=== PATIENT | female | born 1945 | race Two or more races ===

== ENCOUNTER 2016-06-04 13:44 | Inpatient (IN) | payer OTHER ==
--- NOTE | 2016-06-04 14:35 | PDOC ---
History of Present Illness - General History Source: Patient Exam Limitations: No Limitations - History of Present Illness Initial Comments: 06/04/16 18:41 The patient is a 70 year old female, with significant past medical history of HTN, HLD, GERD, hypothyroidism, seizures, renal transplant (25 years ago), CVA, who presents to the emergency room complaining of 1 week of body aches. The patient states that 1 week ago she began experiencing bilateral leg tightness, heaviness, and cramping that was exacerbated upon walking. Approximately 2 days ago she started to experience upper back pain that began to radiate to the chest and shoulders. She reports a dry cough. She notes that she also began to experience RUQ pain. The patients daughter had to escort the patient out of [place] this morning because she was shaky and weak secondary to the leg pain. She notes that she visited Dr. Lunsford office 4 days ago after gaining 6 pounds of water weight and was started on Lasix. Denies recent injuries. Denies recent falls. Denies nausea, vomiting, fever, chills, sweats. Denies diarrhea, constipation, melena. Denies urinary changes, hematuria. Denies history of blood clots. PCP: Dr. Mehta Allergies: codiene <Stephany Canales - Last Filed: 06/04/16 18:41> - General History Source: Patient Exam Limitations: No Limitations <Michael Carranza - Last Filed: 06/04/16 19:12> - General Chief Complaint: Pain Stated Complaint: ANXIETY Time Seen by Provider: 06/04/16 14:10 Past History <Stephany Canales - Last Filed: 06/04/16 18:41> - Past Medical History Cardiac Disorders: Yes (CARDIOMEGALY, pericarditis) CVA: Yes Dialysis: No (HX OF DIALYSIS S/P) HTN: Yes Hypercholesterolemia: Yes Suicide Attempt (Hx): No Seizures: Yes Thyroid Disease: Yes - Surgical History Abdominal Surgery: Yes (UMBILICAL HERNIA) Cardiac Surgery: Yes (percardial window,CARD CATH NO STENTS) - Psycho/Social/Smoking Cessation Hx Anxiety: No (DENIES) Suicidal Ideation: No Smoking Status: No Smoking History: Never smoked Have you smoked in the past 12 months: No Number of Cigarettes Smoked Daily: 0 Hx Alcohol Use: No Drug/Substance Use Hx: No Substance Use Type: None Hx Substance Use Treatment: No <Michael Carranza - Last Filed: 06/04/16 19:12> - Past Medical History Allergies/Adverse Reactions: Allergies Allergy/AdvReac Type Severity Reaction Status Date / Time codeine Allergy Intermediate Vomiting Verified 06/04/16 13:49 Home Medications: Ambulatory Orders Levothyroxine [Synthroid -] 75 mcg PO DAILY 03/07/12 Prednisone [Deltasone -] 5 mg PO DAILY 07/11/13 Azathioprine [Imuran] 100 mg PO DAILY 12/20/14 Diltiazem Cd [Cardizem Cd -] 240 mg PO DAILY 01/12/15 Acetaminophen [Tylenol .Regular Strength -] 650 mg PO Q6H PRN #0 tablet Albuterol Sulfate Inhaler - [Ventolin Hfa Inhaler -] 2 inh PO Q4H 06/04/16 Amoxicillin/Potassium Clav [Amox-Clav 875-125 mg Tablet] 1 each PO BID 06/04/16 Aspirin [ASA -] 81 mg PO DAILY 06/04/16 Fluticasone Prop 0.05% Nasal [Flonase -] 1 - 2 spray NS DAILY 06/04/16 Fluticasone Propionate [Flovent Diskus] 2 puff IH DAILY 06/04/16 Furosemide [Lasix -] 40 mg PO DAILY 06/04/16 Linaclotide [Linzess] 290 mcg PO DAILY 06/04/16 Multivit-Min/FA/Lycopen/Lutein [Centrum Silver Tablet] 1 each PO DAILY 06/04/16 Polyethylene Glycol 3350 [Miralax (For Daily Use) -] 17 gm PO DAILY 06/04/16 Umeclidinium [place] [Incruse Ellipta] 1 puff IH DAILY 06/04/16 Review of Systems - Review of Systems Able to Perform ROS?: Yes Comments:: 06/04/16 18:41 CONSTITUTIONAL: No reported: Fever, Chills, Diaphoresis, Generalized Weakness, Malaise, Loss of Appetite HEENT: No reported: Rhinorrhea, Nasal Congestion, Throat Pain, Throat Swelling, Difficulty Swallowing, Mouth Swelling, Ear Pain, Eye Pain, Visual Changes CARDIOVASCULAR: Reported: chest pain No reported: Syncope, Palpitations, Irregular Heart Rate, Lightheadedness, Peripheral Edema RESPIRATORY: Reported: SOB (chronic), dry cough No reported: SOB with Exertion, Orthopnea, Wheezing, Stridor, Hemoptysis GASTROINTESTINAL: Reported: RUQ pain No reported: Abdominal Distension, Nausea, Vomiting, Diarrhea, Constipation, Melena, Hematochezia GENITOURINARY: No reported: Dysuria, Frequency, Urgency, Hesitancy, Flank Pain, Genital Pain MUSCULOSKELETAL: Reported: shoulder pain, upper back pain, bilateral leg tightness and cramping. No reported: Myalgia, Arthralgia, Joint Swelling, Neck Pain SKIN: No reported: Rash, Itching, Pallor HEMEATOLOGIC/IMMUNOLOGIC: No reported: Easy Bleeding, Easy Bruising, Lymphadenopathy, Frequent infections ENDOCRINE: No reported: Unexplained Weight Gain, Unexplained Weight Loss, Heat Intolerance , Cold Intolerance NEUROLOGIC: No reported: Headache, Focal Weakness, Paresthesias, Vertigo, Lightheadedness, Unsteady Gait, Seizure, Mental Status Changes, Incontinence PSYCHIATRIC: No reported: Anxiety, Depression <Stephany Canales - Last Filed: 06/04/16 18:41> *Physical Exam - Vital Signs Last Vital Signs Temp Pulse Resp BP Pulse Ox 98.4 F 78 17 116/76 98 06/04/16 13:45 06/04/16 18:22 06/04/16 18:22 06/04/16 18:22 06/04/16 18:22 - Physical Exam Comments: 06/04/16 18:42 GENERAL: The patient is awake, alert, and fully oriented, Nontoxic - in no acute distress. HEAD: Normocephalic, atraumatic. EYES: extraocular movements intact, sclera anicteric, conjunctiva clear. ENT: Normal voice, Moist mucous membranes. NECK: Normal range of motion, supple, mild tenderness over the trapezius b/l, LUNGS: Breath sounds equal, clear to auscultation bilaterally. No wheezes, no rhonchi, no rales. HEART: Regular rate and rhythm, normal S1 and S2 without murmur, rub or gallop. ABDOMEN: Mild RUQ tenderness, no tenderness over transplanted kd[place], no rebound/ guarding, no midline tenderness in the spine EXTREMITIES: Normal range of motion, no edema. No clubbing or cyanosis. No cords, erythema, or tenderness. NEUROLOGICAL: No facial assymetry, Normal speech, PSYCH: Normal mood, normal affect. SKIN: Warm, Dry, normal turgor, <Stephany Canales - Last Filed: 06/04/16 18:41> - Vital Signs Last Vital Signs Temp Pulse Resp BP Pulse Ox 98.4 F 107 H 20 134/63 97 06/04/16 13:45 06/04/16 13:45 06/04/16 13:45 06/04/16 13:45 06/04/16 13:45 <Michael Carranza - Last Filed: 06/04/16 19:12> Heart Score/ECG Review - ECG Impressions Comment:: 06/04/16 14:59 Twelve-lead EKG was performed and reviewed by me. There is normal sinus rhythm with a normal rate. rate of [address] changes suggestive of acute ischemia When compared with prior EKG dated 12/27/2015 the patient's heart rate has decreased otherwise there are no significant changes noted <Michael Carranza - Last Filed: 06/04/16 19:12> ED Treatment Course - LABORATORY CBC & Chemistry Diagram: 06/04/16 15:00 06/04/16 15:00 - ADDITIONAL ORDERS Additional order review: Laboratory Results 06/04/16 06/04/16 06/04/16 17:42 15:00 15:00 INR 1.12 Sodium Potassium Chloride Carbon Dioxide Anion Gap BUN Creatinine Creat Clearance w eGFR Random Glucose Lactic Acid 1.946 Calcium Magnesium Total Bilirubin AST ALT Alkaline Phosphatase Creatine Kinase Troponin I B-Natriuretic Peptide Total Protein Albumin Lipase TSH Urine Color Ltyellow Urine Appearance Clear Urine pH 5.0 Ur Specific [place] 1.011 Urine Protein Negative Urine Glucose (UA) Negative Urine Ketones Negative Urine Blood Negative Urine Nitrite Negative Urine Bilirubin Negative Urine Urobilinogen Negative Ur Leukocyte Esterase 2+ H Urine RBC 2 Urine WBC 24 Ur Epithelial Cells Rare Blood Type Antibody Screen 06/04/16 06/04/16 15:00 15:00 INR Sodium 140 Potassium 3.7 Chloride 101 Carbon Dioxide 27 Anion Gap 12 BUN 21 H D Creatinine 1.1 H D Creat Clearance w eGFR 49.39 Random Glucose 76 Lactic Acid Calcium 8.6 Magnesium 1.9 Total Bilirubin 0.4 D AST 14 L ALT 15 Alkaline Phosphatase 60 Creatine Kinase 50 Troponin I < 0.02 B-Natriuretic Peptide 344.33 H Total Protein 7.6 Albumin 3.4 Lipase 181 TSH 0.90 D Urine Color Urine Appearance Urine pH Ur Specific [place] Urine Protein Urine Glucose (UA) Urine Ketones Urine Blood Urine Nitrite Urine Bilirubin Urine Urobilinogen Ur Leukocyte Esterase Urine RBC Urine WBC Ur Epithelial Cells Blood Type O POSITIVE Antibody Screen Negative 06/04/16 15:00 RBC 3.84 MCV 100.1 H MCHC 33.1 RDW 16.2 H MPV 9.7 Neutrophils % 78.9 D Lymphocytes % 10.0 D Monocytes % 10.3 H Eosinophils % 0.2 D Basophils % 0.6 - Medications Given in the ED: ED Medications Discontinued Medications Generic Name Dose Route Start Last Admin Trade Name Jessica PRN Reason Stop Dose Admin Acetaminophen 650 mg 06/04/16 14:57 06/04/16 15:22 Tylenol - PO 06/04/16 14:58 650 mg ONCE ONE Administration Sodium Chloride 500 mls @ 500 mls/hr 06/04/16 14:57 06/04/16 15:21 Normal Saline - IV 06/04/16 15:56 500 mls/hr ASDIR STA Administration <Stephany Canales - Last Filed: 06/04/16 18:41> - LABORATORY CBC & Chemistry Diagram: 06/04/16 15:00 06/04/16 15:00 - RADIOLOGY Radiology Studies Ordered: Category Date Time Status CHEST X-RAY PORTABLE* [RAD] Stat Radiology 06/04/16 14:27 Ordered <Michael Carranza - Last Filed: 06/04/16 19:12> Medical Decision Making - Medical Decision Making 06/04/16 14:35 70y F hx htn, gerd, diverticulosis, hypothyroidism, gout, sz, pancreatic cyst, gb disease, renal transplant 25 yrs ago on imuran, cva, pericarditis s/p percardial window, hl, presents with a confusing story - mostly 1 week of b/l leg pain/cramping and and then starting 2 days ago, upper back pain and this morning chest pain and ruq pain without associated diaphoresis, n/v, f/c, diarrhea, dysuria, cough. differential is wide for the pt and includes acs, gb disease, pancreatitis, sepsis as pt is immunosupressed, will ck labs, lactic acid, cxr, ua, cultures will reassess will give tylenol, fluids A portion of this note was documented by scribe services under my direction. I have reviewed the details of the note, within reason, and agree with the documentation with the following case summary and management plan written by me 06/04/16 18:35 labs reviewed noted for leukcotysosis ua possible UTI - will give abx will obtain CT abdmoen UA is not convincing will notify dr. mehta regardin admission 06/04/16 19:[address] mehta agreed with admission and abx for uti as pt is immunosupressed. also agrees with abdomen ct stable for admision to med/surg Case discussed in detail with admitting physician including history, physical exam and ancillary studies. Admitting physician has assumed care for the patient, will follow all pending diagnostics and will complete the evaluation and treatment. <Michael Carranza - Last Filed: 06/04/16 19:12> *DC/Admit/Observation/Transfer - Attestations Scribe Attestion: 06/04/16 18:42 Documentation prepared by KATHERINE Guevara, acting as medical review coordinator for Michael Carrazna MD. <Stephany Canales - Last Filed: 06/04/16 18:41> - Discharge Dispostion Admit: Yes <Michael Carranza - Last Filed: 06/04/16 19:12> Diagnosis at time of Disposition: Body aches UTI (urinary tract infection) Qualifiers: Urinary tract infection type: site unspecified Hematuria presence: with hematuria Qualified Code(s): N39.0 - Urinary tract infection, site not specified ; R31.9 - Hematuria, unspecified - Discharge Dispostion Disposition: HOME Condition at time of disposition: Guarded - Referrals Referrals: Amelia Mehta [Primary Care Provider] -
[2016-06-04] MEDS ORDERED: SODIUM CHLORIDE 500 ML IV STA (14:57)
[2016-06-04] MEDS ORDERED: ACETAMINOPHEN 325 MG TABLET (FP) PO ONE (14:57)
[2016-06-04] MEDS ORDERED: ACETAMINOPHEN 325 MG TABLET (FP) ONE (15:14)
[2016-06-04 15:18] LABS: BASOPHIL 0.6 % (0-2.0); EOSINOPHIL 0.2 % (0-4.5); MCH 33.2 pg (25.7-33.7); MCHC 33.1 g/dl (32.0-36.0); MEAN CELL VOLUME 100.1 fl (80-96); MEAN PLT VOLUME 9.7 fl (7.5-11.1); NEUTROPHILS 78.9 % (42.8-82.8); PLATELET COUNT 239 K/MM3 (134-434); RDW 16.2 % (11.6-15.6); WHITE BLOOD COUNT 16.9 K/mm3 (4.0-10.0)
[2016-06-04 15:31] LABS: INR 1.12 (0.82-1.09); PROTHROMBIN TIME (PATIENT) 12.3 SEC (9.98-11.88)
[2016-06-04 15:47] LABS: ALBUMIN 3.4 g/dl (3.4-5.0); ANION GAP 12 (8-16); CALCIUM 8.6 mg/dL (8.5-10.1); CO2 27 mmol/L (21-32); CREATININE 1.1 mg/dL (0.55-1.02); GLUCOSE,RANDOM 76 mg/dL (74-106); MAGNESIUM 1.9 mg/dL (1.8-2.4); SGOT/AST 14 U/L (15-37); SGPT/ALT 15 U/L (12-78)
[2016-06-04 15:58] LABS: ALK PHOS 60 U/L (45-117); BILIRUBIN,TOTAL 0.4 mg/dL (0.2-1.0); TOT PROT 7.6 g/dl (6.4-8.2); TROPONIN I < 0.02 ng/ml (0.00-0.05)
--- NOTE | 2016-06-04 17:11 | EKG ---
Test Reason : Blood Pressure : / mmHG Vent. Rate : 097 BPM Atrial Rate : 097 BPM P-R Int : 158 ms QRS Dur : 104 ms QT Int : 358 ms P-R-T Axes : 057 -59 055 degrees QTc Int : 454 ms NORMAL SINUS RHYTHM POSSIBLE LEFT ATRIAL ENLARGEMENT LEFT ANTERIOR FASCICULAR BLOCK LEFT VENTRICULAR HYPERTROPHY ABNORMAL ECG WHEN COMPARED WITH ECG OF 27-DEC-2015 06:25, NO SIGNIFICANT CHANGE WAS FOUND Confirmed by GREER DOWNS MD ([id number]) on 06/04/2016 5:11:11 PM Referred By: Confirmed By:GREER DOWNS MD
[2016-06-04 17:49] LABS: URINE APPEARANCE CLEAR; URINE BILIRUBIN NEGATIVE (NEGATIVE); URINE BLOOD NEGATIVE (NEGATIVE); URINE COLOR LTYELLOW; URINE GLUCOSE (UA) NEGATIVE (NEGATIVE); URINE KETONE NEGATIVE (NEGATIVE); URINE NITRITE NEGATIVE (NEGATIVE); URINE PROTEIN NEGATIVE (NEGATIVE); URINE UROBILINOGEN NEGATIVE E.U./dl (0.2-1.0)
[2016-06-04 17:54] LABS: URINE LEUK ESTERASE 2+ (NEGATIVE)
[2016-06-04 17:55] LABS: URINE RBC 2 /hpf (0-3); URINE WBC 24 /hpf (3-5)
[2016-06-04] MEDS ORDERED: CEFTRIAXONE 1 GM in DEXTROSE 5%-WATER - 50 ML IVPB ONE (18:37)
[2016-06-04] MEDS ORDERED: CEFTRIAXONE 50 ML ONE (19:14)
[2016-06-04] MEDS ORDERED: ALBUTEROL SO4 6.7 GM HFA INHALER IH PRN (19:45)
[2016-06-04 22:16] VITALS: BMI 27.3
[2016-06-04] MEDS: HEPARIN NA (PORCINE) 5,000 UNITS/ML 1ML VIAL SQ SCH (22:42)
[2016-06-05] MEDS: LEVOTHYROXINE NA 75 MCG TABLET (FP) PO SCH (06:10)
[2016-06-05 07:54] LABS: BASOPHIL 0.4 % (0-2.0); EOSINOPHIL 0.3 % (0-4.5); MCH 33.5 pg (25.7-33.7); MCHC 33.5 g/dl (32.0-36.0); MEAN CELL VOLUME 99.9 fl (80-96); MEAN PLT VOLUME 9.5 fl (7.5-11.1); NEUTROPHILS 74.6 % (42.8-82.8); PLATELET COUNT 212 K/MM3 (134-434); RDW 15.9 % (11.6-15.6); WHITE BLOOD COUNT 13.7 K/mm3 (4.0-10.0)
[2016-06-05 08:09] LABS: ALBUMIN 2.9 g/dl (3.4-5.0); BILIRUBIN,TOTAL 0.6 mg/dL (0.2-1.0); CALCIUM 8.3 mg/dL (8.5-10.1); COCKROFT - GAULT 54.043; TOT PROT 6.7 g/dl (6.4-8.2)
--- NOTE | 2016-06-05 08:41 | CON.CARD ---
Consult Consult Specialty:: cardio Referred by:: keily Reason for Consultation:: body pain - History of Present Illness Chief Complaint: same History of Present Illness: 70 year old female presents to the emergency room complaining of 1 week of body aches. The patient states that 1 week ago she began experiencing bilateral leg tightness, heaviness, and cramping AT REST, that was exacerbated upon walking. then 2 days ago she started to experience upper back pain that began to radiate to the chest and shoulders. She notes that she also began to experience RUQ pain. The patients daughter had to escort the patient out of [facility] [place] because she was shaky and weak secondary to the leg pain. dt also says she was very breathless at that time, looking like she had jogged. pt notes the sob she's had before, with neg cath for this (below) returned couple days ago, only when walking. denies orthopnea. sob resolves when rests. had cath approx 6 mo ago for exertional chest tightness to throat with sob-- cath no CAD, normal right heart pressures; treated by dr guerra for asthma--sx's resolved. prior statin intolerances. started red yeast rice around 6 mo ago. told to stop it when saw me a week ago c/o bilat leg pains. pains are at rest, worse with walking. often when resting however. not felt c/w PAD has had no recent cp, sob. 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 No: None, AAA Repair, AICD , Amputation, Appendectomy, Arthrosocopy, AV Fistula/Graft, Bariatric Surgery, Breast Biopsy, Bypass, CABG, Carotid Endarterectomy, Cataract Removal, Cholecystectomy, Colectomy, Colonoscopy, Colostomy, Craniotomy, , Cystectomy, Hysterectomy, Ileal Conduit, Ileosotomy, Joint Replacement, Kidney Transplant, Laminectomy, Liver Transplant, Mastectomy, Nephrectomy, Oopherectomy , Orchiectomy, Permanent Pacemaker, Prostatectomy, Splenectomy, Stent, Thoracotomy, TURP, Tonsillectomy, Tubal Ligation, Upper Endoscopy, Valve Replacement, Vasectomy, Vein Stripping/Ligation - Alcohol/Substance Use Hx Alcohol Use: No History of Substance Use: reports: None - Smoking History Smoking history: Never smoked Have you smoked in the past 12 months: No Aproximately how many cigarettes per day: 0 - Social History ADL: Independent History of Recent Travel: No Home Medications - Allergies Allergies/Adverse Reactions: Allergies Allergy/AdvReac Type Severity Reaction Status Date / Time codeine Allergy Intermediate Vomiting Verified 06/04/16 13:49 - Home Medications Home Medications: Ambulatory Orders Levothyroxine [Synthroid -] 75 mcg PO DAILY 03/07/12 Prednisone [Deltasone -] 5 mg PO DAILY 07/11/13 Azathioprine [Imuran] 100 mg PO DAILY 12/20/14 Diltiazem Cd [Cardizem Cd -] 240 mg PO DAILY 01/12/15 Acetaminophen [Tylenol .Regular Strength -] 650 mg PO Q6H PRN #0 tablet Albuterol Sulfate Inhaler - [Ventolin Hfa Inhaler -] 2 inh PO Q4H 06/04/16 Amoxicillin/Potassium Clav [Amox-Clav 875-125 mg Tablet] 1 each PO BID 06/04/16 Aspirin [ASA -] 81 mg PO DAILY 06/04/16 Fluticasone Prop 0.05% Nasal [Flonase -] 1 - 2 spray NS DAILY 06/04/16 Fluticasone Propionate [Flovent Diskus] 2 puff IH DAILY 06/04/16 Furosemide [Lasix -] 40 mg PO DAILY 06/04/16 Linaclotide [Linzess] 290 mcg PO DAILY 06/04/16 Multivit-Min/FA/Lycopen/Lutein [Centrum Silver Tablet] 1 each PO DAILY 06/04/16 Polyethylene Glycol 3350 [Miralax (For Daily Use) -] 17 gm PO DAILY 06/04/[address] [place] [Incruse Ellipta] 1 puff IH DAILY 06/04/16 Family Disease History - Family Disease History Family Disease History: CA: Sister (breast) Vital Signs: Vital Signs Temperature 98.7 F 06/05/16 06:00 Pulse Rate 90 06/05/16 06:00 Respiratory Rate 20 06/05/16 06:00 Blood Pressure 118/62 06/05/16 06:00 O2 Sat by Pulse Oximetry (%) 98 06/04/16 22:21 - Other Data Labs, Other Data: CBC, BMP 06/05/16 06:20 06/05/16 06:20 INR, PTT INR 1.12 (0.82-1.09) 06/04/16 15:00 Laboratory Tests 12/27/15 12/27/15 12/27/15 06:37 06:50 06:50 WBC 10.8 H Hgb 11.7 Plt Count 176 D Sodium 142 Potassium 3.8 Carbon Dioxide 24 BUN 21 H Creatinine 1.1 H D Lactic Acid 3.545 H* AST 29 D ALT 34 D Creatine Kinase 63 Troponin I < 0.02 B-Natriuretic Peptide TSH 12/27/15 06/04/16 06/05/16 08:50 15:00 06:20 WBC 13.7 H Hgb 12.1 Plt Count 212 Sodium Potassium Carbon Dioxide BUN Creatinine Lactic Acid 3.144 H* AST ALT Creatine Kinase 50 Troponin I < 0.02 B-Natriuretic Peptide 344.33 H TSH 0.90 D 06/05/16 06:20 WBC Hgb Plt Count Sodium 139 Potassium 4.2 Carbon Dioxide 26 BUN 15 D Creatinine 1.0 Lactic Acid AST 13 L ALT 10 L D Creatine Kinase Troponin I B-Natriuretic Peptide TSH ekg: no change vs prior (NSR, LVH/LAFB, no isch ST-Ts) Imaging - Results Chest X-ray: Image Reviewed Assessment/Plan L and R heart cath 2016: no obstructive cad, no signif pulm HTN multifocal pains: bilat LEs (at rest), abdomen, back: -not c/w statin myalgia from low dose red yeast rice (i.e. very low potency regimen), CPK normal -CXR, CT abdomen pending -plan per pmd SOB: -her chronic BECKWITH sx's are not cardiac--normal left and right heart cath/cor angiogram 12/11 for same. -improved with asthma tx (dr guerra) but returned for couple of days now -per pulm, dr michaud--? MDI adjustment -BNP 300s here, underwhelming -no phys exam evidence of vol excess -cxr my review: mild incr'd markings diffusely, no cephalization, no R effusion ; retrocardiac/L base obscured--r/o infiltrate/effusion -ECG no ischemic changes -trop neg yest, will repeat though ACS is clinically unlikely HTN: -bp stable, controlled -cont home meds HPL: -cont holding red yeast rice for now -noncompliant with zetia previously -will readdress as outpt h/o exertional cp/sob--ASTHMA SX: -resolved with asthma tx
--- NOTE | 2016-06-05 08:43 | HP ---
Admitting History and Physical - Primary Care Physician PCP: Amelia Mehta - Admission Chief Complaint: CP, shaking chills, body aches History of Present Illness: The patient is a 70 year old female, with significant past medical history of HTN, HLD, GERD, hypothyroidism, seizures, renal transplant (25 years ago), CVA, who presents to the emergency room complaining of 1 week of body aches. The patient states that 1 week ago she began experiencing bilateral leg tightness, heaviness, and cramping that was exacerbated upon walking. Approximately 2 days ago she started to experience upper back pain that began to radiate to the chest and shoulders. She reports a dry cough. She notes that she also began to experience RUQ pain. The patients daughter had to escort the patient out of [place] this morning because she was shaky and weak secondary to the leg pain. She notes that she visited me in office 4 days ago after gaining 5-6 pounds of water weight and was started on Lasix. 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 No: None, AAA Repair, AICD , Amputation, Appendectomy, Arthrosocopy, AV Fistula/Graft, Bariatric Surgery, Breast Biopsy, Bypass, CABG, Carotid Endarterectomy, Cataract Removal, Cholecystectomy, Colectomy, Colonoscopy, Colostomy, Craniotomy, , Cystectomy, Hysterectomy, Ileal Conduit, Ileosotomy, Joint Replacement, Kidney Transplant, Laminectomy, Liver Transplant, Mastectomy, Nephrectomy, Oopherectomy , Orchiectomy, Permanent Pacemaker, Prostatectomy, Splenectomy, Stent, Thoracotomy, TURP, Tonsillectomy, Tubal Ligation, Upper Endoscopy, Valve Replacement, Vasectomy, Vein Stripping/Ligation - Advance Directives Advance Directives: Yes: Health Care Proxy - Smoking History Smoking history: Never smoked Have you smoked in the past 12 months: No Aproximately how many cigarettes per day: 0 - Alcohol/Substance Use Hx Alcohol Use: No History of Substance Use: reports: None - Social History Usual Living Arrangement: Yes: With Child ADL: Independent History of Recent Travel: No Home Medications - Allergies Allergies/Adverse Reactions: Allergies Allergy/AdvReac Type Severity Reaction Status Date / Time codeine Allergy Intermediate Vomiting Verified 06/04/16 13:49 - Home Medications Home Medications: Ambulatory Orders Levothyroxine [Synthroid -] 75 mcg PO DAILY 03/07/12 Prednisone [Deltasone -] 5 mg PO DAILY 07/11/13 Azathioprine [Imuran] 100 mg PO DAILY 12/20/14 Diltiazem Cd [Cardizem Cd -] 240 mg PO DAILY 01/12/15 Acetaminophen [Tylenol .Regular Strength -] 650 mg PO Q6H PRN #0 tablet Albuterol Sulfate Inhaler - [Ventolin Hfa Inhaler -] 2 inh PO Q4H 06/04/16 Amoxicillin/Potassium Clav [Amox-Clav 875-125 mg Tablet] 1 each PO BID 06/04/16 Aspirin [ASA -] 81 mg PO DAILY 06/04/16 Fluticasone Prop 0.05% Nasal [Flonase -] 1 - 2 spray NS DAILY 06/04/16 Fluticasone Propionate [Flovent Diskus] 2 puff IH DAILY 06/04/16 Furosemide [Lasix -] 40 mg PO DAILY 06/04/16 Linaclotide [Linzess] 290 mcg PO DAILY 06/04/16 Multivit-Min/FA/Lycopen/Lutein [Centrum Silver Tablet] 1 each PO DAILY 06/04/16 Polyethylene Glycol 3350 [Miralax (For Daily Use) -] 17 gm PO DAILY 06/04/16 Umeclidinium [place] [Incruse Ellipta] 1 puff IH DAILY 06/04/16 Family Disease History - Family Disease History Family Disease History: CA: Sister (breast) Review of Systems - Review of Systems Constitutional: reports: Chills, Fever. denies: Diaphoresis, Lethargy Eyes: denies: Blind Spots, Blurred Vision, Double Vision, Eye Pain HENT: denies: Difficult Swallowing, Ear Pain Neck: denies: Stiffness, Tenderness Cardiovascular: reports: Chest Pain (with moving and breathing), Edema (feet 1+ bilateral). denies: Palpitations, Shortness of Breath Respiratory: denies: Cough, SOB Gastrointestinal: reports: Abdominal Pain. denies: Bloating, Constipation, Diarrhea, Vomiting Genitourinary: denies: Dysuria, Flank Pain Musculoskeletal: denies: Back Pain, Muscle Weakness Integumentary: denies: Bruising, Rash Neurological: denies: Change in LOC, Change in Speech, Confusion, Seizure, Syncope Hematology/Lymphatic: denies: Easily Bruised, Excessive Bleeding Psychiatric: denies: Altered Sleep Pattern, Anxiety, Depression, Suicidal Physical Examination Vital Signs: Vital Signs Temperature 98.7 F 06/05/16 06:00 Pulse Rate 90 06/05/16 06:00 Respiratory Rate 20 06/05/16 06:00 Blood Pressure 118/62 06/05/16 06:00 O2 Sat by Pulse Oximetry (%) 98 06/04/16 22:21 Constitutional: Yes: No Distress, Calm Eyes: Yes: Conjunctiva Clear HENT: Yes: Atraumatic Neck: Yes: Supple Cardiovascular: Yes: Regular Rate and Rhythm Respiratory: Yes: CTA Bilaterally Gastrointestinal: Yes: Soft, Tenderness (all over, mild). No: Distention Renal/: No: CVA Tenderness - Left, CVA Tenderness - Right Musculoskeletal: No: Joint Stiffness, Joint Swelling Extremities: No: Cold, Cool Edema: No Integumentary: No: Rash, Venous Stasis Changes Neurological: Yes: WNL, Alert, Oriented ...Motor Strength: WNL Psychiatric: Yes: WNL, Alert, Oriented. No: Agitated Labs: CBC, BMP 06/05/16 06:20 06/05/16 06:20 Imaging - Results Chest X-ray: Report Reviewed Cat Scan: Report Reviewed Other: Report Reviewed Assessment/Plan The patient is a 70 year old female, with significant past medical history of HTN, HLD, GERD, hypothyroidism, seizures, renal transplant (25 years ago), CVA, who presents to the emergency room complaining of 1 week of body aches. . She reports a dry cough and nonspecific abdominal pain. Found to have UTI and possible PNA, low grade fever admit to inpt check cultures, abdomen CHEST CT IV ATB ID eval cardiology renal and rheumtology eval DVT falls aspiration pfx d/w pt and staff' will call daughter
[2016-06-05] MEDS: FLUTICASONE PROP 0.05% 16 GM NASAL SPRAY NS SCH (09:27)
[2016-06-05] MEDS: predniSONE 5 MG TABLET (UD) PO SCH (09:28)
[2016-06-05] MEDS: MULTIVITAMINS THER W-MINERALS COMBO TABLET (FP) PO SCH (09:28)
[2016-06-05] MEDS: ASPIRIN 81 MG CHEWABLE TABLETS PO SCH (09:29)
[2016-06-05] MEDS: HEPARIN NA (PORCINE) 5,000 UNITS/ML 1ML VIAL SQ SCH ×2 (09:30→22:35)
[2016-06-05] MEDS: cefTRIAXone 1 GM/50 ML BAG (PRE-DOCKED) IVPB SCH (09:30)
[2016-06-05] MEDS: POLYETHYLENE GLYCOL 3350 119 GM BTL PO SCH (09:33)
[2016-06-05] MEDS ORDERED: CEFTRIAXONE 1 GM in DEXTROSE 5%-WATER - 50 ML IVPB SCH (10:00)
[2016-06-05] MEDS ORDERED: PATIENT'S OWN MEDICATION (NON-FORMULARY) (Linaclotide [Linzess] 290 MCG) PO SCH (10:00)
[2016-06-05] MEDS ORDERED: PATIENT'S OWN MEDICATION (NON-FORMULARY) (Umeclidinium Bromide [Incruse Ellipta] 1 PUFF) IH SCH (10:00)
[2016-06-05] MEDS ORDERED: PATIENT'S OWN MEDICATION (NON-FORMULARY) (Fluticasone Propionate [Flovent Diskus] 2 PUFF) IH SCH (10:00)
[2016-06-05] MEDS: azaTHIOprine 50 MG TABLET PO SCH (10:25)
--- NOTE | 2016-06-05 10:43 | PN ---
Teaching Attending Note Name of Resident: Nicolle French ATTENDING PHYSICIAN STATEMENT I saw and evaluated the patient. I reviewed the resident's note and discussed the case with the resident. I agree with the resident's findings and plan as documented. SUBJECTIVE: Patient known to us from prior admissions Multitude of complaints from neck and shoulder pain and abd pain No fevers OBJECTIVE:Mild tenderness RUQ ASSESSMENT AND PLAN: No symptoms to suggest UTI but since WBC coming down on Ceftriaxone to continue pending cultures. CT ordered and pending. Renal transplant in distant past. Does not appear to be cholecystitis sonogram. Tere [facility] Problem List - Problems (1) UTI (urinary tract infection) Code(s): N39.0 - URINARY TRACT INFECTION, SITE NOT SPECIFIED Qualifiers: Urinary tract infection type: site unspecified Hematuria presence: with hematuria Qualified Code(s): N39.0 - Urinary tract infection, site not specified (2) Renal transplant recipient Code(s): Z94.0 - KIDNEY TRANSPLANT STATUS
[2016-06-05 12:54] LABS: TROPONIN I < 0.02 ng/ml (0.00-0.05)
--- NOTE | 2016-06-05 16:06 | CONSULT ---
Consultation: REQUESTING PROVIDER: Dr. Amelia Mehta CONSULT REQUEST: We have been asked to medically evaluate this patient for UTI HISTORY OF PRESENT ILLNESS: Patient is a 70 year old female with a PMHx of HTN, HLD, hypothyroidism, renal transplant (25 years) on Imuran and Prednisone, who presented for one week history of body aches, shoulder pain, abdominal cramping predominately in the RUQ, and bilateral leg cramping and tightness. Patients daughter reports that she was at [facility] and her mother started having whole body shaking and weakness due to her leg pain and weakness. Patient states she had a history of cardiac catheterization two months ago and was then placed on antibiotics right after. Patient was then found to have UTI with LE 2+. Otherwise, patient denies fever , nausea, vomiting, hematuria, dysuria, frequency, flank pain, vaginal discharge , chest pain, palpitations, shortness of breath. Patient denies any recent travel or ill contacts REVIEW OF SYSTEMS: CONSTITUTIONAL: Present: chills Absent: fever, diaphoresis, generalized weakness, malaise, loss of appetite, weight change HEENT: Absent: rhinorrhea, nasal congestion, throat pain, throat swelling, difficulty swallowing, mouth swelling, ear pain, eye pain, visual changes CARDIOVASCULAR: Absent: chest pain, syncope, palpitations, irregular heart rate, lightheadedness , peripheral edema RESPIRATORY: Absent: cough, shortness of breath, dyspnea with exertion, orthopnea, wheezing, stridor, hemoptysis GASTROINTESTINAL: Present: abdominal pain Absent: abdominal distension, nausea, vomiting, diarrhea, constipation, melena, hematochezia GENITOURINARY: Absent: dysuria, frequency, urgency, hesitancy, hematuria, flank pain, genital pain MUSCULOSKELETAL: Present: back pain, neck pain Absent: myalgia, arthralgia, joint swelling SKIN: Absent: rash, itching, pallor HEMATOLOGIC/IMMUNOLOGIC: Absent: easy bleeding, easy bruising, lymphadenopathy, frequent infections ENDOCRINE: Absent: unexplained weight gain, unexplained weight loss, heat intolerance, cold intolerance NEUROLOGIC: Absent: headache, focal weakness or paresthesias, dizziness, unsteady gait, seizure, mental status changes, bladder or bowel incontinence PSYCHIATRIC: Absent: anxiety, depression, suicidal or homicidal ideation, hallucinations. PHYSICAL EXAMINATION Vital Signs - 24 hr 06/04/16 06/04/16 06/04/16 19:33 22:09 22:21 Temperature 99.6 F 99.7 F H Pulse Rate 98 H Pulse Rate [ 94 H Apical] Respiratory 19 20 20 Rate Blood Pressure 126/77 Blood Pressure 132/96 [Right Arm] O2 Sat by Pulse 95 98 Oximetry (%) 06/05/16 06/05/16 06/05/16 02:00 06:00 09:20 Temperature 99.4 F 98.7 F 98.1 F Pulse Rate 90 98 H Pulse Rate [ Apical] Respiratory 20 20 Rate Blood Pressure 118/62 87/51 Blood Pressure [Right Arm] O2 Sat by Pulse Oximetry (%) 06/05/16 06/05/16 10:13 14:06 Temperature 97.9 F Pulse Rate 90 92 H Pulse Rate [ Apical] Respiratory 20 Rate Blood Pressure 116/64 116/62 Blood Pressure [Right Arm] O2 Sat by Pulse Oximetry (%) GENERAL: Awake, alert, and fully oriented, in no acute distress. LUNGS: Breath sounds equal, clear to auscultation bilaterally. No wheezes, and no crackles. No accessory muscle use. HEART: Regular rate and rhythm, normal S1 and S2 without murmur, rub or gallop. ABDOMEN: Mild RUQ tenderness upon palpation, not distended, normoactive bowel sounds, no guarding, no rebound, no masses. No hepatomegaly or splenomegaly. EXTREMITIES: No peripheral edema. Laboratory Results - last 24 hr 06/04/16 06/05/16 06/05/16 21:42 06:20 06:20 WBC 13.7 H RBC 3.60 Hgb 12.1 Hct 36.0 MCV 99.9 H MCHC 33.5 RDW 15.9 H Plt Count 212 MPV 9.5 Neutrophils % 74.6 Lymphocytes % 13.9 D Monocytes % 10.8 H Eosinophils % 0.3 Basophils % 0.4 Sodium 139 Potassium 4.2 Chloride 102 Carbon Dioxide 26 Anion Gap 11 BUN 15 D Creatinine 1.0 Creat Clearance w eGFR 55.14 Random Glucose 86 Calcium 8.3 L Total Bilirubin 0.6 D AST 13 L ALT 10 L D Alkaline Phosphatase 55 Creatine Kinase Troponin I Total Protein 6.7 Albumin 2.9 L Blood Type Cancelled 06/05/16 11:55 WBC RBC Hgb Hct MCV MCHC RDW Plt Count MPV Neutrophils % Lymphocytes % Monocytes % Eosinophils % Basophils % Sodium Potassium Chloride Carbon Dioxide Anion Gap BUN Creatinine Creat Clearance w eGFR Random Glucose Calcium Total Bilirubin AST ALT Alkaline Phosphatase Creatine Kinase 48 Troponin I < 0.02 Total Protein Albumin Blood Type Active Medications Generic Name Dose Route Start Last Admin Trade Name Freq PRN Reason Stop Dose Admin Acetaminophen 650 mg 06/04/16 19:39 Tylenol - PO Q6H PRN FEVER OR PAIN Albuterol Sulfate 2 puff 06/04/16 19:45 Ventolin Hfa Inhaler - IH Q4H PRN SHORT OF BREATH/WHEEZING Aspirin 81 mg 06/05/16 10:00 06/05/16 09:29 Asa - PO 81 mg DAILY [facility] Administration Azathioprine 100 mg 06/05/16 10:00 06/05/16 10:25 Imuran - PO 100 mg DAILY [facility] Administration Ceftriaxone Sodium 1 gm 06/05/16 10:00 06/05/16 09:30 Rocephin 1gm Ivpb (Pre-Docked) IVPB 1 gm DAILY [facility] Administration Diltiazem HCl 240 mg 06/05/16 10:00 06/05/16 09:20 Cardizem Cd - PO Not Given DAILY [facility] Fluticasone Propionate 1 spray 06/05/16 10:00 06/05/16 09:27 Flonase - NS 1 spray DAILY [facility] Administration Heparin Sodium (Porcine) 5,000 unit 06/04/16 22:00 06/05/16 09:30 Heparin - SQ 5,000 unit BID [facility] Administration Levothyroxine Sodium 75 mcg 06/05/16 07:00 06/05/16 06:10 Synthroid - PO 75 mcg DAILY@0700 [facility] Administration Multivitamins/Minerals 1 each 06/05/16 10:00 06/05/16 09:28 Theragran-M PO 1 each DAILY [facility] Administration Polyethylene Glycol 17 gm 06/05/16 10:00 06/05/16 09:33 Miralax (For Daily Use) - PO 17 gm DAILY [facility] Administration Prednisone 5 mg 06/05/16 10:00 06/05/16 09:28 Deltasone - PO 5 mg DAILY [facility] Administration ASSESSMENT/PLAN: Patient is a 70 year old female with a PMHx of HTN, HLD, hypothyroidism, renal transplant (25 years) on Imuran and Prednisone, who presented for one week history of body aches, shoulder pain, abdominal cramping predominately in the RUQ, and bilateral leg cramping and tightness. Patient found to have Leukocyte esterase 2+ and concern was for asymptomatic UTI in previous renal transplant patient. -There are no symptoms that suggest a UTI and patient denies any frequency, urgency, lower back pain or suprapubic tenderness. However, patients WBC's are trending down with Ceftriaxone and will continue on Ceftriaxone until final blood and urine cultures. Abdominal U/S revealed no acute pathology. CT abdomen final report pending. Dispo: We will continue to follow the patient. Thank you for this consultative opportunity. Visit type - Emergency Visit Emergency Visit: Yes ED Registration Date: 06/04/16 Care time: The patient presented to the Emergency Department on the above date and was hospitalized for further evaluation of their emergent condition. - New Patient This patient is new to me today: Yes Date on this admission: 06/05/16 - Critical Care Critical Care patient: No
--- NOTE | 2016-06-05 20:03 | CONS ---
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 The patient was admitted with diffuse aches and pains. HISTORY OF PRESENT ILLNESS: The patient reports that 7 days ago, she developed myalgia in both calves followed by diffuse tenderness in both shoulders related to activity. She had difficulty in walking apparently; initially, she had edema in lower limbs. She was treated with diuretics with improvement in the edema; however, she continues having myalgia. Yesterday, she developed abdominal pain in the right upper quadrant; she denies nausea, vomiting, or diarrhea, and the pain has been continuous. The patient has been treated in the past with statins for hypercholesterolemia; however, the patient reports that she discontinued the medication about 2 months ago and has been treated with . She denies pain in the hips (groins) and denies other joint involvement. She also denies headaches or changes in her vision. A workup in the hospital revealed a chest x-ray with a with possible peripheral pleural or parenchymal changes, and CT scan of the abdomen and pelvis was reported with mild hepatomegaly, the right hemipelvis renal transplant, small uterine calcified fibroids, and minimal pleural effusion. Laboratory workup revealed a CBC with a WBC of 16.9, that improved to 13.7, hemoglobin 12.7, hematocrit 38.5, and platelets 239. The creatinine was 1.1. Liver function tests were normal. CK was 50. BNP 344. TSH was 0.9. Urinalysis had leukocyte esterase 2+, and it was negative for blood and protein. PHYSICAL EXAMINATION: General: The patient was in mild distress; she has not had fever in this admission. HEENT: Normal. Lungs: Clear. Heart: Revealed S1 and S2 normal with no gallop and no murmur. Abdomen: Soft with tenderness in the right upper quadrant with no masses, Pompa's was negative and there was questionable rebound. Musculoskeletal: Examination revealed tenderness in both shoulders, mainly over the greater tuberosity on extension of the joint suggestive of rotator cuff tendinitis. There was no tenderness or swelling in the joints of the hands, and the hips were normal. She had mild tenderness in both calves. IMPRESSION: The patient has diffuse aches and pains with pain in shoulders and calf and abdominal pain. Even though it is unlikely, I will obtain acute-phase reactants to rule out polymyalgia rheumatica. At this point, I do not have any clear explanation of the symptoms, and abdominal workup is in progress. Thank you for this consult. MARY BUCK M.D. [id number]
[2016-06-06] MEDS: LEVOTHYROXINE NA 75 MCG TABLET (FP) PO SCH (06:10)
[2016-06-06] MEDS: ACETAMINOPHEN 325 MG TABLET (FP) PO PRN (06:11)
[2016-06-06 07:49] LABS: BASOPHIL 0.6 % (0-2.0); EOSINOPHIL 0.8 % (0-4.5); MCH 33.5 pg (25.7-33.7); MCHC 33.2 g/dl (32.0-36.0); MEAN CELL VOLUME 100.7 fl (80-96); MEAN PLT VOLUME 9.6 fl (7.5-11.1); NEUTROPHILS 67.4 % (42.8-82.8); PLATELET COUNT 220 K/MM3 (134-434); WHITE BLOOD COUNT 9.5 K/mm3 (4.0-10.0)
[2016-06-06 08:35] LABS: CALCIUM 8.9 mg/dL (8.5-10.1); COCKROFT - GAULT 54.043
[2016-06-06 08:38] LABS: BILIRUBIN,TOTAL 0.5 mg/dL (0.2-1.0)
--- NOTE | 2016-06-06 09:35 | PN ---
Progress Note, Physician Chief Complaint: body aches, some dry cough; nonspecific c/o feels a little better - Current Medication List Current Medications: Active Medications Acetaminophen (Tylenol -) 650 mg PO Q6H PRN PRN Reason: FEVER OR PAIN Last Admin: 06/06/16 06:11 Dose: 650 mg Albuterol Sulfate (Ventolin Hfa Inhaler -) 2 puff IH Q4H PRN PRN Reason: SHORT OF BREATH/WHEEZING Aspirin (Asa -) 81 mg PO DAILY [facility] Last Admin: 06/05/16 09:29 Dose: 81 mg Azathioprine (Imuran -) 100 mg PO DAILY [facility] Last Admin: 06/05/16 10:25 Dose: 100 mg Ceftriaxone Sodium (Rocephin 1gm Ivpb (Pre-Docked)) 1 gm IVPB DAILY [facility] Last Admin: 06/05/16 09:30 Dose: 1 gm Diltiazem HCl (Cardizem Cd -) 240 mg PO DAILY [facility] Last Admin: 06/05/16 09:20 Dose: Not Given Fluticasone Propionate (Flonase -) 1 spray NS DAILY [facility] Last Admin: 06/05/16 09:27 Dose: 1 spray Heparin Sodium (Porcine) (Heparin -) 5,000 unit SQ BID [facility] Last Admin: 06/05/16 22:35 Dose: 5,000 unit Levothyroxine Sodium (Synthroid -) 75 mcg PO DAILY@0700 [facility] Last Admin: 06/06/16 06:10 Dose: 75 mcg Multivitamins/Minerals (Theragran-M) 1 each PO DAILY [facility] Last Admin: 06/05/16 09:28 Dose: 1 each Polyethylene Glycol (Miralax (For Daily Use) -) 17 gm PO DAILY [facility] Last Admin: 06/05/16 09:33 Dose: 17 gm Prednisone (Deltasone -) 5 mg PO DAILY [facility] Last Admin: 06/05/16 09:28 Dose: 5 mg - Objective Vital Signs: Vital Signs Temperature 98.4 F 06/06/16 05:47 Pulse Rate 92 H 06/06/16 09:07 Respiratory Rate 20 06/06/16 09:07 Blood Pressure 118/65 06/06/16 09:07 O2 Sat by Pulse Oximetry (%) 98 06/04/16 22:21 Constitutional: Yes: No Distress, Calm Eyes: Yes: Conjunctiva Clear HENT: Yes: Atraumatic Neck: Yes: Supple Cardiovascular: Yes: Regular Rate and Rhythm Respiratory: Yes: CTA Bilaterally Gastrointestinal: Yes: Soft, Tenderness (mild generalized) Genitourinary: No: CVA Tenderness - Left, CVA Tenderness - Right, Hematuria Musculoskeletal: No: Joint Stiffness, Joint Swelling Extremities: No: Cold, Cool Edema: No Peripheral Pulses WNL: Yes Neurological: Yes: WNL, Alert, Oriented ...Motor Strength: WNL Psychiatric: Yes: WNL, Alert, Oriented. No: Agitated Labs: CBC, BMP 06/06/16 06:40 06/06/16 06:40 INR, PTT INR 1.12 (0.82-1.09) 06/04/16 15:00 - ....Imaging Other: Report Reviewed Assessment/Plan The patient is a 70 year old female, with significant past medical history of HTN, HLD, GERD, hypothyroidism, seizures, renal transplant (25 years ago), CVA, who presents to the emergency room complaining of 1 week of body aches. . She reports a dry cough and nonspecific abdominal pain. Found to have UTI and possible PNA, low grade fever admit to inpt check cultures, abdomen CHEST CT noted d/w pt IV ATB ID eval cardiology renal and rheumtology eval DVT falls aspiration pfx d/w pt and staff'
[2016-06-06] MEDS ORDERED: PT OWN MED DRAWER 7, Y5N ONE ×2 (09:55→10:27)
[2016-06-06] MEDS: FLUTICASONE PROP 0.05% 16 GM NASAL SPRAY NS SCH (10:18)
[2016-06-06] MEDS: cefTRIAXone 1 GM/50 ML BAG (PRE-DOCKED) IVPB SCH (10:18)
[2016-06-06] MEDS: HEPARIN NA (PORCINE) 5,000 UNITS/ML 1ML VIAL SQ SCH ×2 (10:19→21:12)
[2016-06-06] MEDS: MULTIVITAMINS THER W-MINERALS COMBO TABLET (FP) PO SCH (10:19)
[2016-06-06] MEDS: ASPIRIN 81 MG CHEWABLE TABLETS PO SCH (10:19)
[2016-06-06] MEDS: predniSONE 5 MG TABLET (UD) PO SCH (10:19)
[2016-06-06] MEDS: azaTHIOprine 50 MG TABLET PO SCH (10:19)
[2016-06-06] MEDS: POLYETHYLENE GLYCOL 3350 119 GM BTL PO SCH (10:19)
--- NOTE | 2016-06-06 11:01 | CONSULT ---
Consult - text type - Consultation Consultation Note: Renal Consult for ESRD s/p renal transplant This is a 70 year old woman with PMhx of ESRD s/p Renal Transplant (25 years ago ), Hypertension, Hypothyrodism, Seizure D/O who presents with complaints of myalgias and RUQ cramping and found to have leukocytosis and suspected UTI. Pt with normal renal function. Maintained on Imuran and Prednisone. Denies any dysuria or flank pain. Muscle aches started in LE and now throughout the body. Denies any fever or chills. No N/V/D. No EM, chest pain or sob. No cough. Good urine output. No vision changes. PMhx: as above Allergies: Codine Family Hx: NC ROS: as per HPI, all other ros negative SOcial Hx: No T/A/D ROS: as per HPI, all other ros negative Home Meds: Home Medications Medication Instructions Recorded Levothyroxine [Synthroid -] 75 mcg PO DAILY 03/07/12 Prednisone [Deltasone -] 5 mg PO DAILY 07/11/13 Azathioprine [Imuran] 100 mg PO DAILY 12/20/14 Diltiazem Cd [Cardizem Cd -] 240 mg PO DAILY 01/12/15 Acetaminophen [Tylenol .Regular 650 mg PO Q6H PRN #0 tablet 12/31/15 Strength -] Albuterol Sulfate Inhaler - 2 inh PO Q4H 06/04/16 [Ventolin Hfa Inhaler -] Amoxicillin/Potassium Clav 1 each PO BID 06/04/16 [Amox-Clav 875-125 mg Tablet] Aspirin [ASA -] 81 mg PO DAILY 06/04/16 Fluticasone Prop 0.05% Nasal 1 - 2 spray NS DAILY 06/04/16 [Flonase -] Fluticasone Propionate [Flovent 2 puff IH DAILY 06/04/16 Diskus] Furosemide [Lasix -] 40 mg PO DAILY 06/04/16 Linaclotide [Linzess] 290 mcg PO DAILY 06/04/16 Multivit-Min/FA/Lycopen/Lutein 1 each PO DAILY 06/04/16 [Centrum Silver Tablet] Polyethylene Glycol 3350 [Miralax 17 gm PO DAILY 06/04/16 (For Daily Use) -] Umeclidinium [place] [Incruse 1 puff IH DAILY 06/04/16 Ellipta] Vital Signs Temperature 98.4 F 06/06/16 05:47 Pulse Rate 92 H 06/06/16 09:07 Respiratory Rate 20 06/06/16 09:07 Blood Pressure 118/65 06/06/16 09:07 O2 Sat by Pulse Oximetry (%) 98 06/04/16 22:21 Intake & Output 06/03/16 06/04/16 06/05/16 06/06/16 23:59 23:59 23:59 23:59 Intake Total 0 1125 740 Balance 0 1125 740 Weight 140 lb 3 oz Gen: NAD, awake and alert HEENT: NC/AT, MMM, No JVD CVS: RRR, No M/R Lungs: CTA, no rales or wheeze Abd: soft NT/ND, no rebound or guarding Ext: No edmea, + tenderness Neuro:AAOx3, no focal defects CBC, BMP 06/06/16 06:40 06/06/16 06:40 Current Medications Acetaminophen (Tylenol -) 650 mg PO Q6H PRN PRN Reason: FEVER OR PAIN Last Admin: 06/06/16 06:11 Dose: 650 mg Albuterol Sulfate (Ventolin Hfa Inhaler -) 2 puff IH Q4H PRN PRN Reason: SHORT OF BREATH/WHEEZING Aspirin (Asa -) 81 mg PO DAILY [facility] Last Admin: 06/06/16 10:19 Dose: 81 mg Azathioprine (Imuran -) 100 mg PO DAILY [facility] Last Admin: 06/06/16 10:19 Dose: 100 mg Ceftriaxone Sodium (Rocephin 1gm Ivpb (Pre-Docked)) 1 gm IVPB DAILY [facility] Last Admin: 06/06/16 10:18 Dose: 1 gm Diltiazem HCl (Cardizem Cd -) 240 mg PO DAILY [facility] Last Admin: 06/06/16 10:21 Dose: Not Given Fluticasone Propionate (Flonase -) 1 spray NS DAILY [facility] Last Admin: 06/06/16 10:18 Dose: 1 spray Heparin Sodium (Porcine) (Heparin -) 5,000 unit SQ BID [facility] Last Admin: 06/06/16 10:19 Dose: 5,000 unit Levothyroxine Sodium (Synthroid -) 75 mcg PO DAILY@0700 [facility] Last Admin: 06/06/16 06:10 Dose: 75 mcg Multivitamins/Minerals (Theragran-M) 1 each PO DAILY [facility] Last Admin: 06/06/16 10:19 Dose: 1 each Polyethylene Glycol (Miralax (For Daily Use) -) 17 gm PO DAILY [facility] Last Admin: 06/06/16 10:19 Dose: 17 gm Prednisone (Deltasone -) 5 mg PO DAILY [facility] Last Admin: 06/06/16 10:19 Dose: 5 mg A/P 70 year old woman with PMhx of ESRD s/p Renal Transplant (25 years ago), Hypertension, Hypothyrodism, Seizure D/O who presents with complaints of myalgias and RUQ cramping and found to have leukocytosis and suspected UTI. #Myalgias/Leukocytosis/Suspected UTI CK levels are normal WBC improved with Abx, no Lympocyte or Neutrophil predominance Cultures negative so far discussed possiblity of CMV/EBV infection with ID, less likely given lack of pancytopenia and improvement in WBC with Abx Continue Abx as per ID F/u blood cultures Imuran can also cause myalgias but would not change immunosuppressive medications #ESRD s/p Renal Transplant Renal function stable Continue Imuran and Prednisone #Hypertension BP well controlled on Cardizem Thank you Will follow Orlando Sen DO
[2016-06-06] MEDS: BACITRACIN 30 GM TUBE TOPICAL OINTMENT TP SCH ×2 (13:21→21:10)
[2016-06-06] MEDS: GABAPENTIN 100 MG CAPSULE (FP) PO SCH ×2 (13:21→21:12)
--- NOTE | 2016-06-06 15:31 | PN ---
Progress Note (short form) - Note Progress Note: s: no cp palps dizzy sob; still with body aches o: Vital Signs Period Temp Pulse Resp BP Sys/Wang Pulse Ox Last 24 Hr 97.7 F-98.4 F 77-92 20-20 118-144/56-75 nad no jvd rrr s1s2 no mrg cta bl nl eff aaox3 no le e/c/c no jaundice diaphoresis Current Medications Generic Name Dose Route Start Last Admin Trade Name Freq PRN Reason Stop Dose Admin Acetaminophen 650 mg 06/04/16 19:39 06/06/16 06:11 Tylenol - PO 650 mg Q6H PRN Administration FEVER OR PAIN Albuterol Sulfate 2 puff 06/04/16 19:45 Ventolin Hfa Inhaler - IH Q4H PRN SHORT OF BREATH/WHEEZING Aspirin 81 mg 06/05/16 10:00 06/06/16 10:19 Asa - PO 81 mg DAILY [facility] Administration Azathioprine 100 mg 06/05/16 10:00 06/06/16 10:19 Imuran - PO 100 mg DAILY [facility] Administration Bacitracin 1 applic 06/06/16 12:15 06/06/16 13:21 Bacitracin - TP 1 applic BID [facility] Administration Ceftriaxone Sodium 1 gm 06/05/16 10:00 06/06/16 10:18 Rocephin 1gm Ivpb (Pre-Docked) IVPB 1 gm DAILY [facility] Administration Diltiazem HCl 240 mg 06/05/16 10:00 06/06/16 10:21 Cardizem Cd - PO Not Given DAILY [facility] Fluticasone Propionate 1 spray 06/05/16 10:00 06/06/16 10:18 Flonase - NS 1 spray DAILY [facility] Administration Gabapentin 100 mg 06/06/16 14:00 06/06/16 13:21 Neurontin - PO 100 mg TID [facility] Administration Heparin Sodium (Porcine) 5,000 unit 06/04/16 22:00 06/06/16 10:19 Heparin - SQ 5,000 unit BID [facility] Administration Levothyroxine Sodium 75 mcg 06/05/16 07:00 06/06/16 06:10 Synthroid - PO 75 mcg DAILY@0700 [facility] Administration Multivitamins/Minerals 1 each 06/05/16 10:00 06/06/16 10:19 Theragran-M PO 1 each DAILY [facility] Administration Polyethylene Glycol 17 gm 06/05/16 10:00 06/06/16 10:19 Miralax (For Daily Use) - PO 17 gm DAILY [facility] Administration Prednisone 5 mg 06/05/16 10:00 06/06/16 10:19 Deltasone - PO 5 mg DAILY [facility] Administration CBC, BMP 06/06/16 06:40 06/06/16 06:40 L and R heart cath 2016: no obstructive cad, no signif pulm HTN Assessment/Plan multifocal pains: bilat LEs (at rest), abdomen, back: -not c/w statin myalgia from low dose red yeast rice (i.e. very low potency regimen), CPK normal -CXR, CT abdomen pending -plan per pmd SOB: -her chronic BECKWITH sx's are not cardiac--normal left and right heart cath/cor angiogram 12/11 for same. -improved with asthma tx (dr guerra) but returned for couple of days now -BNP 300s here, underwhelming -no phys exam evidence of vol excess -ECG no ischemic changes -trop neg x2 -ct chest shows pna, cont tx per pmd, pulm HTN: -bp stable, controlled -cont home meds HPL: -cont holding red yeast rice for now -noncompliant with zetia previously -will readdress as outpt h/o exertional cp/sob--ASTHMA SX: -resolved with asthma tx
--- NOTE | 2016-06-06 15:39 | PN ---
Teaching Attending Note Name of Resident: Nicolle French ATTENDING PHYSICIAN STATEMENT I saw and evaluated the patient. I reviewed the resident's note and discussed the case with the resident. I agree with the resident's findings and plan as documented. SUBJECTIVE: still with myalgia OBJECTIVE: Vital Signs Period Temp Pulse Resp BP Sys/Wang Pulse Ox Last 24 Hr 97.7 F-98.4 F 77-92 20-20 118-144/56-75 cor-rrr lungs clear abd soft,nt ext no edema CBC, BMP 06/06/16 06:40 06/06/16 06:40 ct scan with RUL pneumonia ASSESSMENT AND PLAN: renal transplant pyuria pneumonia wbc now normal continue ceftriaxone check urine antigens
--- NOTE | 2016-06-06 18:45 | PN ---
Physical Exam: SUBJECTIVE: Patient seen and examined by me at bedside. Patient still complains of pain in bilateral legs, shoulders, and RUQ. CT chest today revealed right upper lung infiltrate however, patient denies cough, runny nose, shortness of breath, fever, chills. OBJECTIVE: Vital Signs Period Temp Pulse Resp BP Sys/Wang Pulse Ox Last 24 Hr 97.7 F-98.4 F 77-92 20-20 118-144/56-75 GENERAL: Awake, alert, and fully oriented, in no acute distress. LUNGS: Breath sounds equal, clear to auscultation bilaterally. No wheezes, and no crackles. No accessory muscle use. HEART: Regular rate and rhythm, normal S1 and S2 without murmur, rub or gallop. ABDOMEN: Mild RUQ tenderness upon palpation, not distended, normoactive bowel sounds, no masses. No hepatomegaly or splenomegaly. EXTREMITIES: No peripheral edema. Laboratory Results - last 24 hr 06/06/16 06/06/16 06/06/16 06:40 06:40 06:40 WBC 9.5 D RBC 3.63 Hgb 12.2 Hct 36.6 MCV 100.7 H MCHC 33.2 RDW 16.0 H Plt Count 220 MPV 9.6 Neutrophils % 67.4 Lymphocytes % 20.5 D Monocytes % 10.7 H Eosinophils % 0.8 D Basophils % 0.6 ESR Sodium 142 Potassium 4.3 Chloride 106 Carbon Dioxide 26 Anion Gap 10 BUN 20 H D Creatinine 1.0 Creat Clearance w eGFR 55.14 Random Glucose 89 Calcium 8.9 Total Bilirubin 0.5 AST 26 D ALT 25 D Alkaline Phosphatase 67 D C-Reactive Protein 22.1 H D Total Protein 7.0 Albumin 3.0 L Rheumatoid Factor 06/06/16 06/06/16 06:40 11:18 WBC RBC Hgb Hct MCV MCHC RDW Plt Count MPV Neutrophils % Lymphocytes % Monocytes % Eosinophils % Basophils % ESR 115 H Sodium Potassium Chloride Carbon Dioxide Anion Gap BUN Creatinine Creat Clearance w eGFR Random Glucose Calcium Total Bilirubin AST ALT Alkaline Phosphatase C-Reactive Protein Total Protein Albumin Rheumatoid Factor < 10.0 Active Medications Generic Name Dose Route Start Last Admin Trade Name Freq PRN Reason Stop Dose Admin Acetaminophen 650 mg 06/04/16 19:39 06/06/16 06:11 Tylenol - PO 650 mg Q6H PRN Administration FEVER OR PAIN Albuterol Sulfate 2 puff 06/04/16 19:45 Ventolin Hfa Inhaler - IH Q4H PRN SHORT OF BREATH/WHEEZING Aspirin 81 mg 06/05/16 10:00 06/06/16 10:19 Asa - PO 81 mg DAILY [facility] Administration Azathioprine 100 mg 06/05/16 10:00 06/06/16 10:19 Imuran - PO 100 mg DAILY [facility] Administration Bacitracin 1 applic 06/06/16 12:15 06/06/16 13:21 Bacitracin - TP 1 applic BID [facility] Administration Ceftriaxone Sodium 1 gm 06/05/16 10:00 06/06/16 10:18 Rocephin 1gm Ivpb (Pre-Docked) IVPB 1 gm DAILY [facility] Administration Diltiazem HCl 240 mg 06/05/16 10:00 06/06/16 10:21 Cardizem Cd - PO Not Given DAILY [facility] Fluticasone Propionate 1 spray 06/05/16 10:00 06/06/16 10:18 Flonase - NS 1 spray DAILY [facility] Administration Gabapentin 100 mg 06/06/16 14:00 06/06/16 13:21 Neurontin - PO 100 mg TID [facility] Administration Heparin Sodium (Porcine) 5,000 unit 06/04/16 22:00 06/06/16 10:19 Heparin - SQ 5,000 unit BID [facility] Administration Levothyroxine Sodium 75 mcg 06/05/16 07:00 06/06/16 06:10 Synthroid - PO 75 mcg DAILY@0700 [facility] Administration Multivitamins/Minerals 1 each 06/05/16 10:00 06/06/16 10:19 Theragran-M PO 1 each DAILY [facility] Administration Polyethylene Glycol 17 gm 06/05/16 10:00 06/06/16 10:19 Miralax (For Daily Use) - PO 17 gm DAILY [facility] Administration Prednisone 5 mg 06/05/16 10:00 06/06/16 10:19 Deltasone - PO 5 mg DAILY [facility] Administration ASSESSMENT/PLAN: Patient is a 70 year old female with a PMHx of HTN, HLD, hypothyroidism, renal transplant (25 years) on Imuran and Prednisone, who presented for one week history of body aches, shoulder pain, abdominal cramping predominately in the RUQ, and bilateral leg cramping and tightness. Patient found to have Leukocyte esterase 2+ and concern was for asymptomatic UTI in previous renal transplant patient. -Patient remains asymptomatic for UTI -WBC's trended down and are wnl -CT Chest revealed RUL infiltrate but patient has no complaints of respiratory infections -Will continue Ceftriaxone 1gm daily due to good response -Will check Urine legionella antigens Dispo: We will continue to follow the patient. Thank you for this consultative opportunity. Visit type - Emergency Visit Emergency Visit: Yes ED Registration Date: 06/04/16 Care time: The patient presented to the Emergency Department on the above date and was hospitalized for further evaluation of their emergent condition. - New Patient This patient is new to me today: No - Critical Care Critical Care patient: No
--- NOTE | 2016-06-06 19:38 | CON.GI ---
Consult Consult Specialty:: gastroenterology - History of Present Illness History of Present Illness: 70 y/o female with PMH of renal transplant 25 years ago was admitted with generalized myalgia 4 days prior to admission. @ days prior to admission she developed epigastric and ruq pain associated with low grade temperature, nausea but no vomiting. She had severe leukocytosis and by ultrasound was noted to have a dilated gallbladder, normal CBD. Tonight continue to have mild ruq pain, no nausea and no vomiting - Past Medical History [employer]: Yes: Seizure Cardio/Vascular: Yes: HTN Gastrointestinal: Yes: Diverticulosis, GERD Renal/: Yes: Renal Inusuff, Other (renal transplant) ...: No Musculoskeletal: Yes: Osteoarthritis Rheumatology: Yes: Gout Endocrine: Yes: Hypothyroidism, Hyperparathyroidism - Past Surgical History Past Surgical History: Yes: Hernia Repair (ventral). No: None, AAA Repair, AICD , Amputation, Appendectomy, Arthrosocopy, AV Fistula/Graft, Bariatric Surgery, Breast Biopsy, Bypass, CABG, Carotid Endarterectomy, Cataract Removal, Cholecystectomy, Colectomy, Colonoscopy, Colostomy, Craniotomy, , Cystectomy, Hysterectomy, Ileal Conduit, Ileosotomy, Joint Replacement, Kidney Transplant, Laminectomy, Liver Transplant, Mastectomy, Nephrectomy, Oopherectomy , Orchiectomy, Permanent Pacemaker, Prostatectomy, Splenectomy, Stent, Thoracotomy, TURP, Tonsillectomy, Tubal Ligation, Upper Endoscopy, Valve Replacement, Vasectomy, Vein Stripping/Ligation - Alcohol/Substance Use Hx Alcohol Use: No History of Substance Use: reports: None - Smoking History Smoking history: Never smoked Have you smoked in the past 12 months: No Aproximately how many cigarettes per day: 0 - Social History ADL: Independent History of Recent Travel: No Home Medications - Allergies Allergies/Adverse Reactions: Allergies Allergy/AdvReac Type Severity Reaction Status Date / Time codeine Allergy Intermediate Vomiting Verified 06/04/16 13:49 - Home Medications Home Medications: Ambulatory Orders Levothyroxine [Synthroid -] 75 mcg PO DAILY 03/07/12 Prednisone [Deltasone -] 5 mg PO DAILY 07/11/13 Azathioprine [Imuran] 100 mg PO DAILY 12/20/14 Diltiazem Cd [Cardizem Cd -] 240 mg PO DAILY 01/12/15 Acetaminophen [Tylenol .Regular Strength -] 650 mg PO Q6H PRN #0 tablet Albuterol Sulfate Inhaler - [Ventolin Hfa Inhaler -] 2 inh PO Q4H 06/04/16 Amoxicillin/Potassium Clav [Amox-Clav 875-125 mg Tablet] 1 each PO BID 06/04/16 Aspirin [ASA -] 81 mg PO DAILY 06/04/16 Fluticasone Prop 0.05% Nasal [Flonase -] 1 - 2 spray NS DAILY 06/04/16 Fluticasone Propionate [Flovent Diskus] 2 puff IH DAILY 06/04/16 Furosemide [Lasix -] 40 mg PO DAILY 06/04/16 Linaclotide [Linzess] 290 mcg PO DAILY 06/04/16 Multivit-Min/FA/Lycopen/Lutein [Centrum Silver Tablet] 1 each PO DAILY 06/04/16 Polyethylene Glycol 3350 [Miralax (For Daily Use) -] 17 gm PO DAILY 06/04/16 Umeclidinium [place] [Incruse Ellipta] 1 puff IH DAILY 06/04/16 Family Disease History - Family Disease History Family Disease History: CA: Sister (breast) Physical Exam-GI Vital Signs: Vital Signs Temperature 97.7 F 06/06/16 14:06 Pulse Rate 77 06/06/16 14:06 Respiratory Rate 20 06/06/16 09:07 Blood Pressure 120/63 06/06/16 14:06 O2 Sat by Pulse Oximetry (%) 98 06/04/16 22:21 Constitutional: Yes: Well Nourished Eyes: Yes: Conjunctiva Clear HENT: Yes: Atraumatic Neck: Yes: Trachea Midline Cardiovascular: Yes: Regular Rate and Rhythm Respiratory: Yes: CTA Bilaterally ...Palpate: Yes: Soft. No: Firm/Rigid, Guarding, Hepatomegaly, Mass, Pulsatile Mass, Splenomegaly, Tenderness, Tenderness, Epigastium Labs: CBC, BMP 06/06/16 06:40 06/06/16 06:40 INR, PTT INR 1.12 (0.82-1.09) 06/04/16 15:00 Hepatic Panel Total Bilirubin 0.5 mg/dL (0.2-1.0) 06/06/16 06:40 AST 26 U/L (15-37) D 06/06/16 06:40 ALT 25 U/L (12-78) D 06/06/16 06:40 Alkaline Phosphatase 67 U/L (45-117) D 06/06/16 06:40 Albumin 3.0 g/dl (3.4-5.0) L 06/06/16 06:40 Problem List - Problems (1) Dilated gallbladder Assessment/Plan: associated with leukocytosis, top normal CBD by ultrasound etiology unclear differential include acalculous cholecytitis R> Hida scan continue antibiotics Code(s): K82.8 - OTHER SPECIFIED DISEASES OF GALLBLADDER
[2016-06-07] MEDS: ACETAMINOPHEN 325 MG TABLET (FP) PO PRN (06:15)
[2016-06-07] MEDS: LEVOTHYROXINE NA 75 MCG TABLET (FP) PO SCH (06:17)
[2016-06-07] MEDS: GABAPENTIN 100 MG CAPSULE (FP) PO SCH ×3 (06:17→21:20)
--- NOTE | 2016-06-07 08:33 | PN ---
Progress Note, Physician Chief Complaint: in bed still with some legs pains, back and neck pains, has some dry cough on/ off but not impressive (compared with chest CT); afebrile; occasional chest tightness, no SOB. - Current Medication List Current Medications: Active Medications Acetaminophen (Tylenol -) 650 mg PO Q6H PRN PRN Reason: FEVER OR PAIN Last Admin: 06/07/16 06:15 Dose: 650 mg Albuterol Sulfate (Ventolin Hfa Inhaler -) 2 puff IH Q4H PRN PRN Reason: SHORT OF BREATH/WHEEZING Aspirin (Asa -) 81 mg PO DAILY [facility] Last Admin: 06/06/16 10:19 Dose: 81 mg Azathioprine (Imuran -) 100 mg PO DAILY [facility] Last Admin: 06/06/16 10:19 Dose: 100 mg Bacitracin (Bacitracin -) 1 applic TP BID [facility] Last Admin: 06/06/16 21:10 Dose: 1 applic Ceftriaxone Sodium (Rocephin 1gm Ivpb (Pre-Docked)) 1 gm IVPB DAILY [facility] Last Admin: 06/06/16 10:18 Dose: 1 gm Diltiazem HCl (Cardizem Cd -) 240 mg PO DAILY [facility] Last Admin: 06/06/16 10:21 Dose: Not Given Fluticasone Propionate (Flonase -) 1 spray NS DAILY [facility] Last Admin: 06/06/16 10:18 Dose: 1 spray Gabapentin (Neurontin -) 100 mg PO TID [facility] Last Admin: 06/07/16 06:17 Dose: 100 mg Heparin Sodium (Porcine) (Heparin -) 5,000 unit SQ BID [facility] Last Admin: 06/06/16 21:12 Dose: 5,000 unit Levothyroxine Sodium (Synthroid -) 75 mcg PO DAILY@0700 [facility] Last Admin: 06/07/16 06:17 Dose: 75 mcg Multivitamins/Minerals (Theragran-M) 1 each PO DAILY [facility] Last Admin: 06/06/16 10:19 Dose: 1 each Polyethylene Glycol (Miralax (For Daily Use) -) 17 gm PO DAILY [facility] Last Admin: 06/06/16 10:19 Dose: 17 gm Prednisone (Deltasone -) 5 mg PO DAILY [facility] Last Admin: 06/06/16 10:19 Dose: 5 mg - Objective Vital Signs: Vital Signs Temperature 98.1 F 06/07/16 06:00 Pulse Rate 61 06/07/16 06:00 Respiratory Rate 20 06/07/16 06:00 Blood Pressure 148/78 06/07/16 06:00 O2 Sat by Pulse Oximetry (%) 98 06/04/16 22:21 Constitutional: Yes: No Distress, Calm Eyes: Yes: Conjunctiva Clear HENT: Yes: Atraumatic Neck: Yes: Supple Cardiovascular: Yes: Regular Rate and Rhythm Respiratory: Yes: CTA Bilaterally Gastrointestinal: Yes: Soft. No: Tenderness Genitourinary: No: CVA Tenderness - Left, CVA Tenderness - Right Musculoskeletal: No: Joint Stiffness, Joint Swelling Extremities: No: Cold, Cool Edema: No Peripheral Pulses WNL: Yes Neurological: Yes: WNL, Alert, Oriented ...Motor Strength: WNL Psychiatric: Yes: WNL, Alert, Oriented. No: Agitated Labs: CBC, BMP 06/06/16 06:40 06/06/16 06:40 INR, PTT INR 1.12 (0.82-1.09) 06/04/16 15:00 - ....Imaging Other: Report Reviewed Assessment/Plan The patient is a 70 year old female, with significant past medical history of HTN, HLD, GERD, hypothyroidism, seizures, renal transplant (25 years ago), CVA, who presents to the emergency room complaining of 1 week of body aches. . She reports a dry cough and nonspecific abdominal pain. Found to have UTI and possible PNA, low grade fever admit to inpt CHEST CT noted d/w pt R sided pneumonia IV ATB per ID cardiology renal and rheumtology f/u DVT falls aspiration pfx d/w pt and staff' called daughter [id number] # NA
--- NOTE | 2016-06-07 09:33 | PN ---
Physical Exam: SUBJECTIVE: Patient seen and examined by me at bedside. Patient remains Afebrile. She still complains of body aches and pain, especially in the shoulders and bilateral legs associated with RUQ pain and tenderness. Denies any cough, shortness of breath, chest pain, palpitations, dysuria, hematuria, frequency. OBJECTIVE: Vital Signs Period Temp Pulse Resp BP Sys/Wang Pulse Ox Last 24 Hr 97.7 F-98.2 F 61-78 20-20 120-148/62-78 GENERAL: Awake, alert, and fully oriented, in no acute distress. LUNGS: Breath sounds equal, clear to auscultation bilaterally. No wheezes, and no crackles. No accessory muscle use. HEART: Regular rate and rhythm, normal S1 and S2 without murmur, rub or gallop. ABDOMEN: Mild RUQ tenderness upon palpation, not distended, normoactive bowel sounds, no masses. No hepatomegaly or splenomegaly. EXTREMITIES: No peripheral edema. Laboratory Results - last 24 hr 06/06/16 06/06/16 06:40 11:18 ESR 115 H Rheumatoid Factor < 10.0 Active Medications Generic Name Dose Route Start Last Admin Trade Name Freq PRN Reason Stop Dose Admin Acetaminophen 650 mg 06/04/16 19:39 06/07/16 06:15 Tylenol - PO 650 mg Q6H PRN Administration FEVER OR PAIN Albuterol Sulfate 2 puff 06/04/16 19:45 Ventolin Hfa Inhaler - IH Q4H PRN SHORT OF BREATH/WHEEZING Aspirin 81 mg 06/05/16 10:00 06/06/16 10:19 Asa - PO 81 mg DAILY [facility] Administration Azathioprine 100 mg 06/05/16 10:00 06/06/16 10:19 Imuran - PO 100 mg DAILY [facility] Administration Bacitracin 1 applic 06/06/16 12:15 06/06/16 21:10 Bacitracin - TP 1 applic BID [facility] Administration Ceftriaxone Sodium 1 gm 06/05/16 10:00 06/06/16 10:18 Rocephin 1gm Ivpb (Pre-Docked) IVPB 1 gm DAILY [facility] Administration Diltiazem HCl 240 mg 06/05/16 10:00 06/06/16 10:21 Cardizem Cd - PO Not Given DAILY [facility] Fluticasone Propionate 1 spray 06/05/16 10:00 06/06/16 10:18 Flonase - NS 1 spray DAILY [facility] Administration Gabapentin 100 mg 06/06/16 14:00 06/07/16 06:17 Neurontin - PO 100 mg TID [facility] Administration Heparin Sodium (Porcine) 5,000 unit 06/04/16 22:00 06/06/16 21:12 Heparin - SQ 5,000 unit BID [facility] Administration Levothyroxine Sodium 75 mcg 06/05/16 07:00 06/07/16 06:17 Synthroid - PO 75 mcg DAILY@0700 [facility] Administration Multivitamins/Minerals 1 each 06/05/16 10:00 06/06/16 10:19 Theragran-M PO 1 each DAILY [facility] Administration Polyethylene Glycol 17 gm 06/05/16 10:00 06/06/16 10:19 Miralax (For Daily Use) - PO 17 gm DAILY [facility] Administration Prednisone 5 mg 06/05/16 10:00 06/06/16 10:19 Deltasone - PO 5 mg DAILY [facility] Administration ASSESSMENT/PLAN: Patient is a 70 year old female with a PMHx of HTN, HLD, hypothyroidism, renal transplant (25 years) on Imuran and Prednisone, who presented for one week history of body aches, shoulder pain, abdominal cramping predominately in the RUQ, and bilateral leg cramping and tightness. Patient found to have Leukocyte esterase 2+ and concern was for asymptomatic UTI in previous renal transplant patient. Patient was then found to have a RUL infiltrate on CT -Patient remains asymptomatic for UTI or Pneumonia -CT Chest revealed RUL infiltrate but patient has no complaints of respiratory infections -WBC's trended down and are wnl -Will continue Ceftriaxone 1gm daily due to good response -Urine Legionella Antigens and strep negative -GI consult placed and patient is scheduled for HIDA scan Dispo: We will continue to follow the patient. Thank you for this consultative opportunity. Visit type - Emergency Visit Emergency Visit: Yes ED Registration Date: 06/04/16 Care time: The patient presented to the Emergency Department on the above date and was hospitalized for further evaluation of their emergent condition. - New Patient This patient is new to me today: No - Critical Care Critical Care patient: No
[2016-06-07] MEDS ORDERED: PT OWN MED DRAWER 7, Y5N ONE (12:16)
[2016-06-07] MEDS: FLUTICASONE PROP 0.05% 16 GM NASAL SPRAY NS SCH (12:23)
[2016-06-07] MEDS: cefTRIAXone 1 GM/50 ML BAG (PRE-DOCKED) IVPB SCH (12:23)
[2016-06-07] MEDS: predniSONE 5 MG TABLET (UD) PO SCH (12:28)
[2016-06-07] MEDS: ASPIRIN 81 MG CHEWABLE TABLETS PO SCH (12:28)
[2016-06-07] MEDS: BACITRACIN 30 GM TUBE TOPICAL OINTMENT TP SCH ×2 (12:29→21:20)
[2016-06-07] MEDS: azaTHIOprine 50 MG TABLET PO SCH (12:29)
[2016-06-07] MEDS: MULTIVITAMINS THER W-MINERALS COMBO TABLET (FP) PO SCH (12:29)
[2016-06-07] MEDS: POLYETHYLENE GLYCOL 3350 119 GM BTL PO SCH (12:30)
[2016-06-07] MEDS: HEPARIN NA (PORCINE) 5,000 UNITS/ML 1ML VIAL SQ SCH ×2 (12:30→21:20)
--- NOTE | 2016-06-07 13:13 | PN ---
Progress Note (short form) - Note Progress Note: Renal Follow up for Renal Transplant Pt seen and examined at the bedside continues to have thigh pain and left sided shoulder pain no sob, chest pain, cough, N/V/D Vital Signs Temperature 97.9 F 06/07/16 09:00 Pulse Rate 62 06/07/16 09:00 Respiratory Rate 20 06/07/16 09:00 Blood Pressure 118/62 06/07/16 09:00 O2 Sat by Pulse Oximetry (%) 98 06/04/16 22:21 Intake & Output 06/04/16 06/05/16 06/06/16 06/07/16 23:59 23:59 23:59 23:59 Intake Total 0 1125 1710 Balance 0 1125 1710 Weight 140 lb 3 oz Gen: NAD CVS: RRR, No M/R Lungs: CTA, no rales or wheeze Abd: soft NT/ND, no rebound or guarding Ext: No edmea CBC, BMP 06/06/16 06:40 06/06/16 06:40 Current Medications Acetaminophen (Tylenol -) 650 mg PO Q6H PRN PRN Reason: FEVER OR PAIN Last Admin: 06/07/16 06:15 Dose: 650 mg Albuterol Sulfate (Ventolin Hfa Inhaler -) 2 puff IH Q4H PRN PRN Reason: SHORT OF BREATH/WHEEZING Aspirin (Asa -) 81 mg PO DAILY [facility] Last Admin: 06/07/16 12:28 Dose: 81 mg Azathioprine (Imuran -) 100 mg PO DAILY [facility] Last Admin: 06/07/16 12:29 Dose: 100 mg Bacitracin (Bacitracin -) 1 applic TP BID [facility] Last Admin: 06/07/16 12:29 Dose: 1 applic Ceftriaxone Sodium (Rocephin 1gm Ivpb (Pre-Docked)) 1 gm IVPB DAILY [facility] Last Admin: 06/07/16 12:23 Dose: 1 gm Diltiazem HCl (Cardizem Cd -) 240 mg PO DAILY [facility] Last Admin: 06/07/16 12:30 Dose: Not Given Fluticasone Propionate (Flonase -) 1 spray NS DAILY [facility] Last Admin: 06/07/16 12:23 Dose: 1 spray Gabapentin (Neurontin -) 100 mg PO TID [facility] Last Admin: 06/07/16 06:17 Dose: 100 mg Heparin Sodium (Porcine) (Heparin -) 5,000 unit SQ BID [facility] Last Admin: 06/07/16 12:30 Dose: 5,000 unit Levothyroxine Sodium (Synthroid -) 75 mcg PO DAILY@0700 [facility] Last Admin: 06/07/16 06:17 Dose: 75 mcg Multivitamins/Minerals (Theragran-M) 1 each PO DAILY [facility] Last Admin: 06/07/16 12:29 Dose: 1 each Polyethylene Glycol (Miralax (For Daily Use) -) 17 gm PO DAILY [facility] Last Admin: 06/07/16 12:30 Dose: 17 gm Prednisone (Deltasone -) 5 mg PO DAILY [facility] Last Admin: 06/07/16 12:28 Dose: 5 mg A/P 70 year old woman with PMhx of ESRD s/p Renal Transplant (25 years ago), Hypertension, Hypothyrodism, Seizure D/O who presents with complaints of myalgias and RUQ cramping and found to have leukocytosis and suspected UTI. #Myalgias/Leukocytosis/Suspected UTI on Ceftiazone no new labs today no fever, chills continues to have muscle aches ID following f/u cultures and urine antigens #ESRD s/p Renal Transplant Renal function stable Continue Imuran and Prednisone #Hypertension BP well controlled on Soumya Sen DO
--- NOTE | 2016-06-07 16:05 | PN ---
Teaching Attending Note Name of Resident: Nicolle French ATTENDING PHYSICIAN STATEMENT I saw and evaluated the patient. I reviewed the resident's note and discussed the case with the resident. I agree with the resident's findings and plan as documented. SUBJECTIVE: seen and evaluated with resident OBJECTIVE: ASSESSMENT AND PLAN: continue treatment of pneumonia- ceftriaxone day#4 continues with myalgias and elevated esr/crp will need f/u ct scan of chest as outpt
[2016-06-08] MEDS: GABAPENTIN 100 MG CAPSULE (FP) PO SCH ×3 (06:17→21:50)
[2016-06-08] MEDS: LEVOTHYROXINE NA 75 MCG TABLET (FP) PO SCH (06:18)
[2016-06-08 07:54] LABS: EOSINOPHIL 1.1 % (0-4.5); MCH 33.7 pg (25.7-33.7); MCHC 33.7 g/dl (32.0-36.0); MEAN CELL VOLUME 100.2 fl (80-96); MEAN PLT VOLUME 8.8 fl (7.5-11.1); NEUTROPHILS 66.4 % (42.8-82.8); PLATELET COUNT 268 K/MM3 (134-434); RDW 16.4 % (11.6-15.6); WHITE BLOOD COUNT 8.7 K/mm3 (4.0-10.0)
[2016-06-08 08:41] LABS: CREATININE 0.9 mg/dL (0.55-1.02)
--- NOTE | 2016-06-08 09:35 | PN ---
Physical Exam: SUBJECTIVE: Patient seen and examined by me at bedside. Patient had a HIDA scan done yesterday and results are pending. Patient reports her body aches are much better but is still experiencing abdominal pain. Patient also reports she experienced chest tightness walking to the bathroom today and yesterday with some shortness of breath. Otherwise, patient denies fever, chills, nausea , vomiting, chest pain, palpitations, diarrhea. OBJECTIVE: Vital Signs Period Temp Pulse Resp BP Sys/Wang Pulse Ox Last 24 Hr 97.0 F-98.3 F 73-75 20-20 116-130/57-76 GENERAL: Awake, alert, and fully oriented, in no acute distress. LUNGS: Breath sounds equal, clear to auscultation bilaterally. No wheezes, and no crackles. No accessory muscle use. HEART: Regular rate and rhythm, normal S1 and S2 without murmur, rub or gallop. ABDOMEN: Mild RUQ tenderness upon palpation, not distended, normoactive bowel sounds, no masses. No hepatomegaly or splenomegaly. EXTREMITIES: No peripheral edema. Laboratory Results - last 24 hr 06/06/16 06/08/16 06/08/16 06:40 07:00 07:00 WBC 8.7 RBC 3.44 L Hgb 11.6 Hct 34.5 MCV 100.2 H MCHC 33.7 RDW 16.4 H Plt Count 268 D MPV 8.8 Neutrophils % 66.4 Lymphocytes % 23.5 Monocytes % 8.0 Eosinophils % 1.1 Basophils % 1.0 Sodium 140 Potassium 4.5 Chloride 105 Carbon Dioxide 27 Anion Gap 8 BUN 24 H Creatinine 0.9 Random Glucose 78 Calcium 9.0 Vitamin B12 636 Lyme Screen IgG & IgM <0.91 Active Medications Generic Name Dose Route Start Last Admin Trade Name Freq PRN Reason Stop Dose Admin Acetaminophen 650 mg 06/04/16 19:39 06/07/16 06:15 Tylenol - PO 650 mg Q6H PRN Administration FEVER OR PAIN Albuterol Sulfate 2 puff 06/04/16 19:45 Ventolin Hfa Inhaler - IH Q4H PRN SHORT OF BREATH/WHEEZING Aspirin 81 mg 06/05/16 10:00 06/07/16 12:28 Asa - PO 81 mg DAILY [facility] Administration Azathioprine 100 mg 06/05/16 10:00 06/07/16 12:29 Imuran - PO 100 mg DAILY [facility] Administration Bacitracin 1 applic 06/06/16 12:15 06/07/16 21:20 Bacitracin - TP 1 applic BID [facility] Administration Ceftriaxone Sodium 1 gm 06/05/16 10:00 06/07/16 12:23 Rocephin 1gm Ivpb (Pre-Docked) IVPB 1 gm DAILY [facility] Administration Diltiazem HCl 240 mg 06/05/16 10:00 06/07/16 12:30 Cardizem Cd - PO Not Given DAILY [facility] Fluticasone Propionate 1 spray 06/05/16 10:00 06/07/16 12:23 Flonase - NS 1 spray DAILY [facility] Administration Gabapentin 100 mg 06/06/16 14:00 06/08/16 06:17 Neurontin - PO 100 mg TID [facility] Administration Heparin Sodium (Porcine) 5,000 unit 06/04/16 22:00 06/07/16 21:20 Heparin - SQ 5,000 unit BID [facility] Administration Levothyroxine Sodium 75 mcg 06/05/16 07:00 06/08/16 06:18 Synthroid - PO 75 mcg DAILY@0700 [facility] Administration Multivitamins/Minerals 1 each 06/05/16 10:00 06/07/16 12:29 Theragran-M PO 1 each DAILY [facility] Administration Polyethylene Glycol 17 gm 06/05/16 10:00 06/07/16 12:30 Miralax (For Daily Use) - PO 17 gm DAILY [facility] Administration Prednisone 5 mg 06/05/16 10:00 06/07/16 12:28 Deltasone - PO 5 mg DAILY [facility] Administration ASSESSMENT/PLAN: Patient is a 70 year old female with a PMHx of HTN, HLD, hypothyroidism, renal transplant (25 years) on Imuran and Prednisone, who presented for one week history of body aches, shoulder pain, abdominal cramping predominately in the RUQ, and bilateral leg cramping and tightness. Patient found to have Leukocyte esterase 2+ and concern was for asymptomatic UTI in previous renal transplant patient. Patient was then found to have a RUL infiltrate on CT -Patient remains asymptomatic for UTI or Pneumonia -CT Chest revealed RUL infiltrate but patient has no complaints of respiratory infections. Work up for possible neoplasm/malignancy recommended -WBC's trended down and are wnl -Continue Ceftriaxone 1gm (day 5) due to good response -Urine Legionella Antigens and strep negative -HIDA Scan done yesterday due to abnormal abdominal U/S and RUQ pain. Results pending Visit type - Emergency Visit Emergency Visit: Yes ED Registration Date: 06/04/16 Care time: The patient presented to the Emergency Department on the above date and was hospitalized for further evaluation of their emergent condition. - New Patient This patient is new to me today: No - Critical Care Critical Care patient: No
[2016-06-08] MEDS ORDERED: PT OWN MED DRAWER 7, Y5N ONE (09:54)
[2016-06-08] MEDS: ASPIRIN 81 MG CHEWABLE TABLETS PO SCH (10:01)
[2016-06-08] MEDS: HEPARIN NA (PORCINE) 5,000 UNITS/ML 1ML VIAL SQ SCH ×2 (10:02→21:50)
[2016-06-08] MEDS: cefTRIAXone 1 GM/50 ML BAG (PRE-DOCKED) IVPB SCH (10:02)
[2016-06-08] MEDS: predniSONE 5 MG TABLET (UD) PO SCH (10:02)
[2016-06-08] MEDS: MULTIVITAMINS THER W-MINERALS COMBO TABLET (FP) PO SCH (10:02)
[2016-06-08] MEDS: BACITRACIN 30 GM TUBE TOPICAL OINTMENT TP SCH ×2 (10:03→21:50)
[2016-06-08] MEDS: FLUTICASONE PROP 0.05% 16 GM NASAL SPRAY NS SCH (10:03)
[2016-06-08] MEDS: azaTHIOprine 50 MG TABLET PO SCH (10:04)
--- NOTE | 2016-06-08 10:04 | PN ---
Progress Note, Physician Chief Complaint: feeling better less pains no fever - Current Medication List Current Medications: Active Medications Acetaminophen (Tylenol -) 650 mg PO Q6H PRN PRN Reason: FEVER OR PAIN Last Admin: 06/07/16 06:15 Dose: 650 mg Albuterol Sulfate (Ventolin Hfa Inhaler -) 2 puff IH Q4H PRN PRN Reason: SHORT OF BREATH/WHEEZING Aspirin (Asa -) 81 mg PO DAILY [facility] Last Admin: 06/07/16 12:28 Dose: 81 mg Azathioprine (Imuran -) 100 mg PO DAILY [facility] Last Admin: 06/07/16 12:29 Dose: 100 mg Bacitracin (Bacitracin -) 1 applic TP BID [facility] Last Admin: 06/07/16 21:20 Dose: 1 applic Ceftriaxone Sodium (Rocephin 1gm Ivpb (Pre-Docked)) 1 gm IVPB DAILY [facility] Last Admin: 06/07/16 12:23 Dose: 1 gm Diltiazem HCl (Cardizem Cd -) 240 mg PO DAILY [facility] Last Admin: 06/07/16 12:30 Dose: Not Given Fluticasone Propionate (Flonase -) 1 spray NS DAILY [facility] Last Admin: 06/07/16 12:23 Dose: 1 spray Gabapentin (Neurontin -) 100 mg PO TID [facility] Last Admin: 06/08/16 06:17 Dose: 100 mg Heparin Sodium (Porcine) (Heparin -) 5,000 unit SQ BID [facility] Last Admin: 06/07/16 21:20 Dose: 5,000 unit Levothyroxine Sodium (Synthroid -) 75 mcg PO DAILY@0700 [facility] Last Admin: 06/08/16 06:18 Dose: 75 mcg Multivitamins/Minerals (Theragran-M) 1 each PO DAILY [facility] Last Admin: 06/07/16 12:29 Dose: 1 each Polyethylene Glycol (Miralax (For Daily Use) -) 17 gm PO DAILY [facility] Last Admin: 06/07/16 12:30 Dose: 17 gm Prednisone (Deltasone -) 5 mg PO DAILY [facility] Last Admin: 06/07/16 12:28 Dose: 5 mg - Objective Vital Signs: Vital Signs Temperature 98.3 F 06/08/16 06:00 Pulse Rate 73 06/08/16 06:00 Respiratory Rate 20 06/08/16 06:00 Blood Pressure 130/76 06/08/16 06:00 O2 Sat by Pulse Oximetry (%) 98 06/04/16 22:21 Constitutional: Yes: No Distress, Calm Eyes: Yes: Conjunctiva Clear HENT: Yes: Atraumatic Neck: Yes: Supple Cardiovascular: Yes: Regular Rate and Rhythm Respiratory: Yes: CTA Bilaterally Gastrointestinal: Yes: Soft. No: Tenderness Genitourinary: No: CVA Tenderness - Left, CVA Tenderness - Right Musculoskeletal: No: Joint Stiffness, Joint Swelling Extremities: No: Cold, Cool Edema: No Peripheral Pulses WNL: Yes Neurological: Yes: WNL, Alert, Oriented ...Motor Strength: WNL Psychiatric: Yes: WNL, Alert, Oriented. No: Agitated, Suicidal Ideation Labs: CBC, BMP 06/08/16 07:00 06/08/16 07:00 INR, PTT INR 1.12 (0.82-1.09) 06/04/16 15:00 - ....Imaging Other: Report Reviewed Assessment/Plan The patient is a 70 year old female, with significant past medical history of HTN, HLD, GERD, hypothyroidism, seizures, renal transplant (25 years ago), CVA, who presents to the emergency room complaining of 1 week of body aches. . She reports a dry cough and nonspecific abdominal pain. Found to have UTI and possible PNA, low grade fever admit to inpt CHEST CT noted d/w pt R sided pneumonia will ask pulm anujal IV ATB per ID cardiology renal and rheumtology f/u DVT falls aspiration pfx d/w pt and staff' called daughter [phone] (correct #) left message to call me
--- NOTE | 2016-06-08 10:40 | PN ---
Teaching Attending Note Name of Resident: Nicolle French ATTENDING PHYSICIAN STATEMENT I saw and evaluated the patient. I reviewed the resident's note and discussed the case with the resident. I agree with the resident's findings and plan as documented. SUBJECTIVE:Doing well Offers noncomplaints afebrile OBJECTIVE:Lung Clear Cor S1 S2 RR Abd Soft mild RUQ tenderness ASSESSMENT AND PLAN:Pneumonia responded to antibiotic Plan Can stop antibiotic after today Kindly recall as needed Tere MAST Problem List - Problems (1) UTI (urinary tract infection) Code(s): N39.0 - URINARY TRACT INFECTION, SITE NOT SPECIFIED Qualifiers: Qualified Code(s): N39.0 - Urinary tract infection, site not specified (2) Renal transplant recipient Code(s): Z94.0 - KIDNEY TRANSPLANT STATUS
[2016-06-08] MEDS: POLYETHYLENE GLYCOL 3350 119 GM BTL PO SCH (10:42)
--- NOTE | 2016-06-08 11:57 | CON.PULM ---
Consult Consult Specialty:: PULMONARY Referred by:: Dr. 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 Also reports subjective fevers and shaking chills. Found to have right sided pneumonia but CT chest showing dense mass like consolidation. Last CT chest was done April 2016 without these findings. She is a never smoker. Has been started on IV antibiotics with improvement in her symptoms. - History Source History Provided By: Patient, Medical Record Limitations to Obtaining History: No Limitations - Past Medical History OPTOMETRIC TECH: Yes: Seizure Cardio/Vascular: Yes: HTN Gastrointestinal: Yes: Diverticulosis, GERD Renal/: Yes: Renal Inusuff, Other (renal transplant) ...: No Musculoskeletal: Yes: Osteoarthritis Rheumatology: Yes: Gout Endocrine: Yes: Hypothyroidism, Hyperparathyroidism - Past Surgical History Past Surgical History: Yes: Hernia Repair (ventral). No: None, AAA Repair, AICD , Amputation, Appendectomy, Arthrosocopy, AV Fistula/Graft, Bariatric Surgery, Breast Biopsy, Bypass, CABG, Carotid Endarterectomy, Cataract Removal, Cholecystectomy, Colectomy, Colonoscopy, Colostomy, Craniotomy, , Cystectomy, Hysterectomy, Ileal Conduit, Ileosotomy, Joint Replacement, Kidney Transplant, Laminectomy, Liver Transplant, Mastectomy, Nephrectomy, Oopherectomy , Orchiectomy, Permanent Pacemaker, Prostatectomy, Splenectomy, Stent, Thoracotomy, TURP, Tonsillectomy, Tubal Ligation, Upper Endoscopy, Valve Replacement, Vasectomy, Vein Stripping/Ligation - Alcohol/Substance Use Hx Alcohol Use: No History of Substance Use: reports: None - Smoking History Smoking history: Never smoked Have you smoked in the past 12 months: No Aproximately how many cigarettes per day: 0 - Social History ADL: Independent History of Recent Travel: No Home Medications - Allergies Allergies/Adverse Reactions: Allergies Allergy/AdvReac Type Severity Reaction Status Date / Time codeine Allergy Intermediate Vomiting Verified 06/04/16 13:49 - Home Medications Home Medications: Ambulatory Orders Levothyroxine [Synthroid -] 75 mcg PO DAILY 03/07/12 Prednisone [Deltasone -] 5 mg PO DAILY 05/16/14 Azathioprine [Imuran] 100 mg PO DAILY 12/20/14 Diltiazem Cd [Cardizem Cd -] 240 mg PO DAILY 01/12/15 Acetaminophen [Tylenol .Regular Strength -] 650 mg PO Q6H PRN #0 tablet Albuterol Sulfate Inhaler - [Ventolin Hfa Inhaler -] 2 inh PO Q4H 06/04/16 Amoxicillin/Potassium Clav [Amox-Clav 875-125 mg Tablet] 1 each PO BID 06/04/16 Aspirin [ASA -] 81 mg PO DAILY 06/04/16 Fluticasone Prop 0.05% Nasal [Flonase -] 1 - 2 spray NS DAILY 06/04/16 Fluticasone Propionate [Flovent Diskus] 2 puff IH DAILY 06/04/16 Furosemide [Lasix -] 40 mg PO DAILY 06/04/16 Linaclotide [Linzess] 290 mcg PO DAILY 06/04/16 Multivit-Min/FA/Lycopen/Lutein [Centrum Silver Tablet] 1 each PO DAILY 06/04/16 Polyethylene Glycol 3350 [Miralax (For Daily Use) -] 17 gm PO DAILY 06/04/16 Umeclidinium [place] [Incruse Ellipta] 1 puff IH DAILY 06/04/16 Family Disease History - Family Disease History Family Disease History: CA: Sister (breast) Review of Systems - Review of Systems Constitutional: reports: Chills, Fever, Malaise, Weakness Eyes: denies: Recent Change in Vision HENT: denies: Nasal Congestion, Throat Pain Neck: denies: Stiffness, Tenderness Cardiovascular: reports: Chest Pain, Shortness of Breath. denies: Edema, Palpitations Respiratory: reports: Cough. denies: Hemoptysis, Wheezing Gastrointestinal: denies: Abdominal Pain, Nausea, Vomiting Genitourinary: denies: Dysuria, Hematuria Neurological: reports: Dizziness. denies: Headache Physical Exam Vital Sings: Vital Signs Temperature 98.3 F 06/08/16 06:00 Pulse Rate 73 06/08/16 06:00 Respiratory Rate 20 06/08/16 06:00 Blood Pressure 130/76 06/08/16 06:00 O2 Sat by Pulse Oximetry (%) 98 06/04/16 22:21 Constitutional: Yes: Calm Eyes: Yes: Conjunctiva Clear, EOM Intact HENT: Yes: Atraumatic, Normocephalic Neck: Yes: Supple, Trachea Midline Cardiovascular: Yes: Regular Rate and Rhythm Respiratory: Yes: Diminished (decreased breath sounds at the bases) ...Clubbing: No Gastrointestinal: Yes: Normal Bowel Sounds, Soft. No: Tenderness Edema: No Neurological: Yes: Alert, Oriented Labs: CBC, BMP 06/08/16 07:00 06/08/16 07:00 Imaging - Results Cat Scan: Report Reviewed, Image Reviewed (dense right sided consolidation) Problem List - Problems (1) Pneumonia Code(s): J18.9 - PNEUMONIA, UNSPECIFIED ORGANISM (2) UTI (urinary tract infection) Code(s): N39.0 - URINARY TRACT INFECTION, SITE NOT SPECIFIED Qualifiers: Urinary tract infection type: site unspecified Hematuria presence: with hematuria Qualified Code(s): N39.0 - Urinary tract infection, site not specified (3) Asthma Code(s): J45.909 - UNSPECIFIED ASTHMA, UNCOMPLICATED (4) Renal transplant recipient Code(s): Z94.0 - KIDNEY TRANSPLANT STATUS Assessment/Plan Pneumonia UTI Asthma s/p Renal Transplant on immunosuppressives Lung Nodule - agree with antibiotic coverage - inhaled bronchodilators - O2 as needed - continue immunosuppressives - will need outpt f/u of chest imaging in 6-8 weeks to ensure resolution of consolidation - consolidation is mass like but recent CT chest prior to this one did not show any findings - DVT prophylaxis Thank you for this consult Chris De La O MD
--- NOTE | 2016-06-08 15:30 | PN ---
Progress Note (short form) - Note Progress Note: Renal Follow up for Renal Transplant Pt seen and examined at the bedside muscle aches with some improvement feels tired today no sob, cough, chest pain Vital Signs Temperature 98.0 F 06/08/16 10:00 Pulse Rate 78 06/08/16 10:00 Respiratory Rate 18 06/08/16 10:00 Blood Pressure 140/78 06/08/16 10:00 O2 Sat by Pulse Oximetry (%) 99 06/08/16 09:00 Intake & Output 06/05/16 06/06/16 06/07/16 06/08/16 23:59 23:59 23:59 23:59 Intake Total 1125 1710 800 900 Balance 1125 1710 800 900 Gen: NAD CVS: RRR, No M/R Lungs: CTA, no rales or wheeze Abd: soft NT/ND, no rebound or guarding Ext: No edmea CBC, BMP 06/08/16 07:00 06/08/16 07:00 Current Medications Acetaminophen (Tylenol -) 650 mg PO Q6H PRN PRN Reason: FEVER OR PAIN Last Admin: 06/07/16 06:15 Dose: 650 mg Albuterol Sulfate (Ventolin Hfa Inhaler -) 2 puff IH Q4H PRN PRN Reason: SHORT OF BREATH/WHEEZING Aspirin (Asa -) 81 mg PO DAILY [facility] Last Admin: 06/08/16 10:01 Dose: 81 mg Azathioprine (Imuran -) 100 mg PO DAILY [facility] Last Admin: 06/08/16 10:04 Dose: 100 mg Bacitracin (Bacitracin -) 1 applic TP BID [facility] Last Admin: 06/08/16 10:03 Dose: 1 applic Ceftriaxone Sodium (Rocephin 1gm Ivpb (Pre-Docked)) 1 gm IVPB DAILY [facility] Last Admin: 06/08/16 10:02 Dose: 1 gm Diltiazem HCl (Cardizem Cd -) 240 mg PO DAILY [facility] Last Admin: 06/08/16 10:02 Dose: 240 mg Fluticasone Propionate (Flonase -) 1 spray NS DAILY [facility] Last Admin: 06/08/16 10:03 Dose: 1 spray Gabapentin (Neurontin -) 100 mg PO TID [facility] Last Admin: 06/08/16 13:32 Dose: 100 mg Heparin Sodium (Porcine) (Heparin -) 5,000 unit SQ BID [facility] Last Admin: 06/08/16 10:02 Dose: 5,000 unit Levothyroxine Sodium (Synthroid -) 75 mcg PO DAILY@0700 [facility] Last Admin: 06/08/16 06:18 Dose: 75 mcg Multivitamins/Minerals (Theragran-M) 1 each PO DAILY [facility] Last Admin: 06/08/16 10:02 Dose: 1 each Polyethylene Glycol (Miralax (For Daily Use) -) 17 gm PO DAILY [facility] Last Admin: 06/08/16 10:42 Dose: 17 gm Prednisone (Deltasone -) 5 mg PO DAILY [facility] Last Admin: 06/08/16 10:02 Dose: 5 mg A/P 70 year old woman with PMhx of ESRD s/p Renal Transplant (25 years ago), Hypertension, Hypothyrodism, Seizure D/O who presents with complaints of myalgias and RUQ cramping and found to have leukocytosis and suspected UTI. #Myalgias/Leukocytosis/Suspected UTI on Ceftiazone ID following s/p Rheum eval, WILL, RF pending #ESRD s/p Renal Transplant Renal function stable Continue Imuran and Prednisone #Hypertension BP well controlled on Soumya Sen DO
--- NOTE | 2016-06-08 22:35 | HOSP ---
Subjective - Review of Symptoms General: No: Chills, Night Sweats, Fatigue, Malaise, Appetite, Other HEENT: No: Head Aches, Visual Changes, Eye Pain, Ear Pain, Dysphasia, Sinus Congestion, Post Nasal Drip, Sore Throat, Other Pulmonary: No: Dyspnea, Cough, Pleuritic Chest Pain, Other Cardiovascular: No: Chest Pain, Palpitations, Orthopnea, Paroxysmal Noc. Dyspnea , Edema, Light Headedness, Other Gastrointestinal: No: Nausea, NOSYM, Vomiting, Abdominal Pain, Diarrhea, Constipation, Melena, Hematochezia, Other Musculoskeletal: Yes: Joint Pain (mild, nonradiating in 2nd and 3rd right toes) , Joint Swelling. No: Decreased ROM, Muscle Cramps Neurological: No: Weakness, Numbness, Incoordination, Change in speech, Confusion, Seizures, Other Physical Examination Vital Signs: Vital Signs Temperature 97.7 F 06/08/16 21:44 Pulse Rate 67 06/08/16 21:44 Respiratory Rate 16 06/08/16 21:44 Blood Pressure 118/58 06/08/16 21:44 O2 Sat by Pulse Oximetry (%) 99 06/08/16 09:00 Constitutional: Yes: Well Nourished, No Distress, Calm Eyes: Yes: WNL HENT: Yes: Atraumatic, Normocephalic Neck: Yes: Supple, Trachea Midline Cardiovascular: Yes: Regular Rate and Rhythm, S1, S2 Respiratory: Yes: Regular, CTA Bilaterally Gastrointestinal: Yes: WNL, Soft Musculoskeletal: Yes: Joint Swelling (2nd and 3rd distal joint with swelling and black/blue discoloration) Extremities: No: Calf Tenderness, Cool, Erythema Edema: RLE: Trace Peripheral Pulses WNL: Yes Integumentary: Yes: Other (right anterior ankle with healing abrasion, no surrounding erythema/fluctuance/discharge) Neurological: Yes: Alert, Oriented, Cran Nerves II-XII Intact. No: Loss of Sensation, Numbness ...Motor Strength: WNL Psychiatric: Yes: WNL, Alert, Oriented Labs: CBC, BMP 06/08/16 07:00 06/08/16 07:00 Hospitalist Encounter Assessment: During lunch time(12pm) this morning she accidently dropped a plate onto her right foot when she was moving the tray from her bed to the window. She did not tell the nurse at that time. This evening she noticed bruising and swelling on her 2nd and 3rd toes. She has been able to weight bear on that foot since the accident. Denies loss of muscle tone, slurred speech, chest pain, palpitations, headache, fever. PE: sensation/motor/strength intact in right toes. dp 2+. discoloration and swelling in distal joint of 2nd and 3rd toes, skin intact. mild tenderness to palpation. Outcome: foot xray ordered Primary Physician Notified: Amelia Mehta Time PMD Notified: 22:30 Recommendations/Interventions: foot xray f/u read, re-assess in the am. rest, ice, elevate foot Visit type - Emergency Visit Emergency Visit: No - New Patient This patient is new to me today: Yes Date on this admission: 06/08/16 - Critical Care Critical Care patient: No
[2016-06-08] MEDS: ACETAMINOPHEN 325 MG TABLET (FP) PO PRN (23:15)
[2016-06-09] MEDS: LEVOTHYROXINE NA 75 MCG TABLET (FP) PO SCH (06:10)
[2016-06-09] MEDS: GABAPENTIN 100 MG CAPSULE (FP) PO SCH ×3 (06:11→21:46)
[2016-06-09 09:22] LABS: MCH 34.1 pg (25.7-33.7); MCHC 33.8 g/dl (32.0-36.0); MEAN CELL VOLUME 100.9 fl (80-96); MEAN PLT VOLUME 9.7 fl (7.5-11.1); PLATELET COUNT 278 K/MM3 (134-434); RDW 16.1 % (11.6-15.6); WHITE BLOOD COUNT 8.7 K/mm3 (4.0-10.0)
[2016-06-09] MEDS ORDERED: PT OWN MED DRAWER 7, Y5N ONE ×2 (09:45→10:06)
[2016-06-09 09:48] LABS: CALCIUM 9.2 mg/dL (8.5-10.1); CREATININE 0.9 mg/dL (0.55-1.02); MAGNESIUM 2.3 mg/dL (1.8-2.4)
[2016-06-09] MEDS: cefTRIAXone 1 GM/50 ML BAG (PRE-DOCKED) IVPB SCH (09:50)
[2016-06-09] MEDS: predniSONE 5 MG TABLET (UD) PO SCH (09:50)
[2016-06-09] MEDS: MULTIVITAMINS THER W-MINERALS COMBO TABLET (FP) PO SCH (09:50)
[2016-06-09] MEDS: HEPARIN NA (PORCINE) 5,000 UNITS/ML 1ML VIAL SQ SCH ×2 (09:51→21:46)
[2016-06-09] MEDS: azaTHIOprine 50 MG TABLET PO SCH (09:51)
[2016-06-09] MEDS: FLUTICASONE PROP 0.05% 16 GM NASAL SPRAY NS SCH (09:51)
[2016-06-09] MEDS: ASPIRIN 81 MG CHEWABLE TABLETS PO SCH (09:52)
[2016-06-09 10:22] LABS: METAMYELOCYTE 1 % (0-2)
[2016-06-09 10:23] LABS: PLATELET ESTIMATE ADEQUATE (NORMAL)
[2016-06-09] MEDS: POLYETHYLENE GLYCOL 3350 119 GM BTL PO SCH (10:37)
--- NOTE | 2016-06-09 12:23 | PN ---
Progress Note (short form) - Note Progress Note: PULMONARY APPEARS COMFORTABLE VSS/AFEBRILE ANICTERIC B/L RHONCHI/WHEEZES S1S2 BS+ OBESE NO EDEMA LABS/MEDS/NOTES/IMAGING/MICRO REVIEWED Pneumonia UTI Asthma s/p Renal Transplant on immunosuppressives Lung Nodule - antibiotic coverage - consider holding oral pred and changing to solumedrol - inhaled bronchodilators - O2 as needed - continue immunosuppressives - will need outpt f/u of chest imaging in 6-8 weeks to ensure resolution of consolidation - consolidation is mass like but recent CT chest prior to this one did not show any findings - DVT prophylaxis Anna HEADLEY MD
--- NOTE | 2016-06-09 14:06 | PN ---
Progress Note (short form) - Note Progress Note: Renal Follow up for Renal Transplant Pt seen and examined at the bedside feels fatigued no fever or chills no N/V/D Vital Signs Temperature 99.1 F 06/09/16 09:00 Pulse Rate 65 06/09/16 09:00 Respiratory Rate 18 06/09/16 09:00 Blood Pressure 130/74 06/09/16 09:00 O2 Sat by Pulse Oximetry (%) 99 06/08/16 22:00 Gen: NAD CVS: RRR, No M/R Lungs: CTA, no rales or wheeze Abd: soft NT/ND, no rebound or guarding Ext: No edmea CBC, BMP 06/09/16 07:45 06/09/16 07:45 Current Medications Acetaminophen (Tylenol -) 650 mg PO Q6H PRN PRN Reason: FEVER OR PAIN Last Admin: 06/08/16 23:15 Dose: 650 mg Albuterol Sulfate (Ventolin Hfa Inhaler -) 2 puff IH Q4H PRN PRN Reason: SHORT OF BREATH/WHEEZING Aspirin (Asa -) 81 mg PO DAILY [facility] Last Admin: 06/09/16 09:52 Dose: 81 mg Azathioprine (Imuran -) 100 mg PO DAILY [facility] Last Admin: 06/09/16 09:51 Dose: 100 mg Bacitracin (Bacitracin -) 1 applic TP BID [facility] Last Admin: 06/08/16 21:50 Dose: 1 applic Ceftriaxone Sodium (Rocephin 1gm Ivpb (Pre-Docked)) 1 gm IVPB DAILY [facility] Last Admin: 06/09/16 09:50 Dose: 1 gm Diltiazem HCl (Cardizem Cd -) 240 mg PO DAILY [facility] Last Admin: 06/09/16 09:50 Dose: 240 mg Fluticasone Propionate (Flonase -) 1 spray NS DAILY [facility] Last Admin: 06/09/16 09:51 Dose: 1 spray Gabapentin (Neurontin -) 100 mg PO TID [facility] Last Admin: 06/09/16 06:11 Dose: 100 mg Heparin Sodium (Porcine) (Heparin -) 5,000 unit SQ BID [facility] Last Admin: 06/09/16 09:51 Dose: 5,000 unit Levothyroxine Sodium (Synthroid -) 75 mcg PO DAILY@0700 [facility] Last Admin: 06/09/16 06:10 Dose: 75 mcg Multivitamins/Minerals (Theragran-M) 1 each PO DAILY [facility] Last Admin: 06/09/16 09:50 Dose: 1 each Polyethylene Glycol (Miralax (For Daily Use) -) 17 gm PO DAILY [facility] Last Admin: 06/09/16 10:37 Dose: 17 gm Prednisone (Deltasone -) 5 mg PO DAILY [facility] Last Admin: 06/09/16 09:50 Dose: 5 mg A/P 70 year old woman with PMhx of ESRD s/p Renal Transplant (25 years ago), Hypertension, Hypothyrodism, Seizure D/O who presents with complaints of myalgias and RUQ cramping and found to have leukocytosis and suspected UTI. #Myalgias/Leukocytosis/Suspected UTI on Ceftiazone ID following WILL positive 1:160, negative RF will need rheum follow up - can be outpatient #ESRD s/p Renal Transplant Renal function stable Continue Imuran and Prednisone #Hypertension BP well controlled on Soumya Sen DO
[2016-06-09] MEDS: BACITRACIN 30 GM TUBE TOPICAL OINTMENT TP SCH ×2 (15:20→21:48)
--- NOTE | 2016-06-09 16:42 | PN ---
Progress Note, Physician Chief Complaint: feels better but very tired; has some chest tightness with walking but O 2 sat/ RA 99-100 % walked in hallway and to the shower, felt OK - Current Medication List Current Medications: Active Medications Acetaminophen (Tylenol -) 650 mg PO Q6H PRN PRN Reason: FEVER OR PAIN Last Admin: 06/08/16 23:15 Dose: 650 mg Albuterol Sulfate (Ventolin Hfa Inhaler -) 2 puff IH Q4H PRN PRN Reason: SHORT OF BREATH/WHEEZING Aspirin (Asa -) 81 mg PO DAILY [facility] Last Admin: 06/09/16 09:52 Dose: 81 mg Azathioprine (Imuran -) 100 mg PO DAILY [facility] Last Admin: 06/09/16 09:51 Dose: 100 mg Bacitracin (Bacitracin -) 1 applic TP BID [facility] Last Admin: 06/09/16 15:20 Dose: 1 applic Ceftriaxone Sodium (Rocephin 1gm Ivpb (Pre-Docked)) 1 gm IVPB DAILY [facility] Last Admin: 06/09/16 09:50 Dose: 1 gm Diltiazem HCl (Cardizem Cd -) 240 mg PO DAILY [facility] Last Admin: 06/09/16 09:50 Dose: 240 mg Fluticasone Propionate (Flonase -) 1 spray NS DAILY [facility] Last Admin: 06/09/16 09:51 Dose: 1 spray Gabapentin (Neurontin -) 100 mg PO TID [facility] Last Admin: 06/09/16 15:20 Dose: 100 mg Heparin Sodium (Porcine) (Heparin -) 5,000 unit SQ BID [facility] Last Admin: 06/09/16 09:51 Dose: 5,000 unit Levothyroxine Sodium (Synthroid -) 75 mcg PO DAILY@0700 [facility] Last Admin: 06/09/16 06:10 Dose: 75 mcg Multivitamins/Minerals (Theragran-M) 1 each PO DAILY [facility] Last Admin: 06/09/16 09:50 Dose: 1 each Polyethylene Glycol (Miralax (For Daily Use) -) 17 gm PO DAILY [facility] Last Admin: 06/09/16 10:37 Dose: 17 gm Prednisone (Deltasone -) 5 mg PO DAILY [facility] Last Admin: 06/09/16 09:50 Dose: 5 mg - Objective Vital Signs: Vital Signs Temperature 98.6 F 06/09/16 14:49 Pulse Rate 66 06/09/16 14:49 Respiratory Rate 18 06/09/16 14:49 Blood Pressure 120/69 06/09/16 14:49 O2 Sat by Pulse Oximetry (%) 99 06/08/16 22:00 Constitutional: Yes: No Distress, Calm Eyes: Yes: Conjunctiva Clear HENT: Yes: Atraumatic Neck: Yes: Supple Cardiovascular: Yes: Regular Rate and Rhythm Respiratory: Yes: CTA Bilaterally Gastrointestinal: Yes: Soft. No: Distention, Tenderness Genitourinary: No: CVA Tenderness - Left, CVA Tenderness - Right Musculoskeletal: No: Joint Stiffness, Joint Swelling Extremities: No: Cold, Cool Edema: No Peripheral Pulses WNL: Yes Integumentary: No: Pressure Ulcer, Rash, Venous Stasis Changes Neurological: Yes: WNL, Alert, Oriented ...Motor Strength: WNL Psychiatric: Yes: WNL, Alert, Oriented. No: Agitated, Suicidal Ideation Labs: CBC, BMP 06/09/16 07:45 06/09/16 07:45 INR, PTT INR 1.12 (0.82-1.09) 06/04/16 15:00 - ....Imaging Other: Report Reviewed Assessment/Plan The patient is a 70 year old female, with significant past medical history of HTN, HLD, GERD, hypothyroidism, seizures, renal transplant (25 years ago), CVA, who presents to the emergency room complaining of 1 week of body aches. . She reports a dry cough and nonspecific abdominal pain. Found to have UTI and possible PNA, low grade fever admit to inpt CHEST CT noted d/w pt R sided pneumonia; pulm an ID f/u IV ATB per ID d/w dr Carranza OK to switch to PO cardiology renal and rheumtology f/u DVT falls aspiration pfx d/w pt and staff DC home in am if stable
[2016-06-10 00:09] LABS: A/G RATIO 0.9 (0.7-1.7); ALBUMIN 3.2 g/dL (2.9-4.4); GLOBULIN, TOTAL 3.5 g/dL (2.2-3.9); M-SPIKE Not Observed g/dL (Not Observed); TOTAL PROTEIN 6.7 g/dL (6.0-8.5)
[2016-06-10] MEDS: LEVOTHYROXINE NA 75 MCG TABLET (FP) PO SCH (06:37)
[2016-06-10] MEDS: GABAPENTIN 100 MG CAPSULE (FP) PO SCH ×2 (06:37→13:54)
[2016-06-10] MEDS ORDERED: PT OWN MED DRAWER 7, Y5N ONE (09:41)
[2016-06-10] MEDS: FLUTICASONE PROP 0.05% 16 GM NASAL SPRAY NS SCH (09:43)
[2016-06-10] MEDS: cefTRIAXone 1 GM/50 ML BAG (PRE-DOCKED) IVPB SCH (09:44)
[2016-06-10] MEDS: predniSONE 5 MG TABLET (UD) PO SCH (09:45)
[2016-06-10] MEDS: azaTHIOprine 50 MG TABLET PO SCH (09:45)
[2016-06-10] MEDS: HEPARIN NA (PORCINE) 5,000 UNITS/ML 1ML VIAL SQ SCH (09:45)
[2016-06-10] MEDS: MULTIVITAMINS THER W-MINERALS COMBO TABLET (FP) PO SCH (09:45)
[2016-06-10] MEDS: ASPIRIN 81 MG CHEWABLE TABLETS PO SCH (09:46)
[2016-06-10] MEDS: BACITRACIN 30 GM TUBE TOPICAL OINTMENT TP SCH (09:48)
[2016-06-10] MEDS: POLYETHYLENE GLYCOL 3350 119 GM BTL PO SCH (09:55)
[2016-06-10] MEDS ORDERED: CEPHALEXIN MONOHYDRATE 500 MG CAPSULE (UD) PO SCH (10:30)
--- NOTE | 2016-06-10 11:30 | PN ---
Progress Note (short form) - Note Progress Note: Renal Follow up for Renal Transplant Pt seen and examined at the bedside continues to feel fatigued no sob or chest pain Vital Signs Temperature 97.8 F 06/10/16 06:07 Pulse Rate 53 L 06/10/16 06:07 Respiratory Rate 18 06/10/16 06:07 Blood Pressure 117/55 06/10/16 06:07 O2 Sat by Pulse Oximetry (%) 100 06/09/16 21:00 Intake & Output 06/07/16 06/08/16 06/09/16 06/10/16 23:59 23:59 23:59 23:59 Intake Total 800 1280 380 600 Balance 800 1280 380 600 Gen: NAD CVS: RRR, No M/R Lungs: CTA, no rales or wheeze Abd: soft NT/ND, no rebound or guarding Ext: No edmea CBC, BMP 06/09/16 07:45 06/09/16 07:45 Current Medications Acetaminophen (Tylenol -) 650 mg PO Q6H PRN PRN Reason: FEVER OR PAIN Last Admin: 06/08/16 23:15 Dose: 650 mg Albuterol Sulfate (Ventolin Hfa Inhaler -) 2 puff IH Q4H PRN PRN Reason: SHORT OF BREATH/WHEEZING Aspirin (Asa -) 81 mg PO DAILY [facility] Last Admin: 06/10/16 09:46 Dose: 81 mg Azathioprine (Imuran -) 100 mg PO DAILY [facility] Last Admin: 06/10/16 09:45 Dose: 100 mg Bacitracin (Bacitracin -) 1 applic TP BID [facility] Last Admin: 06/10/16 09:48 Dose: 1 applic Cephalexin HCl (Keflex -) 500 mg PO BID [facility] Diltiazem HCl (Cardizem Cd -) 240 mg PO DAILY [facility] Last Admin: 06/10/16 09:45 Dose: 240 mg Fluticasone Propionate (Flonase -) 1 spray NS DAILY [facility] Last Admin: 06/10/16 09:43 Dose: 1 spray Gabapentin (Neurontin -) 100 mg PO TID [facility] Last Admin: 06/10/16 06:37 Dose: 100 mg Heparin Sodium (Porcine) (Heparin -) 5,000 unit SQ BID [facility] Last Admin: 06/10/16 09:45 Dose: 5,000 unit Levothyroxine Sodium (Synthroid -) 75 mcg PO DAILY@0700 [facility] Last Admin: 06/10/16 06:37 Dose: 75 mcg Multivitamins/Minerals (Theragran-M) 1 each PO DAILY [facility] Last Admin: 06/10/16 09:45 Dose: 1 each Polyethylene Glycol (Miralax (For Daily Use) -) 17 gm PO DAILY [facility] Last Admin: 06/10/16 09:55 Dose: Not Given Prednisone (Deltasone -) 5 mg PO DAILY [facility] Last Admin: 06/10/16 09:45 Dose: 5 mg A/P 70 year old woman with PMhx of ESRD s/p Renal Transplant (25 years ago), Hypertension, Hypothyrodism, Seizure D/O who presents with complaints of myalgias and RUQ cramping and found to have leukocytosis and suspected UTI. #Myalgias/Leukocytosis/Suspected UTI s/p IV Abx WILL positive Rheum work up as outpatient #ESRD s/p Renal Transplant Renal function stable Continue Imuran and Prednisone #Hypertension BP well controlled on Soumya Sen DO
--- NOTE | 2016-06-10 12:30 | PN ---
Progress Note (short form) - Note Progress Note: PULMONARY Feels better but still feels weak. No shortness of breath or chest pain. No fevers or chills. Last Vital Signs Temp Pulse Resp BP Pulse Ox 97.8 F 53 L 18 117/55 100 06/10/16 06:07 06/10/16 06:07 06/10/16 06:07 06/10/16 06:07 06/09/16 21:00 Gen: NAD at rest Heart: RRR Lung: distant breath sounds Abd: soft, nontender Ext: no edema CBC, BMP 06/09/16 07:45 06/09/16 07:45 Active Medications Acetaminophen (Tylenol -) 650 mg PO Q6H PRN PRN Reason: FEVER OR PAIN Last Admin: 06/08/16 23:15 Dose: 650 mg Albuterol Sulfate (Ventolin Hfa Inhaler -) 2 puff IH Q4H PRN PRN Reason: SHORT OF BREATH/WHEEZING Aspirin (Asa -) 81 mg PO DAILY [facility] Last Admin: 06/10/16 09:46 Dose: 81 mg Azathioprine (Imuran -) 100 mg PO DAILY [facility] Last Admin: 06/10/16 09:45 Dose: 100 mg Bacitracin (Bacitracin -) 1 applic TP BID [facility] Last Admin: 06/10/16 09:48 Dose: 1 applic Cephalexin HCl (Keflex -) 500 mg PO BID [facility] Last Admin: 06/10/16 11:55 Dose: Not Given Diltiazem HCl (Cardizem Cd -) 240 mg PO DAILY [facility] Last Admin: 06/10/16 09:45 Dose: 240 mg Fluticasone Propionate (Flonase -) 1 spray NS DAILY [facility] Last Admin: 06/10/16 09:43 Dose: 1 spray Gabapentin (Neurontin -) 100 mg PO TID [facility] Last Admin: 06/10/16 06:37 Dose: 100 mg Heparin Sodium (Porcine) (Heparin -) 5,000 unit SQ BID [facility] Last Admin: 06/10/16 09:45 Dose: 5,000 unit Levothyroxine Sodium (Synthroid -) 75 mcg PO DAILY@0700 [facility] Last Admin: 06/10/16 06:37 Dose: 75 mcg Multivitamins/Minerals (Theragran-M) 1 each PO DAILY [facility] Last Admin: 04/15/17 09:45 Dose: 1 each Polyethylene Glycol (Miralax (For Daily Use) -) 17 gm PO DAILY [facility] Last Admin: 06/10/16 09:55 Dose: Not Given Prednisone (Deltasone -) 5 mg PO DAILY [facility] Last Admin: 06/10/16 09:45 Dose: 5 mg A/P Pneumonia UTI Asthma s/p Renal Transplant on immunosuppressives Lung Nodule - complete antibiotics - inhaled bronchodilators - O2 as needed - continue immunosuppressives - will need outpt f/u of chest imaging in 6-8 weeks to ensure resolution of consolidation - consolidation is mass like but recent CT chest prior to this one did not show any findings - she will follow up with me in office - agree with d/c planning Problem List - Problems (1) Pneumonia Code(s): J18.9 - PNEUMONIA, UNSPECIFIED ORGANISM (2) UTI (urinary tract infection) Code(s): N39.0 - URINARY TRACT INFECTION, SITE NOT SPECIFIED Qualifiers: Urinary tract infection type: site unspecified Hematuria presence: with hematuria Qualified Code(s): N39.0 - Urinary tract infection, site not specified (3) Asthma Code(s): J45.909 - UNSPECIFIED ASTHMA, UNCOMPLICATED (4) Renal transplant recipient Code(s): Z94.0 - KIDNEY TRANSPLANT STATUS
--- NOTE | 2016-06-10 12:49 | DS ---
Physical Examination Vital Signs: Vital Signs Temperature 97.8 F 06/10/16 06:07 Pulse Rate 53 L 06/10/16 06:07 Respiratory Rate 18 06/10/16 06:07 Blood Pressure 117/55 06/10/16 06:07 O2 Sat by Pulse Oximetry (%) 100 06/09/16 21:00 Findings/Remarks: feels better, ate and slept OK; wants to go home for Easter Constitutional: Yes: No Distress, Calm Eyes: Yes: Conjunctiva Clear HENT: Yes: Atraumatic Neck: Yes: Supple Cardiovascular: Yes: Regular Rate and Rhythm Respiratory: Yes: CTA Bilaterally Gastrointestinal: Yes: Soft. No: Distention, Tenderness Renal/: No: CVA Tenderness - Left, CVA Tenderness - Right Musculoskeletal: No: Joint Stiffness, Joint Swelling Extremities: No: Cold, Cool Edema: No Peripheral Pulses WNL: Yes Integumentary: No: Rash, Venous Stasis Changes Neurological: Yes: WNL, Alert, Oriented ...Motor Strength: WNL Psychiatric: Yes: WNL, Alert, Oriented. No: Agitated Labs: CBC, BMP 06/09/16 07:45 06/09/16 07:45 Discharge Summary Reason For Visit: UTI Current Active Problems Asthma (Acute) Body aches (Acute) Dilated gallbladder (Acute) Pneumonia (Acute) UTI (urinary tract infection) (Acute) Procedures: Principal: admitted with sepsis PNA Other Procedures: IV ATB per ID< seen by cardiology and pulmonary;. also had nonspecific body aches seen by rheum, renal;. improved with above Hospital Course: improved with above; f/u as advised RTER if worse or recurrent c/o Condition: Guarded - Instructions Diet, Activity, Other Instructions: chest CT no ivc in 4 - 6 weeks and pulm f/u same PO ATB as advised rheum f/u for high ESR and +AMELIA renal, cardiology f/u see PCP in 1-2 weeks RTER if worse or recurrent c/o scripts done as needed d/w pt and staff T time 40 min Referrals: Amelia Mehta [Primary Care Provider] - Disposition: HOME - Home Medications Comprehensive Discharge Medication List: Ambulatory Orders Levothyroxine [Synthroid -] 75 mcg PO DAILY 03/07/12 Prednisone [Deltasone -] 5 mg PO DAILY 05/16/14 Azathioprine [Imuran] 100 mg PO DAILY 12/20/14 Diltiazem Cd [Cardizem Cd -] 240 mg PO DAILY 01/12/15 Acetaminophen [Tylenol .Regular Strength -] 650 mg PO Q6H PRN #0 tablet Albuterol Sulfate Inhaler - [Ventolin Hfa Inhaler -] 2 inh PO Q4H 06/04/16 Amoxicillin/Potassium Clav [Amox-Clav 875-125 mg Tablet] 1 each PO BID 06/04/16 Aspirin [ASA -] 81 mg PO DAILY 06/04/16 Fluticasone Prop 0.05% Nasal [Flonase -] 1 - 2 spray NS DAILY 06/04/16 Fluticasone Propionate [Flovent Diskus] 2 puff IH DAILY 06/04/16 Furosemide [Lasix -] 40 mg PO DAILY 06/04/16 Linaclotide [Linzess] 290 mcg PO DAILY 06/04/16 Multivit-Min/FA/Lycopen/Lutein [Centrum Silver Tablet] 1 each PO DAILY 06/04/16 Polyethylene Glycol 3350 [Miralax (For Daily Use) -] 17 gm PO DAILY 06/04/16 Umeclidinium [place] [Incruse Ellipta] 1 puff IH DAILY 06/04/16
[2016-06-10 13:55] VITALS: BP 116/59; PULSE 67; TEMP 97.9
[2016-06-12 14:13] LABS: M-SPIKE, % Not Observed % (Not Observed)
== END 2016-06-10 15:44 | disposition home or self-care (01) | DRG 193 ==
LOC: JER 13:44 → JERBED 19:12 → J6S 22:29
PROVIDERS: ADMIT Internal Medicine; ATTEND Internal Medicine
DX: J18.9 Pneumonia, unspecified organism (principal); N18.6 End stage renal disease; Z94.0 Kidney transplant status; N39.0 Urinary tract infection, site not specified; I12.0 Hypertensive chronic kidney disease with stage 5 chronic kidney disease or end stage renal disease; I25.810 Atherosclerosis of coronary artery bypass graft(s) without angina pectoris; K21.9 Gastro-esophageal reflux disease without esophagitis; E03.9 Hypothyroidism, unspecified; E78.5 Hyperlipidemia, unspecified; Z86.73 Personal history of transient ischemic attack (TIA), and cerebral infarction without residual deficits; M10.9 Gout, unspecified; G40.909 Epilepsy, unspecified, not intractable, without status epilepticus; K82.8 Other specified diseases of gallbladder; R91.1 Solitary pulmonary nodule; S90.121A Contusion of right lesser toe(s) without damage to nail, initial encounter; W22.8XXA Striking against or struck by other objects, initial encounter; Y93.89 Activity, other specified; Y92.230 Patient room in hospital as the place of occurrence of the external cause; Y99.8 Other external cause status; D72.829 Elevated white blood cell count, unspecified
CPT/HCPCS: 36415; 71010-TC; 71250-TC; 73630-TC-RT; 74176-TC; 76705-TC; 78226-TC; 80048; 80053; 81003; 81015; 82550; 82607; 83605; 83690; 83735; 83880; 84155; 84156; 84157; 84165; 84443; 84484; 85025; 85610; 85651; 86038; 86140; 86431; 86618; 86850; 86900; 86901; 87040; 87086; 87899; 93005; 93010; 93970-TC; 99285-25; A9537; J1644

== ENCOUNTER 2017-01-17 16:48 | Emergency (ER) | payer OTHER ==
[2017-01-17 17:00] VITALS: BMI 25.7
--- NOTE | 2017-01-17 17:33 | PDOC ---
History of Present Illness - General History Source: Patient Exam Limitations: No Limitations - History of Present Illness Initial Comments: 01/17/17 17:55 The patient is a 71 year old female, with a significant past medical history of hypertension, hyperlipidemia, seizures, pyelonephritis((s/p kidney transplant), arthritis, chronic neck pain, CVA, and hypothyroidism, who presents to the emergency department s/p mechanical response at approximately 17:00. The patient reports she was at a soup kitchen walking down 2 steps, when she missed a step and fell onto the floor. Patient reports landing on her knees and subsequently on her right side. She denies any weakness, changes in vision, head trauma, or LOC. She reports worsening neck pain than that of her baseline, right shoulder/arm pain, and bilateral knee pain. Patient reports she was unable to ambulate on her own s/p fall secondary to pain. She denies any associated abdominal pain, nausea, vomiting, diarrhea, or constipation. She denies any dysuria, hematuria, frequency, or urgency. She denies any headache, lightheadedness, or dizziness. She denies any recent travel or sick contacts. Allergies: Codeine(swelling, vomiting, shortness of breath) Past Surgical History: Kidney transplant, umbilical hernia repair, cardiac catheterization(no stents) Social History: Non smoker. No ETOH or recreational drug use. PCP: Dr. Amelia Mehta Nurse Healthcare Manager: Dr. George <Suman Meng - Last Filed: 01/17/17 21:39> <Enrico Matos - Last Filed: 01/17/17 23:20> - General Chief Complaint: Injury Stated Complaint: FALL Time Seen by Provider: 01/17/17 17:33 Past History <Suman Meng - Last Filed: 01/17/17 21:39> - Past Medical History Cardiac Disorders: Yes (CARDIOMEGALY, pericarditis) CVA: Yes COPD: No Dialysis: No (HX OF DIALYSIS S/P) HTN: Yes Hypercholesterolemia: Yes Seizures: Yes Thyroid Disease: Yes - Surgical History Abdominal Surgery: Yes (UMBILICAL HERNIA) Cardiac Surgery: Yes (percardial window,CARD CATH NO STENTS) - Immunization History Immunization Up to Date: Yes - Suicide/Smoking/Psychosocial Hx Smoking Status: No Smoking History: Never smoked Have you smoked in the past 12 months: No Number of Cigarettes Smoked Daily: 0 Information on smoking cessation initiated: No Hx Alcohol Use: No Drug/Substance Use Hx: No Substance Use Type: None Hx Substance Use Treatment: No <Enrico Matos - Last Filed: 01/17/17 23:20> - Past Medical History Allergies/Adverse Reactions: Allergies Allergy/AdvReac Type Severity Reaction Status Date / Time codeine Allergy Intermediate Vomiting Verified 01/17/17 18:11 Home Medications: Ambulatory Orders Levothyroxine [Synthroid -] 75 mcg PO DAILY 03/07/12 Prednisone [Deltasone -] 5 mg PO DAILY 07/11/13 Azathioprine [Imuran] 100 mg PO DAILY 12/20/14 Diltiazem Cd [Cardizem Cd -] 240 mg PO DAILY 01/12/15 Acetaminophen [Tylenol .Regular Strength -] 650 mg PO Q6H PRN #0 tablet Albuterol Sulfate Inhaler - [Ventolin HFA Inhaler -] 2 inh PO Q4H 06/04/16 Aspirin [ASA -] 81 mg PO DAILY 06/04/16 Fluticasone Prop 0.05% Nasal [Flonase -] 1 - 2 spray NS DAILY 06/04/16 Fluticasone Propionate [Flovent Diskus] 2 puff IH DAILY 06/04/16 Linaclotide [Linzess] 290 mcg PO DAILY 06/04/16 Multivit-Min/FA/Lycopen/Lutein [Centrum Silver Tablet] 1 each PO DAILY 06/04/16 Polyethylene Glycol 3350 [Miralax 119 gm Btl -] 17 gm PO DAILY 06/04/16 Umeclidinium [place] [Incruse Ellipta] 1 puff IH DAILY 06/04/16 Bacitracin - [Bacitracin Topical Ointment -] 1 applic TP BID tube 06/10/16 Cephalexin Monohydrate [Keflex -] 500 mg PO BID #10 cap 06/10/16 Furosemide [Lasix -] 40 mg PO DAILY PRN #30 tab 06/10/16 Gabapentin [Neurontin -] 100 mg PO TID #90 cap 06/10/16 Ondansetron [Zofran Odt -] 4 mg SL BID #14 od.tablet 01/17/17 Review of Systems - Review of Systems Able to Perform ROS?: Yes Comments:: 01/17/17 17:56 CONSTITUTIONAL: No fever, no chills, no fatigue EYES: No visual changes ENT: No ear pain, no sore throat CARDIOVASCULAR: No chest pain, no palpitations RESPIRATORY: No cough, no SOB GI: No abdominal pain, no nausea, no vomiting, no constipation, no diarrhea GENITOURINARY: No dysuria, no frequency, no hematuria MUSCULOSKELETAL: Yes neck pain, right shoulder/ arm pain, bilateral knee pain. No back pain, no other joint pain, no myalgias SKIN: No rash NEURO: No headache <Meng,Giomilsy - Last Filed: 01/17/17 21:39> *Physical Exam - Vital Signs Last Vital Signs Temp Pulse Resp BP Pulse Ox 97.7 F 81 18 166/81 99 01/17/17 16:57 01/17/17 16:57 01/17/17 16:57 01/17/17 16:57 01/17/17 16:57 - Physical Exam Comments: 01/17/17 17:56 CONSTITUTIONAL: Well-appearing; well-nourished; in no apparent distress HEAD: Normocephalic; atraumatic EYES: PERRL; EOM intact ENMT: External appears normal; normal oropharynx NECK: Diffuse midline and paraspinal tenderness. Supple; no cervical lymphadenopathy CARD: Normal S1, S2; no murmurs, rubs, or gallops RESP: Normal chest excursion with respiration; breath sounds clear and equal bilaterally; no wheezes, rhonchi, or rales ABD: Soft, non-distended; non-tender; no palpable organomegaly, no palpable hernias EXT: Right upper extremity is held in flexion abduction at the shoulder. With loss of normal deltoid contour. Severely limited ROM at right upper extremity at the shoulder joint due to pain. Pt complaining of mild paresthesias over the deltoid secondary to pain. Neurovascularly intact distally. Mild right patellar tenderness, but normal flexion, extension distally. Normal range of motion at the LUE, RLE, LLE. Distal pulses intact SKIN: Warm, dry, no rash NEURO: No focal neurological deficiencies. Neurovascularly intact distally. Cranial nerves II-XII are grossly intact. 5 out of 5 motor strength x4 extremities. No gross sensory deficits. Normal speech. Gait deferred. <Meng,Giomilsy - Last Filed: 01/17/17 21:39> - Vital Signs Last Vital Signs Temp Pulse Resp BP Pulse Ox 97.7 F 81 18 166/81 99 01/17/17 16:57 01/17/17 16:57 01/17/17 16:57 01/17/17 16:57 01/17/17 16:57 <Enrico Matos - Last Filed: 01/17/17 23:20> Procedures - Joint Reduction Right Joint Reduction Site: right: Shoulder Pre-Procedure NV Exam: abnormal (parasthesias over the deltoid) Conscious Sedation: Yes Reduction Attempts: 1 Anesthesia: Fentanyl Amt. of medication administered: 50mcg Procedure: Traction Counter Traction Post-Procedure NV Exam: abnormal (pain over deltoid) Complications: No Post Joint Reduction Film: joint reduced Splint: No Immobilized: Yes Progress: 01/17/17 23:16 pt terry procedure well <Enrico Matos - Last Filed: 01/17/17 23:20> ED Treatment Course - RADIOLOGY Radiograph Interpretation: 01/17/17 21:39 EXAM: Cervical Spine CT INTERPRETED BY: Dr. Don REVIEWED BY: Dr. Matos IMPRESSION: No fracture identified. <Suman Meng - Last Filed: 01/17/17 21:39> Medical Decision Making - Medical Decision Making 01/17/17 21:58 Patient is a 71-year-old female with history of diabetes, hypertension, status post renal transplant presents to the ER with traumatic right upper extremity deformity, neck discomfort and right knee pain. Right upper extremity evaluation reveals a loss of deltoid contour and right upper extremity held at flexion and abduction at the shoulder joint. Patient has diffuse cervical tenderness to palpation and minimal right patella tenderness with intact flexion /extension at the knee joint. CT of cervical spine revealed no evidence of acute fracture or dislocation. Right shoulder x-ray revealed inferior anterior dislocation of the humeral head. Patient had mild paresthesias in the axillary nerve distribution prior to reduction. Close reduction was obtained under moderate sedation after informed consent was obtained. Patient tolerated procedure well. Patient complain kneeing of pain over the deltoid only. Patient is neurovascular intact distally. Will confirm post reduction x-rays. Will discharge with sling with orthopedic follow-up. 01/17/17 23:18 pt is resting comfortably, terry po; post reduction x-ray reveals nl alignment. will d/c. <Enrico Matos - Last Filed: 01/17/17 23:20> *DC/Admit/Observation/Transfer - Attestations Scribe Attestion: 01/17/17 17:56 Documentation prepared by Suman Meng, acting as medical office rep for Enrico Matos MD. <Suman Meng - Last Filed: 01/17/17 21:39> - Attestations Physician Attestion: 01/17/17 21:57 The documentation was prepared by the scribe under my direct supervision. I have reviewed the documentation which correctly represents the findings, medical decision-making and critical action taken by me. <Enrico Matos - Last Filed: 01/17/17 23:20> Diagnosis at time of Disposition: Dislocation of shoulder, right, closed Qualifiers: Encounter type: initial encounter Qualified Code(s): S43.004A - Unspecified dislocation of right shoulder joint, initial encounter Knee contusion Qualifiers: Encounter type: initial encounter Laterality: right Qualified Code(s): S80.01XA - Contusion of right knee, initial encounter - Discharge Dispostion Disposition: HOME Condition at time of disposition: Stable - Referrals Referrals: Amelia Mehta [Primary Care Provider] - - Patient Instructions Printed Discharge Instructions: How to Use a Sling, DI for Shoulder Dislocation , DI for Contusion
[2017-01-17] MEDS ORDERED: MIDAZOLAM HCL 2 MG/2 ML SINGLE DOSE VIAL ONE (20:06)
[2017-01-17] MEDS ORDERED: fentaNYL CITRATE 250 MCG/5 ML VIAL ONE (20:06)
[2017-01-17] MEDS ORDERED: NALOXONE HCL 0.4 MG/ML VIAL ONE (20:07)
[2017-01-17 23:47] VITALS: BP 160/79; PULSE 70; TEMP 98.6
== END 2017-01-17 23:52 | disposition home or self-care (01) ==
LOC: JER 16:48
DX: S43.004A Unspecified dislocation of right shoulder joint, initial encounter (principal); S80.01XA Contusion of right knee, initial encounter; W10.8XXA Fall (on) (from) other stairs and steps, initial encounter; Y93.89 Activity, other specified; Y92.89 Other specified places as the place of occurrence of the external cause; Y99.8 Other external cause status; I10 Essential (primary) hypertension; E78.00 Pure hypercholesterolemia, unspecified; G40.909 Epilepsy, unspecified, not intractable, without status epilepticus; N10 Acute pyelonephritis; M12.9 Arthropathy, unspecified; M54.2 Cervicalgia; G89.29 Other chronic pain; E03.9 Hypothyroidism, unspecified; Z86.73 Personal history of transient ischemic attack (TIA), and cerebral infarction without residual deficits; Z98.61 Coronary angioplasty status; Z94.0 Kidney transplant status
CPT/HCPCS: 71020-TC; 72125-TC; 73030-TC-RT; 73060-TC-RT; 73560-TC-RT; 99282-25

== ENCOUNTER 2017-02-21 05:17 | Day surgery (SDC) | payer OTHER ==
[2017-02-20 08:32] VITALS: BMI 25.7
[2017-02-21] MEDS ORDERED: ROPIVACAINE HCL 0.5% 30ML VIAL ONE (07:25)
[2017-02-21] MEDS ORDERED: MIDAZOLAM HCL 2 MG/2 ML SINGLE DOSE VIAL ONE ×2 (07:27)
[2017-02-21] MEDS ORDERED: ROCURONIUM BROMIDE 50 MG/5 ML VIAL ONE (08:05)
[2017-02-21] MEDS ORDERED: PROPOFOL 20 ML ONE ×2 (08:05)
[2017-02-21] MEDS ORDERED: LIDOCAINE HCL/PF 2% SDV 5ML VIAL ONE (08:05)
[2017-02-21] MEDS ORDERED: ceFAZolin SODIUM 1 GM VIAL ONE (08:05)
--- NOTE | 2017-02-21 08:06 | HP ---
History & Physical Update - History History: No Change - Physical Physical: No Change - Assessment Assessment: No Change - Plan Plan: No Change
[2017-02-21] MEDS ORDERED: SCOPOLAMINE HYDROBROMIDE 1 PATCH PATCH.TD72 ONE (08:16)
[2017-02-21] MEDS ORDERED: ceFAZolin SODIUM 1 GM VIAL IVPB ONE (08:26)
[2017-02-21] MEDS ORDERED: DEXAMETHASONE SOD PHOSPHATE 4 MG/1 ML VIAL ONE (09:03)
[2017-02-21] MEDS ORDERED: GLYCOPYRROLATE 0.2 MG/1 ML VIAL ONE (09:06)
[2017-02-21] MEDS ORDERED: NEOSTIGMINE METHYLSULFATE 0.5 MG/ML - 10 ML MDV ONE (09:06)
[2017-02-21] MEDS ORDERED: ONDANSETRON 4 MG/2 ML VIAL IVPUSH PRN (09:47)
[2017-02-21] MEDS ORDERED: ACETAMINOPHEN 1000 MG/100 ML VIAL (NON FORMULARY) IVPB ONE (09:48)
--- NOTE | 2017-02-21 09:57 | OP ---
DATE OF OPERATION: 02/21/2017 PREOPERATIVE DIAGNOSIS: Right rotator cuff tear. POSTOPERATIVE DIAGNOSIS: Right rotator cuff tear. PROCEDURE: Arthroscopy, right shoulder, subacromial debridement, and arthroscopic right rotator cuff repair. SURGICAL ATTENDING: Darinel Vizcaino MD GAS ENGINE OPERATOR GENERATORS: SHELLI Turner CLOSURE: FiberWire No. 2 with SwiveLock suture, 3-0 nylon for skin. ESTIMATED BLOOD LOSS: Negligible. COMPLICATIONS: None. CONDITION: To recovery room in stable condition. DESCRIPTION OF THE PROCEDURE: Patient was taken to the operating room on February 21, 2017. General anesthesia and regional block were administered by the anesthesiologist, IV Kefzol administered prophylactically prior to the case. Patient was placed in the beach chair position with all prominences well padded. Right shoulder area was prepped and draped in the usual sterile fashion. First a diagnostic arthroscopy was done through a posterior portal which was made 2 fingerbreadths below the acromion, first with 15-blade followed by blunt trocar. Circumferential exam of the glenohumeral joint revealed the following: Intact glenoid, articular cartilage, intact biceps and biceps anchor, intact labrum circumferentially, no loose bodies in the axillary pouch, intact subscapularis to its insertion. Looking superiorly, the supraspinatus appeared to be torn, with just a veil of fibrous tissue near its insertion in the greater tuberosity. The fluid was drained from the shoulder and the trocar was removed. The posterior trocar was redirected in the subacromial space and accessory lateral portal was made with a 15-blade followed by blunt trocar. Bursectomy was performed using the ArthroCare device in the shoulder. The coracoacromial ligament was detached off the anterior acromion and visualized further debrided. An undersurface debridement of the acromial bone was done to gain sufficient height for the rotator cuff beneath. This was planed from the front all the way to the back, gaining extra height for the humeral head beneath. Soft tissue encasing the humeral head was debrided using the shaver. A veil of tissue was holding the rotator cuff to the greater tuberosity. This was debrided, exposing the rotator cuff tear beneath, which was a standard crescent tear. Multiple FiberWire horizontal mattress sutures were passed using the Scorpio needle. These sutures were fixated to the greater tuberosity using the SwiveLock sutures. Prior to doing this, the greater tuberosity was burred to stimulate some bleeding surface for reattachment. After reattachment, the rotator cuff was found to be stable, with good space in the subacromial space. Fluid was drained. The portals were closed using 3-0 nylon, and a sterile pressure dressing followed by a shoulder immobilizer was applied. Patient awakened from anesthesia and transferred to recovery room in stable condition. No complications. Estimated blood loss negligible. Michelle [id number]
[2017-02-21] MEDS ORDERED: LACTATED RINGERS SOLUTION 1,000 ML IV SCH (10:00)
--- NOTE | 2017-02-21 10:01 | OP ---
Operative Note - Note: Operative Date: 02/21/17 Pre-Operative Diagnosis: right rotator cuff tear Operation: right shoulder arthroscopy, debridement and repair or right rotator cuff tear Surgeon: Darinel Vizcaino Chief Learning Officer: Yue Logan Anesthesiologist/HOSPITAL INTERN: Maryellen Lester Estimated Blood Loss (mls): 20 Fluid Volume Replaced (mls): 500 Operative Report Dictated: Yes
--- NOTE | 2017-02-21 10:03 | SURG ---
Surgery Diesel Motor Mechanic Note Diesel Motor Mechanic: Yue Logan PA-C Date of Service: 02/21/17 Diagnosis: right rotator cuff tear Procedure: right shoulder arthroscopy, debridement and repair or right rotator cuff tear I was present for the entirety of the operative procedure. For further detail, please refer to operative report. Visit type - Case Type Case Type: Scheduled Admission - Emergency Emergency Visit: No - New patient This patient is new to me today: Yes Date on this admission: 02/21/17
[2017-02-21 12:28] VITALS: TEMP 97.6
[2017-02-21 14:28] VITALS: BP 154/76; PULSE 73
--- NOTE | 2017-02-22 11:55 | PATH ---
Surgical Pathology Report Patient Name: IWONA OLIVAS Med. Rec. #: [id number] /Age/Gender: 1945 (Age: 71) / F Account: [id number] Location: [facility] SURGICAL Taken: 02/21/2017 Received: 02/21/2017 Reported: 02/22/2017 Physicians: Darinel Vizcaino M.D. Specimen(s) Received RIGHT SHOULDER SHAVINGS Clinical History Right shoulder tear Final Diagnosis SHOULDER SHAVINGS, RIGHT, ROTATOR CUFF REPAIR: BENIGN CARTILAGE, DENSE FIBROCONNECTIVE AND ADIPOSE TISSUE, SKELETAL MUSCLE, SYNOVIUM, AND BONE. Electronically Signed Johana Wheeler M.D. Gross Description Received in formalin, labeled "right shoulder shavings," is a 3.5 x 2.6 x 0.3 cm. aggregate of fall-yellow soft tissue fragments. A development representative portion is submitted in one cassette. 02/21/201702/21/2017
== END 2017-02-21 14:31 | disposition home or self-care (01) ==
LOC: JASU-SURG 05:17
PROVIDERS: ATTEND Orthopaedic Surgery
PROC: 0RNJ4ZZ Release Right Shoulder Joint, Percutaneous Endoscopic Approach (ICD-10-PCS; principal; 2017-02-21 08:00)
PROC: 0LQ14ZZ Repair Right Shoulder Tendon, Percutaneous Endoscopic Approach (ICD-10-PCS; 2017-02-21 08:00)
DX: M75.101 Unspecified rotator cuff tear or rupture of right shoulder, not specified as traumatic (principal)
CPT/HCPCS: 88304-TC; 94760

== ENCOUNTER 2017-05-01 13:43 | Inpatient (IN) | payer OTHER ==
--- NOTE | 2017-05-01 14:32 | PDOC ---
History of Present Illness - History of Present Illness Initial Comments: 05/01/17 14:42 The patient is a 71 year old female with a history of DM, CVA, Kidney Transplant who presents for evaluation from her PCP for cough, nausea, vomiting. The patient reports a 3 day history of cough, body aches, nausea, and multiple episodes of non-bilious, non-bloody vomiting. She was evaluated by her pcp today who was concerned for dehydration and sent the patient to the ED for further evaluation. She also endorses some dizziness that she describes as the room moving around her and worse with movement of her head. She otherwise denies fevers, chills, SOB, chest pain, abdominal pain, or changes with urination or bowel movements. The patient also notes that her grandson was ill with similar symptoms and diagnosed with the flu. <Helio Bilss - Last Filed: 05/01/17 18:56> <Altagracia Salvador - Last Filed: 05/01/17 19:14> - General Chief Complaint: Nausea/Vomiting Stated Complaint: COUGH, VOMITING (PCP SENT) Time Seen by Provider: 05/01/17 14:13 Past History - Past Medical History Anemia: No Asthma: No Cancer: No Cardiac Disorders: Yes (CARDIOMEGALY, pericarditis) CVA: Yes COPD: No Dementia: No Diabetes: Yes (borderline) Dialysis: No (HX OF DIALYSIS S/P) GI Disorders: No Disorders: No HTN: Yes Hypercholesterolemia: Yes Liver Disease: No Seizures: Yes (last february 2017) Thyroid Disease: Yes - Surgical History Abdominal Surgery: Yes (UMBILICAL HERNIA) Cardiac Surgery: Yes (percardial window,CARD CATH NO STENTS) Orthopedic Surgery: Yes (KNEE ARTHROSCOPY) - Immunization History Immunization Up to Date: Yes - Suicide/Smoking/Psychosocial Hx Smoking Status: No Smoking History: Never smoked Have you smoked in the past 12 months: No Number of Cigarettes Smoked Daily: 0 Information on smoking cessation initiated: No Hx Alcohol Use: No Drug/Substance Use Hx: No Substance Use Type: None Hx Substance Use Treatment: No <Helio Bliss - Last Filed: 05/01/17 18:56> <Altagracia Salvador - Last Filed: 05/01/17 19:14> - Past Medical History Allergies/Adverse Reactions: Allergies Allergy/AdvReac Type Severity Reaction Status Date / Time codeine Allergy Intermediate Vomiting Verified 05/01/17 13:47 AND SWELLING OF FACE Home Medications: Ambulatory Orders Levothyroxine [Synthroid -] 75 mcg PO DAILY 03/07/12 predniSONE [Deltasone -] 5 mg PO DAILY 07/11/13 Azathioprine [Imuran] 100 mg PO DAILY 12/20/14 Diltiazem Cd [Cardizem Cd -] 240 mg PO DAILY 02/20/17 Fluticasone Propionate [Flovent Hfa] 110 mcg IH BID 02/20/17 Furosemide [Lasix -] 40 mg PO DAILY 02/20/17 Review of Systems - Review of Systems Comments:: 05/01/17 14:48 Constitutional: Fatigue, body aches, Fevers, Chills HEENT: No Rhinorrhea, nasal congestion, visual changes Cardiovascular: No chest pain, syncope, palpitations, lightheadedness Respiratory: Non-productive cough. No SOB, Hemoptysis, Gastrointestinal: Nausea, Vomiting, No Abdominal pain, Constipation, Diarrhea, Melena Genitourinary: No Dysuria, Frequency, Urgency, Hesitancy, Hematuria, Flank pain Musculoskeletal: No Myalgia, arthralgia Skin: No rashes, itching, bruising, pallor Neurologic: Dizziness. No Headache, Numbness, Weakness, or Tingling Psychiatric: No Hallucinations. No SI or HI 05/01/17 14:54 <Helio Bliss - Last Filed: 05/01/17 18:56> *Physical Exam - Vital Signs Last Vital Signs Temp Pulse Resp BP Pulse Ox 97.9 F 81 16 140/79 97 05/01/17 13:48 05/01/17 13:48 05/01/17 13:48 05/01/17 13:48 05/01/17 13:48 - Physical Exam Comments: 05/01/17 14:49 General Appearance: Nourished. No Apparent Distress HEENT: EOMI, PARAG. Horizontal nystagmus to the left noted on exam. No Pharyngeal Erythema, Tonsillar Exudate, Tonsillar Erythema Neck: No Cervical Lymphadenopathy Respiratory/Chest: Lungs Clear, Normal Breath Sounds. No Crackles, Rales, Rhonchi, Wheezing Cardiovascular: Regular Rhythm, Regular Rate. No Murmur, Gallops, Rubs Gastrointestinal/Abdominal: Normal Bowel Sounds, Soft. No Guarding, Rebound, Tenderness Musculoskeletal: No CVA Tenderness Extremity: Normal Capillary Refill Integumentary: Normal Color, Dry, Warm Neurologic: Fully Oriented, Alert, Normal Mood/Affect, Normal Response, <RuthyVamshiHelio - Last Filed: 05/01/17 18:56> - Vital Signs Last Vital Signs Temp Pulse Resp BP Pulse Ox 97.9 F 81 16 140/79 97 05/01/17 13:48 05/01/17 13:48 05/01/17 13:48 05/01/17 13:48 05/01/17 13:48 <Altagracia Salvador - Last Filed: 05/01/17 19:14> ED Treatment Course - LABORATORY CBC & Chemistry Diagram: 05/01/17 14:57 05/01/17 14:57 <Helio Bliss - Last Filed: 05/01/17 18:56> - LABORATORY CBC & Chemistry Diagram: 05/01/17 14:57 05/01/17 14:57 - ADDITIONAL ORDERS Additional order review: Laboratory Results 05/01/17 05/01/17 05/01/17 14:57 14:57 14:57 PT with INR INR PTT (Actin FS) VBG pH POC VBG pCO2 POC VBG pO2 Mixed VBG HCO3 Sodium 137 Potassium 4.9 Chloride 105 Carbon Dioxide 25 Anion Gap 7 L BUN 22 H Creatinine 1.1 H Creat Clearance w eGFR 49.25 Random Glucose 116 H Lactic Acid 1.1 Calcium 8.7 Total Bilirubin 0.5 AST 21 ALT 14 Alkaline Phosphatase 51 Troponin I < 0.02 Total Protein 7.3 Albumin 3.4 Lipase 189 05/01/17 05/01/17 14:57 14:57 PT with INR 11.90 H INR 1.05 PTT (Actin FS) 26.9 VBG pH 7.42 POC VBG pCO2 39.9 D POC VBG pO2 64.8 H D Mixed VBG HCO3 25.6 H Sodium Potassium Chloride Carbon Dioxide Anion Gap BUN Creatinine Creat Clearance w eGFR Random Glucose Lactic Acid Calcium Total Bilirubin AST ALT Alkaline Phosphatase Troponin I Total Protein Albumin Lipase 05/01/17 14:57 RBC 3.64 MCV 101.3 H MCHC 33.9 RDW 15.9 H MPV 10.3 D Neutrophils % 83.2 H D Lymphocytes % 11.9 D Monocytes % 4.6 Eosinophils % 0.1 D Basophils % 0.2 - Medications Given in the ED: ED Medications Discontinued Medications Generic Name Dose Route Start Last Admin Trade Name Jessica PRN Reason Stop Dose Admin Sodium Chloride 1,000 mls @ 1,000 mls/hr 05/01/17 14:44 05/01/17 15:33 Normal Saline - IV 05/01/17 15:43 1,000 mls/hr ASDIR STA Administration Meclizine HCl 50 mg 05/01/17 14:44 05/01/17 15:33 Antivert - PO 05/01/17 14:45 50 mg ONCE ONE Administration Ondansetron HCl 4 mg 05/01/17 14:44 05/01/17 15:33 Zofran Injection IVPUSH 05/01/17 14:45 4 mg ONCE ONE Administration <Altagracia Salvador - Last Filed: 05/01/17 19:14> Medical Decision Making - Medical Decision Making 05/01/17 14:51 The patient is a 71 year old female with a history of DM, CVA, Kidney Transplant who presents for evaluation from her PCP for cough, nausea, vomiting. Differential includes but is not limited to: Sepsis, Pneumonia, Influenza, infectious, metabolic derangement. Given the patient's history of immunosuppression and history of fevers, cough, we will obtain a cbc, cmp, lipase, troponin, vbg, lactate, chest plain film, ekg, ua, blood cultures to evaluate further for possible etiologies. We will treat in the meantime with iv fluids, zofran, meclazine and continue to monitor and reassess. 05/01/17 18:25 CBC, cmp, troponin, lactate, are unremarkable. Chest plain film is unremarkable as read by our radiologist. Given the patient's clinical appearance and significant co-morbidities of a kidney transplant on immunosupression, we believe she requires observation admission for further monitoring. We discussed the case with Dr. Mehta who agrees with observation admission and requests admission to the hospitalist team. 05/01/17 18:56 Discussed the case with the hospitalist team who accepted the patient for admission. <Helio Bliss - Last Filed: 05/01/17 18:56> *DC/Admit/Observation/Transfer - Discharge Dispostion Admit: Yes <Helio Bliss - Last Filed: 05/01/17 18:56> - Discharge Dispostion Admit: Yes <Altagracia Salvador - Last Filed: 05/01/17 19:14> Diagnosis at time of Disposition: Influenza-like illness, Renal transplant recipient - Discharge Dispostion Condition at time of disposition: Stable - Referrals Referrals: Amelai Mehta [Primary Care Provider] -
[2017-05-01] MEDS ORDERED: ONDANSETRON 4 MG/2 ML VIAL IVPUSH ONE (14:44)
[2017-05-01] MEDS ORDERED: SODIUM CHLORIDE 1,000 ML IV STA (14:44)
[2017-05-01] MEDS ORDERED: MECLIZINE HCL 25 MG TABLET (FP) PO ONE (14:44)
[2017-05-01] MEDS ORDERED: MECLIZINE HCL 25 MG TABLET (FP) ONE (15:29)
[2017-05-01] MEDS ORDERED: ONDANSETRON 4 MG/2 ML VIAL ONE (15:29)
[2017-05-01 15:48] LABS: VENOUS PH 7.42 (7.32-7.42)
[2017-05-01 15:49] LABS: VENOUS PC02 39.9 mmHg (38-52); VENOUS PO2 64.8 mmHg (28-48)
[2017-05-01 15:51] LABS: BASO % 0.2 % (0-2.0); EOS % 0.1 % (0-4.5); HEMATOCRIT 36.9 % (32.4-45.2); HEMOGLOBIN 12.5 GM/dL (10.7-15.3); LYMPH % 11.9 % (8-40); MCH 34.3 pg (25.7-33.7); MCHC 33.9 g/dl (32.0-36.0); MEAN CELL VOLUME 101.3 fl (80-96); MEAN PLT VOLUME 10.3 fl (7.5-11.1); MONO % 4.6 % (3.8-10.2); NEUT % 83.2 % (42.8-82.8); PLATELET COUNT 240 K/MM3 (134-434); RBC 3.64 M/mm3 (3.60-5.2); RDW 15.9 % (11.6-15.6)
--- NOTE | 2017-05-01 16:00 | PDOC ---
Attending Attestation - Resident Resident Name: Vamshi Blissel - ED Attending Attestation I have performed the following: I have examined & evaluated the patient, The case was reviewed & discussed with the resident, I agree w/resident's findings & plan, Exceptions are as noted - HPI HPI: 05/01/17 15:57 71-year-old female history of renal transplant sent from Dr. Mehta's office for evaluation and management of worsening symptoms of nasal congestion, cough/ shortness of breath, vomiting for 3 days. Patient symptoms began 3 days ago, was started on amoxicillin and Tamiflu empirically, has been compliant symptoms are worsening. Was seen by Dr. Mehta today and found to be weak and dehydrated , so she was referred to the emergency department. - Physicial Exam PE: 05/01/17 15:58 VSS well appearing but + nasal congestion, dry cough ? decreased breath sounds R base abd soft/nontender no edema no ttp over RLQ transplanted kidney - Medical Decision Making 05/01/17 15:58 Patient seen and evaluated with the resident. I agree with the overall evaluation, assessment, and management with the following summary of visit: 71-year-old female with history of renal transplant presents with URI and GI complaints over the last 3 days, increasing dehydration and generalized weakness. Presentation could be consistent with influenza, rule out pneumonia, lower suspicion for focal GI infectious process. Sepsis protocol initiated IV fluid rehydration Chest x-ray, EKG Reassess, likely admission for hydration given her immunocompromised state
[2017-05-01 16:18] LABS: INR 1.05 (0.82-1.09); PROTHROMBIN TIME (PATIENT) 11.9 SEC (9.98-11.88)
[2017-05-01 16:20] LABS: LIPASE 189 U/L (73-393)
[2017-05-01 16:21] LABS: ACTIVATED PTT 26.9 SECONDS (26.9-34.4); ALBUMIN 3.4 g/dl (3.4-5.0); ALK PHOS 51 U/L (45-117); ANION GAP 7 (8-16); BILIRUBIN,TOTAL 0.5 mg/dL (0.2-1.0); BLOOD UREA NITROGEN 22 mg/dL (7-18); CALCIUM 8.7 mg/dL (8.5-10.1); CHLORIDE 105 mmol/L (98-107); CO2 25 mmol/L (21-32); CREATININE 1.1 mg/dL (0.55-1.02); GLUCOSE,RANDOM 116 mg/dL (74-106); SGPT/ALT 14 U/L (12-78); SODIUM 137 mmol/L (136-145); TOT PROT 7.3 g/dl (6.4-8.2)
[2017-05-01 17:28] LABS: POTASSIUM 4.9 mmol/L (3.5-5.1); SGOT/AST 21 U/L (15-37)
[2017-05-01] MEDS ORDERED: OSELTAMIVIR PHOSPHATE 75 MG CAPSULE PO ONE (18:37)
--- NOTE | 2017-05-01 19:14 | PN ---
Teaching Attending Note Name of Resident: Alise Arnett ATTENDING PHYSICIAN STATEMENT I saw and evaluated the patient. I reviewed the resident's note and discussed the case with the resident. I agree with the resident's findings and plan as documented. SUBJECTIVE: 71 yo F with hx. of DM, CVA, kidney transplant who presents with nausea, cough, and vomiting. States she is dizzy. She has been vomiting for 3 days. Empirically started on Erica-flu and Amoxicillin. Notes sx. are worsening, Seen by Dr. Mehta and was notes o be weak and dehydrated. Notes she feels better now. Continues to have a sore throat. Denies any fevers or chills. No chest pain or pressure. No current N, V, D. OBJECTIVE: Physical: VS: Vital Signs Period Temp Pulse Resp BP Sys/Wang Pulse Ox Last 24 Hr 97.9 F 81 16 140/79 97 GEN: NAD, Resting in bed, AA0X3 HEENT: NCAT, PERRL, Throat with erythema and enlarged adenoids, no exduates seen CARD: RRR S1, S2 RESP: CTAB ABD: BSx4, NTD to palpation EXT: - C/C/E CBCD WBC 7.0 K/mm3 (4.0-10.0) 05/01/17 14:57 RBC 3.64 M/mm3 (3.60-5.2) 05/01/17 14:57 Hgb 12.5 GM/dL (10.7-15.3) 05/01/17 14:57 Hct 36.9 % (32.4-45.2) 05/01/17 14:57 MCV 101.3 fl (80-96) H 05/01/17 14:57 MCHC 33.9 g/dl (32.0-36.0) 05/01/17 14:57 RDW 15.9 % (11.6-15.6) H 05/01/17 14:57 Plt Count 240 K/MM3 (134-434) 05/01/17 14:57 MPV 10.3 fl (7.5-11.1) D 05/01/17 14:57 CMP Sodium 137 mmol/L (136-145) 05/01/17 14:57 Potassium 4.9 mmol/L (3.5-5.1) 05/01/17 14:57 Chloride 105 mmol/L (98-107) 05/01/17 14:57 Carbon Dioxide 25 mmol/L (21-32) 05/01/17 14:57 Anion Gap 7 (8-16) L 05/01/17 14:57 BUN 22 mg/dL (7-18) H 05/01/17 14:57 Creatinine 1.1 mg/dL (0.55-1.02) H 05/01/17 14:57 Creat Clearance w eGFR 49.25 (>60) 05/01/17 14:57 Random Glucose 116 mg/dL (74-106) H 05/01/17 14:57 Calcium 8.7 mg/dL (8.5-10.1) 05/01/17 14:57 Total Bilirubin 0.5 mg/dL (0.2-1.0) 05/01/17 14:57 AST 21 U/L (15-37) 05/01/17 14:57 ALT 14 U/L (12-78) 05/01/17 14:57 Alkaline Phosphatase 51 U/L (45-117) 05/01/17 14:57 Total Protein 7.3 g/dl (6.4-8.2) 05/01/17 14:57 Albumin 3.4 g/dl (3.4-5.0) 05/01/17 14:57 CARDIAC ENZYMES Troponin I < 0.02 ng/ml (0.00-0.05) 05/01/17 14:57 Home Medications Medication Instructions Recorded Levothyroxine [Synthroid -] 75 mcg PO DAILY 03/07/12 predniSONE [Deltasone -] 5 mg PO DAILY 07/11/13 Azathioprine [Imuran] 100 mg PO DAILY 12/20/14 Diltiazem Cd [Cardizem Cd -] 240 mg PO DAILY 02/20/17 Fluticasone Propionate [Flovent 110 mcg IH BID 02/20/17 Hfa] Furosemide [Lasix -] 40 mg PO DAILY 02/20/17 CXR-Negative ASSESSMENT AND PLAN: 71 F s/p renal transplant, DM, CVA, who pw. cough, congestion, and vomiting, being admitted for DEENA and dehydration 1.) Upper Respiratory Infection/ Possible Flu/Tonsilitis - Would switch to Azithromycin with close monitoring of QtC - C/W Erica-Flu Renally dosed for total of 5 days 2.) DEENA - IVF-gentle - Trend Cr - If not improving then chk. U lytes - Renally dose all meds 3.) DM - FS - RAISS 4.) S/P Renal tx - C/W Imuran and Prednisone 5.) Dvt Ppx - Scds Place in Obs
--- NOTE | 2017-05-01 19:35 | HP ---
CHIEF COMPLAINT: cough, n/v x3 days PCP: Dr Mehta Renal: Dr Latisha Pratt HISTORY OF PRESENT ILLNESS: Pt is 71 year old female with a history of DM, CVA , Kidney Transplant, HTN, seizures, HLD, asthma, hypothyroidism, presenting with a 3 day hx of cough, productive of clear sputum, non bloody. Cough was preceded by nasal congestion, sore throat and myalgias. There was associated chills, but no objective fevers recorded. Pt had been in contact with her grandson (fever of 103 /bronchitis / amoxicillin). Pt's PCP placed her also on Tamiflu and amoxicilli which seemed to precipitate excessive nausea and vomiting. Pt reports about 3 episodes of non bloody vomiting associated with ingestion of medication. As a result, she has had reduced intake, weakness and dizziness. No syncope, no slurred speech or facial droop. Pt reports recent acid reflux, no history of heart burn in the past. Chronically constipated on linzess and miralax. No hematochezia, or melena noted. No dysuria or change in urinary frequency. No chest pain, palpitations or leg swelling. Pt reports intermittent SOB for which she uses fluticasone. Pt initially refused Tamiflu in the ED, but since she feels less nauseous, is willingly to give it another try. ER course was notable for: (1) Zofran 4mg , 1L Normal saline, meclizine (2)CBC, CMP, coags, lipase, lactic acid, VBG, blood cx, urine Cx, CXR (3) EKG-NSR, rate 65, QTc- 472, Possible LAE, LAFB, LVH Recent Travel: PAST MEDICAL HISTORY: DM, CVA, Kidney Transplant, HTN, seizures, HLD, asthma, PAST SURGICAL HISTORY: umbilical hernia pericardial window CAD- no stents Knee arthroscopy R shoulder arthroscopy parathyroidectomy Social History: Smoking: Alcohol: Drugs: Family History: Breast Cancer in Sister Allergies codeine Allergy (Intermediate, Verified 05/01/17 13:47) Vomiting AND SWELLING OF FACE VOMITING HOME MEDICATIONS: Home Medications Medication Instructions Recorded Levothyroxine [Synthroid -] 75 mcg PO DAILY 03/07/12 predniSONE [Deltasone -] 5 mg PO DAILY 07/11/13 Azathioprine [Imuran] 100 mg PO DAILY 12/20/14 Diltiazem Cd [Cardizem Cd -] 240 mg PO DAILY 02/20/17 Fluticasone Propionate [Flovent 110 mcg IH BID 02/20/17 Hfa] Furosemide [Lasix -] 40 mg PO DAILY 02/20/17 REVIEW OF SYSTEMS CONSTITUTIONAL: Absent: fever, chills+, diaphoresis, generalized weakness+, malaise, loss of appetite, weight change HEENT: Absent: rhinorrhea, nasal congestion+, throat pain, throat swelling, difficulty swallowing, mouth swelling, ear pain, eye pain, visual changes CARDIOVASCULAR: Absent: chest pain, syncope, palpitations, irregular heart rate, lightheadedness , peripheral edema RESPIRATORY: Absent: cough+, shortness of breath, dyspnea with exertion, orthopnea, wheezing , stridor, hemoptysis GASTROINTESTINAL: Absent: abdominal pain, abdominal distension, nausea, vomiting, diarrhea, constipation, melena, hematochezia GENITOURINARY: Absent: dysuria, frequency, urgency, hesitancy, hematuria, flank pain, genital pain MUSCULOSKELETAL: Absent: myalgia, arthralgia, joint swelling, back pain, neck pain SKIN: Absent: rash, itching, pallor HEMATOLOGIC/IMMUNOLOGIC: Absent: easy bleeding, easy bruising, lymphadenopathy, frequent infections ENDOCRINE: Absent: unexplained weight gain, unexplained weight loss, heat intolerance, cold intolerance NEUROLOGIC: Absent: headache, focal weakness or paresthesias, dizziness, unsteady gait, seizure, mental status changes, bladder or bowel incontinence PSYCHIATRIC: Absent: anxiety, depression, suicidal or homicidal ideation, hallucinations. PHYSICAL EXAMINATION Vital Signs - 24 hr 05/01/17 13:48 Temperature 97.9 F Pulse Rate 81 Respiratory 16 Rate Blood Pressure 140/79 O2 Sat by Pulse 97 Oximetry (%) GENERAL: Awake, alert, and fully oriented, in no acute respiratory distress. HEAD: Normal with no signs of trauma. EYES: Pupils equal, round and reactive to light, extraocular movements intact, sclera anicteric, conjunctiva clear. EARS, NOSE, THROAT: Ears normal, nares patent, enlarged tonsils bilaterally, no hyperemia or exudates. Moist mucous membranes. NECK: Anterior neck fullness. Normal range of motion, supple without lymphadenopathy, JVD, or masses. LUNGS: Breath sounds equal, clear to auscultation bilaterally. No wheezes, and no crackles. HEART: Regular rate and rhythm, normal S1 and S2 without murmur, rub or gallop. ABDOMEN: Soft, nontender, not distended, normoactive bowel sounds, no guarding, no rebound, no masses. MUSCULOSKELETAL: Normal range of motion at all joints. No bony deformities or tenderness. No CVA tenderness. UPPER EXTREMITIES: 2+ pulses, warm, well-perfused. No cyanosis. No clubbing. No peripheral edema. LOWER EXTREMITIES: 2+ pulses, warm, well-perfused. No calf tenderness. No peripheral edema. NEUROLOGICAL: Cranial nerves II-XII intact. Normal speech. Normal gait. PSYCHIATRIC: Cooperative. Good eye contact. Appropriate mood and affect. Laboratory Results - last 24 hr 05/01/17 05/01/17 05/01/17 14:57 14:57 14:57 WBC 7.0 RBC 3.64 Hgb 12.5 Hct 36.9 MCV 101.3 H MCH 34.3 H MCHC 33.9 RDW 15.9 H Plt Count 240 MPV 10.3 D Neutrophils % 83.2 H D Lymphocytes % 11.9 D Monocytes % 4.6 Eosinophils % 0.1 D Basophils % 0.2 PT with INR 11.90 H INR 1.05 PTT (Actin FS) 26.9 VBG pH 7.42 POC VBG pCO2 39.9 D POC VBG pO2 64.8 H D Mixed VBG HCO3 25.6 H Sodium Potassium Chloride Carbon Dioxide Anion Gap BUN Creatinine Creat Clearance w eGFR Random Glucose Lactic Acid Calcium Total Bilirubin AST ALT Alkaline Phosphatase Troponin I Total Protein Albumin Lipase 05/01/17 05/01/17 05/01/17 14:57 14:57 14:57 WBC RBC Hgb Hct MCV MCH MCHC RDW Plt Count MPV Neutrophils % Lymphocytes % Monocytes % Eosinophils % Basophils % PT with INR INR PTT (Actin FS) VBG pH POC VBG pCO2 POC VBG pO2 Mixed VBG HCO3 Sodium 137 Potassium 4.9 Chloride 105 Carbon Dioxide 25 Anion Gap 7 L BUN 22 H Creatinine 1.1 H Creat Clearance w eGFR 49.25 Random Glucose 116 H Lactic Acid 1.1 Calcium 8.7 Total Bilirubin 0.5 AST 21 ALT 14 Alkaline Phosphatase 51 Troponin I < 0.02 Total Protein 7.3 Albumin 3.4 Lipase 189 Ambulatory Orders Levothyroxine [Synthroid -] 75 mcg PO DAILY 03/07/12 predniSONE [Deltasone -] 5 mg PO DAILY 07/11/13 Azathioprine [Imuran] 100 mg PO DAILY 12/20/14 Diltiazem Cd [Cardizem Cd -] 240 mg PO DAILY 02/20/17 Fluticasone Propionate [Flovent Hfa] 110 mcg IH BID 02/20/17 Furosemide [Lasix -] 40 mg PO DAILY 02/20/17 ASSESSMENT/PLAN: Pt is 71 year old female with a history of DM, CVA, Kidney Transplant, HTN, seizures, HLD, asthma, hypothyroidism, presenting with a 3 day hx of cough, n/v URTI: R/O Influenza vs tonsilitis CXR- no evidence of acute pathology Received amox as outpx Rapid strep test Continue Tamiflu 30mg bid PO Iv azithromycin 500mg daily EKG- 472 ( repeat EKG in am for QTc with azithromycin and compazine) IV Normal saline @75/hr N/V: Could be s/effect of Tamiflu or 2/2 to URTI Received zofran in ED Start iv compazine 2.5mg (prolonged QTc) Continue IV Normal saline @75/hr DEENA: Likely 2/2 to dehydration Cr-1.1 Continue gentle hydration DM: BGM-ACHS ISS- ACHS Diabetic diet CVA: Stable Kidney Transplant: Prednisone Azathioprine HTN: Diltiazem Cd 240 mg PO DAILY Seizures: Stable HLD: Asthma: Fluticasone inh Hypothyroidism: Synthroid 75 mcg PO DAILY FEN: Continue IV Normal saline @75/hr PPx: SCDs Dispo: Obs-Med Surg Visit type - Emergency Visit Emergency Visit: Yes ED Registration Date: 05/01/17 Care time: The patient presented to the Emergency Department on the above date and was hospitalized for further evaluation of their emergent condition. - New Patient This patient is new to me today: Yes Date on this admission: 05/02/17 - Critical Care Critical Care patient: No Hospitalist Screening - Colonoscopy Questionnaire Colonoscopy Questionnaire: Colonoscopy Questionnaire - Patient: 50 - 75 years old and never had a screening colonoscopy: Yes History of colon or rectal polyps, or CA: Unknown History of IBD, Crohn's disease or UC: Unknown History of abdominal radiation therapy as a child: Unknown - Relative: 1 with colon or rectal CA, or polyps at age 60 or younger: Unknown Colon or rectal CA diagnosed at age 45 or younger: Unknown Multiple relatives with colon or rectal CA: Unknown - Outcome: Screening Result: Positive Screen
[2017-05-01] MEDS ORDERED: ONDANSETRON 4 MG/2 ML VIAL IVPUSH PRN (20:32)
[2017-05-01] MEDS ORDERED: DEXTROSE 5%-NORMAL SALINE 1,000 ML IV SCH (20:45)
[2017-05-01] MEDS ORDERED: SODIUM CHLORIDE 1,000 ML IV SCH (20:45)
[2017-05-01] MEDS ORDERED: PROCHLORPERAZINE INJECTION 10 MG/2 ML VIAL IVPB PRN (21:19)
[2017-05-01] MEDS ORDERED: AZITHROMYCIN IVPB 500 MG in DEXTROSE 5%-WATER - 250 ML IVPB SCH (22:00)
[2017-05-01] MEDS ORDERED: AZITHROMYCIN IVPB 250 ML IVPB ONE (22:28)
[2017-05-02] MEDS: OSELTAMIVIR PHOSPHATE 30 MG CAPSULE PO SCH ×3 (01:09→16:08)
[2017-05-02 03:01] VITALS: BMI 25.5
[2017-05-02] MEDS: INSULIN SLIDING SCALE (NOVOLOG) 1 VIAL SQ SCH ×2 (06:53→11:14)
[2017-05-02] MEDS ORDERED: LEVOTHYROXINE NA 75 MCG TABLET (FP) PO SCH (07:00)
[2017-05-02] MEDS ORDERED: INSULIN SLIDING SCALE (NOVOLOG) 1 VIAL SQ SCH (07:00)
[2017-05-02 07:58] LABS: BASO % 0.4 % (0-2.0); EOS % 0.6 % (0-4.5); HEMATOCRIT 33.5 % (32.4-45.2); HEMOGLOBIN 11.3 GM/dL (10.7-15.3); LYMPH % 38.2 % (8-40); MCH 34.2 pg (25.7-33.7); MCHC 33.7 g/dl (32.0-36.0); MEAN CELL VOLUME 101.5 fl (80-96); MEAN PLT VOLUME 9.6 fl (7.5-11.1); MONO % 8.9 % (3.8-10.2); NEUT % 51.9 % (42.8-82.8); PLATELET COUNT 215 K/MM3 (134-434); RDW 16.1 % (11.6-15.6); WHITE BLOOD COUNT 5.4 K/mm3 (4.0-10.0)
[2017-05-02 08:39] LABS: CHLORIDE 107 mmol/L (98-107); SODIUM 142 mmol/L (136-145)
[2017-05-02 08:51] LABS: ALBUMIN 2.7 g/dl (3.4-5.0); ALK PHOS 43 U/L (45-117); ANION GAP 11 (8-16); BILIRUBIN,TOTAL 0.7 mg/dL (0.2-1.0); BLOOD UREA NITROGEN 15 mg/dL (7-18); CALCIUM 8.2 mg/dL (8.5-10.1); CO2 24 mmol/L (21-32); CREATININE 0.9 mg/dL (0.55-1.02); GLUCOSE,RANDOM 79 mg/dL (74-106); MAGNESIUM 2.1 mg/dL (1.8-2.4); PHOSPHOROUS 3.2 mg/dL (2.5-4.9); SGOT/AST 16 U/L (15-37); SGPT/ALT 11 U/L (12-78); TOT PROT 6.2 g/dl (6.4-8.2)
--- NOTE | 2017-05-02 09:37 | CONSULT ---
Consult Consult Specialty:: Nephrology ( [facility]/ [facility]) Referred by:: Dr. Latham Reason for Consultation:: Patient with ESRD s/p Renal transplant - History of Present Illness Chief Complaint: Fever, body ache, Nausea and vomiting History of Present Illness: 71 yo F with hx. of DM, CVA, kidney transplant who presents with nausea, cough, and vomiting. States she felt dizzy. 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 She is on PO Erica-flu and Zithromycin IV. She feels better now. No fever now. - History Source History Provided By: Patient - Past Medical History CAR GREASER: Yes: Seizure Cardio/Vascular: Yes: HTN Gastrointestinal: Yes: Diverticulosis, GERD Renal/: Yes: Renal Inusuff, Other (renal transplant) Musculoskeletal: Yes: Osteoarthritis Rheumatology: Yes: Gout Endocrine: Yes: Hypothyroidism, Hyperparathyroidism - Past Surgical History Past Surgical History: Yes: Hernia Repair (ventral). No: None, AAA Repair, AICD , Amputation, Appendectomy, Arthrosocopy, AV Fistula/Graft, Bariatric Surgery, Breast Biopsy, Bypass, CABG, Carotid Endarterectomy, Cataract Removal, Cholecystectomy, Colectomy, Colonoscopy, Colostomy, Craniotomy, , Cystectomy, Hysterectomy, Ileal Conduit, Ileosotomy, Joint Replacement, Kidney Transplant, Laminectomy, Liver Transplant, Mastectomy, Nephrectomy, Oopherectomy , Orchiectomy, Permanent Pacemaker, Prostatectomy, Splenectomy, Stent, Thoracotomy, TURP, Tonsillectomy, Tubal Ligation, Upper Endoscopy, Valve Replacement, Vasectomy, Vein Stripping/Ligation - Alcohol/Substance Use Hx Alcohol Use: No History of Substance Use: reports: None - Smoking History Smoking history: Never smoked Have you smoked in the past 12 months: No Aproximately how many cigarettes per day: 0 - Social History ADL: Independent History of Recent Travel: No Home Medications - Allergies Allergies/Adverse Reactions: Allergies Allergy/AdvReac Type Severity Reaction Status Date / Time codeine Allergy Intermediate Vomiting Verified 05/01/17 13:47 AND SWELLING OF FACE - Home Medications Home Medications: Ambulatory Orders Levothyroxine [Synthroid -] 75 mcg PO DAILY 03/07/12 predniSONE [Deltasone -] 5 mg PO DAILY 07/11/13 Azathioprine [Imuran] 100 mg PO DAILY 12/20/14 Diltiazem Cd [Cardizem Cd -] 240 mg PO DAILY 02/20/17 Fluticasone Propionate [Flovent Hfa] 110 mcg IH BID 02/20/17 Furosemide [Lasix -] 40 mg PO DAILY 02/20/17 Family Disease History - Family Disease History Family Disease History: CA: Sister (breast) Review of Systems - Review of Systems Constitutional: reports: Chills, Fever, Loss of Appetite, Malaise, Weakness Cardiovascular: reports: Chest Pain, Shortness of Breath Respiratory: reports: Cough Gastrointestinal: reports: Nausea, Vomiting Musculoskeletal: reports: Back Pain, Muscle Pain Integumentary: reports: No Symptoms Neurological: reports: No Symptoms Endocrine: reports: No Symptoms Hematology/Lymphatic: reports: No Symptoms Psychiatric: reports: No Symptoms Physical Exam Vital Signs: Vital Signs Temperature 98.1 F 05/02/17 06:00 Pulse Rate 59 L 05/02/17 06:00 Respiratory Rate 20 05/02/17 06:00 Blood Pressure 118/63 05/02/17 06:00 O2 Sat by Pulse Oximetry (%) 96 05/02/17 02:12 Constitutional: Yes: Anxious HENT: Yes: Normocephalic Cardiovascular: Yes: Regular Rate and Rhythm, S1, S2 Respiratory: Yes: CTA Bilaterally, Diminished, Poor Air Entry Gastrointestinal: Yes: Normal Bowel Sounds, Soft Renal/: No: Bladder Distention, CVA Tenderness - Left, CVA Tenderness - Right Musculoskeletal: Yes: Back Pain, Muscle Pain Neurological: Yes: Alert, Oriented Labs: CBC, BMP 05/02/17 06:55 05/02/17 06:55 Problem List - Problems (1) Influenza-like illness Code(s): R69 - ILLNESS, UNSPECIFIED (2) Renal transplant recipient Code(s): Z94.0 - KIDNEY TRANSPLANT STATUS (3) Nausea Code(s): R11.0 - NAUSEA (4) Vomiting Code(s): R11.10 - VOMITING, UNSPECIFIED Assessment/Plan This is an 71 yo F with hx. of DM, CVA, kidney transplant who presents with nausea, cough, and vomiting. She felt dizzy. She has been vomiting for 3 days. She is now receiving IV fluids, Azithromycin and Tamiflu. Her anti-rejection regimen is Imuran. The etiology of the current symptoms are possibly a Flu-like syndrome. No documented tests are available for confirmation of Influenza. Zithromax can increase the drug levels of other medications by blockage of Cytochrome P450 system, especially the drug levels of Imuran ( Azathioprine) and Osetamivir. ESRD, s/p Renal Transplant. The Renal functions are at her baseline. Suggest: Discontinue the Azithromycin unless it is absolutely needed. Confirm Dx of Influenza. Continue the IV fluids. Leonard monitor the Renal functions with you. Thank you. Latisha George MD
[2017-05-02] MEDS ORDERED: PT OWN MED DRAWER 7, Y5N ONE ×2 (09:57→11:05)
[2017-05-02] MEDS ORDERED: azaTHIOprine 50 MG TABLET PO SCH (10:00)
[2017-05-02] MEDS ORDERED: predniSONE 5 MG TABLET (UD) PO SCH (10:00)
--- NOTE | 2017-05-02 10:53 | EKG ---
Test Reason : Blood Pressure : / mmHG Vent. Rate : 065 BPM Atrial Rate : 065 BPM P-R Int : 156 ms QRS Dur : 106 ms QT Int : 454 ms P-R-T Axes : 060 -57 026 degrees QTc Int : 472 ms NORMAL SINUS RHYTHM POSSIBLE LEFT ATRIAL ENLARGEMENT LEFT ANTERIOR FASCICULAR BLOCK LEFT VENTRICULAR HYPERTROPHY ABNORMAL ECG WHEN COMPARED WITH ECG OF 17-FEB-2017 10:48, NO SIGNIFICANT CHANGE WAS FOUND Confirmed by BRENT RODRIGES MD ([id number]) on 05/02/2017 10:53:00 AM Referred By: Confirmed By:BRENT RODRIGES MD
--- NOTE | 2017-05-02 14:34 | EKG ---
Test Reason : Blood Pressure : / mmHG Vent. Rate : 062 BPM Atrial Rate : 062 BPM P-R Int : 168 ms QRS Dur : 116 ms QT Int : 458 ms P-R-T Axes : 036 -53 008 degrees QTc Int : 464 ms NORMAL SINUS RHYTHM LEFT ANTERIOR FASCICULAR BLOCK LEFT VENTRICULAR HYPERTROPHY WITH QRS WIDENING ABNORMAL ECG WHEN COMPARED WITH ECG OF 01-MAY-2017 20:45, NO SIGNIFICANT CHANGE WAS FOUND Confirmed by BRENT RODRIGES MD ([id number]) on 05/02/2017 2:34:06 PM Referred By: DANIEL SANTACRUZ DR Confirmed By:BRENT RODRIGES MD
[2017-05-02 14:36] LABS: URINE APPEARANCE CLEAR; URINE BILIRUBIN NEGATIVE (NEGATIVE); URINE BLOOD NEGATIVE (NEGATIVE); URINE COLOR YELLOW; URINE GLUCOSE (UA) NEGATIVE (NEGATIVE); URINE KETONE NEGATIVE (NEGATIVE); URINE LEUK ESTERASE NEGATIVE (NEGATIVE); URINE NITRITE NEGATIVE (NEGATIVE); URINE PROTEIN NEGATIVE (NEGATIVE); URINE UROBILINOGEN NEGATIVE mg/dL (0.2-1.0)
[2017-05-02 15:31] VITALS: BP 113/56; PULSE 63; TEMP 97.8
--- NOTE | 2017-05-02 15:55 | PN ---
Teaching Attending Note Name of Resident: Geoffrey Barron ATTENDING PHYSICIAN STATEMENT I saw and evaluated the patient. I reviewed the resident's note and discussed the case with the resident. I agree with the resident's findings and plan as documented. SUBJECTIVE: no fever or chills, has no abd pain, no N/V . OBJECTIVE: NAD, Cv; RRR Lungs: CTAb Abd: soft, NT, ND , NL BS Ext: no edema ASSESSMENT AND PLAN: 71 y/o lady with h/o renal transplant, HTN, CVA, Dm and other medical problems who presented with N/V, non productive cough 1- N/V/could be due to gastroenteritis , or due to influenza ( not confirmed) but pt was started on tamiflu by her PCP 3 days ago ( day 4 today) now feels much better , no more sx abd exam benign 2- non productive cough, no evidence of PNA . likely bronchitis ( viral ) , no indication for abx as duration is < 10 days tiera james 3- DEENA: resolved with hydration h/o renal tx, to f/u withher renal transplant doctor for adjustment of her meds dispo : dc home
--- NOTE | 2017-05-02 16:53 | DS ---
Physical Exam: SUBJECTIVE: Patient seen and examined at bedside. she is feeling better. no fever, chills, no N or V. Still have non productive cough. will be dc home with one more day of Tamiflue OBJECTIVE: Vital Signs Period Temp Pulse Resp BP Sys/Wang Pulse Ox Last 24 Hr 97.8 F-99.1 F 59-76 17-20 113-133/54-67 96-97 PHYSICAL EXAM GENERAL: AAOx3 in NAD HEAD: NC/AT EYES: EOMI, Conjunctiva clear, sclera anicteric ENT: moist mucous membrane NECK: Supple, no JVD LUNGS: CTA B/L, no crackles no wheezing no accessory muscle use. HEART: RRR, NSR, normal s1, s2,2/6 murmur RUSB no /R/G ABDOMEN: Soft, ND, NT, +BS 4 Q, no CVA Tenderness LOWER EXTREMITIES: no edema, +2DP pulse, NEUROLOGICAL: No focal deficit. Normal speech. gait not observed. PSYCHIATRIC: Cooperative. Good eye contact. Appropriate mood and affect. SKIN: Warm, dry,left hand surgical scar, lower neck surgical scar, lower abdomen surgical scar. LABS Laboratory Results - last 24 hr 05/01/17 05/01/17 05/01/17 14:57 14:57 14:57 WBC RBC Hgb Hct MCV MCH MCHC RDW Plt Count MPV Neutrophils % Lymphocytes % Monocytes % Eosinophils % Basophils % PT with INR 11.90 H INR 1.05 PTT (Actin FS) 26.9 Sodium 137 Potassium 4.9 Chloride 105 Carbon Dioxide 25 Anion Gap 7 L BUN 22 H Creatinine 1.1 H Creat Clearance w eGFR 49.25 POC Glucometer Random Glucose 116 H Lactic Acid 1.1 Calcium 8.7 Phosphorus Magnesium Total Bilirubin 0.5 AST 21 ALT 14 Alkaline Phosphatase 51 Troponin I Total Protein 7.3 Albumin 3.4 Lipase Urine Color Urine Appearance Urine pH Ur Specific [place] Urine Protein Urine Glucose (UA) Urine Ketones Urine Blood Urine Nitrite Urine Bilirubin Urine Urobilinogen Ur Leukocyte Esterase 05/01/17 05/02/17 05/02/17 14:57 06:53 06:55 WBC 5.4 RBC 3.30 L Hgb 11.3 Hct 33.5 MCV 101.5 H MCH 34.2 H MCHC 33.7 RDW 16.1 H Plt Count 215 MPV 9.6 Neutrophils % 51.9 D Lymphocytes % 38.2 D Monocytes % 8.9 D Eosinophils % 0.6 D Basophils % 0.4 PT with INR INR PTT (Actin FS) Sodium Potassium Chloride Carbon Dioxide Anion Gap BUN Creatinine Creat Clearance w eGFR POC Glucometer 87 Random Glucose Lactic Acid Calcium Phosphorus Magnesium Total Bilirubin AST ALT Alkaline Phosphatase Troponin I < 0.02 Total Protein Albumin Lipase 189 Urine Color Urine Appearance Urine pH Ur Specific [place] Urine Protein Urine Glucose (UA) Urine Ketones Urine Blood Urine Nitrite Urine Bilirubin Urine Urobilinogen Ur Leukocyte Esterase 05/02/17 05/02/17 05/02/17 06:55 11:12 12:00 WBC RBC Hgb Hct MCV MCH MCHC RDW Plt Count MPV Neutrophils % Lymphocytes % Monocytes % Eosinophils % Basophils % PT with INR INR PTT (Actin FS) Sodium 142 Potassium 4.0 Chloride 107 Carbon Dioxide 24 Anion Gap 11 BUN 15 Creatinine 0.9 Creat Clearance w eGFR > 60 POC Glucometer 119 Random Glucose 79 Lactic Acid Calcium 8.2 L Phosphorus 3.2 Magnesium 2.1 Total Bilirubin 0.7 D AST 16 ALT 11 L Alkaline Phosphatase 43 L Troponin I Total Protein 6.2 L Albumin 2.7 L Lipase Urine Color Yellow Urine Appearance Clear Urine pH 6.0 Ur Specific [place] 1.013 Urine Protein Negative Urine Glucose (UA) Negative Urine Ketones Negative Urine Blood Negative Urine Nitrite Negative Urine Bilirubin Negative Urine Urobilinogen Negative Ur Leukocyte Esterase Negative CBC, BMP 05/02/17 06:55 05/02/17 06:55 HOSPITAL COURSE: Date of Admission:05/02/17 Date of Discharge: 05/02/17 71 y/o lady with h/o renal transplant, HTN, CVA, Dm and other medical problems who presented with N/V, non productive cough for her nausea and voniting has been improved with Iv fluids and antiemetics likely due to gastroenteritis vs flue symptoms she has been recieving Tamiflue 3 days before admission by her PCP she will resume today and one more day as out pt. there is no need for the antibiotics the URI symptoms likley viral and less than 10 days. pt developed DEENA which improved with IV fluids. pt will dc home with one more day of Tamiflue , she will continue all her home meds as prescribed before admission.she will follow up as out pt with her kidney transplant doctor to adjust her meds. Minutes to complete discharge: 40 Discharge Summary Reason For Visit: INFLUENZA LIKE-ILLNESS,KIDNEY TRANSP RECEIP,VOMITI Current Active Problems Bronchitis (Acute) Influenza-like illness (Acute) Asthma (Chronic) Diabetes (Chronic) HLD (hyperlipidemia) (Chronic) HTN (hypertension) (Chronic) Hypothyroidism (Chronic) Renal transplant recipient (Chronic) Seizure (Chronic) Condition: Stable - Instructions Diet, Activity, Other Instructions: You were admitted to the hospital due to upper respiratory symptoms Bronchitis ( inflammation in upper airways) . You were treated with Tamiflu (medication that treats flu) because the flu is very common right now and we sometimes treat symptomatic people prophylactically. You also received intravenous fluid hydration. Your chest xray was normal. You will be discharged home . Please take one more day of Tamiflu 30 mg twice daily. You don't need to use any antibiotics. Please resume all your home meds as prescribed before admission. start taking your lasix after 3 days and only if no more nauea or vomiting. Please follow up with you primary care physician within one week. please see your transplant doctor in1 week and he will decide on your renal transplant meds If you develop fever, chills or your symptoms worsen return to emergency room as soon as possible. Referrals: Amelia Mehta [Primary Care Provider] - 1 Week Disposition: HOME - Home Medications Comprehensive Discharge Medication List: Ambulatory Orders Levothyroxine [Synthroid -] 75 mcg PO DAILY 03/07/12 predniSONE [Deltasone -] 5 mg PO DAILY 07/11/13 Azathioprine [Imuran] 100 mg PO DAILY 12/20/14 Diltiazem Cd [Cardizem Cd -] 240 mg PO DAILY 02/20/17 Fluticasone Propionate [Flovent Hfa] 110 mcg IH BID 02/20/17 Furosemide [Lasix -] 40 mg PO DAILY 02/20/17 Oseltamivir Phosphate [Tamiflu -] 30 mg PO BID #2 capsule 05/02/17 This patient is new to me today: Yes Date on this admission: 05/02/17 Emergency Visit: Yes ED Registration Date: 05/02/17 Care time: The patient presented to the Emergency Department on the above date and was hospitalized for further evaluation of their emergent condition. Critical Care patient: No - Discharge Referral Referred to [facility] No
[2017-05-02] MEDS ORDERED: OSELTAMIVIR PHOSPHATE 30 MG CAPSULE PO ONE (17:00)
[2017-05-02] MEDS ORDERED: MOMETASONE FUROATE 220 MCG/IH INHALER IH SCH (22:00)
== END 2017-05-02 17:12 | disposition home or self-care (01) | DRG 866 ==
LOC: JER 13:43 → JERBED 19:14 → J8W 23:13 → OBSVTOIN 05-02 08:33
PROVIDERS: ADMIT Internal Medicine; ATTEND Internal Medicine
DX: J11.2 Influenza due to unidentified influenza virus with gastrointestinal manifestations (principal); N17.9 Acute kidney failure, unspecified; Z94.0 Kidney transplant status; E86.0 Dehydration; E11.9 Type 2 diabetes mellitus without complications; J06.9 Acute upper respiratory infection, unspecified; E78.5 Hyperlipidemia, unspecified; E03.9 Hypothyroidism, unspecified; J45.909 Unspecified asthma, uncomplicated; Z86.73 Personal history of transient ischemic attack (TIA), and cerebral infarction without residual deficits; I10 Essential (primary) hypertension
CPT/HCPCS: 36415; 71045-TC-FY; 80053; 81003; 82803; 82962; 83605; 83690; 83735; 84100; 84484; 85025; 85610; 85730; 87040; 87086; 93005; 93010; 99283-25; G0378

== ENCOUNTER 2017-05-14 09:01 | Inpatient (IN) | payer OTHER ==
[2017-05-14 09:07] VITALS: BMI 25.7
--- NOTE | 2017-05-14 09:12 | PDOC ---
History of Present Illness - General History Source: Patient Exam Limitations: No Limitations - History of Present Illness Initial Comments: 05/14/17 10:00 The patient is a 71 year old female, with a significant past medical history of diabetes mellitus, CVA, kidney transplant, hypertension, hyperlipidemia, GERD, hypothyroidism, seizures, who presents to the emergency department with, a sudden onset of epigastric pain beginning approx. 2 days ago. The patient states that Sunday at 3 am she was woken up from her sleep with epigastric abdominal pain described as sharp, constant, rated 8/10 in intensity, that radiates around to her right back. The patient reports the epigastric abdominal pain is made worse when lying back and states nothing has made the epigastric abdominal pain better. The patient also reports a subjective fever, chills, nausea without vomiting and a mild chest discomfort described as a burning sensation with an associated sour taste in her mouth. The patient also states she still has a residual productive cough with whitish sputum from her recent flu diagnosis on 05/01/17. The patient states her symptoms do not feel similar to her previous episodes of pancreatitis or kidney stones. She denies recent headache or dizziness. She denies recent vomit, diarrhea or constipation. She denies recent dysuria, frequency, urgency or hematuria. She denies recent chest pain, palpitations or shortness of breath. Allergies: codeine Past surgical history: renal transplant, umbilical hernia, pericardial window, CAD - no stents, knee arthroscopy, right shoulder arthroscopy, parathyroidectomy Primary Care Physician: Dr. Amelia Mehta Water Safety Instructor: Dr. Latisha Pratt <Adalberto Lutz - Last Filed: 05/14/17 12:30> <Tahira Young - Last Filed: 05/14/17 13:53> - General Chief Complaint: Pain, Acute Stated Complaint: hx of kidney transplant rt SIDE PAIN Time Seen by Provider: 05/14/17 09:11 Past History <Adalberto Lutz - Last Filed: 05/14/17 12:30> - Past Medical History Anemia: No Asthma: No Cancer: No Cardiac Disorders: Yes (CARDIOMEGALY, pericarditis) CVA: Yes COPD: No DVT: No Dementia: No Diabetes: Yes (borderline) Dialysis: No (kidney transplant) GI Disorders: No Disorders: No HTN: Yes Hypercholesterolemia: Yes Liver Disease: No Seizures: Yes (last february 2017) Thyroid Disease: Yes - Surgical History Abdominal Surgery: Yes (UMBILICAL HERNIA) Cardiac Surgery: Yes (percardial window,CARD CATH NO STENTS) Orthopedic Surgery: Yes (KNEE ARTHROSCOPY) - Immunization History Immunization Up to Date: Yes - Suicide/Smoking/Psychosocial Hx Smoking Status: No Smoking History: Never smoked Have you smoked in the past 12 months: No Number of Cigarettes Smoked Daily: 0 Hx Alcohol Use: No Drug/Substance Use Hx: No Substance Use Type: None Hx Substance Use Treatment: No <Tahira Young - Last Filed: 05/14/17 13:53> - Past Medical History Allergies/Adverse Reactions: Allergies Allergy/AdvReac Type Severity Reaction Status Date / Time codeine Allergy Intermediate Vomiting Verified 05/14/17 09:03 AND SWELLING OF FACE Home Medications: Ambulatory Orders Levothyroxine [Synthroid -] 75 mcg PO DAILY 03/07/12 predniSONE [Deltasone -] 5 mg PO DAILY 07/11/13 Azathioprine [Imuran] 100 mg PO DAILY 12/20/14 Diltiazem Cd [Cardizem Cd -] 240 mg PO DAILY 02/20/17 Fluticasone Propionate [Flovent Hfa] 110 mcg IH BID 02/20/17 Furosemide [Lasix -] 40 mg PO DAILY 02/20/17 Review of Systems - Review of Systems Comments:: 05/14/17 10:00 GENERAL/CONSTITUTIONAL: +Subjective fever and chills No weakness. HEAD, EYES, EARS, NOSE AND THROAT: +Sour taste in mouth. No change in vision. No ear pain or discharge. No sore throat. GASTROINTESTINAL: +Nausea. No vomiting, diarrhea or constipation. GENITOURINARY: No dysuria, frequency, or change in urination. CARDIOVASCULAR: +Chest discomfort. No chest pain or shortness of breath. RESPIRATORY: +Productive cough with whitish sputum. No wheezing, or hemoptysis. MUSCULOSKELETAL: No joint or muscle swelling or pain. No neck or back pain. SKIN: No rash NEUROLOGIC: No headache, vertigo, loss of consciousness, or change in strength/ sensation. ENDOCRINE: No increased thirst. No abnormal weight change. HEMATOLOGIC/LYMPHATIC: No anemia, easy bleeding, or history of blood clots. ALLERGIC/IMMUNOLOGIC: No hives or skin allergy. <Adalberto Lutz - Last Filed: 05/14/17 12:30> *Physical Exam - Vital Signs Last Vital Signs Temp Pulse Resp BP Pulse Ox 99.1 F 117 H 18 130/66 100 05/14/17 09:03 05/14/17 09:03 05/14/17 09:03 05/14/17 09:03 05/14/17 09:03 - Physical Exam Comments: 05/14/17 10:01 Constitutional: Awake, alert, oriented. No acute distress. Head: Normocephalic. Atraumatic Eyes: PERRL. EOMI. Conjunctivae are not pale. ENT: Mucous membranes are moist and intact. Posterior pharynx without exudates or erythema. Uvula midline. Neck: Supple. Full ROM. No lymphadenopathy. Cardiovascular: +Tachycardia. Regular rhythm. S1, S2 regular. Distal pulses are 2+ and symmetric. Pulmonary/Chest: No evidence of respiratory distress. Clear to auscultation bilaterally No wheezing, rales or rhonchi. Abdominal: +Tenderness to RUQ, RLQ and epigastric region. Soft and non- distended. No rebound, guarding or rigidity. No organomegaly. No palpable masses. Good bowel sounds. Back: No CVA tenderness. Musculoskeletal: No edema. No cyanosis. No clubbing. Full range of motion in all extremities. No calf tenderness. Radial/pedal pulses are intact and 2+ bilaterally Skin: Skin is warm and dry. No petechiae. No purpura. Neurological: Alert and oriented to person, place, and time. Cranial nerves II -XII are grossly intact. Normal speech. Strength is grossly symmetric. No sensory deficits. Psychiatric: Good eye contact. Normal interaction, affect and behavior. <Adalberto Lutz - Last Filed: 05/14/17 12:30> - Vital Signs Last Vital Signs Temp Pulse Resp BP Pulse Ox 99.1 F 117 H 18 130/66 100 05/14/17 09:03 05/14/17 09:03 05/14/17 09:03 05/14/17 09:03 05/14/17 09:03 <Tahira Young - Last Filed: 05/14/17 13:53> Heart Score/ECG Review - ECG Intrepretation Comment:: 05/14/17 09:47 sinus tach at 109, LAFB, LVH, L angel axis, mild st depression aVL, no other acute changes <Tahira Young - Last Filed: 05/14/17 13:53> ED Treatment Course - LABORATORY CBC & Chemistry Diagram: 05/14/17 10:00 05/14/17 10:03 <Adalberto Lutz - Last Filed: 05/14/17 12:30> - LABORATORY CBC & Chemistry Diagram: 05/14/17 10:00 05/14/17 11:50 <Tahira Young - Last Filed: 05/14/17 13:53> Medical Decision Making - Medical Decision Making 05/14/17 12:[address] Carranza at 12:00 pm. Pending call back. <Adalberto Lutz - Last Filed: 05/14/17 12:30> - Medical Decision Making 05/14/17 09:48 a/p: 71yo female with epigastric burning up into her chest and with sour taste in back of throat -hx of renal transplant -also with RUQ and RLQ pain -persistent cough since flu 2 weeks ago -will check labs, ekg, cxr, ct abd/pelvis -hx of renal colic and pancreatitis -on immunotherapy -will give ivf hydration, pepcid/zofran for poss GERD -trop -ua 05/14/17 11:[address] Mehta who accepts pt to service requests consult to ID - Dr. Carranza for abx recos chem hemolyzed will reorder will add cultures 05/14/17 13:38 pt with elevated wbc, abd pain - ct pending consult placed to ID 05/14/17 13:[address] chest - will start iv abx <Tahira Young - Last Filed: 05/14/17 13:53> *DC/Admit/Observation/Transfer - Attestations Scribe Attestion: 05/14/17 10:01 Documentation prepared by Adalberto Lutz, acting as medical examiner for Tahira Young DO. <Adalberto Lutz - Last Filed: 05/14/17 12:30> - Discharge Dispostion Admit: Yes - Attestations Physician Attestion: 05/14/17 11:18 I, Dr. Tahira Young DO, attest that this document has been prepared under my direction and personally reviewed by me in its entirety. I further attest, that it accurately reflects all work, treatment, procedures and medical decision -making performed by me. <Tahira Young - Last Filed: 05/14/17 13:53> Diagnosis at time of Disposition: Abdominal pain, Cough, Leukocytosis, Pneumonia - Discharge Dispostion Condition at time of disposition: Guarded
[2017-05-14] MEDS ORDERED: ONDANSETRON 4 MG/2 ML VIAL IVPUSH ONE (09:45)
[2017-05-14] MEDS ORDERED: SODIUM CHLORIDE 0.9% 1000 ML INFUS.BAG IV ONE (09:45)
[2017-05-14] MEDS ORDERED: ACETAMINOPHEN 1000 MG/100 ML VIAL (NON FORMULARY) IVPB ONE (09:45)
[2017-05-14] MEDS ORDERED: ONDANSETRON 4 MG/2 ML VIAL ONE (10:05)
[2017-05-14] MEDS ORDERED: FAMOTIDINE 20 MG/50 ML IVPB 20 MG/50 ML MG IVPB ONE ×2 (10:05→10:15)
[2017-05-14] MEDS ORDERED: ACETAMINOPHEN INJECTION 100 ML IVPB ONE (10:05)
[2017-05-14 10:14] LABS: BASO % 0.6 % (0-2.0); EOS % 0.1 % (0-4.5); HEMATOCRIT 33.8 % (32.4-45.2); HEMOGLOBIN 11.5 GM/dL (10.7-15.3); LYMPH % 11.3 % (8-40); MCH 33.9 pg (25.7-33.7); MEAN CELL VOLUME 99.8 fl (80-96); MEAN PLT VOLUME 10.2 fl (7.5-11.1); MONO % 11.6 % (3.8-10.2); NEUT % 76.4 % (42.8-82.8); PLATELET COUNT 283 K/MM3 (134-434); RBC 3.39 M/mm3 (3.60-5.2); RDW 16.8 % (11.6-15.6); WHITE BLOOD COUNT 14.6 K/mm3 (4.0-10.0)
[2017-05-14 10:26] LABS: INR 1.28 (0.82-1.09); PROTHROMBIN TIME (PATIENT) 14.5 SEC (9.98-11.88)
[2017-05-14 10:29] LABS: ACTIVATED PTT 27.6 SECONDS (26.9-34.4)
--- NOTE | 2017-05-14 11:36 | HP ---
Admitting History and Physical - Primary Care Physician PCP: Amelia Mehta S - Admission Chief Complaint: cough CP and abdominal pain History of Present Illness: The patient is a 71 year old female, with a significant past medical history of diabetes mellitus, CVA, kidney transplant, hypertension, hyperlipidemia, GERD, hypothyroidism, seizures, who presents to the emergency department with, a sudden onset of epigastric pain beginning approx. 2 days ago. The patient states that Sunday at 3 am she was woken up from her sleep with epigastric abdominal pain described as sharp, constant, rated 8/10 in intensity, that radiates around to her right back. The patient reports the epigastric abdominal pain is made worse when lying back and states nothing has made the epigastric abdominal pain better. The patient also reports a subjective fever, chills, nausea without vomiting and a mild chest discomfort described as a burning sensation with an associated sour taste in her mouth. The patient also states she still has a residual productive cough with whitish sputum from her recent flu diagnosis on 05/01/17. The patient states her symptoms do not feel similar to her previous episodes of pancreatitis or kidney stones. She denies recent headache or dizziness. She denies recent vomit, diarrhea or constipation. She denies recent dysuria, frequency, urgency or hematuria. She denies recent chest pain, palpitations or shortness of breath. 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 No: None, AAA Repair, AICD , Amputation, Appendectomy, Arthrosocopy, AV Fistula/Graft, Bariatric Surgery, Breast Biopsy, Bypass, CABG, Carotid Endarterectomy, Cataract Removal, Cholecystectomy, Colectomy, Colonoscopy, Colostomy, Craniotomy, , Cystectomy, Hysterectomy, Ileal Conduit, Ileosotomy, Joint Replacement, Kidney Transplant, Laminectomy, Liver Transplant, Mastectomy, Nephrectomy, Oopherectomy , Orchiectomy, Permanent Pacemaker, Prostatectomy, Splenectomy, Stent, Thoracotomy, TURP, Tonsillectomy, Tubal Ligation, Upper Endoscopy, Valve Replacement, Vasectomy, Vein Stripping/Ligation - Smoking History Smoking history: Never smoked Have you smoked in the past 12 months: No Aproximately how many cigarettes per day: 0 - Alcohol/Substance Use Hx Alcohol Use: No History of Substance Use: reports: None - Social History Usual Living Arrangement: Yes: Alone ADL: Independent History of Recent Travel: No Home Medications - Allergies Allergies/Adverse Reactions: Allergies Allergy/AdvReac Type Severity Reaction Status Date / Time codeine Allergy Intermediate Vomiting Verified 05/14/17 09:03 AND SWELLING OF FACE - Home Medications Home Medications: Ambulatory Orders Levothyroxine [Synthroid -] 75 mcg PO DAILY 03/07/12 predniSONE [Deltasone -] 5 mg PO DAILY 07/11/13 Azathioprine [Imuran] 100 mg PO DAILY 12/20/14 Diltiazem Cd [Cardizem Cd -] 240 mg PO DAILY 02/20/17 Fluticasone Propionate [Flovent Hfa] 110 mcg IH BID 02/20/17 Furosemide [Lasix -] 40 mg PO DAILY 02/20/17 Family Disease History - Family Disease History Family Disease History: CA: Sister (breast) Review of Systems - Review of Systems Constitutional: reports: Chills, Fever. denies: Lethargy Eyes: denies: Blind Spots, Blurred Vision, Double Vision HENT: denies: Difficult Swallowing, Ear Pain Neck: denies: Decreased ROM, Stiffness Cardiovascular: reports: Chest Pain. denies: Edema, Palpitations, Shortness of Breath Respiratory: reports: Cough. denies: Hemoptysis Gastrointestinal: reports: Abdominal Pain. denies: Constipation, Diarrhea, Vomiting Genitourinary: denies: Dysuria, Flank Pain Musculoskeletal: denies: Back Pain, Crepitus, Joint Pain, Joint Swelling Neurological: denies: Change in LOC, Change in Speech, Confusion, Dizziness, Seizure, Syncope, Unsteady Gait, Weakness Endocrine: denies: Excessive Sweating, Flushing Hematology/Lymphatic: denies: Easily Bruised, Excessive Bleeding Psychiatric: denies: Altered Sleep Pattern, Anxiety, Depression Physical Examination Vital Signs: Vital Signs Temperature 99.1 F 05/14/17 09:03 Pulse Rate 117 H 05/14/17 09:03 Respiratory Rate 18 05/14/17 09:03 Blood Pressure 130/66 05/14/17 09:03 O2 Sat by Pulse Oximetry (%) 100 05/14/17 09:03 Constitutional: Yes: No Distress, Calm Eyes: Yes: Conjunctiva Clear HENT: Yes: Atraumatic Neck: Yes: Supple Cardiovascular: Yes: Regular Rate and Rhythm Respiratory: Yes: CTA Bilaterally Gastrointestinal: Yes: Soft. No: Distention Renal/: No: CVA Tenderness - Left, CVA Tenderness - Right Musculoskeletal: No: Joint Stiffness, Joint Swelling Extremities: No: Cold, Cool, Cyanosis Edema: No Integumentary: No: Rash, Skin Tear, Venous Stasis Changes Neurological: Yes: WNL, Alert, Oriented ...Motor Strength: WNL Psychiatric: Yes: WNL, Alert, Oriented. No: Agitated, Suicidal Ideation Labs: CBC, BMP 05/14/17 10:00 05/14/17 10:03 Imaging - Results Chest X-ray: Report Reviewed Cat Scan: Report Reviewed Other: Report Reviewed Assessment/Plan The patient is a 71 year old female, with a significant past medical history of diabetes mellitus, CVA, kidney transplant, hypertension, hyperlipidemia, GERD, hypothyroidism, seizures, who presents to the emergency department with epigastric pain CP cough. S/p FLU/ URI 2 weeks ago treated with tamiflu and Zpack x5days at that time, admitted as OBS/ hospitalist svc admit to INPT IV ATB chest CT r/o PNA cardiology eval r/o ASHD abdomen CT and GI eval r/o GI pathology ID eval IVF gentle hydration h/o renal transplant CRF falls PFX d/w pt do not get OOB alone DVT PFX f/u labs and CX prognosis guarded d/w pt and daughter d/w staff T time 75 min
[2017-05-14] MEDS ORDERED: SODIUM CHLORIDE 1,000 ML IV SCH ×2 (11:45→19:19)
[2017-05-14 12:37] LABS: ALBUMIN 2.6 g/dl (3.4-5.0); ANION GAP 8 (8-16); BILIRUBIN,TOTAL 0.7 mg/dL (0.2-1.0); BLOOD UREA NITROGEN 20 mg/dL (7-18); CALCIUM 7.5 mg/dL (8.5-10.1); CHLORIDE 105 mmol/L (98-107); CO2 25 mmol/L (21-32); CREATININE 1.1 mg/dL (0.55-1.02); GLUCOSE,RANDOM 91 mg/dL (74-106); MAGNESIUM 1.7 mg/dL (1.8-2.4); POTASSIUM 3.7 mmol/L (3.5-5.1); SGOT/AST 9 U/L (15-37); SGPT/ALT 10 U/L (12-78); SODIUM 138 mmol/L (136-145); TOT PROT 6.1 g/dl (6.4-8.2)
[2017-05-14 12:40] LABS: ALK PHOS 59 U/L (45-117)
[2017-05-14] MEDS ORDERED: MAGNESIUM SULF 50% (8.12 MEQ/2 ML-1 GM VIAL) IVPB ONE (13:37)
[2017-05-14 13:39] LABS: AMYLASE 45 U/L (25-115); LIPASE 92 U/L (73-393)
[2017-05-14] MEDS ORDERED: VANCOMYCIN 1 GRAM (PRE-DOCKED) 1,000 MG/250 ML BAG IVPB ONE ×2 (13:39→14:04)
[2017-05-14] MEDS ORDERED: PIPERACILLIN/TAZOB 4.5 GM/100 ML PREMIX BAG IVPB ONE (13:39)
[2017-05-14 13:45] LABS: URINE APPEARANCE CLEAR; URINE BILIRUBIN NEGATIVE (NEGATIVE); URINE BLOOD NEGATIVE (NEGATIVE); URINE COLOR LTYELLOW; URINE GLUCOSE (UA) NEGATIVE (NEGATIVE); URINE KETONE NEGATIVE (NEGATIVE); URINE LEUK ESTERASE NEGATIVE (NEGATIVE); URINE NITRITE NEGATIVE (NEGATIVE); URINE PROTEIN NEGATIVE (NEGATIVE); URINE UROBILINOGEN NEGATIVE mg/dL (0.2-1.0)
[2017-05-14] MEDS ORDERED: PIPERACILLIN/TAZOB 4.5 GM 4.5 GM/100 ML BAG IVPB ONE (14:03)
[2017-05-14] MEDS ORDERED: MAGNESIUM SULF 50% (8.12 MEQ/2 ML-1 GM VIAL) ONE (14:03)
[2017-05-14] MEDS ORDERED: PIPERACILLIN/TAZOB 4.5 GM 4.5 GM in DEXTROSE 5%-WATER - 100 ML IVPB ONE (14:30)
--- NOTE | 2017-05-14 16:35 | PN ---
Progress Note (short form) - Note Progress Note: ID consult dictated imp/reccd 71 year old female renal transplant 27 years ago, on immuran and prednisone- recently had a viral syndrome- treated for influenza early april- she has been coughing since, she was hospitalized 05/01 to 04/04 this weekend cough worsened she had chills no hemoptysis she developed midepigastric pain as well and came to ED ct chest with patchy infiltrates abd/pelvis ct- no acute pathology suspect post influenza pneumonia continue vancomycin and zosyn f/u cultures Problem List - Problems (1) Pneumonia Code(s): J18.9 - PNEUMONIA, UNSPECIFIED ORGANISM (2) Renal transplant recipient Code(s): Z94.0 - KIDNEY TRANSPLANT STATUS
--- NOTE | 2017-05-14 17:24 | CON.CARD ---
Cardiology Consult (text) - Consultation Consultation Note: CC: epigastric pain/cp. 71 yo with pmhx of htn, hl, CVA, pericarditis s/p pericardial window, kidney transplant, niddm, GERD, diverticulosis, hypothyroidism, hyperparathyroidism, gout, seizures (last 02/2017), asthma, recently treated for flu who p/w epigastric pain The patient states that Sunday at 3 am she was woken up from her sleep with epigastric abdominal pain described as sharp, constant, rated 8/10 in intensity , that radiates around to her right back. The patient reports the epigastric abdominal pain is made worse when lying back and states nothing has made the epigastric abdominal pain better. The patient also reports a subjective fever, chills, nausea without vomiting and a mild chest discomfort described as a burning sensation with an associated sour taste in her mouth. The patient also states she still has a residual productive cough with whitish sputum from her recent flu diagnosis on 05/01/17. The patient states her symptoms do not feel similar to her previous episodes of pancreatitis or kidney stones. Pain is ttp and exacerbated by coughing. + f/c/s. + congestion, + cough She denies recent headache or dizziness. She denies recent vomit, diarrhea or constipation, rashes, visual disturbances She denies dizziness, palpitations, orthopnea, pnd, le edeam or shortness of breath. s/p IVF in ER pmhx/pshx: per hpi renal transplant, umbilical hernia, pericardial window, knee arthroscopy, right shoulder arthroscopy, parathyroidectomy social hx: never smoker fam hx: no premature cad ros: per hpi Primary Care Physician: Dr. Amelia Mehta Director Of Market Analysis: Dr. Latisha Pratt Ambulatory Orders Levothyroxine [Synthroid -] 75 mcg PO DAILY 03/07/12 predniSONE [Deltasone -] 5 mg PO DAILY 07/11/13 Azathioprine [Imuran] 100 mg PO DAILY 12/20/14 Diltiazem Cd [Cardizem Cd -] 240 mg PO DAILY 02/20/17 Fluticasone Propionate [Flovent Hfa] 110 mcg IH BID 02/20/17 Furosemide [Lasix -] 40 mg PO DAILY 02/20/17 Current Medications Acetaminophen (Tylenol -) 650 mg PO Q8H PRN PRN Reason: PAIN Azathioprine (Imuran -) 100 mg PO DAILY [facility] Diltiazem HCl (Cardizem Cd -) 240 mg PO DAILY [facility] Furosemide (Lasix -) 40 mg PO DAILY [facility] Guaifenesin (Robitussin -) 10 ml PO Q8H PRN PRN Reason: COUGH Heparin Sodium (Porcine) (Heparin -) 5,000 unit SQ BID [facility] Sodium Chloride (Normal Saline -) 1,000 mls @ 50 mls/hr IV ASDIR [facility] Stop: 05/15/17 11:37 Last Admin: 05/14/17 14:18 Dose: 50 mls/hr Levothyroxine Sodium (Synthroid -) 75 mcg PO AM [facility] Mometasone Furoate (Asmanex 220mcg -) 220 puff IH HS [facility] Polyethylene Glycol (Miralax (For Daily Use) -) 17 gm PO HS PRN PRN Reason: CONSTIPATION Prednisone (Deltasone -) 5 mg PO DAILY [facility] Vital Signs - 24 hr 05/14/17 05/14/17 05/14/17 09:03 12:19 16:53 Temperature 99.1 F 99.3 F 99.2 F Pulse Rate 117 H Pulse Rate [ 89 89 Right Radial] Respiratory 18 18 20 Rate Blood Pressure 130/66 Blood Pressure 105/52 109/58 [Right Arm] O2 Sat by Pulse 100 95 95 Oximetry (%) Intake & Output 05/12/17 05/13/17 05/14/17 05/15/17 07:59 07:59 07:59 07:59 Weight 132 lb nad, calm jvd flat, neck supple trace rales, nl effort rrr nl s1, s2 no mrg + ttp over area of chest discomfort + bs soft nt nd ext without e/c/c + dp/pt aaox3 no jaundice, diaphoresis. CBC, BMP 05/14/17 10:00 05/14/17 11:50 Laboratory Tests 05/14/17 05/14/17 11:50 11:50 ESR 102 H Magnesium 1.7 L Creatine Kinase 33 Troponin I < 0.02 Albumin 2.6 L ekg: sinus tach, 109 bpm. lad. lvh with repol abnormalities. no actue ischemic changes. chest ct: patchy infiltrates likely inflammatory/infectious in nature. see emr for further details 71 yo with pmhx of htn, CVA, pericarditis s/p pericardial window, kidney transplant, niddm, GERD, diverticulosis, hypothyroidism, hyperparathyroidism, gout, seizures (last 02/2017), asthma, recently treated for flu who p/w epigastric pain CP/hl - atypical for cardiac pain. Patient with pna and persistent cough. Likely msk etiology with ttp over left lower rib cage. - ekg without acute ischemic changes. con't rosio - per report, recent echo at office. will review htn - bp running low. monitor with resumption of home diltiazem ? hx of cva - will review office notes to see if patient on asa or statin. pna -mgm't per pmd
[2017-05-14] MEDS ORDERED: ACETAMINOPHEN 325 MG TABLET (FP) ONE (17:37)
[2017-05-14] MEDS ORDERED: guaiFENesin 200 MG/10 ML 10 ML UNIT-DOSE CUPS ONE (17:37)
[2017-05-14] MEDS: ACETAMINOPHEN 325 MG TABLET (FP) PO PRN (17:46)
[2017-05-14] MEDS: guaiFENesin 200 MG/10 ML 10 ML UNIT-DOSE CUPS PO PRN (17:46)
--- NOTE | 2017-05-14 18:48 | CON.GI ---
Consult Consult Specialty:: gastroebnterology Referred by:: Dr Mehta - History of Present Illness History of Present Illness: 71 y/o F was admitted because of Flu like symptoms 2 weeks ago, since discharge she continued to have productive cough, epigastric pain, poor appetite and nausea. 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 No: None, AAA Repair, AICD , Amputation, Appendectomy, Arthrosocopy, AV Fistula/Graft, Bariatric Surgery, Breast Biopsy, Bypass, CABG, Carotid Endarterectomy, Cataract Removal, Cholecystectomy, Colectomy, Colonoscopy, Colostomy, Craniotomy, , Cystectomy, Hysterectomy, Ileal Conduit, Ileosotomy, Joint Replacement, Kidney Transplant, Laminectomy, Liver Transplant, Mastectomy, Nephrectomy, Oopherectomy , Orchiectomy, Permanent Pacemaker, Prostatectomy, Splenectomy, Stent, Thoracotomy, TURP, Tonsillectomy, Tubal Ligation, Upper Endoscopy, Valve Replacement, Vasectomy, Vein Stripping/Ligation - Alcohol/Substance Use Hx Alcohol Use: No History of Substance Use: reports: None - Smoking History Smoking history: Never smoked Have you smoked in the past 12 months: No Aproximately how many cigarettes per day: 0 - Social History ADL: Independent History of Recent Travel: No Home Medications - Allergies Allergies/Adverse Reactions: Allergies Allergy/AdvReac Type Severity Reaction Status Date / Time codeine Allergy Intermediate Vomiting Verified 05/14/17 09:03 AND SWELLING OF FACE - Home Medications Home Medications: Ambulatory Orders Levothyroxine [Synthroid -] 75 mcg PO DAILY 03/07/12 predniSONE [Deltasone -] 5 mg PO DAILY 07/11/13 Azathioprine [Imuran] 100 mg PO DAILY 12/20/14 Diltiazem Cd [Cardizem Cd -] 240 mg PO DAILY 02/20/17 Fluticasone Propionate [Flovent Hfa] 110 mcg IH BID 02/20/17 Furosemide [Lasix -] 40 mg PO DAILY 02/20/17 Family Disease History - Family Disease History Family Disease History: CA: Sister (breast) Physical Exam-GI Vital Signs: Vital Signs Temperature 101.9 F H 05/14/17 17:31 Pulse Rate 89 05/14/17 16:53 Respiratory Rate 20 05/14/17 16:53 Blood Pressure 109/58 05/14/17 16:53 O2 Sat by Pulse Oximetry (%) 95 05/14/17 16:53 Labs: CBC, BMP 05/14/17 10:00 05/14/17 11:50 INR, PTT INR 1.28 (0.82-1.09) H 05/14/17 10:00 Problem List - Problems (1) Epigastric pain Assessment/Plan: r/o pepetic ulcer diseae, gastroparesis from ongoing upper respiratory R> IV Regklan, IV Zofra tract infection Code(s): R10.13 - EPIGASTRIC PAIN
[2017-05-14] MEDS ORDERED: PIPERACILLIN/TAZOB 3.375 GM/50 ML PRE-DOCKED IVPB SCH (19:15)
--- NOTE | 2017-05-14 19:21 | CONSULT ---
Consult - text type - Consultation Consultation Note: Renal Consult for Renal Transplant Home Medications Medication Instructions Recorded Levothyroxine [Synthroid -] 75 mcg PO DAILY 03/07/12 predniSONE [Deltasone -] 5 mg PO DAILY 07/11/13 Azathioprine [Imuran] 100 mg PO DAILY 12/20/14 Diltiazem Cd [Cardizem Cd -] 240 mg PO DAILY 02/20/17 Fluticasone Propionate [Flovent 110 mcg IH BID 02/20/17 Hfa] Furosemide [Lasix -] 40 mg PO DAILY 02/20/17 Vital Signs Temperature 101.9 F H 05/14/17 17:31 Pulse Rate 89 05/14/17 16:53 Respiratory Rate 20 05/14/17 16:53 Blood Pressure 109/58 05/14/17 16:53 O2 Sat by Pulse Oximetry (%) 95 05/14/17 16:53 Intake & Output 05/11/17 05/12/17 05/13/17 05/14/17 23:59 23:59 23:59 23:59 Weight 59.874 kg NAD coughing Neck supple, no JVD + rales at lung bases soft, + tenderness in abd + tenderness over graft site no LE edema, clubbing or cyanosis CBC, BMP 05/14/17 10:00 05/14/17 11:50 Current Medications Acetaminophen (Tylenol -) 650 mg PO Q8H PRN PRN Reason: PAIN Last Admin: 05/14/17 17:46 Dose: 650 mg Azathioprine (Imuran -) 100 mg PO DAILY [facility] Diltiazem HCl (Cardizem Cd -) 240 mg PO DAILY [facility] Guaifenesin (Robitussin -) 10 ml PO Q8H PRN PRN Reason: COUGH Last Admin: 05/14/17 17:46 Dose: 10 ml Heparin Sodium (Porcine) (Heparin -) 5,000 unit SQ BID [facility] Sodium Chloride (Normal Saline -) 1,000 mls @ 75 mls/hr IV ASDIR [facility] Stop: 05/15/17 11:37 Levothyroxine Sodium (Synthroid -) 75 mcg PO AM [facility] Mometasone Furoate (Asmanex 220mcg -) 220 puff IH HS [facility] Piperacillin Sod/Tazobactam Sod (Zosyn 3.375gm Ivpb (Pre-Docked)) 3.375 gm IVPB Q8H [facility] PRN Reason: Protocol Polyethylene Glycol (Miralax (For Daily Use) -) 17 gm PO HS PRN PRN Reason: CONSTIPATION Prednisone (Deltasone -) 5 mg PO DAILY [facility] Vancomycin HCl (Vancomycin (Pre-Docked)) 1,000 mg IVPB DAILY [facility] PRN Reason: Protocol 71 year old woman with PMhx of ESRD s/p renal transplant (25 years ago), hypertension, seizure disorder presented with abd pain, cough and subjective fever and found to have PNA. #ESRD with renal transplant Renal function near baseline BUN elevated, likely due to some degree of volume depletion in setting of infection hold diuretics for now start NS at 75cc per hour contineu Imuran, prednisone trend renal function, electrolytes would avoid IV contrast and nephrotoxins if possible #Leukocytosis/Fever/PNA continue Abx as per Id f/u cultures Full consult to follow Orlando Sen DO
--- NOTE | 2017-05-14 19:54 | CONS ---
INFECTIOUS DISEASE CONSULTATION DATE OF CONSULTATION: 05/14/2017 REQUESTING PHYSICIAN: Amelia Mehta MD HISTORY OF PRESENT ILLNESS: This is a 71-year-old woman status post renal transplant she tells me 27 years ago. She was recently in the hospital in early April. She was here in observation overnight from the to . At which time, she had a viral syndrome with a cough and was treated for presumptive influenza. She tells me she took amoxicillin as well. After discharge home, the cough never went away. She continued to cough until over this weekend when on Sunday she started having much worsening cough with chills. She also had mid-epigastric pain that was quite severe. She notes chest discomfort and a sour taste in her mouth. She has had whitish sputum. No hemoptysis. She denies any dysuria or urinary frequency. She has no vomiting, diarrhea, or constipation. PAST MEDICAL HISTORY: Notable for diabetes, CVA, hypertension, hyperlipidemia, GERD, hypothyroidism, and seizures. SURGICAL HISTORY: She is status post renal transplant 27 years ago. She has had an umbilical hernia repair, pericardial window, knee arthroscopy, right shoulder arthroscopy, and parathyroidectomy. She is followed by Dr. Mehta, and her security incident handler is Dr. George. ALLERGIES: She is allergic to CODEINE. MEDICATIONS AT HOME: Include Synthroid, prednisone 5 mg daily, Imuran, Cardizem, Flovent, and Lasix. SOCIAL HISTORY: There is no history of any cigarette or substance use. She is independent in her ADLs. There is no history of any travel. REVIEW OF SYSTEMS: As per HPI. She denies hemoptysis. She has not been feeling well since Sunday. PHYSICAL EXAMINATION: Vital Signs: Her temperature is 99.2, T-max of 99.3; pulse of 89; blood pressure 109/58; respiratory rate is 20. She is 132 pounds. She is saturating 95% on room air. HEENT: She is normocephalic. Her eyes are anicteric. She has no thrush. Neck: Supple. Lungs: Scattered rhonchi. Heart: Regular rate and rhythm. Abdomen: Soft. She has mid-epigastric discomfort to palpation. Extremities: Without edema. LABORATORY DATA: White count is 14.6, hemoglobin 11.5, platelets are 283. INR is 1.2. BUN is 20 and creatinine 1.1. Her urinalysis is negative. Cultures are pending. CAT scan of her abdomen and pelvis was unremarkable. CAT scan of her chest reveals patchy infiltrates in the left upper lobe. In summary, this is a 71-year-old woman status post kidney transplant 27 years ago on Imuran and prednisone, recently had a viral syndrome treated with influenza early April. She has been coughing. CAT scan with patchy infiltrates. I suspect post-influenza pneumonia. Would continue vancomycin and Zosyn. Follow up cultures. Check a legionella and pneumococcal antigen for completeness. ALMAZ KELLY M.D. [id number]
[2017-05-14] MEDS: HEPARIN NA (PORCINE) 5,000 UNITS/ML 1ML VIAL SQ SCH (22:55)
[2017-05-15] MEDS: MOMETASONE FUROATE 220 MCG/IH INHALER IH SCH ×2 (00:05→23:26)
[2017-05-15] MEDS: ACETAMINOPHEN 325 MG TABLET (FP) PO PRN ×2 (01:41→08:04)
--- NOTE | 2017-05-15 07:03 | PN ---
Progress Note, Physician Chief Complaint: in bed awake alert NAD had fever 101.2 blood cx sent tests noted; d/w pt and daughter - Current Medication List Current Medications: Active Medications Acetaminophen (Tylenol -) 650 mg PO Q8H PRN PRN Reason: PAIN Last Admin: 05/15/17 01:41 Dose: 650 mg Azathioprine (Imuran -) 100 mg PO DAILY [facility] Diltiazem HCl (Cardizem Cd -) 240 mg PO DAILY [facility] Guaifenesin (Robitussin -) 10 ml PO Q8H PRN PRN Reason: COUGH Last Admin: 05/14/17 17:46 Dose: 10 ml Heparin Sodium (Porcine) (Heparin -) 5,000 unit SQ BID [facility] Last Admin: 05/14/17 22:55 Dose: 5,000 unit Sodium Chloride (Normal Saline -) 1,000 mls @ 75 mls/hr IV ASDIR [facility] Stop: 05/15/17 11:37 Last Admin: 05/14/17 19:25 Dose: 75 mls/hr Piperacillin Sod/Tazobactam (Sod 3.375 gm/ Dextrose) 50 mls @ 100 mls/hr IVPB Q8H-IV [facility] Vancomycin HCl 1,000 mg/ (Dextrose) 250 mls @ 166.667 mls/hr IVPB DAILY@[facility] Levothyroxine Sodium (Synthroid -) 75 mcg PO AM [facility] Mometasone Furoate (Asmanex 220mcg -) 220 puff IH HS [facility] Last Admin: 05/15/17 00:05 Dose: 220 inh Polyethylene Glycol (Miralax (For Daily Use) -) 17 gm PO HS PRN PRN Reason: CONSTIPATION Prednisone (Deltasone -) 5 mg PO DAILY [facility] - Objective Vital Signs: Vital Signs Temperature 98.2 F 05/14/17 20:34 Pulse Rate 93 H 05/14/17 20:34 Respiratory Rate 20 05/14/17 20:34 Blood Pressure 128/67 05/14/17 20:34 O2 Sat by Pulse Oximetry (%) 95 05/14/17 20:34 Constitutional: Yes: No Distress, Calm Eyes: Yes: Conjunctiva Clear HENT: Yes: Atraumatic Neck: Yes: Supple Cardiovascular: Yes: Regular Rate and Rhythm Respiratory: Yes: CTA Bilaterally Gastrointestinal: Yes: Soft. No: Distention Genitourinary: No: CVA Tenderness - Left, CVA Tenderness - Right Musculoskeletal: No: Joint Stiffness, Joint Swelling Extremities: No: Cold, Cool Edema: No Integumentary: No: Rash, Venous Stasis Changes Neurological: Yes: WNL, Alert, Oriented ...Motor Strength: WNL Psychiatric: Yes: WNL, Alert, Oriented. No: Agitated, Suicidal Ideation Labs: CBC, BMP 05/14/17 10:00 05/14/17 11:50 INR, PTT INR 1.28 (0.82-1.09) H 05/14/17 10:00 - ....Imaging Other: Report Reviewed Assessment/Plan The patient is a 71 year old female, with a significant past medical history of diabetes mellitus, CVA, kidney transplant, hypertension, hyperlipidemia, GERD, hypothyroidism, seizures, who presents to the emergency department with epigastric pain CP cough. S/p FLU/ URI 2 weeks ago treated with tamiflu and Zpack x5days at that time, admitted as OBS/ hospitalist svc admitted to INPT IV ATB chest CT c/w PNA; pulm eval d/w dr OCONNOR cardiology f/u r/o ASHD d/w dr Amezcua abdomen CT and GI noted ID f/u, IV ATB per ID IVF gentle hydration h/o renal transplant CRF; watch for CHF, h/o legs edema in the past falls PFX d/w pt do not get OOB alone DVT PFX f/u labs and CX prognosis guarded d/w pt and daughter d/w staff T time 35 min
[2017-05-15 07:52] LABS: BASO % 0.5 % (0-2.0); EOS % 0.6 % (0-4.5); HEMATOCRIT 32.3 % (32.4-45.2); LYMPH % 13.4 % (8-40); MCH 34.7 pg (25.7-33.7); MEAN PLT VOLUME 9.9 fl (7.5-11.1); MONO % 13.2 % (3.8-10.2); NEUT % 72.3 % (42.8-82.8); PLATELET COUNT 225 K/MM3 (134-434); RBC 3.17 M/mm3 (3.60-5.2); WHITE BLOOD COUNT 10.1 K/mm3 (4.0-10.0)
[2017-05-15] MEDS ORDERED: ACETAMINOPHEN 325 MG TABLET (FP) ONE (07:55)
[2017-05-15] MEDS ORDERED: guaiFENesin 200 MG/10 ML 10 ML UNIT-DOSE CUPS ONE (07:55)
[2017-05-15] MEDS: guaiFENesin 200 MG/10 ML 10 ML UNIT-DOSE CUPS PO PRN ×2 (08:04→21:58)
[2017-05-15] MEDS ORDERED: LEVOTHYROXINE NA 25 MCG TABLET (FP) ONE (08:09)
[2017-05-15] MEDS: LEVOTHYROXINE NA 75 MCG TABLET (FP) PO SCH (08:10)
[2017-05-15 08:20] LABS: ALBUMIN 2.5 g/dl (3.4-5.0); ANION GAP 13 (8-16); BILIRUBIN,TOTAL 0.7 mg/dL (0.2-1.0); BLOOD UREA NITROGEN 11 mg/dL (7-18); CALCIUM 8.1 mg/dL (8.5-10.1); CHLORIDE 108 mmol/L (98-107); CO2 22 mmol/L (21-32); CREATININE 0.9 mg/dL (0.55-1.02); GLUCOSE,RANDOM 70 mg/dL (74-106); MAGNESIUM 2.5 mg/dL (1.8-2.4); PHOSPHOROUS 3.2 mg/dL (2.5-4.9); POTASSIUM 4.1 mmol/L (3.5-5.1); SGOT/AST 13 U/L (15-37); SGPT/ALT 12 U/L (12-78); SODIUM 143 mmol/L (136-145)
--- NOTE | 2017-05-15 08:20 | PN ---
Progress Note (short form) - Note Progress Note: continues to have chest pain with cough has continued cough no hemoptysis has continued upper abdominal pain fever to 101.9 yesterday still feels lousy Vital Signs Period Temp Pulse Resp BP Sys/Wang Pulse Ox Last 24 Hr 98.2 F-101.9 F 89-117 18-20 105-130/52-67 95-100 cor-rrr lungs bilateral rhonchi abd soft, midepigastric discomfort to palpation ext no edema CBC, BMP 05/15/17 07:37 05/15/17 07:37 Microbiology 05/14/17 14:47 Nasopharyngeal Aspirate Influenza Types A,B Antigen (NAY) - Final 05/14/17 14:47 Nasopharyngeal Aspirate - Final blood cultures pending Current Medications Acetaminophen (Tylenol -) 650 mg PO Q8H PRN PRN Reason: PAIN Last Admin: 05/15/17 08:04 Dose: 650 mg Azathioprine (Imuran -) 100 mg PO DAILY [facility] Diltiazem HCl (Cardizem Cd -) 240 mg PO DAILY [facility] Guaifenesin (Robitussin -) 10 ml PO Q8H PRN PRN Reason: COUGH Last Admin: 05/15/17 08:04 Dose: 10 ml Heparin Sodium (Porcine) (Heparin -) 5,000 unit SQ BID [facility] Last Admin: 05/14/17 22:55 Dose: 5,000 unit Sodium Chloride (Normal Saline -) 1,000 mls @ 75 mls/hr IV ASDIR [facility] Stop: 05/15/17 11:37 Last Admin: 05/14/17 19:25 Dose: 75 mls/hr Piperacillin Sod/Tazobactam (Sod 3.375 gm/ Dextrose) 50 mls @ 100 mls/hr IVPB Q8H-IV [facility] Vancomycin HCl 1,000 mg/ (Dextrose) 250 mls @ 166.667 mls/hr IVPB DAILY@1500 [facility] Levothyroxine Sodium (Synthroid -) 75 mcg PO AM [facility] Last Admin: 05/15/17 08:10 Dose: 75 mcg Mometasone Furoate (Asmanex 220mcg -) 220 puff IH HS [facility] Last Admin: 05/15/17 00:05 Dose: 220 inh Polyethylene Glycol (Miralax (For Daily Use) -) 17 gm PO HS PRN PRN Reason: CONSTIPATION Prednisone (Deltasone -) 5 mg PO DAILY [facility] a/p suspect post influenza pneumonia continue vancomycin and zosyn f/u cultures wbc trending down check urinary antigens renal transplant Problem List - Problems (1) Pneumonia Code(s): J18.9 - PNEUMONIA, UNSPECIFIED ORGANISM (2) Renal transplant recipient Code(s): Z94.0 - KIDNEY TRANSPLANT STATUS
[2017-05-15 08:22] LABS: ALK PHOS 71 U/L (45-117); TOT PROT 6.3 g/dl (6.4-8.2)
[2017-05-15] MEDS ORDERED: FUROSEMIDE 40 MG TABLET (FP) PO SCH (10:00)
[2017-05-15] MEDS ORDERED: VANCOMYCIN 1 GRAM (PRE-DOCKED) 1,000 MG/250 ML BAG IVPB SCH (10:00)
[2017-05-15] MEDS: predniSONE 5 MG TABLET (UD) PO SCH (10:53)
[2017-05-15] MEDS: HEPARIN NA (PORCINE) 5,000 UNITS/ML 1ML VIAL SQ SCH ×2 (10:53→21:54)
[2017-05-15] MEDS: azaTHIOprine 50 MG TABLET PO SCH (10:54)
[2017-05-15] MEDS: VANCOMYCIN 1,000 MG in DEXTROSE 5%-WATER - 250 ML IVPB SCH (14:30)
--- NOTE | 2017-05-15 17:11 | PN ---
Progress Note, Physician Chief Complaint: Radiating Mid epigastric pain to RLQ History of Present Illness: patient continues to have productive cough with epigastric pain radiating to the Rlq abdomen, poor appetite and nausea she denies vomiting. - Current Medication List Current Medications: Active Medications Acetaminophen (Tylenol -) 650 mg PO Q8H PRN PRN Reason: PAIN Last Admin: 05/15/17 08:04 Dose: 650 mg Azathioprine (Imuran -) 100 mg PO DAILY [facility] Last Admin: 05/15/17 10:54 Dose: 100 mg Diltiazem HCl (Cardizem Cd -) 240 mg PO DAILY [facility] Last Admin: 05/15/17 10:53 Dose: 240 mg Guaifenesin (Robitussin -) 10 ml PO Q8H PRN PRN Reason: COUGH Last Admin: 05/15/17 08:04 Dose: 10 ml Heparin Sodium (Porcine) (Heparin -) 5,000 unit SQ BID [facility] Last Admin: 05/15/17 10:53 Dose: 5,000 unit Piperacillin Sod/Tazobactam (Sod 3.375 gm/ Dextrose) 50 mls @ 100 mls/hr IVPB Q8H-IV [facility] Vancomycin HCl 1,000 mg/ (Dextrose) 250 mls @ 166.667 mls/hr IVPB DAILY@1500 [facility] Last Admin: 05/15/17 14:30 Dose: 166.667 mls/hr Levothyroxine Sodium (Synthroid -) 75 mcg PO AM [facility] Last Admin: 05/15/17 08:10 Dose: 75 mcg Metoclopramide HCl (Reglan -) 5 mg PO TIDAC [facility] Mometasone Furoate (Asmanex 220mcg -) 220 puff IH HS [facility] Last Admin: 05/15/17 00:05 Dose: 220 inh Pantoprazole Sodium (Protonix -) 40 mg PO DAILY [facility] Polyethylene Glycol (Miralax (For Daily Use) -) 17 gm PO HS PRN PRN Reason: CONSTIPATION Prednisone (Deltasone -) 5 mg PO DAILY [facility] Last Admin: 05/15/17 10:53 Dose: 5 mg - Objective Vital Signs: Vital Signs Temperature 98.2 F 05/14/17 20:34 Pulse Rate 80 05/15/17 15:51 Respiratory Rate 20 05/15/17 15:51 Blood Pressure 103/60 05/15/17 15:51 O2 Sat by Pulse Oximetry (%) 95 05/15/17 15:51 Constitutional: Yes: Well Nourished, No Distress Eyes: Yes: Conjunctiva Clear HENT: Yes: Atraumatic Cardiovascular: Yes: Regular Rate and Rhythm Respiratory: Yes: Regular Gastrointestinal: Yes: Normal Bowel Sounds, Soft. No: Distention, Tenderness, Rebound, Vomiting Labs: CBC, BMP 05/15/17 07:37 05/15/17 07:37 INR, PTT INR 1.28 (0.82-1.09) H 05/14/17 10:00 Problem List - Problems (1) Gastroparesis Assessment/Plan: Recommendation: 1. start reglan 5mg Po TID 2. start Protonix 40mg PO daily Code(s): K31.84 - GASTROPARESIS
[2017-05-15] MEDS ORDERED: PANTOPRAZOLE SODIUM 40 MG VIAL ONE (17:13)
[2017-05-15] MEDS ORDERED: METOCLOPRAMIDE HCL INJECTION 10 MG/2 ML VIAL ONE (17:13)
[2017-05-15] MEDS: SODIUM CHLORIDE 1,000 ML IV SCH ×2 (17:23→21:00)
[2017-05-15] MEDS: METOCLOPRAMIDE HCL 10 MG TABLET (FP) PO SCH (17:23)
[2017-05-15] MEDS ORDERED: METOCLOPRAMIDE HCL 10 MG TABLET (FP) PO ONE (17:31)
[2017-05-15] MEDS: PANTOPRAZOLE 40 MG TABLET (FP) PO SCH (17:31)
--- NOTE | 2017-05-15 18:39 | PN ---
Progress Note (short form) - Note Progress Note: Renal follow up for renal transplant Pt seen and examined at the bedside reports feeling tired,dizzy no fever, chills + cough no abd pain Vital Signs Temperature 98.2 F 05/14/17 20:34 Pulse Rate 80 05/15/17 15:51 Respiratory Rate 20 05/15/17 15:51 Blood Pressure 103/60 05/15/17 15:51 O2 Sat by Pulse Oximetry (%) 95 05/15/17 15:51 Intake & Output 05/12/17 05/13/17 05/14/17 05/15/17 23:59 23:59 23:59 23:59 Weight 59.874 kg NAD awake and alert RRR course BS NO LE edema CBC, BMP 05/15/17 07:37 05/15/17 07:37 Current Medications Acetaminophen (Tylenol -) 650 mg PO Q8H PRN PRN Reason: PAIN Last Admin: 05/15/17 08:04 Dose: 650 mg Azathioprine (Imuran -) 100 mg PO DAILY [facility] Last Admin: 05/15/17 10:54 Dose: 100 mg Diltiazem HCl (Cardizem Cd -) 240 mg PO DAILY [facility] Last Admin: 05/15/17 10:53 Dose: 240 mg Guaifenesin (Robitussin -) 10 ml PO Q8H PRN PRN Reason: COUGH Last Admin: 05/15/17 08:04 Dose: 10 ml Heparin Sodium (Porcine) (Heparin -) 5,000 unit SQ BID [facility] Last Admin: 05/15/17 10:53 Dose: 5,000 unit Piperacillin Sod/Tazobactam (Sod 3.375 gm/ Dextrose) 50 mls @ 100 mls/hr IVPB Q8H-IV [facility] Vancomycin HCl 1,000 mg/ (Dextrose) 250 mls @ 166.667 mls/hr IVPB DAILY@1500 [facility] Last Admin: 05/15/17 14:30 Dose: 166.667 mls/hr Sodium Chloride (Normal Saline -) 1,000 mls @ 83 mls/hr IV ASDIR [facility] Last Admin: 05/15/17 17:23 Dose: 83 mls/hr Levothyroxine Sodium (Synthroid -) 75 mcg PO AM [facility] Last Admin: 05/15/17 08:10 Dose: 75 mcg Metoclopramide HCl (Reglan -) 5 mg PO TIDAC [facility] Last Admin: 05/15/17 17:23 Dose: 5 mg Mometasone Furoate (Asmanex 220mcg -) 220 puff IH HS [facility] Last Admin: 05/15/17 00:05 Dose: 220 inh Pantoprazole Sodium (Protonix -) 40 mg PO DAILY [facility] Last Admin: 05/15/17 17:31 Dose: 40 mg Polyethylene Glycol (Miralax (For Daily Use) -) 17 gm PO HS PRN PRN Reason: CONSTIPATION Prednisone (Deltasone -) 5 mg PO DAILY [facility] Last Admin: 05/15/17 10:53 Dose: 5 mg 71 year old woman with PMhx of ESRD s/p renal transplant (25 years ago), hypertension, seizure disorder presented with abd pain, cough and subjective fever and found to have PNA. #ESRD with renal transplant Renal function stable US showed no obstruction of transplanted kidney continue Imuran and Prednisone continue istonic IVF in setting of infection #Leukocytosis/Fever/PNA continue Abx as per Id f/u cultures Orlando Sen DO
[2017-05-15] MEDS: PIPERACILLIN/TAZOB 3.375 GM 3.375 GM in DEXTROSE 5%-WATER - 50 ML IVPB SCH (21:54)
[2017-05-15] MEDS ORDERED: MOMETASONE FUROATE 220 MCG/IH INHALER IH SCH (23:25)
[2017-05-16] MEDS: ACETAMINOPHEN 325 MG TABLET (FP) PO PRN (01:10)
--- NOTE | 2017-05-16 01:13 | EKG ---
Test Reason : Blood Pressure : / mmHG Vent. Rate : 109 BPM Atrial Rate : 109 BPM P-R Int : 144 ms QRS Dur : 098 ms QT Int : 344 ms P-R-T Axes : 059 -54 072 degrees QTc Int : 463 ms SINUS TACHYCARDIA POSSIBLE LEFT ATRIAL ENLARGEMENT LEFT ANTERIOR FASCICULAR BLOCK LEFT VENTRICULAR HYPERTROPHY WITH REPOLARIZATION ABNORMALITY ABNORMAL ECG WHEN COMPARED WITH ECG OF 02-MAY-2017 13:43, VENT. RATE HAS INCREASED BY 47 BPM T WAVE INVERSION NO LONGER EVIDENT IN INFERIOR LEADS Confirmed by ZAHIRA MAST, BRENT ([id number]) on 05/16/2017 1:13:32 AM Referred By: Confirmed By:BRENT RODRIGES MD
[2017-05-16] MEDS: PIPERACILLIN/TAZOB 3.375 GM 3.375 GM in DEXTROSE 5%-WATER - 50 ML IVPB SCH ×3 (03:48→17:11)
[2017-05-16] MEDS: guaiFENesin 200 MG/10 ML 10 ML UNIT-DOSE CUPS PO PRN (05:56)
[2017-05-16] MEDS: LEVOTHYROXINE NA 75 MCG TABLET (FP) PO SCH (06:00)
[2017-05-16] MEDS: METOCLOPRAMIDE HCL 10 MG TABLET (FP) PO SCH ×3 (06:00→16:00)
[2017-05-16] MEDS ORDERED: PT OWN MED DRAWER 7, Y5N ONE ×2 (06:26→22:16)
[2017-05-16] MEDS: azaTHIOprine 50 MG TABLET PO SCH (09:34)
[2017-05-16] MEDS: predniSONE 5 MG TABLET (UD) PO SCH (09:34)
[2017-05-16] MEDS: HEPARIN NA (PORCINE) 5,000 UNITS/ML 1ML VIAL SQ SCH ×2 (09:34→22:18)
[2017-05-16] MEDS: PANTOPRAZOLE 40 MG TABLET (FP) PO SCH (09:34)
[2017-05-16] MEDS: SODIUM CHLORIDE 1,000 ML IV SCH (09:38)
--- NOTE | 2017-05-16 10:29 | PN ---
Progress Note (short form) - Note Progress Note: slept last night still with persistent cough , chest discomfort with cough no fevers abdominal pain improved no hemoptysis Vital Signs Period Temp Pulse Resp BP Sys/Wang Pulse Ox Last 24 Hr 98 F-99.6 F 64-82 16-20 103-141/48-78 95-97 cor-rrr lungs decreased bs at bases abd soft,nt ext no edema CBC, BMP 05/15/17 07:37 05/15/17 07:37 Microbiology 05/14/17 11:50 Blood - Peripheral Venous Blood Culture - Preliminary NO GROWTH OBTAINED AFTER 24 HOURS, INCUBATION TO CONTINUE FOR 4 DAYS. 05/14/17 11:50 Blood - Peripheral Venous Blood Culture - Preliminary NO GROWTH OBTAINED AFTER 24 HOURS, INCUBATION TO CONTINUE FOR 4 DAYS. 05/14/17 13:35 Urine - Urine Clean Catch Urine Culture - Final NO GROWTH OBTAINED 05/14/17 14:47 Nasopharyngeal Aspirate Influenza Types A,B Antigen (NAY) - Final 05/14/17 14:47 Nasopharyngeal Aspirate - Final imp/reccd suspect post influenza pneumonia continue vancomycin and zosyn f/u cultures check vancomycin trough repeat cxray s/p renal transplant Problem List - Problems (1) Pneumonia Code(s): J18.9 - PNEUMONIA, UNSPECIFIED ORGANISM (2) Renal transplant recipient Code(s): Z94.0 - KIDNEY TRANSPLANT STATUS
--- NOTE | 2017-05-16 10:37 | PN ---
Progress Note, Physician Chief Complaint: feels same, coughing; has some pain with cough, on/off fever - Current Medication List Current Medications: Active Medications Acetaminophen (Tylenol -) 650 mg PO Q8H PRN PRN Reason: PAIN Last Admin: 05/16/17 01:10 Dose: 650 mg Azathioprine (Imuran -) 100 mg PO DAILY [facility] Last Admin: 05/16/17 09:34 Dose: 100 mg Diltiazem HCl (Cardizem Cd -) 240 mg PO DAILY [facility] Last Admin: 05/16/17 09:34 Dose: 240 mg Guaifenesin (Robitussin -) 10 ml PO Q8H PRN PRN Reason: COUGH Last Admin: 05/16/17 05:56 Dose: 10 ml Heparin Sodium (Porcine) (Heparin -) 5,000 unit SQ BID [facility] Last Admin: 05/16/17 09:34 Dose: 5,000 unit Piperacillin Sod/Tazobactam (Sod 3.375 gm/ Dextrose) 50 mls @ 100 mls/hr IVPB Q8H-IV [facility] Last Admin: 05/16/17 09:31 Dose: 100 mls/hr Vancomycin HCl 1,000 mg/ (Dextrose) 250 mls @ 166.667 mls/hr IVPB DAILY@1500 [facility] Last Admin: 05/15/17 14:30 Dose: 166.667 mls/hr Sodium Chloride (Normal Saline -) 1,000 mls @ 83 mls/hr IV ASDIR [facility] Last Admin: 05/16/17 09:38 Dose: 83 mls/hr Levothyroxine Sodium (Synthroid -) 75 mcg PO AM [facility] Last Admin: 05/16/17 06:00 Dose: 75 mcg Metoclopramide HCl (Reglan -) 5 mg PO TIDAC [facility] Last Admin: 05/16/17 06:00 Dose: 5 mg Mometasone Furoate (Asmanex 220mcg -) 0 puff IH HS [facility] Last Admin: 05/15/17 23:25 Dose: 1 puff Pantoprazole Sodium (Protonix -) 40 mg PO DAILY [facility] Last Admin: 05/16/17 09:34 Dose: 40 mg Polyethylene Glycol (Miralax (For Daily Use) -) 17 gm PO HS PRN PRN Reason: CONSTIPATION Prednisone (Deltasone -) 5 mg PO DAILY [facility] Last Admin: 05/16/17 09:34 Dose: 5 mg - Objective Vital Signs: Vital Signs Temperature 98 F 05/16/17 09:55 Pulse Rate 64 05/16/17 09:55 Respiratory Rate 16 05/16/17 09:55 Blood Pressure 125/63 05/16/17 09:55 O2 Sat by Pulse Oximetry (%) 97 05/15/17 21:00 Constitutional: Yes: No Distress, Calm Eyes: Yes: Conjunctiva Clear HENT: Yes: Atraumatic Neck: Yes: Supple Cardiovascular: Yes: Regular Rate and Rhythm Respiratory: Yes: CTA Bilaterally Gastrointestinal: Yes: Soft. No: Distention Genitourinary: No: CVA Tenderness - Left, CVA Tenderness - Right, Hematuria Musculoskeletal: No: Joint Stiffness, Joint Swelling Extremities: No: Cold, Cool Edema: No Peripheral Pulses WNL: Yes Integumentary: No: Rash, Venous Stasis Changes Neurological: Yes: WNL, Alert, Oriented ...Motor Strength: WNL Psychiatric: Yes: WNL, Alert, Oriented. No: Agitated, Suicidal Ideation Labs: CBC, BMP 05/15/17 07:37 05/15/17 07:37 INR, PTT INR 1.28 (0.82-1.09) H 05/14/17 10:00 - ....Imaging Other: Report Reviewed Assessment/Plan The patient is a 71 year old female, with a significant past medical history of diabetes mellitus, CVA, kidney transplant, hypertension, hyperlipidemia, GERD, hypothyroidism, seizures, who presents to the emergency department with epigastric pain CP cough. S/p FLU/ URI 2 weeks ago treated with tamiflu and Zpack x5days at that time, admitted as OBS/ hospitalist svc chest CT c/w PNA; pulm eval dr OCONNOR cardiology f/u r/o ASHD / CHF ID f/u, IV ATB per ID IVF gentle hydration h/o renal transplant CRF; watch for CHF, h/o legs edema in the past immunosupressed, h/o renal transplant, IV steroids per pulm falls PFX d/w pt do not get OOB alone DVT PFX f/u labs and CX prognosis guarded d/w pt and daughter d/w staff T time 35 min
--- NOTE | 2017-05-16 11:20 | PN ---
Progress Note (short form) - Note Progress Note: s: no cp palps dizzy; sob cough a little better o: Vital Signs Period Temp Pulse Resp BP Sys/Wang Pulse Ox Last 24 Hr 98 F-99.6 F 64-82 16-20 103-141/48-78 95-97 nad, calm jvd flat, neck supple trace rales, nl effort rrr nl s1, s2 no mrg + bs soft nt nd ext without e/c/c aaox3 no jaundice, diaphoresis. Current Medications Generic Name Dose Route Start Last Admin Trade Name Freq PRN Reason Stop Dose Admin Acetaminophen 650 mg 05/14/17 11:36 05/16/17 01:10 Tylenol - PO 650 mg Q8H PRN Administration PAIN Azathioprine 100 mg 05/15/17 10:00 05/16/17 09:34 Imuran - PO 100 mg DAILY [facility] Administration Diltiazem HCl 240 mg 05/15/17 10:00 05/16/17 09:34 Cardizem Cd - PO 240 mg DAILY [facility] Administration Guaifenesin 10 ml 05/14/17 11:38 05/16/17 05:56 Robitussin - PO 10 ml Q8H PRN Administration COUGH Heparin Sodium (Porcine) 5,000 unit 05/14/17 22:00 05/16/17 09:34 Heparin - SQ 5,000 unit BID [facility] Administration Piperacillin Sod/Tazobactam 50 mls @ 100 mls/hr 05/15/17 19:30 05/16/17 09:31 Sod 3.375 gm/ Dextrose IVPB 100 mls/hr Q8H-IV [facility] Administration Vancomycin HCl 1,000 mg/ 250 mls @ 166.667 mls/hr 05/15/17 15:00 05/15/17 14: 30 Dextrose IVPB 166.667 mls/hr DAILY@1500 [facility] Administration Sodium Chloride 1,000 mls @ 83 mls/hr 05/15/17 17:15 05/16/17 09:38 Normal Saline - IV 83 mls/hr ASDIR [facility] Administration Levothyroxine Sodium 75 mcg 05/15/17 07:00 05/16/17 06:00 Synthroid - PO 75 mcg AM [facility] Administration Metoclopramide HCl 5 mg 05/15/17 16:30 05/16/17 06:00 Reglan - PO 5 mg TIDAC [facility] Administration Mometasone Furoate 0 puff 05/15/17 23:25 05/15/17 23:25 Asmanex 220mcg - IH 1 puff HS [facility] Administration Pantoprazole Sodium 40 mg 05/15/17 16:00 05/16/17 09:34 Protonix - PO 40 mg DAILY [facility] Administration Polyethylene Glycol 17 gm 05/14/17 11:36 Miralax (For Daily Use) - PO HS PRN CONSTIPATION Prednisone 5 mg 05/15/17 10:00 05/16/17 09:34 Deltasone - PO 5 mg DAILY [facility] Administration CBC, BMP 05/15/17 07:37 05/15/17 07:37 ekg: sinus tach, 109 bpm. lad. lvh with repol abnormalities. no actue ischemic changes. chest ct: patchy infiltrates likely inflammatory/infectious in nature. see emr for further details tele: sr a/p: 71 yo with pmhx of htn, CVA, pericarditis s/p pericardial window, kidney transplant, niddm, GERD, diverticulosis, hypothyroidism, hyperparathyroidism, gout, seizures (last 02/2017), asthma, recently treated for flu who p/w epigastric pain CP - atypical for cardiac pain. Patient with pna and persistent cough. Likely msk etiology with ttp over left lower rib cage. - ekg without acute ischemic changes. ce's neg x2 - echo pending htn - stable on current meds pna -mgm't per pmd
--- NOTE | 2017-05-16 12:41 | PN ---
Progress Note (short form) - Note Progress Note: Renal follow up for renal transplant Pt seen and examined at the bedside awake and alert continues to have chest wall pain with cough no fever, chills feels weak no EM, CP, N/V/D Vital Signs Temperature 98 F 05/16/17 09:55 Pulse Rate 64 05/16/17 09:55 Respiratory Rate 16 05/16/17 09:55 Blood Pressure 125/63 05/16/17 09:55 O2 Sat by Pulse Oximetry (%) 96 05/16/17 08:00 Intake & Output 05/13/17 05/14/17 05/15/17 05/16/17 23:59 23:59 23:59 23:59 Intake Total 341 940 Balance 341 940 Weight 59.874 kg NAD awake and alert RRR course BS NO LE edema CBC, BMP 05/15/17 07:37 05/15/17 07:37 Current Medications Acetaminophen (Tylenol -) 650 mg PO Q8H PRN PRN Reason: PAIN Last Admin: 05/16/17 01:10 Dose: 650 mg Azathioprine (Imuran -) 100 mg PO DAILY [facility] Last Admin: 05/16/17 09:34 Dose: 100 mg Diltiazem HCl (Cardizem Cd -) 240 mg PO DAILY [facility] Last Admin: 05/16/17 09:34 Dose: 240 mg Guaifenesin (Robitussin -) 10 ml PO Q8H PRN PRN Reason: COUGH Last Admin: 05/16/17 05:56 Dose: 10 ml Heparin Sodium (Porcine) (Heparin -) 5,000 unit SQ BID [facility] Last Admin: 05/16/17 09:34 Dose: 5,000 unit Piperacillin Sod/Tazobactam (Sod 3.375 gm/ Dextrose) 50 mls @ 100 mls/hr IVPB Q8H-IV [facility] Last Admin: 05/16/17 09:31 Dose: 100 mls/hr Vancomycin HCl 1,000 mg/ (Dextrose) 250 mls @ 166.667 mls/hr IVPB DAILY@1500 [facility] Last Admin: 05/15/17 14:30 Dose: 166.667 mls/hr Sodium Chloride (Normal Saline -) 1,000 mls @ 83 mls/hr IV ASDIR [facility] Last Admin: 05/16/17 09:38 Dose: 83 mls/hr Levothyroxine Sodium (Synthroid -) 75 mcg PO AM [facility] Last Admin: 05/16/17 06:00 Dose: 75 mcg Metoclopramide HCl (Reglan -) 5 mg PO TIDAC [facility] Last Admin: 05/16/17 12:21 Dose: 5 mg Mometasone Furoate (Asmanex 220mcg -) 0 puff IH HS [facility] Last Admin: 05/15/17 23:25 Dose: 1 puff Pantoprazole Sodium (Protonix -) 40 mg PO DAILY [facility] Last Admin: 05/16/17 09:34 Dose: 40 mg Polyethylene Glycol (Miralax (For Daily Use) -) 17 gm PO HS PRN PRN Reason: CONSTIPATION Prednisone (Deltasone -) 5 mg PO DAILY [facility] Last Admin: 05/16/17 09:34 Dose: 5 mg 71 year old woman with PMhx of ESRD s/p renal transplant (25 years ago), hypertension, seizure disorder presented with abd pain, cough and subjective fever and found to have PNA. #ESRD with renal transplant no new labs today pt appears evolemic, BP stable will decrease IVF rate to 60cc per hour check BMP in AM continue Imuran and prednisone #Leukocytosis/Fever/PNA continue Abx as per Id f/u cultures Orlando Sen DO
--- NOTE | 2017-05-16 12:44 | CON.PULM ---
Consult Consult Specialty:: PULMONARY Referred by:: Dr. Mehta Reason for Consultation:: pneumonia - History of Present Illness Chief Complaint: cough History of Present Illness: 71yo female with h/o HTN, hypothyroidism, GERD, seizure disorder, gout, mild asthma h/o chronic glomerulonephritis s/p renal transplant on immunosuppresants who presents with cough and chest pain. Chest pain sharp, worse with deep inspiration. No subjective fevers but febrile to 101.9. +cough productive of white sputum and occasional wheezing. CT chest confirming bilateral infiltrates with pleural involvement. Started on broad spectum antibiotics with some mild subjective improvement. Maintained at home on flovent. She is a never smoker. 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 Cardio/Vascular: Yes: HTN Gastrointestinal: Yes: Diverticulosis, GERD Renal/: Yes: Renal Inusuff, Other (renal transplant) Musculoskeletal: Yes: Osteoarthritis Rheumatology: Yes: Gout Endocrine: Yes: Hypothyroidism, Hyperparathyroidism - Past Surgical History Past Surgical History: Yes: Hernia Repair (ventral) - Alcohol/Substance Use Hx Alcohol Use: No History of Substance Use: reports: None - Smoking History Smoking history: Never smoked Have you smoked in the past 12 months: No Aproximately how many cigarettes per day: 0 - Social History ADL: Independent History of Recent Travel: No Home Medications - Allergies Allergies/Adverse Reactions: Allergies Allergy/AdvReac Type Severity Reaction Status Date / Time codeine Allergy Intermediate Vomiting Verified 05/14/17 09:03 AND SWELLING OF FACE - Home Medications Home Medications: Ambulatory Orders Levothyroxine [Synthroid -] 75 mcg PO DAILY 03/07/12 predniSONE [Deltasone -] 5 mg PO DAILY 07/11/13 Azathioprine [Imuran] 100 mg PO DAILY 12/20/14 Diltiazem Cd [Cardizem Cd -] 240 mg PO DAILY 02/20/17 Fluticasone Propionate [Flovent Hfa] 110 mcg IH BID 02/20/17 Furosemide [Lasix -] 40 mg PO DAILY 02/20/17 Family Disease History - Family Disease History Family Disease History: CA: Sister (breast) Review of Systems - Review of Systems Constitutional: reports: Fever, Malaise, Weakness Eyes: denies: Recent Change in Vision HENT: denies: Nasal Congestion, Throat Pain Neck: denies: Stiffness, Tenderness Cardiovascular: reports: Chest Pain, Shortness of Breath. denies: Edema, Palpitations Respiratory: reports: Cough, Exercise Intolerance, SOB on Exertion, Wheezing. denies: Hemoptysis Gastrointestinal: denies: Abdominal Pain, Nausea, Vomiting Genitourinary: denies: Dysuria, Hematuria Neurological: denies: Dizziness, Headache Physical Exam Vital Sings: Vital Signs Temperature 98 F 05/16/17 09:55 Pulse Rate 64 05/16/17 09:55 Respiratory Rate 16 05/16/17 09:55 Blood Pressure 125/63 05/16/17 09:55 O2 Sat by Pulse Oximetry (%) 96 05/16/17 08:00 Constitutional: Yes: Calm Eyes: Yes: Conjunctiva Clear, EOM Intact HENT: Yes: Atraumatic, Normocephalic Neck: Yes: Supple, Trachea Midline Cardiovascular: Yes: Regular Rate and Rhythm Respiratory: Yes: Rhonchi (scattered) ...Clubbing: No Gastrointestinal: Yes: Normal Bowel Sounds, Soft. No: Tenderness Edema: No Neurological: Yes: Alert, Oriented Labs: CBC, BMP 05/15/17 07:37 05/15/17 07:37 Imaging - Results Cat Scan: Report Reviewed, Image Reviewed (bilateral infiltrates, lung nodule) Problem List - Problems (1) Pneumonia Code(s): J18.9 - PNEUMONIA, UNSPECIFIED ORGANISM (2) Lung nodule Code(s): R91.1 - SOLITARY PULMONARY NODULE (3) Asthma Code(s): J45.909 - UNSPECIFIED ASTHMA, UNCOMPLICATED (4) HTN (hypertension) Code(s): I10 - ESSENTIAL (PRIMARY) HYPERTENSION (5) Hypothyroidism Code(s): E03.9 - HYPOTHYROIDISM, UNSPECIFIED (6) Renal transplant recipient Code(s): Z94.0 - KIDNEY TRANSPLANT STATUS (7) Chronic glomerulonephritis Code(s): N03.9 - CHRONIC NEPHRITIC SYNDROME WITH UNSP MORPHOLOGIC CHANGES Assessment/Plan Pneumonia Asthma Lung Nodule Chronic Glomerulonephritis s/p renal transplant on immunosuppressives HTN Hypothyroidism GERD - continue antibiotics per ID - f/u cultures - inhaled bronchodilators - will start empiric medrol for pleuritic symptoms and history of asthma - O2 as needed - DVT prophylaxis - will need outpt f/u of chest imaging to ensure resolution of infiltrates/ nodule Thank you for this consult Chris De La O MD
[2017-05-16] MEDS ORDERED: ALBUTEROL SO4 0.083% IH SOL 2.5 MG/3 ML VIAL.NEB. NEB PRN (12:53)
--- NOTE | 2017-05-16 14:15 | PN ---
Progress Note, Physician Chief Complaint: Epigastic pain/nausea/vomiting History of Present Illness: Patient with continued productive cough, chest pain and back pain 2/2 pneumonia , on IV antibiotics she denies epigastric pain, nausea and vomiting. - Current Medication List Current Medications: Active Medications Acetaminophen (Tylenol -) 650 mg PO Q8H PRN PRN Reason: PAIN Last Admin: 05/16/17 01:10 Dose: 650 mg Albuterol Sulfate (Ventolin 0.083% Nebulizer Soln -) 1 amp NEB Q4H PRN PRN Reason: SHORT OF BREATH/WHEEZING Albuterol/Ipratropium (Duoneb -) 1 amp NEB RQID [facility] Azathioprine (Imuran -) 100 mg PO DAILY [facility] Last Admin: 05/16/17 09:34 Dose: 100 mg Diltiazem HCl (Cardizem Cd -) 240 mg PO DAILY [facility] Last Admin: 05/16/17 09:34 Dose: 240 mg Guaifenesin (Robitussin -) 10 ml PO Q8H PRN PRN Reason: COUGH Last Admin: 05/16/17 05:56 Dose: 10 ml Heparin Sodium (Porcine) (Heparin -) 5,000 unit SQ BID [facility] Last Admin: 05/16/17 09:34 Dose: 5,000 unit Piperacillin Sod/Tazobactam (Sod 3.375 gm/ Dextrose) 50 mls @ 100 mls/hr IVPB Q8H-IV [facility] Last Admin: 05/16/17 09:31 Dose: 100 mls/hr Vancomycin HCl 1,000 mg/ (Dextrose) 250 mls @ 166.667 mls/hr IVPB DAILY@1500 [facility] Last Admin: 05/15/17 14:30 Dose: 166.667 mls/hr Sodium Chloride (Normal Saline -) 1,000 mls @ 83 mls/hr IV ASDIR [facility] Last Admin: 05/16/17 09:38 Dose: 83 mls/hr Levothyroxine Sodium (Synthroid -) 75 mcg PO AM [facility] Last Admin: 05/16/17 06:00 Dose: 75 mcg Methylprednisolone Sodium Succinate (Solu-Medrol -) 40 mg IVPUSH Q8H-IV [facility] Metoclopramide HCl (Reglan -) 5 mg PO TIDAC [facility] Last Admin: 05/16/17 12:21 Dose: 5 mg Mometasone Furoate (Asmanex 220mcg -) 2 puff IH HS [facility] Pantoprazole Sodium (Protonix -) 40 mg PO DAILY [facility] Last Admin: 05/16/17 09:34 Dose: 40 mg Polyethylene Glycol (Miralax (For Daily Use) -) 17 gm PO HS PRN PRN Reason: CONSTIPATION - Objective Vital Signs: Vital Signs Temperature 98 F 05/16/17 09:55 Pulse Rate 64 05/16/17 09:55 Respiratory Rate 16 05/16/17 09:55 Blood Pressure 125/63 05/16/17 09:55 O2 Sat by Pulse Oximetry (%) 96 05/16/17 08:00 Constitutional: Yes: Well Nourished, No Distress, Calm Eyes: Yes: Conjunctiva Clear HENT: Yes: Atraumatic Cardiovascular: Yes: WNL, Regular Rate and Rhythm Respiratory: Yes: SOB on Exertion, Wheezes Gastrointestinal: Yes: Normal Bowel Sounds, Soft. No: Tenderness, Tenderness, Epigastrium, Tenderness, Rebound, Vomiting Labs: CBC, BMP 05/15/17 07:37 05/15/17 07:37 INR, PTT INR 1.28 (0.82-1.09) H 05/14/17 10:00 Problem List - Problems (1) Gastroparesis Assessment/Plan: Recommendation: 1. continue reglan 5mg Po TID 2. continue Protonix 40mg PO daily Code(s): K31.84 - GASTROPARESIS
[2017-05-16] MEDS: methylPREDNISolone NA SUCC 40 MG/1 ML VIAL IVPUSH SCH ×2 (14:17→17:11)
[2017-05-16] MEDS: ALBUTEROL SO4 2.5/IPRATROPIUM 0.5 INH SOL 3 ML VIAL.NEB. NEB SCH ×2 (16:44→20:45)
[2017-05-16] MEDS: VANCOMYCIN 1,000 MG in DEXTROSE 5%-WATER - 250 ML IVPB SCH (16:48)
[2017-05-16] MEDS: MOMETASONE FUROATE 220 MCG/IH INHALER IH SCH (22:19)
[2017-05-17] MEDS: PIPERACILLIN/TAZOB 3.375 GM 3.375 GM in DEXTROSE 5%-WATER - 50 ML IVPB SCH ×3 (02:17→17:11)
[2017-05-17] MEDS: methylPREDNISolone NA SUCC 40 MG/1 ML VIAL IVPUSH SCH ×2 (02:17→09:01)
[2017-05-17] MEDS: METOCLOPRAMIDE HCL 10 MG TABLET (FP) PO SCH ×3 (06:31→17:11)
[2017-05-17] MEDS: LEVOTHYROXINE NA 75 MCG TABLET (FP) PO SCH (06:32)
[2017-05-17] MEDS: ALBUTEROL SO4 2.5/IPRATROPIUM 0.5 INH SOL 3 ML VIAL.NEB. NEB SCH ×2 (07:27→11:03)
[2017-05-17 08:03] LABS: BASO % 0.1 % (0-2.0); HEMATOCRIT 29.4 % (32.4-45.2); LYMPH % 7.4 % (8-40); MCH 34.4 pg (25.7-33.7); MEAN CELL VOLUME 101.1 fl (80-96); MEAN PLT VOLUME 9.4 fl (7.5-11.1); MONO % 3.9 % (3.8-10.2); NEUT % 88.6 % (42.8-82.8); PLATELET COUNT 300 K/MM3 (134-434); RBC 2.91 M/mm3 (3.60-5.2); RDW 16.2 % (11.6-15.6); WHITE BLOOD COUNT 6.9 K/mm3 (4.0-10.0)
[2017-05-17 08:22] LABS: CHLORIDE 109 mmol/L (98-107); POTASSIUM 4.4 mmol/L (3.5-5.1); SODIUM 142 mmol/L (136-145)
[2017-05-17 08:32] LABS: ANION GAP 13 (8-16); BLOOD UREA NITROGEN 14 mg/dL (7-18); CALCIUM 8.2 mg/dL (8.5-10.1); CO2 20 mmol/L (21-32); CREATININE 1.1 mg/dL (0.55-1.02); GLUCOSE,RANDOM 171 mg/dL (74-106); MAGNESIUM 2.1 mg/dL (1.8-2.4); PHOSPHOROUS 2.7 mg/dL (2.5-4.9)
[2017-05-17] MEDS: PANTOPRAZOLE 40 MG TABLET (FP) PO SCH (09:01)
[2017-05-17] MEDS: HEPARIN NA (PORCINE) 5,000 UNITS/ML 1ML VIAL SQ SCH ×2 (09:01→21:45)
[2017-05-17] MEDS: azaTHIOprine 50 MG TABLET PO SCH (10:30)
--- NOTE | 2017-05-17 10:33 | PN ---
Progress Note (short form) - Note Progress Note: s: no cp dizzy; sob cough a little better; feels jittery from steroids and nebs o: Vital Signs Period Temp Pulse Resp BP Sys/Wang Pulse Ox Last 24 Hr 97.7 F-99.6 F 73-79 18-20 116-132/59-76 96 nad, calm jvd flat, neck supple trace rales, nl effort rrr nl s1, s2 no mrg + bs soft nt nd ext without e/c/c aaox3 no jaundice, diaphoresis. Current Medications Generic Name Dose Route Start Last Admin Trade Name Freq PRN Reason Stop Dose Admin Acetaminophen 650 mg 05/14/17 11:36 05/16/17 01:10 Tylenol - PO 650 mg Q8H PRN Administration PAIN Albuterol Sulfate 1 amp 05/16/17 12:53 Ventolin 0.083% Nebulizer Soln - NEB Q4H PRN SHORT OF BREATH/WHEEZING Albuterol/Ipratropium 1 amp 05/16/17 16:00 05/17/17 07:27 Duoneb - NEB 1 amp RQID [facility] Administration Azathioprine 100 mg 05/15/17 10:00 05/17/17 10:30 Imuran - PO 100 mg DAILY [facility] Administration Diltiazem HCl 240 mg 05/15/17 10:00 05/17/17 09:01 Cardizem Cd - PO 240 mg DAILY [facility] Administration Guaifenesin 10 ml 05/14/17 11:38 05/16/17 05:56 Robitussin - PO 10 ml Q8H PRN Administration COUGH Heparin Sodium (Porcine) 5,000 unit 05/14/17 22:00 05/17/17 09:01 Heparin - SQ 5,000 unit BID [facility] Administration Piperacillin Sod/Tazobactam 50 mls @ 100 mls/hr 05/15/17 19:30 05/17/17 09:01 Sod 3.375 gm/ Dextrose IVPB 100 mls/hr Q8H-IV [facility] Administration Vancomycin HCl 1,000 mg/ 250 mls @ 166.667 mls/hr 05/15/17 15:00 05/16/17 16: 48 Dextrose IVPB 166.667 mls/hr DAILY@1500 [facility] Administration Sodium Chloride 1,000 mls @ 83 mls/hr 05/15/17 17:15 05/16/17 09:38 Normal Saline - IV 83 mls/hr ASDIR [facility] Administration Levothyroxine Sodium 75 mcg 05/15/17 07:00 05/17/17 06:32 Synthroid - PO 75 mcg AM [facility] Administration Methylprednisolone Sodium Succinate 40 mg 05/16/17 13:00 05/17/17 09:01 Solu-Medrol - IVPUSH 40 mg Q8H-IV [facility] Administration Metoclopramide HCl 5 mg 05/15/17 16:30 05/17/17 10:30 Reglan - PO 5 mg TIDAC [facility] Administration Mometasone Furoate 2 puff 05/16/17 12:53 05/16/17 22:19 Asmanex 220mcg - IH 2 puff HS [facility] Administration Pantoprazole Sodium 40 mg 05/15/17 16:00 05/17/17 09:01 Protonix - PO 40 mg DAILY [facility] Administration Polyethylene Glycol 17 gm 05/14/17 11:36 Miralax (For Daily Use) - PO HS PRN CONSTIPATION CBC, BMP 05/17/17 07:10 05/17/17 07:10 ekg: sinus tach, 109 bpm. lad. lvh with repol abnormalities. no actue ischemic changes. chest ct: patchy infiltrates likely inflammatory/infectious in nature. see emr for further details tele: sr echo 04/2017: mild lvh, g2dd, nl lvef, nl rv, mild lae, mod mr, mild tr a/p: 71 yo with pmhx of htn, CVA, pericarditis s/p pericardial window, kidney transplant, niddm, GERD, diverticulosis, hypothyroidism, hyperparathyroidism, gout, seizures (last 02/2017), asthma, recently treated for flu who p/w epigastric pain CP - atypical for cardiac pain. Patient with pna and persistent cough. Likely msk etiology with ttp over left lower rib cage. - ekg without acute ischemic changes. ce's neg x2 - echo unremarkable htn - stable on current meds pna -mgm't per pmd
--- NOTE | 2017-05-17 12:04 | PN ---
Progress Note, Physician Chief Complaint: feels shaky and anxious, did not sleep well; tremors - on iv steroids; d/w pulm will cut down dose daughter at bedside asked for prn xanax; ordered once a day prn but d/w pt and daughter possible SE falls tolerance dependence; use as needed only for short time - Current Medication List Current Medications: Active Medications Acetaminophen (Tylenol -) 650 mg PO Q8H PRN PRN Reason: PAIN Last Admin: 05/16/17 01:10 Dose: 650 mg Albuterol Sulfate (Ventolin 0.083% Nebulizer Soln -) 1 amp NEB Q4H PRN PRN Reason: SHORT OF BREATH/WHEEZING Albuterol/Ipratropium (Duoneb -) 1 amp NEB RQID [facility] Last Admin: 05/17/17 11:03 Dose: 1 amp Azathioprine (Imuran -) 100 mg PO DAILY [facility] Last Admin: 05/17/17 10:30 Dose: 100 mg Diltiazem HCl (Cardizem Cd -) 240 mg PO DAILY [facility] Last Admin: 05/17/17 09:01 Dose: 240 mg Guaifenesin (Robitussin -) 10 ml PO Q8H PRN PRN Reason: COUGH Last Admin: 05/16/17 05:56 Dose: 10 ml Heparin Sodium (Porcine) (Heparin -) 5,000 unit SQ BID [facility] Last Admin: 05/17/17 09:01 Dose: 5,000 unit Piperacillin Sod/Tazobactam (Sod 3.375 gm/ Dextrose) 50 mls @ 100 mls/hr IVPB Q8H-IV [facility] Last Admin: 05/17/17 09:01 Dose: 100 mls/hr Vancomycin HCl 1,000 mg/ (Dextrose) 250 mls @ 166.667 mls/hr IVPB DAILY@1500 [facility] Last Admin: 05/16/17 16:48 Dose: 166.667 mls/hr Sodium Chloride (Normal Saline -) 1,000 mls @ 83 mls/hr IV ASDIR [facility] Last Admin: 05/16/17 09:38 Dose: 83 mls/hr Levothyroxine Sodium (Synthroid -) 75 mcg PO AM [facility] Last Admin: 05/17/17 06:32 Dose: 75 mcg Methylprednisolone Sodium Succinate (Solu-Medrol -) 40 mg IVPUSH Q8H-IV [facility] Last Admin: 05/17/17 09:01 Dose: 40 mg Metoclopramide HCl (Reglan -) 5 mg PO TIDAC [facility] Last Admin: 05/17/17 10:30 Dose: 5 mg Mometasone Furoate (Asmanex 220mcg -) 2 puff IH HS [facility] Last Admin: 05/16/17 22:19 Dose: 2 puff Pantoprazole Sodium (Protonix -) 40 mg PO DAILY [facility] Last Admin: 05/17/17 09:01 Dose: 40 mg Polyethylene Glycol (Miralax (For Daily Use) -) 17 gm PO HS PRN PRN Reason: CONSTIPATION - Objective Vital Signs: Vital Signs Temperature 98 F 05/17/17 09:00 Pulse Rate 118 H 05/17/17 09:00 Respiratory Rate 18 05/17/17 09:00 Blood Pressure 155/78 05/17/17 09:00 O2 Sat by Pulse Oximetry (%) 98 05/17/17 09:00 Constitutional: Yes: No Distress, Calm Eyes: Yes: Conjunctiva Clear HENT: Yes: Atraumatic Neck: Yes: Supple Cardiovascular: Yes: Regular Rate and Rhythm Respiratory: Yes: CTA Bilaterally Gastrointestinal: Yes: Soft. No: Distention Genitourinary: No: CVA Tenderness - Left, CVA Tenderness - Right Musculoskeletal: No: Joint Stiffness, Joint Swelling Extremities: No: Cold, Cool Edema: No Integumentary: No: Rash, Venous Stasis Changes Neurological: Yes: WNL, Alert, Oriented, Tremors (generalized) ...Motor Strength: WNL Psychiatric: Yes: WNL, Alert, Oriented. No: Agitated Labs: CBC, BMP 05/17/17 07:10 05/17/17 07:10 INR, PTT INR 1.28 (0.82-1.09) H 05/14/17 10:00 Assessment/Plan The patient is a 71 year old female, with a significant past medical history of diabetes mellitus, CVA, kidney transplant, hypertension, hyperlipidemia, GERD, hypothyroidism, seizures, who presents to the emergency department with epigastric pain CP cough. S/p FLU/ URI 2 weeks ago treated with tamiflu and Zpack x5days at that time, admitted as OBS/ hospitalist svc chest CT c/w PNA; pulm eval dr OCONNOR cardiology f/u r/o ASHD / CHF ID f/u, IV ATB per ID tremors, anxiety; prn xanax, see above; taper IV steroids neurology eval, remote h/o seizures IVF gentle hydration h/o renal transplant CRF; watch for CHF, h/o legs edema in the past immunosupressed, h/o renal transplant, IV steroids per pulm falls PFX d/w pt do not get OOB alone DVT PFX f/u labs and CX prognosis guarded d/w pt and daughter d/w staff T time 35 min
--- NOTE | 2017-05-17 13:52 | PN ---
Progress Note (short form) - Note Progress Note: PULMONARY Very jittery today. Breathing better, chest pain resolved. No fevers or chills. Last Vital Signs Temp Pulse Resp BP Pulse Ox 98 F 118 H 18 155/78 98 05/17/17 09:00 05/17/17 09:00 05/17/17 09:00 05/17/17 09:00 05/17/17 09:00 Gen: NAD at rest Heart: tachycardic, regular Lung: decreased breath sounds at the bases, no wheezes Abd: soft, nontender Ext: no edema CBC, BMP 05/17/17 07:10 05/17/17 07:10 Active Medications Acetaminophen (Tylenol -) 650 mg PO Q8H PRN PRN Reason: PAIN Last Admin: 05/16/17 01:10 Dose: 650 mg Albuterol Sulfate (Ventolin 0.083% Nebulizer Soln -) 1 amp NEB Q4H PRN PRN Reason: SHORT OF BREATH/WHEEZING Albuterol/Ipratropium (Duoneb -) 1 amp NEB RQID [facility] Last Admin: 05/17/17 11:03 Dose: 1 amp Alprazolam (Xanax -) 0.25 mg PO DAILY PRN PRN Reason: ANXIETY Azathioprine (Imuran -) 100 mg PO DAILY [facility] Last Admin: 05/17/17 10:30 Dose: 100 mg Diltiazem HCl (Cardizem Cd -) 240 mg PO DAILY [facility] Last Admin: 05/17/17 09:01 Dose: 240 mg Guaifenesin (Robitussin -) 10 ml PO Q8H PRN PRN Reason: COUGH Last Admin: 05/16/17 05:56 Dose: 10 ml Heparin Sodium (Porcine) (Heparin -) 5,000 unit SQ BID [facility] Last Admin: 05/17/17 09:01 Dose: 5,000 unit Piperacillin Sod/Tazobactam (Sod 3.375 gm/ Dextrose) 50 mls @ 100 mls/hr IVPB Q8H-IV [facility] Last Admin: 05/17/17 09:01 Dose: 100 mls/hr Vancomycin HCl 1,000 mg/ (Dextrose) 250 mls @ 166.667 mls/hr IVPB DAILY@1500 [facility] Last Admin: 05/16/17 16:48 Dose: 166.667 mls/hr Sodium Chloride (Normal Saline -) 1,000 mls @ 83 mls/hr IV ASDIR [facility] Last Admin: 05/16/17 09:38 Dose: 83 mls/hr Levothyroxine Sodium (Synthroid -) 75 mcg PO AM [facility] Last Admin: 05/17/17 06:32 Dose: 75 mcg Methylprednisolone Sodium Succinate (Solu-Medrol -) 40 mg IVPUSH Q8H-IV [facility] Last Admin: 05/17/17 09:01 Dose: 40 mg Metoclopramide HCl (Reglan -) 5 mg PO TIDAC [facility] Last Admin: 05/17/17 10:30 Dose: 5 mg Mometasone Furoate (Asmanex 220mcg -) 2 puff IH HS [facility] Last Admin: 05/16/17 22:19 Dose: 2 puff Pantoprazole Sodium (Protonix -) 40 mg PO DAILY [facility] Last Admin: 05/17/17 09:01 Dose: 40 mg Polyethylene Glycol (Miralax (For Daily Use) -) 17 gm PO HS PRN PRN Reason: CONSTIPATION A/P Pneumonia Asthma Lung Nodule Chronic Glomerulonephritis s/p renal transplant on immunosuppressives HTN Hypothyroidism GERD - continue antibiotics per ID - inhaled bronchodilators - will d/c steroids and make albuterol as needed due to jitteriness - O2 as needed - DVT prophylaxis - will need outpt f/u of chest imaging to ensure resolution of infiltrates/ nodule Problem List - Problems (1) Pneumonia Code(s): J18.9 - PNEUMONIA, UNSPECIFIED ORGANISM (2) Lung nodule Code(s): R91.1 - SOLITARY PULMONARY NODULE (3) Asthma Code(s): J45.909 - UNSPECIFIED ASTHMA, UNCOMPLICATED (4) HTN (hypertension) Code(s): I10 - ESSENTIAL (PRIMARY) HYPERTENSION (5) Hypothyroidism Code(s): E03.9 - HYPOTHYROIDISM, UNSPECIFIED (6) Renal transplant recipient Code(s): Z94.0 - KIDNEY TRANSPLANT STATUS (7) Chronic glomerulonephritis Code(s): N03.9 - CHRONIC NEPHRITIC SYNDROME WITH UNSP MORPHOLOGIC CHANGES
[2017-05-17] MEDS: VANCOMYCIN 1,000 MG in DEXTROSE 5%-WATER - 250 ML IVPB SCH (14:22)
--- NOTE | 2017-05-17 14:50 | PN ---
Progress Note, Physician Chief Complaint: ID Vancomycin and Zosyn - Current Medication List Current Medications: Active Medications Acetaminophen (Tylenol -) 650 mg PO Q8H PRN PRN Reason: PAIN Last Admin: 05/16/17 01:10 Dose: 650 mg Albuterol/Ipratropium (Duoneb -) 1 amp NEB Q6H PRN PRN Reason: SHORT OF BREATH/WHEEZING Alprazolam (Xanax -) 0.25 mg PO DAILY PRN PRN Reason: ANXIETY Azathioprine (Imuran -) 100 mg PO DAILY [facility] Last Admin: 05/17/17 10:30 Dose: 100 mg Diltiazem HCl (Cardizem Cd -) 240 mg PO DAILY [facility] Last Admin: 05/17/17 09:01 Dose: 240 mg Guaifenesin (Robitussin -) 10 ml PO Q8H PRN PRN Reason: COUGH Last Admin: 05/16/17 05:56 Dose: 10 ml Heparin Sodium (Porcine) (Heparin -) 5,000 unit SQ BID [facility] Last Admin: 05/17/17 09:01 Dose: 5,000 unit Piperacillin Sod/Tazobactam (Sod 3.375 gm/ Dextrose) 50 mls @ 100 mls/hr IVPB Q8H-IV [facility] Last Admin: 05/17/17 09:01 Dose: 100 mls/hr Vancomycin HCl 1,000 mg/ (Dextrose) 250 mls @ 166.667 mls/hr IVPB DAILY@1500 [facility] Last Admin: 05/17/17 14:22 Dose: 166.667 mls/hr Sodium Chloride (Normal Saline -) 1,000 mls @ 83 mls/hr IV ASDIR [facility] Last Admin: 05/16/17 09:38 Dose: 83 mls/hr Levothyroxine Sodium (Synthroid -) 75 mcg PO AM [facility] Last Admin: 05/17/17 06:32 Dose: 75 mcg Metoclopramide HCl (Reglan -) 5 mg PO TIDAC [facility] Last Admin: 05/17/17 10:30 Dose: 5 mg Mometasone Furoate (Asmanex 220mcg -) 2 puff IH HS [facility] Last Admin: 05/16/17 22:19 Dose: 2 puff Pantoprazole Sodium (Protonix -) 40 mg PO DAILY [facility] Last Admin: 05/17/17 09:01 Dose: 40 mg Polyethylene Glycol (Miralax (For Daily Use) -) 17 gm PO HS PRN PRN Reason: CONSTIPATION - Objective Vital Signs: Vital Signs Temperature 98 F 05/17/17 09:00 Pulse Rate 118 H 05/17/17 09:00 Respiratory Rate 18 05/17/17 09:00 Blood Pressure 155/78 05/17/17 09:00 O2 Sat by Pulse Oximetry (%) 98 05/17/17 09:00 Constitutional: Yes: No Distress Neck: Yes: WNL, Supple Cardiovascular: Yes: Regular Rate and Rhythm, S1, S2. No: Murmur Respiratory: Yes: WNL, Regular, CTA Bilaterally Gastrointestinal: Yes: WNL, Normal Bowel Sounds, Soft Labs: CBC, BMP 05/17/17 07:10 05/17/17 07:10 INR, PTT INR 1.28 (0.82-1.09) H 05/14/17 10:00 Assessment/Plan Microbiology 06/06/16 22:45 Urine For Antigen Detection Legionella Antigen - Final 06/06/16 22:45 Urine For Antigen Detection Streptococcus pneumoniae Antigen (M - Final 06/05/16 01:15 Urine - Urine Clean Catch Urine Culture - Final NO GROWTH OBTAINED 05/15/17 20:27 Urine For Antigen Detection Legionella Antigen - Final 05/15/17 20:27 Urine For Antigen Detection Streptococcus pneumoniae Antigen (M - Final 05/15/17 20:27 Sputum - Endotrachea Suction/Ventilator Gram Stain - Final 05/14/17 14:47 Nasopharyngeal Aspirate Influenza Types A,B Antigen (NAY) - Final 05/14/17 14:47 Nasopharyngeal Aspirate - Final 05/14/17 13:35 Urine - Urine Clean Catch Urine Culture - Final NO GROWTH OBTAINED 06/04/16 15:00 Blood - Peripheral Venous Blood Culture - Preliminary NO GROWTH OBTAINED AFTER 72 HOURS, INCUBATION TO CONTINUE FOR 2 DAYS. 06/04/16 15:00 Blood - Peripheral Venous Blood Culture - Preliminary NO GROWTH OBTAINED AFTER 72 HOURS, INCUBATION TO CONTINUE FOR 2 DAYS. 05/14/17 11:50 Blood - Peripheral Venous Blood Culture - Preliminary NO GROWTH OBTAINED AFTER 72 HOURS, INCUBATION TO CONTINUE FOR 2 DAYS. Laboratory Tests 06/04/16 06/04/16 06/05/16 15:00 15:00 06:20 WBC 16.9 H D Hgb 12.7 Hct 38.5 Plt Count 239 ESR BUN 15 D Creatinine 1.0 Creat Clearance w eGFR 55.14 Lactic Acid 1.946 Total Bilirubin 0.6 D AST 13 L ALT 10 L D Alkaline Phosphatase 55 C-Reactive Protein 06/06/16 06/06/16 06/08/16 06:40 06:40 07:00 WBC 8.7 Hgb 11.6 Hct Plt Count 268 D ESR BUN Creatinine Creat Clearance w eGFR Lactic Acid Total Bilirubin AST 26 D ALT Alkaline Phosphatase C-Reactive Protein 22.1 H D 05/14/17 05/17/17 05/17/17 11:50 07:10 07:10 WBC 6.9 D Hgb Hct 29.4 L Plt Count 300 D ESR 102 H BUN 14 Creatinine 1.1 H Creat Clearance w eGFR Lactic Acid Total Bilirubin AST ALT Alkaline Phosphatase C-Reactive Protein Assessment Renal transplant patient with pneumonia unspecified etiology Plan Will stop Vanco and continue Zosyn Sputum c/s pending Tere MAST
--- NOTE | 2017-05-17 15:46 | PN ---
Progress Note (short form) - Note Progress Note: Renal follow up for renal transplant Pt seen and examined at the bedside reports having jitteryness and shakes after increased dose of steroids SOB improved, + sputum production making urine no abd pain no fever Vital Signs Temperature 98 F 05/17/17 09:00 Pulse Rate 118 H 05/17/17 09:00 Respiratory Rate 18 05/17/17 09:00 Blood Pressure 155/78 05/17/17 09:00 O2 Sat by Pulse Oximetry (%) 98 05/17/17 09:00 Intake & Output 05/14/17 05/15/17 05/16/17 05/17/17 23:59 23:59 23:59 23:59 Intake Total 341 2136 895 Balance 341 2136 895 Weight 59.874 kg NAD awake and alert RRR course BS NO LE edema CBC, BMP 05/17/17 07:10 05/17/17 07:10 Current Medications Acetaminophen (Tylenol -) 650 mg PO Q8H PRN PRN Reason: PAIN Last Admin: 05/16/17 01:10 Dose: 650 mg Albuterol/Ipratropium (Duoneb -) 1 amp NEB Q6H PRN PRN Reason: SHORT OF BREATH/WHEEZING Alprazolam (Xanax -) 0.25 mg PO DAILY PRN PRN Reason: ANXIETY Azathioprine (Imuran -) 100 mg PO DAILY [facility] Last Admin: 05/17/17 10:30 Dose: 100 mg Diltiazem HCl (Cardizem Cd -) 240 mg PO DAILY [facility] Last Admin: 05/17/17 09:01 Dose: 240 mg Guaifenesin (Robitussin -) 10 ml PO Q8H PRN PRN Reason: COUGH Last Admin: 05/16/17 05:56 Dose: 10 ml Heparin Sodium (Porcine) (Heparin -) 5,000 unit SQ BID [facility] Last Admin: 05/17/17 09:01 Dose: 5,000 unit Piperacillin Sod/Tazobactam (Sod 3.375 gm/ Dextrose) 50 mls @ 100 mls/hr IVPB Q8H-IV [facility] Last Admin: 05/17/17 09:01 Dose: 100 mls/hr Sodium Chloride (Normal Saline -) 1,000 mls @ 83 mls/hr IV ASDIR [facility] Last Admin: 05/16/17 09:38 Dose: 83 mls/hr Levothyroxine Sodium (Synthroid -) 75 mcg PO AM [facility] Last Admin: 05/17/17 06:32 Dose: 75 mcg Metoclopramide HCl (Reglan -) 5 mg PO TIDAC [facility] Last Admin: 05/17/17 10:30 Dose: 5 mg Mometasone Furoate (Asmanex 220mcg -) 2 puff IH HS [facility] Last Admin: 05/16/17 22:19 Dose: 2 puff Pantoprazole Sodium (Protonix -) 40 mg PO DAILY [facility] Last Admin: 05/17/17 09:01 Dose: 40 mg Polyethylene Glycol (Miralax (For Daily Use) -) 17 gm PO HS PRN PRN Reason: CONSTIPATION 71 year old woman with PMhx of ESRD s/p renal transplant (25 years ago), hypertension, seizure disorder presented with abd pain, cough and subjective fever and found to have PNA. #ESRD with renal transplant Renal function stable continue imuran and prednisone #Leukocytosis/Fever/PNA continue zosyn as per ID f/u cultures supportive care Orlando Sen DO
--- NOTE | 2017-05-17 16:01 | PN ---
Progress Note (short form) - Note Progress Note: Patient stable from a GI perspective, epigastric pain, nausea and vomiting resolved. Reconsult as needed. Problem List - Problems (1) Gastroparesis Code(s): K31.84 - GASTROPARESIS
[2017-05-17] MEDS: SODIUM CHLORIDE 1,000 ML IV SCH ×2 (17:40→17:43)
[2017-05-17] MEDS ORDERED: PT OWN MED DRAWER 7, Y5N ONE (21:44)
[2017-05-17] MEDS: ALPRAZolam 0.25 MG TABLET PO PRN (21:45)
[2017-05-17] MEDS: MOMETASONE FUROATE 220 MCG/IH INHALER IH SCH (21:46)
[2017-05-18] MEDS ORDERED: PT OWN MED DRAWER 7, Y5N ONE ×4 (01:12→21:01)
[2017-05-18] MEDS: PIPERACILLIN/TAZOB 3.375 GM 3.375 GM in DEXTROSE 5%-WATER - 50 ML IVPB SCH ×3 (01:26→17:08)
[2017-05-18] MEDS: LEVOTHYROXINE NA 75 MCG TABLET (FP) PO SCH (06:38)
[2017-05-18] MEDS: METOCLOPRAMIDE HCL 10 MG TABLET (FP) PO SCH ×4 (06:38→17:08)
[2017-05-18] MEDS: ALBUTEROL SO4 2.5/IPRATROPIUM 0.5 INH SOL 3 ML VIAL.NEB. NEB PRN ×2 (07:26→18:34)
[2017-05-18 07:29] LABS: HEMOGLOBIN 9.5 GM/dL (10.7-15.3); MCH 34.4 pg (25.7-33.7); MEAN CELL VOLUME 101.2 fl (80-96); MEAN PLT VOLUME 9.4 fl (7.5-11.1); PLATELET COUNT 317 K/MM3 (134-434); RBC 2.77 M/mm3 (3.60-5.2); RDW 16.4 % (11.6-15.6)
[2017-05-18 08:27] LABS: ALBUMIN 2.4 g/dl (3.4-5.0); CALCIUM 7.3 mg/dL (8.5-10.1); CHLORIDE 112 mmol/L (98-107); POTASSIUM 4.6 mmol/L (3.5-5.1); SODIUM 144 mmol/L (136-145)
[2017-05-18 08:32] LABS: ALK PHOS 96 U/L (45-117); ANION GAP 18 (8-16); BILIRUBIN,TOTAL 0.2 mg/dL (0.2-1.0); BLOOD UREA NITROGEN 20 mg/dL (7-18); CO2 14 mmol/L (21-32); CREATININE 1.1 mg/dL (0.55-1.02); GLUCOSE,RANDOM 131 mg/dL (74-106); SGOT/AST 26 U/L (15-37); SGPT/ALT 26 U/L (12-78)
--- NOTE | 2017-05-18 08:55 | PN ---
Progress Note, Physician Chief Complaint: in bed feels a little better, less cough, less tremors; neuro eval pending temp 99.7 max so far - Current Medication List Current Medications: Active Medications Acetaminophen (Tylenol -) 650 mg PO Q8H PRN PRN Reason: PAIN Last Admin: 05/16/17 01:10 Dose: 650 mg Albuterol/Ipratropium (Duoneb -) 1 amp NEB Q6H PRN PRN Reason: SHORT OF BREATH/WHEEZING Last Admin: 05/18/17 07:26 Dose: 1 amp Alprazolam (Xanax -) 0.25 mg PO DAILY PRN PRN Reason: ANXIETY Last Admin: 05/17/17 21:45 Dose: 0.25 mg Azathioprine (Imuran -) 100 mg PO DAILY [facility] Last Admin: 05/17/17 10:30 Dose: 100 mg Diltiazem HCl (Cardizem Cd -) 240 mg PO DAILY [facility] Last Admin: 05/17/17 09:01 Dose: 240 mg Guaifenesin (Robitussin -) 10 ml PO Q8H PRN PRN Reason: COUGH Last Admin: 05/16/17 05:56 Dose: 10 ml Heparin Sodium (Porcine) (Heparin -) 5,000 unit SQ BID [facility] Last Admin: 05/17/17 21:45 Dose: 5,000 unit Piperacillin Sod/Tazobactam (Sod 3.375 gm/ Dextrose) 50 mls @ 100 mls/hr IVPB Q8H-IV [facility] Last Admin: 05/18/17 01:26 Dose: 100 mls/hr Levothyroxine Sodium (Synthroid -) 75 mcg PO AM [facility] Last Admin: 05/18/17 06:38 Dose: 75 mcg Metoclopramide HCl (Reglan -) 5 mg PO TIDAC [facility] Last Admin: 05/18/17 06:38 Dose: 5 mg Mometasone Furoate (Asmanex 220mcg -) 2 puff IH HS [facility] Last Admin: 05/17/17 21:46 Dose: 2 puff Pantoprazole Sodium (Protonix -) 40 mg PO DAILY [facility] Last Admin: 05/17/17 09:01 Dose: 40 mg Polyethylene Glycol (Miralax (For Daily Use) -) 17 gm PO HS PRN PRN Reason: CONSTIPATION - Objective Vital Signs: Vital Signs Temperature 97.9 F 05/18/17 06:00 Pulse Rate 76 05/18/17 06:00 Respiratory Rate 18 05/18/17 06:00 Blood Pressure 143/70 05/18/17 06:00 O2 Sat by Pulse Oximetry (%) 96 05/17/17 21:00 Constitutional: Yes: No Distress, Calm Eyes: Yes: Conjunctiva Clear HENT: Yes: Atraumatic Neck: Yes: Supple Cardiovascular: Yes: Regular Rate and Rhythm Respiratory: Yes: CTA Bilaterally Gastrointestinal: Yes: Soft. No: Distention Genitourinary: No: CVA Tenderness - Left, CVA Tenderness - Right Musculoskeletal: No: Joint Stiffness, Joint Swelling Extremities: No: Cold, Cool Edema: No Integumentary: No: Rash, Venous Stasis Changes Neurological: Yes: WNL, Alert, Oriented ...Motor Strength: WNL Psychiatric: Yes: WNL, Alert, Oriented. No: Agitated, Suicidal Ideation Labs: CBC, BMP 05/18/17 07:05 05/18/17 07:05 INR, PTT INR 1.28 (0.82-1.09) H 05/14/17 10:00 - ....Imaging Other: Report Reviewed Assessment/Plan The patient is a 71 year old female, with a significant past medical history of diabetes mellitus, CVA, kidney transplant, hypertension, hyperlipidemia, GERD, hypothyroidism, seizures, who presents to the emergency department with epigastric pain CP cough. S/p FLU/ URI 2 weeks ago treated with tamiflu and Zpack x5days at that time, admitted as OBS/ hospitalist svc chest CT c/w PNA; pulm eval dr OCONNOR cardiology f/u r/o ASHD / CHF ID f/u, IV ATB per ID tremors, anxiety; prn xanax, see above; restarted po steroids 5 mg/day neurology eval, remote h/o seizures IVF gentle hydration h/o renal transplant CRF; watch for CHF, h/o legs edema in the past immunosupressed, h/o renal transplant, IV steroids per pulm falls PFX d/w pt do not get OOB alone DVT PFX f/u labs and CX prognosis guarded d/w pt and staff
[2017-05-18] MEDS ORDERED: SODIUM CHLORIDE 1,000 ML IV SCH ×2 (09:15→22:00)
[2017-05-18] MEDS: PANTOPRAZOLE 40 MG TABLET (FP) PO SCH (09:28)
[2017-05-18] MEDS: HEPARIN NA (PORCINE) 5,000 UNITS/ML 1ML VIAL SQ SCH ×2 (09:29→21:04)
[2017-05-18] MEDS: azaTHIOprine 50 MG TABLET PO SCH (09:29)
[2017-05-18] MEDS: predniSONE 5 MG TABLET (UD) PO SCH (09:42)
[2017-05-18] MEDS: ACETAMINOPHEN 325 MG TABLET (FP) PO PRN (09:42)
--- NOTE | 2017-05-18 10:50 | PN ---
Progress Note (short form) - Note Progress Note: s: no cp dizzy; sob cough a little better o: Vital Signs Period Temp Pulse Resp BP Sys/Wang Pulse Ox Last 24 Hr 97.8 F-98.3 F 76-79 16-18 111-143/54-72 96 nad, calm jvd flat, neck supple ctabl nl effort rrr nl s1, s2 no mrg + bs soft nt nd ext without e/c/c aaox3 no jaundice, diaphoresis. Current Medications Generic Name Dose Route Start Last Admin Trade Name Freq PRN Reason Stop Dose Admin Acetaminophen 650 mg 05/14/17 11:36 05/18/17 09:42 Tylenol - PO 650 mg Q8H PRN Administration PAIN Albuterol/Ipratropium 1 amp 05/17/17 13:53 05/18/17 07:26 Duoneb - NEB 1 amp Q6H PRN Administration SHORT OF BREATH/WHEEZING Alprazolam 0.25 mg 05/17/17 12:05 05/17/17 21:45 Xanax - PO 0.25 mg DAILY PRN Administration ANXIETY Azathioprine 100 mg 05/15/17 10:00 05/18/17 09:29 Imuran - PO 100 mg DAILY PURA Administration Diltiazem HCl 240 mg 05/15/17 10:00 05/18/17 09:27 Cardizem Cd - PO 240 mg DAILY PURA Administration Guaifenesin 10 ml 05/14/17 11:38 05/16/17 05:56 Robitussin - PO 10 ml Q8H PRN Administration COUGH Heparin Sodium (Porcine) 5,000 unit 05/14/17 22:00 05/18/17 09:29 Heparin - SQ 5,000 unit BID PURA Administration Piperacillin Sod/Tazobactam 50 mls @ 100 mls/hr 05/15/17 19:30 05/18/17 09:30 Sod 3.375 gm/ Dextrose IVPB 100 mls/hr Q8H-IV PURA Administration Sodium Chloride 1,000 mls @ 42 mls/hr 05/18/17 09:15 05/18/17 09:27 Normal Saline - IV 42 mls/hr ASDIR PURA Administration Levothyroxine Sodium 75 mcg 05/15/17 07:00 05/18/17 06:38 Synthroid - PO 75 mcg AM PURA Administration Metoclopramide HCl 5 mg 05/15/17 16:30 05/18/17 10:19 Reglan - PO Not Given TIDAC PURA Mometasone Furoate 2 puff 05/16/17 12:53 05/17/17 21:46 Asmanex 220mcg - IH 2 puff HS PURA Administration Pantoprazole Sodium 40 mg 05/15/17 16:00 05/18/17 09:28 Protonix - PO 40 mg DAILY PURA Administration Polyethylene Glycol 17 gm 05/14/17 11:36 Miralax (For Daily Use) - PO HS PRN CONSTIPATION Prednisone 5 mg 05/18/17 10:00 05/18/17 09:42 Deltasone - PO 5 mg DAILY PURA Administration CBC, BMP 05/18/17 07:05 05/18/17 07:05 ekg: sinus tach, 109 bpm. lad. lvh with repol abnormalities. no actue ischemic changes. chest ct: patchy infiltrates likely inflammatory/infectious in nature. see emr for further details tele: sr echo 04/2017: mild lvh, g2dd, nl lvef, nl rv, mild lae, mod mr, mild tr a/p: 71 yo with pmhx of htn, CVA, pericarditis s/p pericardial window, kidney transplant, niddm, GERD, diverticulosis, hypothyroidism, hyperparathyroidism, gout, seizures (last 02/2017), asthma, recently treated for flu who p/w epigastric pain. CP - atypical for cardiac pain. Patient with pna and persistent cough. Likely msk etiology with ttp over left lower rib cage. - ekg without acute ischemic changes. ce's neg x2 - echo unremarkable htn - stable on current meds pna -mgm't per pmd can dc tele
--- NOTE | 2017-05-18 12:52 | PN ---
Progress Note (short form) - Note Progress Note: PULMONARY CHART REVIEWED VSS/AFEBRILE \ AWAKE/ALERT ANICTERIC SCATTERED LEFT POSTERIOR CRACKLES S1S2 BS+ NO EDEMA LABS/MEDS/NOTES/IMAGES/MICRO REVIEWED Pneumonia Asthma Lung Nodule (higher incidence of malignancies in organ recipients) Chronic Glomerulonephritis s/p renal transplant on immunosuppressives HTN Hypothyroidism GERD - continue antibiotics per ID/cultures negative thus far - bronchodilators prn - O2 as needed - DVT prophylaxis - will need outpt f/u of chest imaging to ensure resolution of infiltrates/ nodule Anna HEADLEY MD
[2017-05-18] MEDS ORDERED: SODIUM CHLORIDE 1,000 ML IV STA (13:03)
--- NOTE | 2017-05-18 13:47 | PN ---
Progress Note (short form) - Note Progress Note: chest discomfort gone feels much better today less shaky +sputum production able to eat, no abdominal pain Vital Signs Period Temp Pulse Resp BP Sys/Wang Pulse Ox Last 24 Hr 97.8 F-98.3 F 76-79 16-18 111-143/54-72 96-96 cor-rrr lungs clear abd soft,nt ext no edema CBC, BMP 05/18/17 07:05 05/18/17 07:05 Microbiology 05/14/17 11:50 Blood - Peripheral Venous Blood Culture - Preliminary NO GROWTH OBTAINED AFTER 96 HOURS, INCUBATION TO CONTINUE FOR 1 DAYS. 05/14/17 11:50 Blood - Peripheral Venous Blood Culture - Preliminary NO GROWTH OBTAINED AFTER 96 HOURS, INCUBATION TO CONTINUE FOR 1 DAYS. 05/15/17 20:27 Sputum - Endotrachea Suction/Ventilator Gram Stain - Final 05/15/17 20:27 Sputum - Endotrachea Suction/Ventilator Sputum Culture - Final NORMAL RESPIRATORY DAMON 05/15/17 20:27 Urine For Antigen Detection Legionella Antigen - Final 05/15/17 20:27 Urine For Antigen Detection Streptococcus pneumoniae Antigen (M - Final 05/14/17 13:35 Urine - Urine Clean Catch Urine Culture - Final NO GROWTH OBTAINED 05/14/17 14:47 Nasopharyngeal Aspirate Influenza Types A,B Antigen (NAY) - Final 05/14/17 14:47 Nasopharyngeal Aspirate - Final imp/reccd suspect post influenza pneumonia continue zosyn day #4 s/p renal transplant -f/u labs in am Problem List - Problems (1) Pneumonia Code(s): J18.9 - PNEUMONIA, UNSPECIFIED ORGANISM (2) Renal transplant recipient Code(s): Z94.0 - KIDNEY TRANSPLANT STATUS
--- NOTE | 2017-05-18 14:29 | CON.NEURO ---
Consult Consult Specialty:: Neurology Jenn Referred by:: Janine Reason for Consultation:: tremors - History of Present Illness History of Present Illness: Thank you for the kind referral 71 years old woman with history 1. htn, 2. CVA, 3. CAD 4. pericarditis s/p pericardial window, 5. kidney transplant, 6. Niddm, 7. GERD, 8. diverticulosis, 9. hypothyroidism, 10. hyperparathyroidism, 11. gout, 12. ?? seizures (last 02/2017), 13. asthma patient presented to the hospital with a chief complaint of epigastric pain patient was evaluated by infectious disease and pulmonology admitted to cardiac floor for monitoring. Neurology was called as the patient was given Solu-Medrol yesterday and she was shaking according to the nurse. Patient herself is a poor historian she said that she used to have seizures in the past and she is to be treated for them she claims that now she's not taking any seizure medication. Patient remember what happened yesterday and she told me that this happened before when she took the steroids. Patient denies any loss of consciousness no tongue biting no urinary incontinence no fecal incontinence. Patient still hemodynamically unstable with mild fever. Patient denies any family history of seizure disorder or epilepsy. since admission to the hospital patient with no altered sensorium no seizure-like activity. Patient also carries the history of kidney transplant and thyroid disease which could be contributing factors that the tremors. Patient was found to be anemic. 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 No: None, AAA Repair, AICD , Amputation, Appendectomy, Arthrosocopy, AV Fistula/Graft, Bariatric Surgery, Breast Biopsy, Bypass, CABG, Carotid Endarterectomy, Cataract Removal, Cholecystectomy, Colectomy, Colonoscopy, Colostomy, Craniotomy, , Cystectomy, Hysterectomy, Ileal Conduit, Ileosotomy, Joint Replacement, Kidney Transplant, Laminectomy, Liver Transplant, Mastectomy, Nephrectomy, Oopherectomy , Orchiectomy, Permanent Pacemaker, Prostatectomy, Splenectomy, Stent, Thoracotomy, TURP, Tonsillectomy, Tubal Ligation, Upper Endoscopy, Valve Replacement, Vasectomy, Vein Stripping/Ligation - Alcohol/Substance Use Hx Alcohol Use: No History of Substance Use: reports: None - Smoking History Smoking history: Never smoked Have you smoked in the past 12 months: No Aproximately how many cigarettes per day: 0 - Social History ADL: Independent History of Recent Travel: No Home Medications - Allergies Allergies/Adverse Reactions: Allergies Allergy/AdvReac Type Severity Reaction Status Date / Time codeine Allergy Intermediate Vomiting Verified 05/14/17 09:03 AND SWELLING OF FACE - Home Medications Home Medications: Ambulatory Orders Levothyroxine [Synthroid -] 75 mcg PO DAILY 03/07/12 predniSONE [Deltasone -] 5 mg PO DAILY 07/11/13 Azathioprine [Imuran] 100 mg PO DAILY 12/20/14 Diltiazem Cd [Cardizem Cd -] 240 mg PO DAILY 02/20/17 Fluticasone Propionate [Flovent Hfa] 110 mcg IH BID 02/20/17 Furosemide [Lasix -] 40 mg PO DAILY 02/20/17 Family Disease History - Family Disease History Family History: Denies (tremors or epilepsy) Family Disease History: CA: Sister (breast) Review of Systems - Review of Systems Constitutional: reports: No Symptoms Eyes: reports: No Symptoms HENT: reports: No Symptoms Respiratory: reports: Cough, Snoring, SOB Neurological: reports: Headache, Incoordination, Numbness, Parasthesia Physical Exam-Neuro Vital Signs: Vital Signs Temperature 97.9 F 05/18/17 06:00 Pulse Rate 76 05/18/17 06:00 Respiratory Rate 18 05/18/17 09:00 Blood Pressure 143/70 05/18/17 06:00 O2 Sat by Pulse Oximetry (%) 96 05/18/17 09:00 Constitutional: Yes: Well Nourished Neck: Yes: WNL Cardiovascular: Yes: WNL Labs: CBC, BMP 05/18/17 07:05 05/18/17 07:05 INR, PTT INR 1.28 (0.82-1.09) H 05/14/17 10:00 - Neuro Exam Level Of Consciousness: Yes: Alert, Oriented to Person, Oriented to Place, Oriented to Time Eyes: Yes: PERRLA Speech: WNL Dominant Hand: Right Cranial Nerves II-XII Intact: Yes Gag: Present DTR's: 1+ Left Bicep, 1+ Right Bicep, 1+ Left Tricep, 1+ Right Tricep, 1+ Left Achilles, 1+ Right Achilles Babinski: Absent Response to light touch: Normal Response to pain prick: Normal Response to temperature: Normal Response to vibration: Normal Movement Disorders: Other (No bradykinesia or cogwheeling ) Motor Strength: 3/5: Left Arm, Right Arm, Left Leg, Right Leg Gait: Deferred (Mild kinetic tremors ) Problem List - Problems (1) Benign essential tremor Assessment/Plan: 1. there is no evidence of Parkinson's disease 2. Patient with multiple comorbidities and medication that would contribute to her tremors *Steroid taper as per pulmonology * Fall precautions * Seizure precautions Code(s): G25.0 - ESSENTIAL TREMOR (2) Gait abnormality Assessment/Plan: *Patient complains of difficulty with coordination and difficulty when she gets up some seated position I told the patient that its very difficult to assess her fully what she is going through the medical treatment in the hospital. This problem has been chronic and has been happening for month. I did advise the patient that neurological outpatient workup will be done. Code(s): R26.9 - UNSPECIFIED ABNORMALITIES OF GAIT AND MOBILITY (3) Seizure Assessment/Plan: again patient claims that she had a history of seizure disorder on the last seizure was February with no family history of seizure. Since admission to the hospital patient had one episode of shaking with no loss of consciousness doubt this was a seizure most probably medication induced. 1. Blood work. 2. Seizure precaution. 3. Review the old records from previous neurologist. 4. Will not start the patient on any antiseizure medication. 5. Follow-up with other specialist. Thank you very much for referring this patient for neurological consultation will follow the patient during the admission. Code(s): R56.9 - UNSPECIFIED CONVULSIONS
--- NOTE | 2017-05-18 17:50 | PN ---
Progress Note (short form) - Note Progress Note: Renal follow up for renal transplant Pt seen and examined at the bedside reports feeling better tremors improved sob improved, cough improved making urine, no abd pain does feel dizzy Vital Signs Temperature 97.9 F 05/18/17 06:00 Pulse Rate 76 05/18/17 06:00 Respiratory Rate 18 05/18/17 09:00 Blood Pressure 143/70 05/18/17 06:00 O2 Sat by Pulse Oximetry (%) 96 05/18/17 09:00 Intake & Output 05/15/17 05/16/17 05/17/17 05/18/17 23:59 23:59 23:59 23:59 Intake Total 341 2136 3240 530 Balance 341 2136 3240 530 NAD awake and alert RRR course BS NO LE edema CBC, BMP 05/18/17 07:05 05/18/17 07:05 Current Medications Acetaminophen (Tylenol -) 650 mg PO Q8H PRN PRN Reason: PAIN Last Admin: 05/18/17 09:42 Dose: 650 mg Albuterol/Ipratropium (Duoneb -) 1 amp NEB Q6H PRN PRN Reason: SHORT OF BREATH/WHEEZING Last Admin: 05/18/17 07:26 Dose: 1 amp Alprazolam (Xanax -) 0.25 mg PO DAILY PRN PRN Reason: ANXIETY Last Admin: 05/17/17 21:45 Dose: 0.25 mg Azathioprine (Imuran -) 100 mg PO DAILY [facility] Last Admin: 05/18/17 09:29 Dose: 100 mg Diltiazem HCl (Cardizem Cd -) 240 mg PO DAILY PURA Last Admin: 05/18/17 09:27 Dose: 240 mg Guaifenesin (Robitussin -) 10 ml PO Q8H PRN PRN Reason: COUGH Last Admin: 05/16/17 05:56 Dose: 10 ml Heparin Sodium (Porcine) (Heparin -) 5,000 unit SQ BID PURA Last Admin: 05/18/17 09:29 Dose: 5,000 unit Piperacillin Sod/Tazobactam (Sod 3.375 gm/ Dextrose) 50 mls @ 100 mls/hr IVPB Q8H-IV PURA Last Admin: 05/18/17 17:08 Dose: 100 mls/hr Sodium Chloride (Normal Saline -) 1,000 mls @ 42 mls/hr IV ASDIR [facility] Last Admin: 05/18/17 09:27 Dose: 42 mls/hr Levothyroxine Sodium (Synthroid -) 75 mcg PO AM [facility] Last Admin: 05/18/17 06:38 Dose: 75 mcg Metoclopramide HCl (Reglan -) 5 mg PO TIDAC [facility] Last Admin: 05/18/17 17:08 Dose: 5 mg Mometasone Furoate (Asmanex 220mcg -) 2 puff IH HS [facility] Last Admin: 05/17/17 21:46 Dose: 2 puff Pantoprazole Sodium (Protonix -) 40 mg PO DAILY [facility] Last Admin: 05/18/17 09:28 Dose: 40 mg Polyethylene Glycol (Miralax (For Daily Use) -) 17 gm PO HS PRN PRN Reason: CONSTIPATION Prednisone (Deltasone -) 5 mg PO DAILY [facility] Last Admin: 05/18/17 09:42 Dose: 5 mg 71 year old woman with PMhx of ESRD s/p renal transplant (25 years ago), hypertension, seizure disorder presented with abd pain, cough and subjective fever and found to have PNA. #ESRD with renal transplant Renal function stable BUN higher today, indicating volume loss continue imuran and prednisone #Lactic acidosis ? from infection BP stable will give pt NS Bolous 1 L over 3 hours repeat LA this evening #Post influenza PNA continue Abx as per ID O2 as needed Orlando Sen DO
[2017-05-18 20:13] LABS: ANION GAP 12 (8-16); BLOOD UREA NITROGEN 22 mg/dL (7-18); CALCIUM 8.3 mg/dL (8.5-10.1); CHLORIDE 109 mmol/L (98-107); CO2 18 mmol/L (21-32); CREATININE 1.2 mg/dL (0.55-1.02); GLUCOSE,RANDOM 175 mg/dL (74-106); POTASSIUM 4.2 mmol/L (3.5-5.1); SODIUM 139 mmol/L (136-145)
[2017-05-18] MEDS: MOMETASONE FUROATE 220 MCG/IH INHALER IH SCH (21:04)
[2017-05-18] MEDS: POLYETHYLENE GLYCOL 3350 119 GM BTL PO PRN (21:05)
[2017-05-18] MEDS ORDERED: INSULIN (NOVOLOG) ASPART 100 UNITS/ML 10ML VIAL ONE (21:37)
[2017-05-18] MEDS: ALPRAZolam 0.25 MG TABLET PO PRN (23:15)
[2017-05-19] MEDS ORDERED: PT OWN MED DRAWER 7, Y5N ONE ×4 (01:54→21:34)
[2017-05-19] MEDS: PIPERACILLIN/TAZOB 3.375 GM 3.375 GM in DEXTROSE 5%-WATER - 50 ML IVPB SCH ×3 (02:09→17:17)
[2017-05-19] MEDS: METOCLOPRAMIDE HCL 10 MG TABLET (FP) PO SCH ×3 (06:06→17:17)
[2017-05-19] MEDS: LEVOTHYROXINE NA 75 MCG TABLET (FP) PO SCH (06:06)
--- NOTE | 2017-05-19 06:31 | PN ---
Progress Note, Physician Chief Complaint: in bed still coughing IV ATB per ID - Current Medication List Current Medications: Active Medications Acetaminophen (Tylenol -) 650 mg PO Q8H PRN PRN Reason: PAIN Last Admin: 05/18/17 09:42 Dose: 650 mg Albuterol/Ipratropium (Duoneb -) 1 amp NEB Q6H PRN PRN Reason: SHORT OF BREATH/WHEEZING Last Admin: 05/18/17 18:34 Dose: 1 amp Alprazolam (Xanax -) 0.25 mg PO DAILY PRN PRN Reason: ANXIETY Last Admin: 05/18/17 23:15 Dose: 0.25 mg Azathioprine (Imuran -) 100 mg PO DAILY PURA Last Admin: 05/18/17 09:29 Dose: 100 mg Diltiazem HCl (Cardizem Cd -) 240 mg PO DAILY [facility] Last Admin: 05/18/17 09:27 Dose: 240 mg Guaifenesin (Robitussin -) 10 ml PO Q8H PRN PRN Reason: COUGH Last Admin: 05/16/17 05:56 Dose: 10 ml Heparin Sodium (Porcine) (Heparin -) 5,000 unit SQ BID PURA Last Admin: 05/18/17 21:04 Dose: 5,000 unit Piperacillin Sod/Tazobactam (Sod 3.375 gm/ Dextrose) 50 mls @ 100 mls/hr IVPB Q8H-IV PURA Last Admin: 05/19/17 02:09 Dose: 100 mls/hr Sodium Chloride (Normal Saline -) 1,000 mls @ 100 mls/hr IV ASDIR [facility] Stop: 05/19/17 10:00 Last Admin: 05/18/17 22:08 Dose: 100 mls/hr Levothyroxine Sodium (Synthroid -) 75 mcg PO AM PURA Last Admin: 05/19/17 06:06 Dose: 75 mcg Metoclopramide HCl (Reglan -) 5 mg PO TIDAC [facility] Last Admin: 05/19/17 06:06 Dose: 5 mg Mometasone Furoate (Asmanex 220mcg -) 2 puff IH HS [facility] Last Admin: 05/18/17 21:04 Dose: 2 puff Pantoprazole Sodium (Protonix -) 40 mg PO DAILY [facility] Last Admin: 05/18/17 09:28 Dose: 40 mg Polyethylene Glycol (Miralax (For Daily Use) -) 17 gm PO HS PRN PRN Reason: CONSTIPATION Last Admin: 05/18/17 21:05 Dose: 17 gm Prednisone (Deltasone -) 5 mg PO DAILY PURA Last Admin: 05/18/17 09:42 Dose: 5 mg - Objective Vital Signs: Vital Signs Temperature 98.2 F 05/19/17 06:29 Pulse Rate 73 05/19/17 06:29 Respiratory Rate 20 05/19/17 06:29 Blood Pressure 127/76 05/19/17 06:29 O2 Sat by Pulse Oximetry (%) 95 05/18/17 21:00 Constitutional: Yes: No Distress, Calm Eyes: Yes: Conjunctiva Clear HENT: Yes: Atraumatic Neck: Yes: Supple Cardiovascular: Yes: Regular Rate and Rhythm Respiratory: Yes: CTA Bilaterally Gastrointestinal: Yes: Soft. No: Distention Genitourinary: No: CVA Tenderness - Left, CVA Tenderness - Right Musculoskeletal: No: Joint Stiffness, Joint Swelling Extremities: No: Cold, Cool, Cyanosis Edema: No Integumentary: No: Rash, Venous Stasis Changes Neurological: Yes: WNL, Alert, Oriented ...Motor Strength: WNL Psychiatric: Yes: WNL, Alert, Oriented. No: Agitated, Suicidal Ideation Labs: CBC, BMP 05/18/17 07:05 05/18/17 19:15 INR, PTT INR 1.28 (0.82-1.09) H 05/14/17 10:00 - ....Imaging Other: Report Reviewed Assessment/Plan The patient is a 71 year old female, with a significant past medical history of diabetes mellitus, CVA, kidney transplant, hypertension, hyperlipidemia, GERD, hypothyroidism, seizures, admitted with PNA cough and CP . S/p FLU/ URI 2 weeks ago treated with tamiflu and Zpack x5days at that time. chest CT noted pulm f/u dr OCONNOR cardiology f/u r/o ASHD / CHF ID f/u, IV ATB per ID tremors, anxiety; prn xanax, see above; restarted po steroids 5 mg/day neurology eval, remote h/o seizures IVF gentle hydration h/o renal transplant CRF; watch for CHF, h/o legs edema in the past immunosupressed, h/o renal transplant, IV steroids per pulm falls PFX d/w pt do not get OOB alone DVT PFX f/u labs and CX prognosis guarded d/w pt and staff d/w daughter
[2017-05-19 07:15] LABS: BASO % 0.1 % (0-2.0); HEMOGLOBIN 9.4 GM/dL (10.7-15.3); LYMPH % 14.8 % (8-40); MCH 34.1 pg (25.7-33.7); MCHC 33.6 g/dl (32.0-36.0); MEAN CELL VOLUME 101.6 fl (80-96); MEAN PLT VOLUME 9.1 fl (7.5-11.1); MONO % 8.8 % (3.8-10.2); NEUT % 76.3 % (42.8-82.8); PLATELET COUNT 337 K/MM3 (134-434); RBC 2.76 M/mm3 (3.60-5.2); RDW 16.7 % (11.6-15.6); WHITE BLOOD COUNT 9.3 K/mm3 (4.0-10.0)
[2017-05-19 07:49] LABS: CHLORIDE 108 mmol/L (98-107); POTASSIUM 4.2 mmol/L (3.5-5.1); SODIUM 142 mmol/L (136-145)
[2017-05-19 07:50] LABS: CHLORIDE 109 mmol/L (98-107); POTASSIUM 4.2 mmol/L (3.5-5.1); SODIUM 143 mmol/L (136-145)
[2017-05-19 08:07] LABS: ANION GAP 10 (8-16); BLOOD UREA NITROGEN 19 mg/dL (7-18); CALCIUM 8.2 mg/dL (8.5-10.1); CO2 24 mmol/L (21-32); CREATININE 1.1 mg/dL (0.55-1.02); GLUCOSE,RANDOM 89 mg/dL (74-106); MAGNESIUM 2.1 mg/dL (1.8-2.4)
[2017-05-19 08:12] LABS: ALBUMIN 2.4 g/dl (3.4-5.0); ALK PHOS 85 U/L (45-117); ANION GAP 10 (8-16); BILIRUBIN,TOTAL 0.3 mg/dL (0.2-1.0); BLOOD UREA NITROGEN 19 mg/dL (7-18); CALCIUM 8.2 mg/dL (8.5-10.1); CO2 24 mmol/L (21-32); GLUCOSE,RANDOM 86 mg/dL (74-106); SGOT/AST 29 U/L (15-37); SGPT/ALT 28 U/L (12-78); TOT PROT 5.9 g/dl (6.4-8.2)
[2017-05-19] MEDS: HEPARIN NA (PORCINE) 5,000 UNITS/ML 1ML VIAL SQ SCH ×2 (09:08→21:45)
[2017-05-19] MEDS: predniSONE 5 MG TABLET (UD) PO SCH (09:08)
[2017-05-19] MEDS: PANTOPRAZOLE 40 MG TABLET (FP) PO SCH (09:08)
--- NOTE | 2017-05-19 09:36 | PN ---
Progress Note, Physician History of Present Illness: No events overnight No complaints No abdominal pain Mild chest pain with improved cough No tele - Current Medication List Current Medications: Active Medications Acetaminophen (Tylenol -) 650 mg PO Q8H PRN PRN Reason: PAIN Last Admin: 05/18/17 09:42 Dose: 650 mg Albuterol/Ipratropium (Duoneb -) 1 amp NEB Q6H PRN PRN Reason: SHORT OF BREATH/WHEEZING Last Admin: 05/18/17 18:34 Dose: 1 amp Alprazolam (Xanax -) 0.25 mg PO DAILY PRN PRN Reason: ANXIETY Last Admin: 05/18/17 23:15 Dose: 0.25 mg Azathioprine (Imuran -) 100 mg PO DAILY [facility] Last Admin: 05/18/17 09:29 Dose: 100 mg Diltiazem HCl (Cardizem Cd -) 240 mg PO DAILY [facility] Last Admin: 05/19/17 09:08 Dose: 240 mg Guaifenesin (Robitussin -) 10 ml PO Q8H PRN PRN Reason: COUGH Last Admin: 05/16/17 05:56 Dose: 10 ml Heparin Sodium (Porcine) (Heparin -) 5,000 unit SQ BID PURA Last Admin: 05/19/17 09:08 Dose: 5,000 unit Piperacillin Sod/Tazobactam (Sod 3.375 gm/ Dextrose) 50 mls @ 100 mls/hr IVPB Q8H-IV PURA Last Admin: 05/19/17 09:08 Dose: 100 mls/hr Sodium Chloride (Normal Saline -) 1,000 mls @ 100 mls/hr IV ASDIR [facility] Stop: 05/19/17 10:00 Last Admin: 05/18/17 22:08 Dose: 100 mls/hr Levothyroxine Sodium (Synthroid -) 75 mcg PO AM [facility] Last Admin: 05/19/17 06:06 Dose: 75 mcg Metoclopramide HCl (Reglan -) 5 mg PO TIDAC [facility] Last Admin: 05/19/17 06:06 Dose: 5 mg Mometasone Furoate (Asmanex 220mcg -) 2 puff IH HS [facility] Last Admin: 05/18/17 21:04 Dose: 2 puff Pantoprazole Sodium (Protonix -) 40 mg PO DAILY [facility] Last Admin: 05/19/17 09:08 Dose: 40 mg Polyethylene Glycol (Miralax (For Daily Use) -) 17 gm PO HS PRN PRN Reason: CONSTIPATION Last Admin: 05/18/17 21:05 Dose: 17 gm Prednisone (Deltasone -) 5 mg PO DAILY [facility] Last Admin: 05/19/17 09:08 Dose: 5 mg - Objective Vital Signs: Vital Signs Temperature 98.2 F 05/19/17 06:29 Pulse Rate 73 05/19/17 06:29 Respiratory Rate 20 05/19/17 06:29 Blood Pressure 127/76 05/19/17 06:29 O2 Sat by Pulse Oximetry (%) 95 05/18/17 21:00 Constitutional: Yes: No Distress, Calm Eyes: Yes: WNL HENT: Yes: WNL Neck: Yes: WNL Cardiovascular: Yes: Regular Rate and Rhythm, Murmur Respiratory: Yes: Regular, CTA Bilaterally Gastrointestinal: Yes: WNL, Normal Bowel Sounds Extremities: Yes: WNL Edema: No Labs: CBC, BMP 05/19/17 06:00 05/19/17 06:00 INR, PTT INR 1.28 (0.82-1.09) H 05/14/17 10:00 Assessment/Plan a/p: 71 yo with pmhx of htn, CVA, pericarditis s/p pericardial window, kidney transplant, niddm, GERD, diverticulosis, hypothyroidism, hyperparathyroidism, gout, seizures (last 02/2017), asthma, recently treated for flu who p/w epigastric pain. CP - atypical for cardiac pain. Patient with pna and persistent cough. - ekg without acute ischemic changes. ce's neg x2 - echo 04/2017: mild lvh, g2dd, nl lvef, nl rv, mild lae, mod mr, mild tr htn - well controlled and stable on current meds pna -mgm't per pmd
[2017-05-19] MEDS: azaTHIOprine 50 MG TABLET PO SCH (10:55)
--- NOTE | 2017-05-19 11:32 | PN ---
Progress Note (short form) - Note Progress Note: PULMONARY CHART REVIEWED VSS/AFEBRILE \ AWAKE/ALERT OOB TO CHAIR ANICTERIC SCATTERED LEFT POSTERIOR CRACKLES S1S2 BS+ NO EDEMA LABS/MEDS/NOTES/IMAGES/MICRO REVIEWED Pneumonia Asthma Lung Nodule (higher incidence of malignancies in organ recipients) Chronic Glomerulonephritis s/p renal transplant on immunosuppressives HTN Hypothyroidism GERD - antibiotics per ID/cultures negative thus far - bronchodilators prn - O2 as needed - DVT prophylaxis - will need outpt f/u of chest imaging to ensure resolution of infiltrates/ nodule Anna HEADLEY MD
[2017-05-19] MEDS ORDERED: SODIUM CHLORIDE 1,000 ML IV SCH (11:45)
--- NOTE | 2017-05-19 12:12 | PN ---
Progress Note (short form) - Note Progress Note: Renal follow up for renal transplant Pt seen and examined at the bedside feeling better has sputum production chest pain with cough improved making montrelle no dizziness, lightheadedness Vital Signs Temperature 98.1 F 05/19/17 09:00 Pulse Rate 76 05/19/17 09:00 Respiratory Rate 18 05/19/17 09:00 Blood Pressure 149/74 05/19/17 09:00 O2 Sat by Pulse Oximetry (%) 92 L 05/19/17 09:00 Intake & Output 05/16/17 05/17/17 05/18/17 05/19/17 23:59 23:59 23:59 23:59 Intake Total 2136 3240 914 700 Balance 2136 3240 914 700 NAD awake and alert RRR course BS NO LE edema CBC, BMP 05/19/17 06:00 05/19/17 06:00 Current Medications Acetaminophen (Tylenol -) 650 mg PO Q8H PRN PRN Reason: PAIN Last Admin: 05/18/17 09:42 Dose: 650 mg Albuterol/Ipratropium (Duoneb -) 1 amp NEB Q6H PRN PRN Reason: SHORT OF BREATH/WHEEZING Last Admin: 05/18/17 18:34 Dose: 1 amp Alprazolam (Xanax -) 0.25 mg PO DAILY PRN PRN Reason: ANXIETY Last Admin: 05/18/17 23:15 Dose: 0.25 mg Azathioprine (Imuran -) 100 mg PO DAILY [facility] Last Admin: 05/19/17 10:55 Dose: 100 mg Diltiazem HCl (Cardizem Cd -) 240 mg PO DAILY [facility] Last Admin: 05/19/17 09:08 Dose: 240 mg Guaifenesin (Robitussin -) 10 ml PO Q8H PRN PRN Reason: COUGH Last Admin: 05/16/17 05:56 Dose: 10 ml Heparin Sodium (Porcine) (Heparin -) 5,000 unit SQ BID [facility] Last Admin: 05/19/17 09:08 Dose: 5,000 unit Piperacillin Sod/Tazobactam (Sod 3.375 gm/ Dextrose) 50 mls @ 100 mls/hr IVPB Q8H-IV [facility] Last Admin: 05/19/17 09:08 Dose: 100 mls/hr Sodium Chloride (Normal Saline -) 1,000 mls @ 83 mls/hr IV ASDIR [facility] Stop: 05/19/17 21:44 Levothyroxine Sodium (Synthroid -) 75 mcg PO AM [facility] Last Admin: 05/19/17 06:06 Dose: 75 mcg Metoclopramide HCl (Reglan -) 5 mg PO TIDAC [facility] Last Admin: 05/19/17 10:55 Dose: 5 mg Mometasone Furoate (Asmanex 220mcg -) 2 puff IH HS [facility] Last Admin: 05/18/17 21:04 Dose: 2 puff Pantoprazole Sodium (Protonix -) 40 mg PO DAILY [facility] Last Admin: 05/19/17 09:08 Dose: 40 mg Polyethylene Glycol (Miralax (For Daily Use) -) 17 gm PO HS PRN PRN Reason: CONSTIPATION Last Admin: 05/18/17 21:05 Dose: 17 gm Prednisone (Deltasone -) 5 mg PO DAILY [facility] Last Admin: 05/19/17 09:08 Dose: 5 mg 71 year old woman with PMhx of ESRD s/p renal transplant (25 years ago), hypertension, seizure disorder presented with abd pain, cough and subjective fever and found to have PNA. #ESRD with renal transplant #Anemia in CKD #Lactic acidosis #Post influenza PNA Renal function essentially stable Continue Imuran and Prednisone Lactic acidosis improved but not WNL yet, will continue istonic saline for additional 10 hours continue abx as per ID continue Nebs and chest PT as per pulmonary Will follow Orlando Sen DO
[2017-05-19] MEDS: ALBUTEROL SO4 2.5/IPRATROPIUM 0.5 INH SOL 3 ML VIAL.NEB. NEB PRN (18:59)
[2017-05-19] MEDS: MOMETASONE FUROATE 220 MCG/IH INHALER IH SCH (21:45)
[2017-05-19] MEDS: ALPRAZolam 0.25 MG TABLET PO PRN (21:45)
[2017-05-20] MEDS ORDERED: PT OWN MED DRAWER 7, Y5N ONE ×4 (00:51→22:10)
[2017-05-20] MEDS: PIPERACILLIN/TAZOB 3.375 GM 3.375 GM in DEXTROSE 5%-WATER - 50 ML IVPB SCH ×3 (01:01→17:48)
[2017-05-20] MEDS: METOCLOPRAMIDE HCL 10 MG TABLET (FP) PO SCH ×3 (06:01→16:37)
[2017-05-20] MEDS: LEVOTHYROXINE NA 75 MCG TABLET (FP) PO SCH (06:01)
--- NOTE | 2017-05-20 06:50 | PN ---
Progress Note, Physician Chief Complaint: slightly better - Current Medication List Current Medications: Active Medications Acetaminophen (Tylenol -) 650 mg PO Q8H PRN PRN Reason: PAIN Last Admin: 05/18/17 09:42 Dose: 650 mg Albuterol/Ipratropium (Duoneb -) 1 amp NEB Q6H PRN PRN Reason: SHORT OF BREATH/WHEEZING Last Admin: 05/19/17 18:59 Dose: 1 amp Alprazolam (Xanax -) 0.25 mg PO DAILY PRN PRN Reason: ANXIETY Last Admin: 05/19/17 21:45 Dose: 0.25 mg Azathioprine (Imuran -) 100 mg PO DAILY [facility] Last Admin: 05/19/17 10:55 Dose: 100 mg Diltiazem HCl (Cardizem Cd -) 240 mg PO DAILY [facility] Last Admin: 05/19/17 09:08 Dose: 240 mg Guaifenesin (Robitussin -) 10 ml PO Q8H PRN PRN Reason: COUGH Last Admin: 05/16/17 05:56 Dose: 10 ml Heparin Sodium (Porcine) (Heparin -) 5,000 unit SQ BID [facility] Last Admin: 05/19/17 21:45 Dose: 5,000 unit Piperacillin Sod/Tazobactam (Sod 3.375 gm/ Dextrose) 50 mls @ 100 mls/hr IVPB Q8H-IV [facility] Last Admin: 05/20/17 01:01 Dose: 100 mls/hr Levothyroxine Sodium (Synthroid -) 75 mcg PO AM [facility] Last Admin: 05/20/17 06:01 Dose: 75 mcg Metoclopramide HCl (Reglan -) 5 mg PO TIDAC [facility] Last Admin: 05/20/17 06:01 Dose: 5 mg Mometasone Furoate (Asmanex 220mcg -) 2 puff IH HS [facility] Last Admin: 05/19/17 21:45 Dose: 2 puff Pantoprazole Sodium (Protonix -) 40 mg PO DAILY [facility] Last Admin: 05/19/17 09:08 Dose: 40 mg Polyethylene Glycol (Miralax (For Daily Use) -) 17 gm PO HS PRN PRN Reason: CONSTIPATION Last Admin: 05/18/17 21:05 Dose: 17 gm Prednisone (Deltasone -) 5 mg PO DAILY [facility] Last Admin: 05/19/17 09:08 Dose: 5 mg - Objective Vital Signs: Vital Signs Temperature 98.3 F 05/20/17 06:01 Pulse Rate 75 05/20/17 06:01 Respiratory Rate 18 05/20/17 06:01 Blood Pressure 144/84 05/20/17 06:01 O2 Sat by Pulse Oximetry (%) 94 L 05/19/17 20:56 Constitutional: Yes: No Distress, Calm Eyes: Yes: Conjunctiva Clear HENT: Yes: Atraumatic Neck: Yes: Supple Cardiovascular: Yes: Regular Rate and Rhythm Respiratory: Yes: CTA Bilaterally Gastrointestinal: Yes: Soft. No: Distention, Tenderness Genitourinary: No: CVA Tenderness - Left, CVA Tenderness - Right Musculoskeletal: No: Joint Stiffness, Joint Swelling Extremities: No: Cold, Cool, Cyanosis Edema: No Integumentary: No: Rash, Venous Stasis Changes Neurological: Yes: WNL, Alert, Oriented ...Motor Strength: WNL Psychiatric: Yes: WNL, Alert, Oriented. No: Agitated, Suicidal Ideation Labs: CBC, BMP 05/19/17 06:00 05/19/17 06:00 INR, PTT INR 1.28 (0.82-1.09) H 05/14/17 10:00 - ....Imaging Other: Report Reviewed Assessment/Plan The patient is a 71 year old female, with a significant past medical history of diabetes mellitus, CVA, kidney transplant, hypertension, hyperlipidemia, GERD, hypothyroidism, seizures, admitted with PNA cough and CP . S/p FLU/ URI 2 weeks ago treated with tamiflu and Zpack x5days at that time. chest CT noted pulm and cardiology f/u ID f/u, IV ATB per ID tremors, anxiety; prn xanax, see above; restarted po steroids 5 mg/day neurology f/u IVF gentle hydration h/o renal transplant CRF; watch for CHF, h/o legs edema in the past immunosupressed, h/o renal transplant, IV steroids per pulm falls PFX d/w pt do not get OOB alone DVT PFX f/u labs and CX prognosis guarded d/w pt and staff d/w daughter
[2017-05-20 07:20] LABS: HEMATOCRIT 29.5 % (32.4-45.2); HEMOGLOBIN 10.1 GM/dL (10.7-15.3); MCH 34.3 pg (25.7-33.7); MCHC 34.3 g/dl (32.0-36.0); MEAN CELL VOLUME 100.1 fl (80-96); MEAN PLT VOLUME 9.1 fl (7.5-11.1); PLATELET COUNT 363 K/MM3 (134-434); RBC 2.95 M/mm3 (3.60-5.2); RDW 16.2 % (11.6-15.6); WHITE BLOOD COUNT 9.6 K/mm3 (4.0-10.0)
[2017-05-20] MEDS: HEPARIN NA (PORCINE) 5,000 UNITS/ML 1ML VIAL SQ SCH ×2 (09:18→22:13)
[2017-05-20] MEDS: predniSONE 5 MG TABLET (UD) PO SCH (09:18)
[2017-05-20] MEDS: PANTOPRAZOLE 40 MG TABLET (FP) PO SCH (09:18)
[2017-05-20] MEDS: azaTHIOprine 50 MG TABLET PO SCH (09:18)
--- NOTE | 2017-05-20 09:18 | PN ---
Progress Note, Physician History of Present Illness: Seen and examined No events overnight per RN Abdominal pain improved Eating breakfast Mild dyspnea - Current Medication List Current Medications: Active Medications Acetaminophen (Tylenol -) 650 mg PO Q8H PRN PRN Reason: PAIN Last Admin: 05/18/17 09:42 Dose: 650 mg Albuterol/Ipratropium (Duoneb -) 1 amp NEB Q6H PRN PRN Reason: SHORT OF BREATH/WHEEZING Last Admin: 05/19/17 18:59 Dose: 1 amp Alprazolam (Xanax -) 0.25 mg PO DAILY PRN PRN Reason: ANXIETY Last Admin: 05/19/17 21:45 Dose: 0.25 mg Azathioprine (Imuran -) 100 mg PO DAILY [facility] Last Admin: 05/19/17 10:55 Dose: 100 mg Diltiazem HCl (Cardizem Cd -) 240 mg PO DAILY [facility] Last Admin: 05/19/17 09:08 Dose: 240 mg Guaifenesin (Robitussin -) 10 ml PO Q8H PRN PRN Reason: COUGH Last Admin: 05/16/17 05:56 Dose: 10 ml Heparin Sodium (Porcine) (Heparin -) 5,000 unit SQ BID [facility] Last Admin: 05/19/17 21:45 Dose: 5,000 unit Piperacillin Sod/Tazobactam (Sod 3.375 gm/ Dextrose) 50 mls @ 100 mls/hr IVPB Q8H-IV [facility] Last Admin: 05/20/17 01:01 Dose: 100 mls/hr Levothyroxine Sodium (Synthroid -) 75 mcg PO AM [facility] Last Admin: 05/20/17 06:01 Dose: 75 mcg Metoclopramide HCl (Reglan -) 5 mg PO TIDAC [facility] Last Admin: 05/20/17 06:01 Dose: 5 mg Mometasone Furoate (Asmanex 220mcg -) 2 puff IH HS [facility] Last Admin: 05/19/17 21:45 Dose: 2 puff Pantoprazole Sodium (Protonix -) 40 mg PO DAILY [facility] Last Admin: 05/19/17 09:08 Dose: 40 mg Polyethylene Glycol (Miralax (For Daily Use) -) 17 gm PO HS PRN PRN Reason: CONSTIPATION Last Admin: 05/18/17 21:05 Dose: 17 gm Prednisone (Deltasone -) 5 mg PO DAILY [facility] Last Admin: 05/19/17 09:08 Dose: 5 mg - Objective Vital Signs: Vital Signs Temperature 98.3 F 05/20/17 06:01 Pulse Rate 75 05/20/17 06:01 Respiratory Rate 18 05/20/17 06:01 Blood Pressure 144/84 05/20/17 06:01 O2 Sat by Pulse Oximetry (%) 94 L 05/19/17 20:56 Constitutional: Yes: No Distress, Calm Eyes: Yes: WNL HENT: Yes: WNL Neck: Yes: WNL, Supple Cardiovascular: Yes: Regular Rate and Rhythm Gastrointestinal: Yes: WNL Extremities: Yes: WNL Edema: No Labs: CBC, BMP 05/20/17 06:00 INR, PTT INR 1.28 (0.82-1.09) H 05/14/17 10:00 Assessment/Plan a/p: 71 yo with pmhx of htn, CVA, pericarditis s/p pericardial window, kidney transplant, niddm, GERD, diverticulosis, hypothyroidism, hyperparathyroidism, gout, seizures (last 02/2017), asthma, recently treated for flu who p/w epigastric pain. CP - atypical for cardiac pain. Patient with pna and persistent cough. - ekg without acute ischemic changes. ce's neg x2 - echo 04/2017: mild lvh, g2dd, nl lvef, nl rv, mild lae, mod mr, mild tr htn - well controlled and stable on current meds -BP 134/82 this AM on Cardizem 240mg daily pna/abdominal pain -mgm't per pmd No other active CV issues
--- NOTE | 2017-05-20 11:05 | PN ---
Progress Note (short form) - Note Progress Note: was up all night urinating still coughing chest discomfort gone no abdominal pain Vital Signs Period Temp Pulse Resp BP Sys/Wang Pulse Ox Last 24 Hr 98.2 F-98.3 F 75-91 18-20 144-151/67-84 94 cor-rrr lungs bilateral rhonchi abd soft,nt ext no edema CBC, BMP 05/20/17 06:00 chem pending Microbiology 05/14/17 11:50 Blood - Peripheral Venous Blood Culture - Final NO GROWTH AFTER 5 DAYS INCUBATION 05/14/17 11:50 Blood - Peripheral Venous Blood Culture - Final NO GROWTH AFTER 5 DAYS INCUBATION 05/15/17 20:27 Sputum - Endotrachea Suction/Ventilator Gram Stain - Final 05/15/17 20:27 Sputum - Endotrachea Suction/Ventilator Sputum Culture - Final NORMAL RESPIRATORY DAMON 05/15/17 20:27 Urine For Antigen Detection Legionella Antigen - Final 05/15/17 20:27 Urine For Antigen Detection Streptococcus pneumoniae Antigen (M - Final 05/14/17 13:35 Urine - Urine Clean Catch Urine Culture - Final NO GROWTH OBTAINED 05/14/17 14:47 Nasopharyngeal Aspirate Influenza Types A,B Antigen (NAY) - Final 05/14/17 14:47 Nasopharyngeal Aspirate - Final Current Medications Acetaminophen (Tylenol -) 650 mg PO Q8H PRN PRN Reason: PAIN Last Admin: 05/18/17 09:42 Dose: 650 mg Albuterol/Ipratropium (Duoneb -) 1 amp NEB Q6H PRN PRN Reason: SHORT OF BREATH/WHEEZING Last Admin: 05/19/17 18:59 Dose: 1 amp Alprazolam (Xanax -) 0.25 mg PO DAILY PRN PRN Reason: ANXIETY Last Admin: 05/19/17 21:45 Dose: 0.25 mg Azathioprine (Imuran -) 100 mg PO DAILY [facility] Last Admin: 05/20/17 09:18 Dose: 100 mg Diltiazem HCl (Cardizem Cd -) 240 mg PO DAILY [facility] Last Admin: 05/20/17 09:18 Dose: 240 mg Guaifenesin (Robitussin -) 10 ml PO Q8H PRN PRN Reason: COUGH Last Admin: 05/16/17 05:56 Dose: 10 ml Heparin Sodium (Porcine) (Heparin -) 5,000 unit SQ BID [facility] Last Admin: 05/20/17 09:18 Dose: 5,000 unit Piperacillin Sod/Tazobactam (Sod 3.375 gm/ Dextrose) 50 mls @ 100 mls/hr IVPB Q8H-IV [facility] Last Admin: 05/20/17 09:17 Dose: 100 mls/hr Levothyroxine Sodium (Synthroid -) 75 mcg PO AM [facility] Last Admin: 05/20/17 06:01 Dose: 75 mcg Metoclopramide HCl (Reglan -) 5 mg PO TIDAC [facility] Last Admin: 05/20/17 11:03 Dose: 5 mg Mometasone Furoate (Asmanex 220mcg -) 2 puff IH HS [facility] Last Admin: 05/19/17 21:45 Dose: 2 puff Pantoprazole Sodium (Protonix -) 40 mg PO DAILY [facility] Last Admin: 05/20/17 09:18 Dose: 40 mg Polyethylene Glycol (Miralax (For Daily Use) -) 17 gm PO HS PRN PRN Reason: CONSTIPATION Last Admin: 05/18/17 21:05 Dose: 17 gm Prednisone (Deltasone -) 5 mg PO DAILY [facility] Last Admin: 05/20/17 09:18 Dose: 5 mg imp/reccd suspect post influenza pneumonia continue zosyn day #5 repeat cxray s/p renal transplant -f/u labs Problem List - Problems (1) Pneumonia Code(s): J18.9 - PNEUMONIA, UNSPECIFIED ORGANISM (2) Renal transplant recipient Code(s): Z94.0 - KIDNEY TRANSPLANT STATUS
[2017-05-20 11:12] LABS: CHLORIDE 104 mmol/L (98-107); POTASSIUM 3.9 mmol/L (3.5-5.1); SODIUM 141 mmol/L (136-145)
[2017-05-20 11:57] LABS: PLATELET ESTIMATE NORMAL
[2017-05-20 12:02] LABS: ANION GAP 12 (8-16); BLOOD UREA NITROGEN 20 mg/dL (7-18); CALCIUM 8.5 mg/dL (8.5-10.1); CO2 25 mmol/L (21-32); CREATININE 1.1 mg/dL (0.55-1.02); GLUCOSE,RANDOM 78 mg/dL (74-106); MAGNESIUM 2.1 mg/dL (1.8-2.4)
--- NOTE | 2017-05-20 12:34 | PN ---
Progress Note (short form) - Note Progress Note: PULMONARY COUGH CONTINUES VSS/AFEBRILE \ AWAKE/ALERT OOB TO CHAIR ANICTERIC SCATTERED LEFT POSTERIOR CRACKLES S1S2 BS+ NO EDEMA LABS/MEDS/NOTES/IMAGES/MICRO REVIEWED Pneumonia Asthma Lung Nodule (higher incidence of malignancies in organ recipients) Chronic Glomerulonephritis s/p renal transplant on immunosuppressives HTN Hypothyroidism GERD - antibiotics per ID/cultures negative thus far - bronchodilators prn - O2 as needed - DVT prophylaxis - will need outpt f/u of chest imaging to ensure resolution of infiltrates/ nodule Anna HEADLEY MD
--- NOTE | 2017-05-20 21:59 | EKG ---
Test Reason : Blood Pressure : / mmHG Vent. Rate : 101 BPM Atrial Rate : 101 BPM P-R Int : 156 ms QRS Dur : 104 ms QT Int : 362 ms P-R-T Axes : 064 -54 057 degrees QTc Int : 469 ms SINUS TACHYCARDIA POSSIBLE LEFT ATRIAL ENLARGEMENT LEFT ANTERIOR FASCICULAR BLOCK LEFT VENTRICULAR HYPERTROPHY ABNORMAL ECG WHEN COMPARED WITH ECG OF 14-MAY-2017 09:09, NO SIGNIFICANT CHANGE WAS FOUND Confirmed by ARPIT JAVIER MD ([id number]) on 05/20/2017 9:58:37 PM Referred By: Confirmed By:ARPIT JAVIER MD
[2017-05-20] MEDS: MOMETASONE FUROATE 220 MCG/IH INHALER IH SCH (22:13)
[2017-05-20] MEDS: ALPRAZolam 0.25 MG TABLET PO PRN (22:14)
[2017-05-20] MEDS: POLYETHYLENE GLYCOL 3350 119 GM BTL PO PRN (22:14)
[2017-05-21] MEDS ORDERED: PT OWN MED DRAWER 7, Y5N ONE ×5 (01:24→21:22)
[2017-05-21] MEDS: PIPERACILLIN/TAZOB 3.375 GM 3.375 GM in DEXTROSE 5%-WATER - 50 ML IVPB SCH ×3 (01:30→18:00)
[2017-05-21] MEDS: METOCLOPRAMIDE HCL 10 MG TABLET (FP) PO SCH ×3 (06:13→17:37)
[2017-05-21] MEDS: LEVOTHYROXINE NA 75 MCG TABLET (FP) PO SCH (06:13)
[2017-05-21 07:09] LABS: HEMATOCRIT 30.5 % (32.4-45.2); HEMOGLOBIN 10.3 GM/dL (10.7-15.3); MCHC 33.7 g/dl (32.0-36.0); MEAN CELL VOLUME 100.9 fl (80-96); MEAN PLT VOLUME 8.7 fl (7.5-11.1); PLATELET COUNT 368 K/MM3 (134-434); RBC 3.02 M/mm3 (3.60-5.2); RDW 16.1 % (11.6-15.6); WHITE BLOOD COUNT 9.4 K/mm3 (4.0-10.0)
[2017-05-21] MEDS: ALBUTEROL SO4 2.5/IPRATROPIUM 0.5 INH SOL 3 ML VIAL.NEB. NEB PRN (07:30)
[2017-05-21 07:34] LABS: ANION GAP 5 (8-16); BLOOD UREA NITROGEN 23 mg/dL (7-18); CALCIUM 8.4 mg/dL (8.5-10.1); CHLORIDE 104 mmol/L (98-107); CO2 31 mmol/L (21-32); GLUCOSE,RANDOM 84 mg/dL (74-106); POTASSIUM 4.2 mmol/L (3.5-5.1); SODIUM 140 mmol/L (136-145)
[2017-05-21 07:36] LABS: CREATININE 1.1 mg/dL (0.55-1.02)
--- NOTE | 2017-05-21 08:27 | PN ---
Progress Note, Physician Chief Complaint: sob, cp History of Present Illness: sob "much better." cp resolved. no palpitations, syncope - Current Medication List Current Medications: Active Medications Acetaminophen (Tylenol -) 650 mg PO Q8H PRN PRN Reason: PAIN Last Admin: 05/18/17 09:42 Dose: 650 mg Albuterol/Ipratropium (Duoneb -) 1 amp NEB Q6H PRN PRN Reason: SHORT OF BREATH/WHEEZING Last Admin: 05/21/17 07:30 Dose: 1 amp Alprazolam (Xanax -) 0.25 mg PO DAILY PRN PRN Reason: ANXIETY Last Admin: 05/20/17 22:14 Dose: 0.25 mg Azathioprine (Imuran -) 100 mg PO DAILY [facility] Last Admin: 05/20/17 09:18 Dose: 100 mg Diltiazem HCl (Cardizem Cd -) 240 mg PO DAILY [facility] Last Admin: 05/20/17 09:18 Dose: 240 mg Guaifenesin (Robitussin -) 10 ml PO Q8H PRN PRN Reason: COUGH Last Admin: 05/16/17 05:56 Dose: 10 ml Heparin Sodium (Porcine) (Heparin -) 5,000 unit SQ BID [facility] Last Admin: 05/20/17 22:13 Dose: 5,000 unit Piperacillin Sod/Tazobactam (Sod 3.375 gm/ Dextrose) 50 mls @ 100 mls/hr IVPB Q8H-IV [facility] Last Admin: 05/21/17 01:30 Dose: 100 mls/hr Levothyroxine Sodium (Synthroid -) 75 mcg PO AM [facility] Last Admin: 05/21/17 06:13 Dose: 75 mcg Metoclopramide HCl (Reglan -) 5 mg PO TIDAC [facility] Last Admin: 05/21/17 06:13 Dose: 5 mg Mometasone Furoate (Asmanex 220mcg -) 2 puff IH HS [facility] Last Admin: 05/20/17 22:13 Dose: 2 puff Pantoprazole Sodium (Protonix -) 40 mg PO DAILY [facility] Last Admin: 05/20/17 09:18 Dose: 40 mg Polyethylene Glycol (Miralax (For Daily Use) -) 17 gm PO HS PRN PRN Reason: CONSTIPATION Last Admin: 05/20/17 22:14 Dose: 17 gm Prednisone (Deltasone -) 5 mg PO DAILY [facility] Last Admin: 05/20/17 09:18 Dose: 5 mg - Objective Vital Signs: Vital Signs Temperature 98.2 F 05/21/17 05:55 Pulse Rate 65 05/21/17 05:55 Respiratory Rate 18 05/21/17 05:55 Blood Pressure 127/60 05/21/17 05:55 O2 Sat by Pulse Oximetry (%) 95 05/20/17 20:42 Constitutional: Yes: Well Nourished, No Distress, Calm Cardiovascular: Yes: Regular Rate and Rhythm, S1, S2. No: Gallop, Murmur Respiratory: Yes: Regular, CTA Bilaterally. No: Accessory Muscle Use, Rales, Rhonchi, Wheezes Extremities: No: Cold Edema: No Neurological: Yes: Alert, Oriented Psychiatric: No: Agitated Labs: CBC, BMP 05/21/17 06:05 05/21/17 06:05 INR, PTT INR 1.28 (0.82-1.09) H 05/14/17 10:00 Assessment/Plan Echo 04/2017: mild lvh, g2dd, nl lvef, nl rv, mild lae, mod mr, mild tr a/p: 71 yo with pmhx of htn, CVA, pericarditis s/p pericardial window, kidney transplant, niddm, GERD, diverticulosis, hypothyroidism, hyperparathyroidism, gout, seizures (last 02/2017), asthma, recently treated for flu who p/w epigastric pain. CP - atypical for cardiac pain. Patient with pna and persistent cough. - ekg without acute ischemic changes. ce's neg x2 - observe clinically, as PNA resolves htn - well controlled and stable on current meds - same plan pna/abdominal pain -mgm't per pmd, ID, pulm
[2017-05-21] MEDS: PANTOPRAZOLE 40 MG TABLET (FP) PO SCH (09:21)
[2017-05-21] MEDS: HEPARIN NA (PORCINE) 5,000 UNITS/ML 1ML VIAL SQ SCH ×2 (09:21→21:37)
[2017-05-21] MEDS: azaTHIOprine 50 MG TABLET PO SCH (09:21)
[2017-05-21] MEDS: predniSONE 5 MG TABLET (UD) PO SCH (09:35)
--- NOTE | 2017-05-21 10:01 | PN ---
Progress Note, Physician Chief Complaint: better day 6 IV ATB/ 7 per ID - Current Medication List Current Medications: Active Medications Acetaminophen (Tylenol -) 650 mg PO Q8H PRN PRN Reason: PAIN Last Admin: 05/18/17 09:42 Dose: 650 mg Albuterol/Ipratropium (Duoneb -) 1 amp NEB Q6H PRN PRN Reason: SHORT OF BREATH/WHEEZING Last Admin: 05/21/17 07:30 Dose: 1 amp Alprazolam (Xanax -) 0.25 mg PO DAILY PRN PRN Reason: ANXIETY Last Admin: 05/20/17 22:14 Dose: 0.25 mg Azathioprine (Imuran -) 100 mg PO DAILY [facility] Last Admin: 05/21/17 09:21 Dose: 100 mg Diltiazem HCl (Cardizem Cd -) 240 mg PO DAILY [facility] Last Admin: 05/21/17 09:21 Dose: 240 mg Guaifenesin (Robitussin -) 10 ml PO Q8H PRN PRN Reason: COUGH Last Admin: 05/16/17 05:56 Dose: 10 ml Heparin Sodium (Porcine) (Heparin -) 5,000 unit SQ BID [facility] Last Admin: 05/21/17 09:21 Dose: 5,000 unit Piperacillin Sod/Tazobactam (Sod 3.375 gm/ Dextrose) 50 mls @ 100 mls/hr IVPB Q8H-IV [facility] Last Admin: 05/21/17 09:22 Dose: 100 mls/hr Levothyroxine Sodium (Synthroid -) 75 mcg PO AM [facility] Last Admin: 05/21/17 06:13 Dose: 75 mcg Metoclopramide HCl (Reglan -) 5 mg PO TIDAC [facility] Last Admin: 05/21/17 06:13 Dose: 5 mg Mometasone Furoate (Asmanex 220mcg -) 2 puff IH HS [facility] Last Admin: 05/20/17 22:13 Dose: 2 puff Pantoprazole Sodium (Protonix -) 40 mg PO DAILY [facility] Last Admin: 05/21/17 09:21 Dose: 40 mg Polyethylene Glycol (Miralax (For Daily Use) -) 17 gm PO HS PRN PRN Reason: CONSTIPATION Last Admin: 05/20/17 22:14 Dose: 17 gm Prednisone (Deltasone -) 5 mg PO DAILY [facility] Last Admin: 05/21/17 09:35 Dose: 5 mg - Objective Vital Signs: Vital Signs Temperature 98.2 F 05/21/17 05:55 Pulse Rate 65 05/21/17 05:55 Respiratory Rate 18 05/21/17 05:55 Blood Pressure 127/60 05/21/17 05:55 O2 Sat by Pulse Oximetry (%) 95 05/20/17 20:42 Constitutional: Yes: No Distress, Calm Eyes: Yes: Conjunctiva Clear HENT: Yes: Atraumatic Neck: Yes: Supple Cardiovascular: Yes: Regular Rate and Rhythm Respiratory: Yes: CTA Bilaterally Gastrointestinal: Yes: Soft. No: Distention, Tenderness Genitourinary: No: CVA Tenderness - Left, CVA Tenderness - Right Musculoskeletal: No: Joint Stiffness, Joint Swelling Extremities: No: Cold, Cool, Cyanosis Edema: No Integumentary: No: Rash, Venous Stasis Changes Neurological: Yes: WNL, Alert, Oriented ...Motor Strength: WNL Psychiatric: Yes: WNL, Alert, Oriented. No: Agitated, Suicidal Ideation Labs: CBC, BMP 05/21/17 06:05 05/21/17 06:05 INR, PTT INR 1.28 (0.82-1.09) H 05/14/17 10:00 - ....Imaging Other: Report Reviewed Assessment/Plan The patient is a 71 year old female, with a significant past medical history of diabetes mellitus, CVA, kidney transplant, hypertension, hyperlipidemia, GERD, hypothyroidism, seizures, admitted with PNA cough and CP . S/p FLU/ URI 2 weeks ago treated with tamiflu and Zpack x5days at that time. chest CT noted pulm and cardiology f/u ID f/u, IV ATB per ID po steroids 5 mg/day neurology f/u IVF gentle hydration h/o renal transplant CRF; watch for CHF, h/o legs edema in the past immunosupressed, h/o renal transplant. falls PFX d/w pt do not get OOB alone DVT PFX f/u labs and CX prognosis guarded d/w pt and staff d/w daughter
[2017-05-21 11:34] LABS: PLATELET ESTIMATE NORMAL
--- NOTE | 2017-05-21 12:23 | PN ---
Progress Note, Physician History of Present Illness: pulmonary alert,feeling better, -sob,less cough. - Current Medication List Current Medications: Active Medications Acetaminophen (Tylenol -) 650 mg PO Q8H PRN PRN Reason: PAIN Last Admin: 05/18/17 09:42 Dose: 650 mg Albuterol/Ipratropium (Duoneb -) 1 amp NEB Q6H PRN PRN Reason: SHORT OF BREATH/WHEEZING Last Admin: 05/21/17 07:30 Dose: 1 amp Alprazolam (Xanax -) 0.25 mg PO DAILY PRN PRN Reason: ANXIETY Last Admin: 05/20/17 22:14 Dose: 0.25 mg Azathioprine (Imuran -) 100 mg PO DAILY [facility] Last Admin: 05/21/17 09:21 Dose: 100 mg Diltiazem HCl (Cardizem Cd -) 240 mg PO DAILY [facility] Last Admin: 05/21/17 09:21 Dose: 240 mg Guaifenesin (Robitussin -) 10 ml PO Q8H PRN PRN Reason: COUGH Last Admin: 05/16/17 05:56 Dose: 10 ml Heparin Sodium (Porcine) (Heparin -) 5,000 unit SQ BID [facility] Last Admin: 05/21/17 09:21 Dose: 5,000 unit Piperacillin Sod/Tazobactam (Sod 3.375 gm/ Dextrose) 50 mls @ 100 mls/hr IVPB Q8H-IV [facility] Last Admin: 05/21/17 09:22 Dose: 100 mls/hr Levothyroxine Sodium (Synthroid -) 75 mcg PO AM [facility] Last Admin: 05/21/17 06:13 Dose: 75 mcg Metoclopramide HCl (Reglan -) 5 mg PO TIDAC [facility] Last Admin: 05/21/17 10:17 Dose: 5 mg Mometasone Furoate (Asmanex 220mcg -) 2 puff IH HS [facility] Last Admin: 05/20/17 22:13 Dose: 2 puff Pantoprazole Sodium (Protonix -) 40 mg PO DAILY [facility] Last Admin: 05/21/17 09:21 Dose: 40 mg Polyethylene Glycol (Miralax (For Daily Use) -) 17 gm PO HS PRN PRN Reason: CONSTIPATION Last Admin: 05/20/17 22:14 Dose: 17 gm Prednisone (Deltasone -) 5 mg PO DAILY [facility] Last Admin: 05/21/17 09:35 Dose: 5 mg - Objective Vital Signs: Vital Signs Temperature 98.5 F 05/21/17 09:00 Pulse Rate 86 05/21/17 09:00 Respiratory Rate 18 05/21/17 09:00 Blood Pressure 115/60 05/21/17 09:00 O2 Sat by Pulse Oximetry (%) 95 05/21/17 09:00 Constitutional: Yes: Well Nourished, Calm Eyes: Yes: WNL HENT: Yes: WNL Neck: Yes: WNL Cardiovascular: Yes: Regular Rate and Rhythm, S1, S2 Respiratory: Yes: Rhonchi (few rhonchi) Gastrointestinal: Yes: Normal Bowel Sounds, Soft Extremities: Yes: WNL Edema: No Labs: CBC, BMP 05/21/17 06:05 05/21/17 06:05 INR, PTT INR 1.28 (0.82-1.09) H 05/14/17 10:00 Assessment/Plan A/P Pneumonia clinically improving Asthma Lung Nodule Chronic Glomerulonephritis s/p renal transplant on immunosuppressives HTN Hypothyroidism GERD - antibiotics per ID - inhaled bronchodilators - albuterol as needed - O2 as needed - DVT prophylaxis - will need outpt f/u of chest imaging to ensure resolution of infiltrates/ nodule Problem List - Problems (1) Pneumonia Code(s): J18.9 - PNEUMONIA, UNSPECIFIED ORGANISM (2) Lung nodule Code(s): R91.1 - SOLITARY PULMONARY NODULE (3) Asthma Code(s): J45.909 - UNSPECIFIED ASTHMA, UNCOMPLICATED (4) HTN (hypertension) Code(s): I10 - ESSENTIAL (PRIMARY) HYPERTENSION (5) Hypothyroidism Code(s): E03.9 - HYPOTHYROIDISM, UNSPECIFIED (6) Renal transplant recipient Code(s): Z94.0 - KIDNEY TRANSPLANT STATUS (7) Chronic glomerulonephritis Code(s): N03.9 - CHRONIC NEPHRITIC SYNDROME WITH UNSP MORPHOLOGIC CHANGES
--- NOTE | 2017-05-21 13:43 | PN ---
Progress Note (short form) - Note Progress Note: feels better Vital Signs Period Temp Pulse Resp BP Sys/Wang Pulse Ox Last 24 Hr 98 F-98.5 F 65-86 18-18 115-133/60-66 95-95 cor-rrr lungs clear abd soft,nt ext no edema CBC, BMP 05/21/17 06:05 05/21/17 06:05 Microbiology 05/14/17 11:50 Blood - Peripheral Venous Blood Culture - Final NO GROWTH AFTER 5 DAYS INCUBATION 05/14/17 11:50 Blood - Peripheral Venous Blood Culture - Final NO GROWTH AFTER 5 DAYS INCUBATION 05/15/17 20:27 Sputum - Endotrachea Suction/Ventilator Gram Stain - Final 05/15/17 20:27 Sputum - Endotrachea Suction/Ventilator Sputum Culture - Final NORMAL RESPIRATORY DAMON 05/15/17 20:27 Urine For Antigen Detection Legionella Antigen - Final 05/15/17 20:27 Urine For Antigen Detection Streptococcus pneumoniae Antigen (M - Final 05/14/17 13:35 Urine - Urine Clean Catch Urine Culture - Final NO GROWTH OBTAINED 05/14/17 14:47 Nasopharyngeal Aspirate Influenza Types A,B Antigen (NAY) - Final 05/14/17 14:47 Nasopharyngeal Aspirate - Final Current Medications Acetaminophen (Tylenol -) 650 mg PO Q8H PRN PRN Reason: PAIN Last Admin: 05/18/17 09:42 Dose: 650 mg Albuterol/Ipratropium (Duoneb -) 1 amp NEB Q6H PRN PRN Reason: SHORT OF BREATH/WHEEZING Last Admin: 05/21/17 07:30 Dose: 1 amp Alprazolam (Xanax -) 0.25 mg PO DAILY PRN PRN Reason: ANXIETY Last Admin: 05/20/17 22:14 Dose: 0.25 mg Azathioprine (Imuran -) 100 mg PO DAILY [facility] Last Admin: 05/21/17 09:21 Dose: 100 mg Diltiazem HCl (Cardizem Cd -) 240 mg PO DAILY [facility] Guaifenesin (Robitussin -) 10 ml PO Q8H PRN PRN Reason: COUGH Last Admin: 05/16/17 05:56 Dose: 10 ml Heparin Sodium (Porcine) (Heparin -) 5,000 unit SQ BID [facility] Last Admin: 05/21/17 09:21 Dose: 5,000 unit Piperacillin Sod/Tazobactam (Sod 3.375 gm/ Dextrose) 50 mls @ 100 mls/hr IVPB Q8H-IV [facility] Last Admin: 05/21/17 09:22 Dose: 100 mls/hr Levothyroxine Sodium (Synthroid -) 75 mcg PO AM [facility] Last Admin: 05/21/17 06:13 Dose: 75 mcg Metoclopramide HCl (Reglan -) 5 mg PO TIDAC [facility] Last Admin: 05/21/17 10:17 Dose: 5 mg Mometasone Furoate (Asmanex 220mcg -) 2 puff IH HS [facility] Last Admin: 05/20/17 22:13 Dose: 2 puff Pantoprazole Sodium (Protonix -) 40 mg PO DAILY [facility] Last Admin: 05/21/17 09:21 Dose: 40 mg Polyethylene Glycol (Miralax (For Daily Use) -) 17 gm PO HS PRN PRN Reason: CONSTIPATION Last Admin: 05/20/17 22:14 Dose: 17 gm Prednisone (Deltasone -) 5 mg PO DAILY [facility] Last Admin: 05/21/17 09:35 Dose: 5 mg imp/reccd suspect post influenza pneumonia continue zosyn day #6/7 repeat cxray improved cllinically improved s/p renal transplant -f/u labs ?PT eval Problem List - Problems (1) Pneumonia Code(s): J18.9 - PNEUMONIA, UNSPECIFIED ORGANISM (2) Renal transplant recipient Code(s): Z94.0 - KIDNEY TRANSPLANT STATUS
[2017-05-21] MEDS: guaiFENesin 200 MG/10 ML 10 ML UNIT-DOSE CUPS PO PRN (21:38)
[2017-05-21] MEDS: MOMETASONE FUROATE 220 MCG/IH INHALER IH SCH (21:38)
[2017-05-21] MEDS: ALPRAZolam 0.25 MG TABLET PO PRN (21:42)
[2017-05-22] MEDS ORDERED: PT OWN MED DRAWER 7, Y5N ONE ×3 (02:18→16:55)
[2017-05-22] MEDS: PIPERACILLIN/TAZOB 3.375 GM 3.375 GM in DEXTROSE 5%-WATER - 50 ML IVPB SCH ×3 (02:32→17:02)
[2017-05-22] MEDS: LEVOTHYROXINE NA 75 MCG TABLET (FP) PO SCH (06:13)
[2017-05-22] MEDS: METOCLOPRAMIDE HCL 10 MG TABLET (FP) PO SCH ×3 (06:13→17:01)
--- NOTE | 2017-05-22 07:21 | DS ---
Physical Examination Vital Signs: Vital Signs Temperature 98.1 F 05/22/17 06:00 Pulse Rate 62 05/22/17 06:00 Respiratory Rate 18 05/22/17 06:00 Blood Pressure 125/60 05/22/17 06:00 O2 Sat by Pulse Oximetry (%) 95 05/21/17 21:00 Findings/Remarks: feels well wants to go home; family will help her transportation po ATB home ordered (per ID) f/u as advised Constitutional: Yes: No Distress, Calm Eyes: Yes: Conjunctiva Clear HENT: Yes: Atraumatic Neck: Yes: Supple Cardiovascular: Yes: Regular Rate and Rhythm Respiratory: Yes: CTA Bilaterally Gastrointestinal: Yes: Soft. No: Distention, Tenderness Renal/: No: CVA Tenderness - Left, CVA Tenderness - Right Musculoskeletal: No: Joint Stiffness, Joint Swelling Extremities: No: Cold, Cool, Cyanosis Edema: No Integumentary: No: Rash, Venous Stasis Changes Neurological: Yes: WNL, Alert, Oriented ...Motor Strength: WNL Psychiatric: Yes: WNL, Alert, Oriented. No: Agitated, Suicidal Ideation Labs: CBC, BMP 05/21/17 06:05 05/21/17 06:05 Discharge Summary Reason For Visit: ABDOMINAL PAIN Current Active Problems Abdominal pain (Acute) Benign essential tremor (Acute) Chronic glomerulonephritis (Acute) Cough (Acute) Epigastric pain (Acute) Gait abnormality (Acute) Gastroparesis (Acute) Leukocytosis (Acute) Lung nodule (Acute) Pneumonia (Acute) Procedures: Principal: admitted with PNA / Immunosupressed; s.p recent URI. Other Procedures: IV ATB per ID; IVF; seen also by renal and pulmonary drs. Hospital Course: improved with above; DC home on PO ATB; f/u as advised; RTER if worse or recurrent c/o. Condition: Guarded - Instructions Diet, Activity, Other Instructions: f/u PCP pulmonary in 1-2 weeks f/u cardiology and renal drs in 2-4 weeks check labs CBC CMP in 1-[address] in 2-3 months to ensure resolution of the lung infiltrate RTER if worse or recurrent c/o Referrals: Amelia Mehta [Primary Care Provider] - Keith Bolden MD [Staff Physician] - Minesh Torres MD [Staff Physician] - Orlando Sen MD [Staff Physician] - Disposition: VNS/HOME HEALTH CARE - Home Medications Comprehensive Discharge Medication List: Ambulatory Orders Levothyroxine [Synthroid -] 75 mcg PO DAILY 03/07/12 predniSONE [Deltasone -] 5 mg PO DAILY 07/11/13 Azathioprine [Imuran] 100 mg PO DAILY 12/20/14 Diltiazem Cd [Cardizem Cd -] 240 mg PO DAILY 02/20/17 Fluticasone Propionate [Flovent Hfa] 110 mcg IH BID 02/20/17 Furosemide [Lasix -] 40 mg PO DAILY 02/20/17
[2017-05-22] MEDS: azaTHIOprine 50 MG TABLET PO SCH (09:16)
[2017-05-22] MEDS: predniSONE 5 MG TABLET (UD) PO SCH (09:16)
[2017-05-22] MEDS: HEPARIN NA (PORCINE) 5,000 UNITS/ML 1ML VIAL SQ SCH (09:16)
[2017-05-22] MEDS: PANTOPRAZOLE 40 MG TABLET (FP) PO SCH (09:16)
--- NOTE | 2017-05-22 12:30 | PN ---
Progress Note (short form) - Note Progress Note: Eating in lunch on RA. No acute events overnight. Intake & Output 05/19/17 05/20/17 05/21/17 05/22/17 23:59 23:59 23:59 23:59 Intake Total 1565 150 780 370 Balance 1565 150 780 370 Last Vital Signs Temp Pulse Resp BP Pulse Ox 98.4 F 65 18 113/54 95 05/22/17 09:00 05/22/17 09:00 05/22/17 09:00 05/22/17 09:00 05/22/17 09:00 Active Medications Acetaminophen (Tylenol -) 650 mg PO Q8H PRN PRN Reason: PAIN Last Admin: 05/18/17 09:42 Dose: 650 mg Albuterol/Ipratropium (Duoneb -) 1 amp NEB Q6H PRN PRN Reason: SHORT OF BREATH/WHEEZING Last Admin: 05/21/17 07:30 Dose: 1 amp Azathioprine (Imuran -) 100 mg PO DAILY [facility] Last Admin: 05/22/17 09:16 Dose: 100 mg Diltiazem HCl (Cardizem Cd -) 240 mg PO DAILY [facility] Last Admin: 05/22/17 09:18 Dose: Not Given Guaifenesin (Robitussin -) 10 ml PO Q8H PRN PRN Reason: COUGH Last Admin: 05/21/17 21:38 Dose: 10 ml Heparin Sodium (Porcine) (Heparin -) 5,000 unit SQ BID [facility] Last Admin: 05/22/17 09:16 Dose: 5,000 unit Piperacillin Sod/Tazobactam (Sod 3.375 gm/ Dextrose) 50 mls @ 100 mls/hr IVPB Q8H-IV [facility] Last Admin: 05/22/17 09:16 Dose: 100 mls/hr Levothyroxine Sodium (Synthroid -) 75 mcg PO AM [facility] Last Admin: 05/22/17 06:13 Dose: 75 mcg Metoclopramide HCl (Reglan -) 5 mg PO TIDAC [facility] Last Admin: 05/22/17 11:22 Dose: 5 mg Mometasone Furoate (Asmanex 220mcg -) 2 puff IH HS [facility] Last Admin: 05/21/17 21:38 Dose: 2 puff Pantoprazole Sodium (Protonix -) 40 mg PO DAILY [facility] Last Admin: 05/22/17 09:16 Dose: 40 mg Polyethylene Glycol (Miralax (For Daily Use) -) 17 gm PO HS PRN PRN Reason: CONSTIPATION Last Admin: 05/20/17 22:14 Dose: 17 gm Prednisone (Deltasone -) 5 mg PO DAILY [facility] Last Admin: 05/22/17 09:16 Dose: 5 mg Constitutional: Yes: NAD Eyes: Yes: WNL HENT: Yes: WNL Neck: Yes: WNL Cardiovascular: Yes: Regular Rate and Rhythm, S1, S2 Respiratory: Yes: Few scattered Rhonchi Gastrointestinal: Yes: Normal Bowel Sounds, Soft Extremities: Yes: WNL Edema: No Labs: Problem List - Problems (1) Pneumonia Code(s): J18.9 - PNEUMONIA, UNSPECIFIED ORGANISM (2) Lung nodule Code(s): R91.1 - SOLITARY PULMONARY NODULE (3) Asthma Code(s): J45.909 - UNSPECIFIED ASTHMA, UNCOMPLICATED (4) HTN (hypertension) Code(s): I10 - ESSENTIAL (PRIMARY) HYPERTENSION (5) Hypothyroidism Code(s): E03.9 - HYPOTHYROIDISM, UNSPECIFIED (6) Renal transplant recipient Code(s): Z94.0 - KIDNEY TRANSPLANT STATUS (7) Chronic glomerulonephritis Code(s): N03.9 - CHRONIC NEPHRITIC SYNDROME WITH UNSP MORPHOLOGIC CHANGES Assessment/Plan Pneumonia clinically improving Asthma Lung Nodule Chronic Glomerulonephritis s/p renal transplant on immunosuppressives HTN Hypothyroidism GERD PLAN: ABX per ID BD TX VTE prophylaxis Will need outpatient followup imaging in about 6 weeks to ensure resolution of infiltrates/nodule Dr Douglas
--- NOTE | 2017-05-22 13:27 | PN ---
Progress Note (short form) - Note Progress Note: Renal follow up for renal transplant Pt seen and examined at the bedside feels better but fatigued no fever or chills denies any sob for d/c home today Vital Signs Temperature 98.4 F 05/22/17 09:00 Pulse Rate 65 05/22/17 09:00 Respiratory Rate 18 05/22/17 09:00 Blood Pressure 113/54 05/22/17 09:00 O2 Sat by Pulse Oximetry (%) 95 05/22/17 09:00 Intake & Output 05/19/17 05/20/17 05/21/17 05/22/17 23:59 23:59 23:59 23:59 Intake Total 1565 150 780 370 Balance 1565 150 780 370 NAD awake and alert RRR course BS NO LE edema CBC, BMP 05/21/17 06:05 05/21/17 06:05 Current Medications Acetaminophen (Tylenol -) 650 mg PO Q8H PRN PRN Reason: PAIN Last Admin: 05/18/17 09:42 Dose: 650 mg Albuterol/Ipratropium (Duoneb -) 1 amp NEB Q6H PRN PRN Reason: SHORT OF BREATH/WHEEZING Last Admin: 05/21/17 07:30 Dose: 1 amp Azathioprine (Imuran -) 100 mg PO DAILY [facility] Last Admin: 05/22/17 09:16 Dose: 100 mg Diltiazem HCl (Cardizem Cd -) 240 mg PO DAILY [facility] Last Admin: 05/22/17 09:18 Dose: Not Given Guaifenesin (Robitussin -) 10 ml PO Q8H PRN PRN Reason: COUGH Last Admin: 05/21/17 21:38 Dose: 10 ml Heparin Sodium (Porcine) (Heparin -) 5,000 unit SQ BID [facility] Last Admin: 05/22/17 09:16 Dose: 5,000 unit Piperacillin Sod/Tazobactam (Sod 3.375 gm/ Dextrose) 50 mls @ 100 mls/hr IVPB Q8H-IV [facility] Last Admin: 05/22/17 09:16 Dose: 100 mls/hr Levothyroxine Sodium (Synthroid -) 75 mcg PO AM [facility] Last Admin: 05/22/17 06:13 Dose: 75 mcg Metoclopramide HCl (Reglan -) 5 mg PO TIDAC [facility] Last Admin: 05/22/17 11:22 Dose: 5 mg Mometasone Furoate (Asmanex 220mcg -) 2 puff IH HS [facility] Last Admin: 05/21/17 21:38 Dose: 2 puff Pantoprazole Sodium (Protonix -) 40 mg PO DAILY [facility] Last Admin: 05/22/17 09:16 Dose: 40 mg Polyethylene Glycol (Miralax (For Daily Use) -) 17 gm PO HS PRN PRN Reason: CONSTIPATION Last Admin: 05/20/17 22:14 Dose: 17 gm Prednisone (Deltasone -) 5 mg PO DAILY [facility] Last Admin: 05/22/17 09:16 Dose: 5 mg 71 year old woman with PMhx of ESRD s/p renal transplant (25 years ago), hypertension, seizure disorder presented with abd pain, cough and subjective fever and found to have PNA. #ESRD with renal transplant #Anemia in CKD #Lactic acidosis #Post influenza PNA Renal function stable will continue imuran and prednisone Lactic acid improved but remains above normal limits, likely related to Nebs/B- agoints as pt w/o overt hypotension or other indication of organ hypoprofusion continue Abx as per ID requested that pt follow up with Dr. George in 1-2 weeks upon discharge Orlando Sen DO
--- NOTE | 2017-05-22 14:03 | PN ---
Progress Note (short form) - Note Progress Note: Chief Complaint: sob, cp History of Present Illness: sob "much better." cp resolved. no palpitations, syncope. Feels well. Has plan for discharge today. Current Medications Acetaminophen (Tylenol -) 650 mg PO Q8H PRN PRN Reason: PAIN Last Admin: 05/18/17 09:42 Dose: 650 mg Azathioprine (Imuran -) 100 mg PO DAILY [facility] Last Admin: 05/22/17 09:16 Dose: 100 mg Diltiazem HCl (Cardizem Cd -) 240 mg PO DAILY [facility] Last Admin: 05/22/17 09:18 Dose: Not Given Guaifenesin (Robitussin -) 10 ml PO Q8H PRN PRN Reason: COUGH Last Admin: 05/21/17 21:38 Dose: 10 ml Heparin Sodium (Porcine) (Heparin -) 5,000 unit SQ BID [facility] Last Admin: 05/22/17 09:16 Dose: 5,000 unit Piperacillin Sod/Tazobactam (Sod 3.375 gm/ Dextrose) 50 mls @ 100 mls/hr IVPB Q8H-IV [facility] Last Admin: 05/22/17 09:16 Dose: 100 mls/hr Levothyroxine Sodium (Synthroid -) 75 mcg PO AM [facility] Last Admin: 05/22/17 06:13 Dose: 75 mcg Metoclopramide HCl (Reglan -) 5 mg PO TIDAC [facility] Last Admin: 05/22/17 11:22 Dose: 5 mg Mometasone Furoate (Asmanex 220mcg -) 2 puff IH HS [facility] Last Admin: 05/21/17 21:38 Dose: 2 puff Pantoprazole Sodium (Protonix -) 40 mg PO DAILY [facility] Last Admin: 05/22/17 09:16 Dose: 40 mg Polyethylene Glycol (Miralax (For Daily Use) -) 17 gm PO HS PRN PRN Reason: CONSTIPATION Last Admin: 05/20/17 22:14 Dose: 17 gm Prednisone (Deltasone -) 5 mg PO DAILY [facility] Last Admin: 05/22/17 09:16 Dose: 5 mg - Objective Vital Signs - 24 hr 05/21/17 05/21/17 05/21/17 14:06 18:26 21:00 Temperature 98.7 F 98.8 F Pulse Rate 75 67 Respiratory 16 18 Rate Blood Pressure 111/63 118/54 O2 Sat by Pulse 95 Oximetry (%) 05/22/17 05/22/17 06:00 09:00 Temperature 98.1 F 98.4 F Pulse Rate 62 65 Respiratory 18 18 Rate Blood Pressure 125/60 113/54 O2 Sat by Pulse 95 Oximetry (%) Intake & Output 05/20/17 05/21/17 05/22/17 05/23/17 07:59 07:59 07:59 07:59 Intake Total 915 100 900 250 Balance 915 100 900 250 Constitutional: Yes: Well Nourished, No Distress, Calm Cardiovascular: Yes: Regular Rate and Rhythm, S1, S2. No: Gallop, Murmur Respiratory: Yes: Regular, CTA Bilaterally. No: Accessory Muscle Use, Rales, Rhonchi, Wheezes + bs soft nt nd Extremities: + dp/pt No: Cold Edema: No Neurological: Yes: Alert, Oriented Psychiatric: No: Agitated Labs: CBC, BMP 05/21/17 06:05 05/21/17 06:05 Assessment/Plan Echo 04/2017: mild lvh, g2dd, nl lvef, nl rv, mild lae, mod mr, mild tr a/p: 71 yo with pmhx of htn, CVA, pericarditis s/p pericardial window, kidney transplant, niddm, GERD, diverticulosis, hypothyroidism, hyperparathyroidism, gout, seizures (last 02/2017), asthma, recently treated for flu who p/w epigastric pain. CP - atypical for cardiac pain. Patient with pna and persistent cough. - ekg without acute ischemic changes. ce's neg x2 - observe clinically, as PNA resolves htn - well controlled and stable on current meds (outpatient regimen) - same plan pna/abdominal pain -mgm't per pmd, ID, pulm
[2017-05-22 15:17] VITALS: BP 118/56; PULSE 69; TEMP 98.5
== END 2017-05-22 18:34 | disposition home health service (06) | DRG 194 ==
LOC: JER 09:01 → JERBED 11:18 → J4S 05-15 18:30
PROVIDERS: ADMIT Internal Medicine; ATTEND Internal Medicine
DX: J11.00 Influenza due to unidentified influenza virus with unspecified type of pneumonia (principal); Z94.0 Kidney transplant status; E87.2 Acidosis; N03.9 Chronic nephritic syndrome with unspecified morphologic changes; E03.9 Hypothyroidism, unspecified; R07.89 Other chest pain; D63.1 Anemia in chronic kidney disease; R91.1 Solitary pulmonary nodule; J45.909 Unspecified asthma, uncomplicated; K21.9 Gastro-esophageal reflux disease without esophagitis; D72.829 Elevated white blood cell count, unspecified; K31.84 Gastroparesis; E11.43 Type 2 diabetes mellitus with diabetic autonomic (poly)neuropathy; R56.9 Unspecified convulsions; G25.0 Essential tremor; I12.9 Hypertensive chronic kidney disease with stage 1 through stage 4 chronic kidney disease, or unspecified chronic kidney disease; N18.9 Chronic kidney disease, unspecified
CPT/HCPCS: 36415; 71045-TC-FY; 71250-TC; 74176-TC; 76775-TC; 80048; 80053; 81003; 82150; 82272; 82550; 82607; 82728; 83540; 83605; 83690; 83735; 84100; 84443; 84484; 85025; 85027; 85044; 85610; 85651; 85730; 86140; 87040; 87070; 87086; 87205; 87804; 87899; 93005; 93010; 93306-TC; 94640; 97116-GP; 97161-GP; 99285-25; G0480; J0131; J1644; J7030

== ENCOUNTER 2018-04-25 19:33 | Inpatient (IN) | payer OTHER ==
[2018-04-25] MEDS ORDERED: ONDANSETRON 4 MG/2 ML VIAL ONE (19:47)
--- NOTE | 2018-04-25 19:48 | PDOC ---
History of Present Illness - General Stated Complaint: CHEST PAIN Time Seen by Provider: 04/25/18 19:38 - History of Present Illness Initial Comments: 04/25/18 19:42 72 yo F with h/o CVA, CAD, HTN, HLD, asthma,hypothyrodism, seizure disroder, pancreatitis, chornic glomerulonephritis, R sided renal transplant / immunosupression, pancreatitis, who p/w fever, and chest pain. Patient reports diffuse non pleuritic, non exertional, unremitting, retorsternal, epigastria chest pain radiating to BL neck and ear, and right shoulder. Also endorses 1 day of urinary urgency, and suprapubic pressure/discomfort. Normal bowel habits and PO intake. + nausea without vomiting x 1 day. Patient denies EM, Palpitations, cough, wheezing, PND, orthopnea, leg swelling, F/C, SOB, hematuria, BPR, diarrhea, constipation, lightheadedness, weakness, sensory changes. PMHx: as noted above. Denies h/o [place], PE/DVT. ROS: as noted SHx: Denies tobacco use, Etoh, IVDA Allergies: NKDA Past History - Past Medical History Allergies/Adverse Reactions: Allergies Allergy/AdvReac Type Severity Reaction Status Date / Time codeine Allergy Intermediate Vomiting Verified 04/25/18 19:58 AND SWELLING OF FACE Home Medications: Ambulatory Orders Levothyroxine [Synthroid -] 75 mcg PO DAILY 03/07/12 predniSONE [Deltasone -] 5 mg PO DAILY 07/11/13 Azathioprine [Imuran] 100 mg PO DAILY 12/20/14 Fluticasone Propionate [Flovent Hfa] 110 mcg IH BID 02/20/17 Acetaminophen [Tylenol .Regular Strength -] 650 mg PO Q8H PRN tablet 05/22/17 Cefuroxime Axetil [Ceftin -] 500 mg PO Q12H #10 tablet 05/22/17 Diltiazem Cd [Cardizem Cd -] 240 mg PO DAILY #0 cap 05/22/17 Furosemide [Lasix -] 40 mg PO DAILY PRN #30 tab 05/22/17 Polyethylene Glycol 3350 [Miralax 119 gm Btl -] 17 gm PO HS PRN bottle Ranitidine [Zantac -] 150 mg PO DAILY #30 tablet 05/22/17 Anemia: No Asthma: No Cancer: No Cardiac Disorders: Yes (CARDIOMEGALY, pericarditis) CVA: Yes COPD: No DVT: No Dementia: No Diabetes: Yes (borderline) Dialysis: No (kidney transplant) GI Disorders: No Disorders: No HTN: Yes Hypercholesterolemia: Yes Liver Disease: No Seizures: Yes (last february 2017) Thyroid Disease: Yes - Surgical History Abdominal Surgery: Yes (UMBILICAL HERNIA) Cardiac Surgery: Yes (percardial window,CARD CATH NO STENTS) Orthopedic Surgery: Yes (KNEE ARTHROSCOPY) - Immunization History Immunization Up to Date: Yes - Suicide/Smoking/Psychosocial Hx Smoking Status: No Smoking History: Never smoked Have you smoked in the past 12 months: No Number of Cigarettes Smoked Daily: 0 Hx Alcohol Use: No Drug/Substance Use Hx: No Substance Use Type: None Hx Substance Use Treatment: No Review of Systems - Review of Systems Comments:: 04/25/18 20:22 GENERAL/CONSTITUTIONAL: No fever or chills. No weakness. HEAD, EYES, EARS, NOSE AND THROAT: No change in vision. No ear pain or discharge. No sore throat. CARDIOVASCULAR:+ chest pain. No shortness of breath RESPIRATORY: No cough, wheezing, or hemoptysis. GASTROINTESTINAL: + nausea, vomiting. No diarrhea or constipation. GENITOURINARY: + frequency. No change in urination. MUSCULOSKELETAL: + joint and muscle pain. No neck pain. SKIN: No rash NEUROLOGIC: No headache, vertigo, loss of consciousness, or change in strength/ sensation. ENDOCRINE: No increased thirst. No abnormal weight change HEMATOLOGIC/LYMPHATIC: No anemia, easy bleeding, or history of blood clots. ALLERGIC/IMMUNOLOGIC: No hives or skin allergy. *Physical Exam - Physical Exam Comments: 04/25/18 20:24 GENERAL: Awake, alert, and fully oriented, in no acute distress HEAD: No signs of trauma, normocephalic, atraumatic EYES: PERRLA, EOMI, sclera anicteric, conjunctiva clear ENT: Auricles normal inspection, hearing grossly normal, nares patent, oropharynx clear without exudates. Moist mucosa NECK: Normal ROM, supple, no lymphadenopathy, JVD, or masses LUNGS: No distress, speaks full sentences, clear to auscultation bilaterally HEART: Regular rate and rhythm, normal S1 and S2, no murmurs, rubs or gallops, peripheral pulses normal and equal bilaterally. ABDOMEN: + epigastria and suprpapubic ttp. Soft, NDS, normoactive bowel sounds. No guarding, no rebound. No masses. Neg CVA ttp. EXTREMITIES : Normal inspection, Normal range of motion, no edema. No clubbing or cyanosis. NEUROLOGICAL: Cranial nerves II through XII grossly intact. Normal speech, no focal sensorimotor deficits SKIN: Warm, Dry, normal turgor, no rashes or lesions noted ED Treatment Course - LABORATORY CBC & Chemistry Diagram: 04/25/18 20:29 04/25/18 21:30 Medical Decision Making - Medical Decision Making 04/25/18 20:20 72 yo F with h/o CVA, CAD, HTN, HLD, asthma,hypothyrodism, seizure disroder, pancreatitis, chornic glomerulonephritis, R sided renal transplant / immunosupression, pancreatitis, who p/w fever, and chest pain. Rectal temp 102.6 , vitals otherwise wnl, A&Ox3. Physical exam notable for suprpaubic and epigastria ttp. ACS/[place] r/o. R/o PNA. Will consider pericardial effusion, pleural effusion, CHF, COPD. Possible cystitis, pancreatitis, colitis, gastroenteritis. Will assess for cardiac dysarrythmias, hypoglycemia, electrolyte abnml, metabolic and toxic derangements, acid-base disturbances, infection. Will provide antiemetic, antipyretic control, and adequate fluid hydration. Reassess. Ed Course: Sepsis protocol 30 cc/kg NS, Tylenol 1000 mg IV 04/25/18 21:42 WBC: 15.8 LA: 1.2 VBG: Unremarkable UA: 3+ Blood, 2+ LE, 148 WBC, 1 RBC Vancomycin, Ceftriaxone 04/25/18 21:43 EKG: NSR with incomplete RBBB. Absent JASMINE, STD. Normal interval and axis duration 04/25/18 21:46 trop- neg lipase- neg Flu: Neg 04/25/18 22:36 CMP: Unremarkable 04/25/18 22:37 CXR: Enlarged heart border. Contacted Dr. Amelia Mehta. Patient endorsed to Dr. Mehta. Accepted to med/surg Patient admitted med/surg *DC/Admit/Observation/Transfer Diagnosis at time of Disposition: UTI (urinary tract infection) Qualifiers: Urinary tract infection type: acute cystitis Hematuria presence: without hematuria Qualified Code(s): N30.00 - Acute cystitis without hematuria Sepsis Qualifiers: Sepsis type: sepsis due to unspecified organism Qualified Code(s): A41.9 - Sepsis, unspecified organism - Discharge Dispostion Condition at time of disposition: Fair Decision to Admit order: Yes - Referrals Referrals: Amelia Mehta [Primary Care Provider] - - Patient Instructions - Post Discharge Activity
[2018-04-25] MEDS ORDERED: ACETAMINOPHEN 1000 MG/100 ML VIAL (NON FORMULARY) IVPB ONE (20:17)
[2018-04-25] MEDS ORDERED: SODIUM CHLORIDE 1,905 ML IV ONE (20:17)
[2018-04-25] MEDS ORDERED: ACETAMINOPHEN INJECTION 100 ML IVPB ONE (20:57)
--- NOTE | 2018-04-25 21:24 | PDOC ---
Attending Attestation - Resident Resident Name: Ezequiel Mantilla - ED Attending Attestation I have performed the following: I have examined & evaluated the patient, The case was reviewed & discussed with the resident, I agree w/resident's findings & plan - HPI HPI: 04/25/18 21:20 72-year-old female with history of renal transplant 1990 presents with 1 day of fever/chills/body aches, describes epigastric/chest discomfort and also some dysuria and abdominal pain. Sent by Dr. Mehta for evaluation. - Physicial Exam PE: 04/25/18 21:21 Fever, tachycardia Warm to touch, otherwise alert and conversant in no acute respiratory distress Oropharynx clear, neck supple Lungs are clear without wheezing, heart is regular Abdomen is soft with diffuse discomfort to palpation but no guarding or rebound , slight tenderness over the transplanted kidney in the right lower quadrant No edema Neurologically intact - Critical Care Time Total Critical Care Time: 30 Critical Care Statement: The care of this patient involved high complexity decision making to prevent further life threatening deterioration of the patient 's condition and/or to evaluate & treat vital organ system(s) failure or risk of failure. - Medical Decision Making 04/25/18 21:22 72-year-old female with history of kidney transplant presents with Sirs/sepsis. Possible UTI, rule out influenza. Sepsis protocol initiated Antipyretics, IV fluids Antibiotics as indicated Admission Heart Score/ECG Review #1 ECG reviewed & interpreted by me at: 20:21 General ECG Interpretation: Sinus Rhythm, Normal Rate (95), Normal Intervals ( qtc 475, LAFB, LVH), No acute ischemic changes Compared to previous ECG there are: No significant change (c/w 05/15/17)
[2018-04-25 21:28] LABS: BASO % 0.3 % (0-2.0); HEMATOCRIT 38.4 % (32.4-45.2); LYMPH % 6.8 % (8-40); MCH 34.3 pg (25.7-33.7); MCHC 33.8 g/dl (32.0-36.0); MEAN CELL VOLUME 101.6 fl (80-96); MEAN PLT VOLUME 9.9 fl (7.5-11.1); MONO % 7.8 % (3.8-10.2); NEUT % 85.1 % (42.8-82.8); PLATELET COUNT 225 K/MM3 (134-434); RBC 3.78 M/mm3 (3.60-5.2); RDW 16.2 % (11.6-15.6); WHITE BLOOD COUNT 15.8 K/mm3 (4.0-10.0)
[2018-04-25 21:29] LABS: URINE APPEARANCE SLCLOUDY; URINE BILIRUBIN NEGATIVE (<2.0 mg/dL); URINE COLOR YELLOW; URINE GLUCOSE (UA) NEGATIVE (NEGATIVE); URINE KETONE NEGATIVE (NEGATIVE); URINE LEUK ESTERASE 3+ (NEGATIVE); URINE NITRITE NEGATIVE (NEGATIVE); URINE PROTEIN 2+ (NEGATIVE); URINE UROBILINOGEN NEGATIVE mg/dL (0.2-1.0)
[2018-04-25 21:31] LABS: VENOUS PC02 41.5 mmHg (38-52); VENOUS PH 7.42 (7.32-7.42); VENOUS PO2 30.2 mmHg (28-48)
[2018-04-25 21:34] LABS: EPI CELLS RARE /HPF (FEW); URINE BACTERIA RARE /hpf (NONE SEEN)
[2018-04-25] MEDS ORDERED: VANCOMYCIN 1 GM in D5W (PRE-DOCKED) 1,000 MG/250 ML IVPB ONE (21:34)
[2018-04-25] MEDS ORDERED: CEFTRIAXONE 1,000 MG in DEXTROSE 5%-WATER - 50 ML IVPB ONE (21:34)
[2018-04-25 21:41] LABS: INR 1.08 (0.83-1.09); PROTHROMBIN TIME (PATIENT) 12.8 SEC (9.7-13.0)
[2018-04-25 21:43] LABS: ACTIVATED PTT 25.3 SECONDS (25.2-36.5)
[2018-04-25] MEDS ORDERED: CEFTRIAXONE 1 GM/50 ML BAG ONE (21:55)
[2018-04-25 22:34] LABS: ALK PHOS 48 U/L (45-117); ANION GAP 10 MMOL/L (8-16); BILIRUBIN,TOTAL 0.8 mg/dL (0.2-1); BLOOD UREA NITROGEN 21 mg/dL (7-18); CALCIUM 8.8 mg/dL (8.5-10.1); CHLORIDE 104 mmol/L (98-107); CO2 24 mmol/L (21-32); CREATININE 1.2 mg/dL (0.55-1.3); GLUCOSE,RANDOM 102 mg/dL (74-106); POTASSIUM 4.7 mmol/L (3.5-5.1); SGOT/AST 30 U/L (15-37); SGPT/ALT 13 U/L (13-61); SODIUM 137 mmol/L (136-145); TOT PROT 6.7 g/dl (6.4-8.2)
[2018-04-25] MEDS ORDERED: VANCOMYCIN 1 GRAM (PRE-DOCKED) 1,000 MG/250 ML BAG IVPB ONE (22:43)
[2018-04-26] MEDS ORDERED: ONDANSETRON 4 MG/2 ML VIAL IVPB PRN (04:13)
[2018-04-26] MEDS ORDERED: ACETAMINOPHEN 325 MG TABLET (FP) ONE (04:18)
[2018-04-26] MEDS ORDERED: ONDANSETRON 4 MG/2 ML VIAL ONE (04:24)
[2018-04-26] MEDS: ACETAMINOPHEN 325 MG TABLET (FP) PO PRN (04:39)
[2018-04-26] MEDS ORDERED: POLYETHYLENE GLYCOL 3350 119 GM BTL PO PRN (06:27)
--- NOTE | 2018-04-26 06:31 | HP ---
Admitting History and Physical - Primary Care Physician PCP: Amelia Mehta S - Admission Chief Complaint: fever chills CP cough and dysuria History of Present Illness: 72 yo F with h/o CVA, CAD, HTN, HLD, asthma,hypothyrodism, seizure disroder, pancreatitis, chornic glomerulonephritis, R sided renal transplant / immunosupression, pancreatitis, c/o fever and chills for 1 day, and chest pain. Patient reports diffuse non pleuritic, non exertional, unremitting, retorsternal, epigastria chest pain radiating to BL neck and ear, and right shoulder. Also endorses 1 day of urinary urgency, and suprapubic pressure/ discomfort. Normal bowel habits and PO intake. + nausea without vomiting x 1 day. Pt had Pneumonia few times last year and needed admission to for it, chest CT noted, no h/o UTIs renal stones or hydronephrosis Patient denies EM, Palpitations, cough, wheezing, PND, orthopnea, leg swelling, F/C, SOB, hematuria, BPR, diarrhea, constipation, lightheadedness, weakness, sensory changes. History Source: Patient, Family Member, Medical Record Limitations to Obtaining History: No Limitations - Past Medical History [employer]: Yes: Seizure Cardiovascular: Yes: HTN Gastrointestinal: Yes: Diverticulosis, GERD Renal/: Yes: Renal Inusuff, Other (renal transplant) ...: No Musculoskeletal: Yes: Osteoarthritis Rheumatology: Yes: Gout Endocrine: Yes: Hypothyroidism, Hyperparathyroidism - Past Surgical History Past Surgical History: Yes: Hernia Repair (ventral). No: None, AAA Repair, AICD , Amputation, Appendectomy, Arthrosocopy, AV Fistula/Graft, Bariatric Surgery, Breast Biopsy, Bypass, CABG, Carotid Endarterectomy, Cataract Removal, Cholecystectomy, Colectomy, Colonoscopy, Colostomy, Craniotomy, , Cystectomy, Hysterectomy, Ileal Conduit, Ileosotomy, Joint Replacement, Kidney Transplant, Laminectomy, Liver Transplant, Mastectomy, Nephrectomy, Oopherectomy , Orchiectomy, Permanent Pacemaker, Prostatectomy, Splenectomy, Stent, Thoracotomy, TURP, Tonsillectomy, Tubal Ligation, Upper Endoscopy, Valve Replacement, Vasectomy, Vein Stripping/Ligation - Smoking History Smoking history: Never smoked Have you smoked in the past 12 months: No Aproximately how many cigarettes per day: 0 - Alcohol/Substance Use Hx Alcohol Use: No History of Substance Use: reports: None - Social History Usual Living Arrangement: Yes: Alone ADL: Independent History of Recent Travel: No Home Medications - Allergies Allergies/Adverse Reactions: Allergies Allergy/AdvReac Type Severity Reaction Status Date / Time codeine Allergy Intermediate Vomiting Verified 04/25/18 19:58 AND SWELLING OF FACE - Home Medications Home Medications: Ambulatory Orders Levothyroxine [Synthroid -] 75 mcg PO DAILY 03/07/12 predniSONE [Deltasone -] 5 mg PO DAILY 07/11/13 Azathioprine [Imuran] 100 mg PO DAILY 12/20/14 Fluticasone Propionate [Flovent Hfa] 110 mcg IH BID 02/20/17 Acetaminophen [Tylenol .Regular Strength -] 650 mg PO Q8H PRN tablet 05/22/17 Cefuroxime Axetil [Ceftin -] 500 mg PO Q12H #10 tablet 05/22/17 Diltiazem Cd [Cardizem Cd -] 240 mg PO DAILY #0 cap 05/22/17 Furosemide [Lasix -] 40 mg PO DAILY PRN #30 tab 05/22/17 Polyethylene Glycol 3350 [Miralax 119 gm Btl -] 17 gm PO HS PRN bottle Ranitidine [Zantac -] 150 mg PO DAILY #30 tablet 05/22/17 Family Disease History - Family Disease History Family Disease History: CA: Sister (breast) Review of Systems - Review of Systems Constitutional: reports: Chills, Diaphoresis, Fever, Lethargy, Loss of Appetite , Malaise Eyes: denies: Blind Spots, Blurred Vision, Double Vision HENT: denies: Difficult Swallowing, Ear Discharge, Epistaxis Cardiovascular: reports: Chest Pain (with cough). denies: Edema, Palpitations, Shortness of Breath Respiratory: reports: Cough, SOB on Exertion. denies: Hemoptysis, SOB, Wheezing Gastrointestinal: denies: Abdominal Pain, Bloating, Constipation, Diarrhea, Vomiting Genitourinary: reports: Dysuria, Urgency. denies: Flank Pain Musculoskeletal: denies: Back Pain, Joint Pain, Joint Swelling Integumentary: denies: Eczema, Rash, Wound Neurological: denies: Change in LOC, Change in Speech, Confusion, Dizziness Hematology/Lymphatic: denies: Easily Bruised, Excessive Bleeding Psychiatric: denies: Altered Sleep Pattern, Anxiety, Depression, Suicidal Physical Examination Vital Signs: Vital Signs Temperature 98.6 F 04/26/18 02:05 Pulse Rate 72 04/26/18 02:05 Respiratory Rate 19 04/26/18 02:05 Blood Pressure 128/49 L 04/26/18 02:05 O2 Sat by Pulse Oximetry (%) 96 04/26/18 02:00 Labs: CBC, BMP 04/25/18 20:29 04/25/18 21:30 Imaging - Results Chest X-ray: Report Reviewed Other: Report Reviewed Assessment/Plan 72 yo F with h/o CVA, CAD, HTN, HLD, asthma,hypothyrodism, seizure disroder, pancreatitis, chornic glomerulonephritis, R sided renal transplant / immunosupression, pancreatitis, who p/w fever, and chest pain pleuritic with cough, 1 day of urinary urgency, and suprapubic pressure/discomfort. Had h/o recvurrent PNA last year seen by pulm recently. temp 102.4 in ER shaking chills labs blood cx and Ucx sent - test meds consults reviewed and d/w pt and daughter IVF for hydration, borderline low BP noted will hold cardizem and given IVF d/w staff if SBP<90 transfer to ICU IV antibiotics; ID renal and pulm eval; d/we ID dr Aparicio renal f/u for renal transplant falls DVT pfx renal pelvic US r/o stones, hydronephrosis prognosis guarded t time 75 min
[2018-04-26] MEDS: LEVOTHYROXINE NA 75 MCG TABLET (FP) PO SCH (06:49)
[2018-04-26] MEDS ORDERED: cefTRIAXone SODIUM 1 GM VIAL ONE (09:53)
[2018-04-26] MEDS ORDERED: DEXTROSE 5%-WATER - 50 ML IVPB ONE ×3 (09:53→17:25)
[2018-04-26] MEDS ORDERED: PT OWN MED DRAWER 7, Y5N ONE ×2 (09:53→13:40)
[2018-04-26] MEDS ORDERED: CEFTRIAXONE 1 GM in DEXTROSE 5%-WATER - 50 ML IVPB SCH (10:00)
[2018-04-26] MEDS: HEPARIN NA (PORCINE) 5,000 UNITS/ML 1ML VIAL SQ SCH ×2 (10:07→22:08)
[2018-04-26] MEDS: RANITIDINE HCL 150 MG TABLET (FP) PO SCH (10:07)
[2018-04-26] MEDS: predniSONE 5 MG TABLET (UD) PO SCH (10:07)
--- NOTE | 2018-04-26 10:28 | EKG ---
Test Reason : Blood Pressure : / mmHG Vent. Rate : 095 BPM Atrial Rate : 095 BPM P-R Int : 152 ms QRS Dur : 112 ms QT Int : 378 ms P-R-T Axes : 059 -56 073 degrees QTc Int : 475 ms NORMAL SINUS RHYTHM INCOMPLETE RIGHT BUNDLE BRANCH BLOCK LEFT ANTERIOR FASCICULAR BLOCK LEFT VENTRICULAR HYPERTROPHY WITH REPOLARIZATION ABNORMALITY NONSPECIFIC ST ABNORMALITY Confirmed by LARRY HUI MD ([id number]) on 04/26/2018 10:28:02 AM Referred By: Confirmed By:LARRY HUI MD
[2018-04-26] MEDS: azaTHIOprine 50 MG TABLET PO SCH (10:50)
[2018-04-26] MEDS: PIPERACILLIN/TAZOB 3.375 GM 3.375 GM in DEXTROSE 5%-WATER - 50 ML IVPB SCH ×2 (10:55→17:56)
[2018-04-26] MEDS ORDERED: PNEUMOC 13-VAL CONJ-DIP CRM/PF 0.5 ML DISP.SYRIN IM ONE (11:00)
[2018-04-26] MEDS: SODIUM CHLORIDE 1,000 ML IV SCH (11:28)
[2018-04-26] MEDS ORDERED: PIPERACILLIN/TAZOBACTAM 3.375 GM VIAL IVPB ONE ×2 (11:45→17:25)
--- NOTE | 2018-04-26 13:01 | CONSULT ---
Consult - text type - Consultation Consultation Note: Renal Consult for mangement of renal transplant This is a 72 year old woman with history of ESRD s/p Renal transplant on Imuran and prednisone, Hypertension and hypothyrodism who presented from home with fever and diffuse body pain and found to have suspected cystitis and bacteremia. Pt says she had body pain for 2 days. No overt sob, cough, N/V/D. No dysuria. Has been complaint with all her medications. Does have dizziness and lightheadedness. PMHx: as above Allergies: NKDA Family Hx: NC Social Hx: No T/A/D ROS: as per HPI, all other pertinent ros negative Home Medications Medication Instructions Recorded Levothyroxine [Synthroid -] 75 mcg PO DAILY 03/07/12 predniSONE [Deltasone -] 5 mg PO DAILY 07/11/13 Azathioprine [Imuran] 100 mg PO DAILY 12/20/14 Fluticasone Propionate [Flovent 110 mcg IH BID 02/20/17 Hfa] Acetaminophen [Tylenol .Regular 650 mg PO Q8H PRN tablet 05/22/17 Strength -] Cefuroxime Axetil [Ceftin -] 500 mg PO Q12H #10 tablet 05/22/17 Diltiazem Cd [Cardizem Cd -] 240 mg PO DAILY #0 cap 05/22/17 Furosemide [Lasix -] 40 mg PO DAILY PRN #30 tab 05/22/17 Polyethylene Glycol 3350 [Miralax 17 gm PO HS PRN bottle 05/22/17 119 gm Btl -] Ranitidine [Zantac -] 150 mg PO DAILY #30 tablet 05/22/17 Vital Signs Temperature 100.2 F H 04/26/18 06:00 Pulse Rate 88 04/26/18 06:00 Respiratory Rate 18 04/26/18 06:00 Blood Pressure 133/71 04/26/18 06:00 O2 Sat by Pulse Oximetry (%) 96 04/26/18 02:00 Intake & Output 04/23/18 04/24/18 04/25/18 04/26/18 23:59 23:59 23:59 23:59 Intake Total 50 Balance 50 Weight 63.503 kg 59.602 kg NAD awake and alert necks supple, no JVD RRR, No M/R CTA no abd tenderness no LE edema, clubbing or cyanosis no tenderness over renal graft site CBC, BMP 04/25/18 20:29 04/25/18 21:30 Current Medications Acetaminophen (Tylenol -) 650 mg PO Q6H PRN PRN Reason: FEVER Last Admin: 04/26/18 04:39 Dose: 650 mg Azathioprine (Imuran -) 100 mg PO DAILY [facility] Diltiazem HCl (Cardizem Cd -) 240 mg PO DAILY [facility] Last Admin: 04/26/18 11:29 Dose: Not Given Heparin Sodium (Porcine) (Heparin -) 5,000 unit SQ BID [facility] Last Admin: 04/26/18 10:07 Dose: 5,000 unit Sodium Chloride (Normal Saline -) 1,000 mls @ 100 mls/hr IV ASDIR [facility] Last Admin: 04/26/18 11:28 Dose: 100 mls/hr Piperacillin Sod/Tazobactam (Sod 3.375 gm/ Dextrose) 50 mls @ 100 mls/hr IVPB Q8H-IV PURA; Protocol Last Admin: 04/26/18 10:55 Dose: 100 mls/hr Levothyroxine Sodium (Synthroid -) 75 mcg PO DAILY@0700 [facility] Last Admin: 04/26/18 06:49 Dose: 75 mcg Mometasone Furoate (Asmanex 220mcg -) 1 puff IH HS [facility] Ondansetron HCl (Zofran Injection) 8 mg IVPB Q6H PRN PRN Reason: NAUSEA AND/OR VOMITING Last Admin: 04/26/18 04:38 Dose: 8 mg Polyethylene Glycol (Miralax (For Daily Use) -) 17 gm PO HS PRN PRN Reason: CONSTIPATION Prednisone (Deltasone -) 5 mg PO DAILY [facility] Last Admin: 04/26/18 10:07 Dose: 5 mg Ranitidine HCl (Zantac -) 150 mg PO DAILY [facility] Last Admin: 04/26/18 10:07 Dose: 150 mg 72 year old woman with history of ESRD s/p Renal transplant on Imuran and prednisone, Hypertension and hypothyrodism who presented from home with fever and diffuse body pain and found to have suspected cystitis and bacteremia #Sepsis syndrome with bacteremia #ESRD with Renal Transplant #Hx of hypertensoin #Hypothyroidism f/u cultures, continue empiric antibiotics as per ID supportive care with antipyretics and isotonic saline keep MAP > 65 Renal function near baseline, would maintain on imuran and prednisone for now if pt does not show clinical improvement with antibiotics may need to adjust immunosupression. Continue to monitor renal function and electrolytes daily Thank you Orlando Sen DO
--- NOTE | 2018-04-26 13:02 | PN ---
Progress Note (short form) - Note Progress Note: ID CONSULT DICTATED GRAM NEGATIVE BACTEREMIA/ SEPSIS UTI R/O SEPSIS SECONDARY TO UTI S/P RENAL TRANSPLANT 1990 PENDING C/S EMPIRIC ZOSYN
--- NOTE | 2018-04-26 14:27 | CONS ---
DATE OF CONSULTATION: DATE OF DICTATION: 04/26/2018 HISTORY: The patient is a 72-year-old female status post renal transplant 1990 evaluated for positive blood cultures and sepsis. She was admitted to the hospital on April 25, 2018 with complaints of chest discomfort, fever, urinary urgency, suprapubic discomfort, and nausea for 1 day prior to admission. She was found on initial evaluation to have pyuria. Blood cultures now growing gram-negative rods. The patient complains of urinary urgency and frequency as well as suprapubic discomfort. She has nausea but no vomiting. She denies any shortness of breath, cough, sputum production. No complaints of vomiting or diarrhea. PAST MEDICAL HISTORY: Positive for renal disease status post renal transplant in 1990, stroke, hypertension, hyperlipidemia, coronary artery disease, gastroesophageal reflux, asthma, hypothyroidism, seizure disorder. PAST SURGICAL HISTORY: Status post renal transplant, umbilical hernia repair, pericardial window. ALLERGIES: CODEINE. MEDICATIONS: Tylenol, Imuran, Cardizem, heparin, Synthroid, prednisone, Zantac. SOCIAL HISTORY: She resides at home in the community. Nonsmoker. Nondrinker. SYSTEMS REVIEW: Neurologic: No loss of consciousness, seizure activity, focal weakness. Cardiac: Negative chest pain or palpitations. Respiratory: Negative cough or sputum production. Gastrointestinal: As per HPI. Genitourinary: As per HPI. LABORATORY DATA: White count 15.8, neutrophils 85, lymphocytes 6, monocytes 7, hematocrit 38.4, platelet count 225, BUN 21, creatinine 1.2. Urinalysis 148 white cells. Chest x-ray negative for acute infiltrate. Influenza swab negative. Blood and urine cultures pending. Blood cultures preliminarily gram-negative rods. PHYSICAL EXAMINATION: General: The patient is awake and alert. Not acutely toxic appearing. Vital Signs: T-max 102.9, blood pressure 133/71, pulse 85, regular, respirations 18 per minute. HEENT: Sclerae anicteric. Heart: S1, S2. Lungs: Clear. Abdomen: Soft. There is mild, diffuse tenderness to palpation. No mass, rebound, or rigidity. Extremities: Negative for edema. IMPRESSION: 1. Gram-negative bacteremia/sepsis secondary to urinary tract focus. 2. Urinary tract infection, rule out sepsis secondary to urinary tract infection. 3. Status post renal transplant on immunosuppressive therapy. PLAN: Await identification of blood isolet. Empiric antibiotic coverage with Zosyn. Obtain renal sonogram of transplant kidney. Further recommendations pending cultures. We will follow up. Thank you for the kind referral. LARRY CUENCA M.D. [id number]
--- NOTE | 2018-04-26 15:01 | PN ---
Progress Note (short form) - Note Progress Note: PULMONARY CONSULTATION DICTATED 04/26/18 IMP GRAM NEGATIVE BACTEREMIA /SEPSIS,LIKELY SOURCE ASTHMA H/O PULMONARY NODULES H/O RENAL TRANSPLANT 1990 ON IMURAN AND PREDNISONE HTN DM ASHD H/O PERICARDIAL EFFUSION S/P WINDOW H/O CVA GERD PLAN ABX PER ID O2 INHALED BRONCHODILATORS CHECK FINAL CULTURES MONITOR LYTES,CBC DR DONALD Problem List - Problems (1) Gram-negative bacteremia Code(s): R78.81 - BACTEREMIA (2) Sepsis Code(s): A41.9 - SEPSIS, UNSPECIFIED ORGANISM Qualifiers: Sepsis type: sepsis due to unspecified organism Qualified Code(s): A41.9 - Sepsis, unspecified organism (3) Asthma Code(s): J45.909 - UNSPECIFIED ASTHMA, UNCOMPLICATED (4) Lung nodule Code(s): R91.1 - SOLITARY PULMONARY NODULE (5) Nausea Code(s): R11.0 - NAUSEA (6) Asthma Code(s): J45.909 - UNSPECIFIED ASTHMA, UNCOMPLICATED (7) Diabetes Code(s): E11.9 - TYPE 2 DIABETES MELLITUS WITHOUT COMPLICATIONS (8) HTN (hypertension) Code(s): I10 - ESSENTIAL (PRIMARY) HYPERTENSION (9) Renal transplant recipient Code(s): Z94.0 - KIDNEY TRANSPLANT STATUS (10) Seizure Code(s): R56.9 - UNSPECIFIED CONVULSIONS
--- NOTE | 2018-04-26 17:09 | CONS ---
DATE OF CONSULTATION: 04/26/2018 PULMONARY CONSULTATION REFERRING PHYSICIAN: Amelia Mehta M.D. HISTORY OF PRESENT ILLNESS: The patient is a 72-year-old female with a past medical history significant for end-stage renal disease status post renal transplant in 1990 currently maintain on Imuran and prednisone, history of CVA, hypertension, pericardial effusion status post window, hyperlipidemia, ASHD, GERD, hypothyroidism, seizure disorder, pulmonary nodules stable, most likely inflammatory admitted to [facility] on April 26 secondary to fevers, chills, chest discomfort, and nausea x1 day. On admission she is noted to have pyuria. She had blood cultures obtained which were positive for gram-negative rods. She was transferred to the floor for further management. On admission, she is evaluated by Dr. Aparicio of infectious disease and placed on broad-spectrum antibiotics. Patient complains of shortness of breath with exertion chronically, states that she uses inhaled bronchodilators. She denies any hemoptysis, denies any chronic cough. Denies any history of recent travel. There is no history of DVT or PE in the past. PAST MEDICAL HISTORY: Again includes end-stage renal disease status post renal transplant currently on Imuran and prednisone, history of pericardial effusion status post pericardial window, gastroesophageal reflux, asthma, hypothyroidism, seizures, hyperlipidemia, hypertension, CVA. REVIEW OF SYSTEMS: Positive mild shortness of breath with exertion, no chest pain, no palpitations. Positive fevers, positive chills. No hemoptysis, no abdominal pain. CURRENT MEDICATIONS: Include Zofran, prednisone, Tylenol, Actinex, piperacillin , heparin, Cardizem, Miralax, normal saline, Imuran, Zantac, Synthroid. PHYSICAL EXAMINATION: GENERAL: The patient is a well-developed, well-nourished female currently awake , alert, in no acute distress. Her T-max is 102.9, currently 99.1. VITAL SIGNS: Blood pressure 107/58, respiratory rate 18, O2 saturation is 97% on room air. HEENT: Normocephalic, atraumatic. NECK: Supple. HEART: Regular S1, S2. CHEST: Clear. ABDOMEN: Soft, bowel sounds positive. EXTREMITIES: No cyanosis, edema. LABORATORY: BUN 21, creatinine 1.2. WBC is 15.8, hemoglobin 13.0, hematocrit 38.4, and platelet count of 225,000. INR is 1.08, lactate at 1.0. Chest x-ray shows cardiomegaly, there are increased markings lung field. Patient underwent a CT scan of the chest on April 16, revealed chronic lung disease nodularity in the upper lobe. IMPRESSION: 1. Gram-negative bacteremia, sepsis, likely . 2. History of asthma. 3. History of pulmonary nodules, nodularity likely inflammatory. 3. History of renal transplant 1990, currently on Imuran and prednisone. 4. Hypertension. 5. History of pericardial effusion status post pericardial window. 6. Arteriosclerotic heart disease. 7. Diabetes. 8. History of cerebrovascular accident. 9. Gastroesophageal reflux disease. PLAN: Antibiotics as per infectious disease. Supplemental O2. Inhaled bronchodilators. Check final cultures. Strict I's and O's. Monitor electrolytes. KIRIT DONALD M.D. [id number] MTDD
[2018-04-26] MEDS: MOMETASONE FUROATE 220 MCG/IH INHALER IH SCH (22:08)
[2018-04-27] MEDS ORDERED: DEXTROSE 5%-WATER - 50 ML IVPB ONE ×2 (01:22→10:19)
[2018-04-27] MEDS ORDERED: PIPERACILLIN/TAZOBACTAM 3.375 GM VIAL IVPB ONE ×2 (01:22→10:18)
[2018-04-27] MEDS: SODIUM CHLORIDE 1,000 ML IV SCH ×2 (01:37→10:33)
[2018-04-27] MEDS: PIPERACILLIN/TAZOB 3.375 GM 3.375 GM in DEXTROSE 5%-WATER - 50 ML IVPB SCH ×3 (01:38→18:34)
[2018-04-27] MEDS: ACETAMINOPHEN 325 MG TABLET (FP) PO PRN (01:38)
[2018-04-27] MEDS: LEVOTHYROXINE NA 75 MCG TABLET (FP) PO SCH (06:09)
[2018-04-27 08:07] LABS: BASO % 0.4 % (0-2.0); EOS % 0.8 % (0-4.5); HEMATOCRIT 31.3 % (32.4-45.2); HEMOGLOBIN 10.7 GM/dL (10.7-15.3); LYMPH % 13.6 % (8-40); MCH 34.7 pg (25.7-33.7); MCHC 34.1 g/dl (32.0-36.0); MEAN CELL VOLUME 101.8 fl (80-96); MEAN PLT VOLUME 9.7 fl (7.5-11.1); NEUT % 78.2 % (42.8-82.8); PLATELET COUNT 188 K/MM3 (134-434); RBC 3.07 M/mm3 (3.60-5.2); RDW 16.4 % (11.6-15.6)
[2018-04-27 08:40] LABS: ALBUMIN 2.3 g/dl (3.4-5.0); ALK PHOS 46 U/L (45-117); ANION GAP 5 MMOL/L (8-16); BILIRUBIN,TOTAL 0.6 mg/dL (0.2-1); BLOOD UREA NITROGEN 16 mg/dL (7-18); CALCIUM 7.8 mg/dL (8.5-10.1); CHLORIDE 113 mmol/L (98-107); CO2 25 mmol/L (21-32); CREATININE 1.3 mg/dL (0.55-1.3); GLUCOSE,RANDOM 83 mg/dL (74-106); POTASSIUM 3.6 mmol/L (3.5-5.1); SGOT/AST 10 U/L (15-37); SGPT/ALT 11 U/L (13-61); SODIUM 143 mmol/L (136-145); TOT PROT 5.5 g/dl (6.4-8.2)
[2018-04-27] MEDS ORDERED: PNEUMOC 13-VAL CONJ-DIP CRM/PF 0.5 ML DISP.SYRIN IM ONE (10:00)
[2018-04-27] MEDS ORDERED: PT OWN MED DRAWER 7, Y5N ONE (10:18)
[2018-04-27] MEDS: predniSONE 5 MG TABLET (UD) PO SCH (10:31)
[2018-04-27] MEDS: RANITIDINE HCL 150 MG TABLET (FP) PO SCH (10:31)
[2018-04-27] MEDS: HEPARIN NA (PORCINE) 5,000 UNITS/ML 1ML VIAL SQ SCH ×2 (10:31→22:06)
[2018-04-27] MEDS: azaTHIOprine 50 MG TABLET PO SCH (10:32)
--- NOTE | 2018-04-27 12:08 | PN ---
Progress Note (short form) - Note Progress Note: Breathing feels OK today. Some dry cough. No CP. No hemoptysis. Intake & Output 04/24/18 04/25/18 04/26/18 04/27/18 23:59 23:59 23:59 23:59 Intake Total 750 800 Balance 750 800 Weight 140 lb 131 lb 6.4 oz Last Vital Signs Temp Pulse Resp BP Pulse Ox 98.2 F 73 17 129/63 97 04/27/18 06:00 04/27/18 06:00 04/27/18 06:00 04/27/18 06:00 04/26/18 21:00 Active Medications Acetaminophen (Tylenol -) 650 mg PO Q6H PRN PRN Reason: FEVER Last Admin: 04/27/18 01:38 Dose: 650 mg Azathioprine (Imuran -) 100 mg PO DAILY [facility] Last Admin: 04/27/18 10:32 Dose: 100 mg Diltiazem HCl (Cardizem Cd -) 240 mg PO DAILY [facility] Last Admin: 04/27/18 10:31 Dose: 240 mg Heparin Sodium (Porcine) (Heparin -) 5,000 unit SQ BID [facility] Last Admin: 04/27/18 10:31 Dose: 5,000 unit Sodium Chloride (Normal Saline -) 1,000 mls @ 100 mls/hr IV ASDIR [facility] Last Admin: 04/27/18 10:33 Dose: Not Given Piperacillin Sod/Tazobactam (Sod 3.375 gm/ Dextrose) 50 mls @ 100 mls/hr IVPB Q8H-IV PURA; Protocol Last Admin: 04/27/18 10:32 Dose: 100 mls/hr Levothyroxine Sodium (Synthroid -) 75 mcg PO DAILY@0700 [facility] Last Admin: 04/27/18 06:09 Dose: 75 mcg Mometasone Furoate (Asmanex 220mcg -) 1 puff IH HS [facility] Last Admin: 04/26/18 22:08 Dose: Not Given Ondansetron HCl (Zofran Injection) 8 mg IVPB Q6H PRN PRN Reason: NAUSEA AND/OR VOMITING Last Admin: 04/26/18 04:38 Dose: 8 mg Polyethylene Glycol (Miralax (For Daily Use) -) 17 gm PO HS PRN PRN Reason: CONSTIPATION Prednisone (Deltasone -) 5 mg PO DAILY [facility] Last Admin: 04/27/18 10:31 Dose: 5 mg Ranitidine HCl (Zantac -) 150 mg PO DAILY [facility] Last Admin: 04/27/18 10:31 Dose: 150 mg GENERAL: Awake, alert, and fully oriented, in no acute distress HEAD: No signs of trauma, normocephalic, atraumatic EYES: PERRLA, EOMI, sclera anicteric, conjunctiva clear ENT: Auricles normal inspection, hearing grossly normal, nares patent, oropharynx clear without exudates. Moist mucosa NECK: Normal ROM, supple, no lymphadenopathy, JVD, or masses LUNGS: Scattered rhonchi HEART: Regular rate and rhythm, normal S1 and S2, no murmurs, rubs or gallops, peripheral pulses normal and equal bilaterally. ABDOMEN: Soft, NDS, normoactive bowel sounds. No guarding, no rebound. No masses. Neg CVA ttp. EXTREMITIES : Normal inspection, Normal range of motion, no edema. No clubbing or cyanosis. NEUROLOGICAL: Non-focal SKIN: Warm, Dry, normal turgor, no rashes or lesions noted Laboratory Results - last 24 hr 04/27/18 04/27/18 07:00 07:00 WBC 9.0 RBC 3.07 L Hgb 10.7 Hct 31.3 L D MCV 101.8 H MCH 34.7 H MCHC 34.1 RDW 16.4 H Plt Count 188 MPV 9.7 Absolute Neuts (auto) 7.0 Neutrophils % 78.2 Lymphocytes % 13.6 D Monocytes % 7.0 Eosinophils % 0.8 D Basophils % 0.4 Nucleated RBC % 0 Sodium 143 Potassium 3.6 Chloride 113 H Carbon Dioxide 25 Anion Gap 5 L BUN 16 Creatinine 1.3 Creat Clearance w eGFR 40.49 Random Glucose 83 Calcium 7.8 L Total Bilirubin 0.6 AST 10 L ALT 11 L Alkaline Phosphatase 46 Total Protein 5.5 L Albumin 2.3 L Problem List - Problems (1) Gram-negative bacteremia Code(s): R78.81 - BACTEREMIA (2) Sepsis Code(s): A41.9 - SEPSIS, UNSPECIFIED ORGANISM Qualifiers: Sepsis type: sepsis due to unspecified organism Qualified Code(s): A41.9 - Sepsis, unspecified organism (3) Asthma Code(s): J45.909 - UNSPECIFIED ASTHMA, UNCOMPLICATED (4) Lung nodule Code(s): R91.1 - SOLITARY PULMONARY NODULE (5) Nausea Code(s): R11.0 - NAUSEA (6) Asthma Code(s): J45.909 - UNSPECIFIED ASTHMA, UNCOMPLICATED (7) Diabetes Code(s): E11.9 - TYPE 2 DIABETES MELLITUS WITHOUT COMPLICATIONS (8) HTN (hypertension) Code(s): I10 - ESSENTIAL (PRIMARY) HYPERTENSION (9) Renal transplant recipient Code(s): Z94.0 - KIDNEY TRANSPLANT STATUS (10) Seizure Code(s): R56.9 - UNSPECIFIED CONVULSIONS IMP GRAM NEGATIVE BACTEREMIA /SEPSIS ASTHMA H/O PULMONARY NODULES:CHRONIC CHANGES SINCE [address] IMAGES H/O RENAL TRANSPLANT 1990 ON IMURAN AND PREDNISONE HTN DM ASHD H/O PERICARDIAL EFFUSION S/P WINDOW H/O CVA GERD PLAN ABX PER ID O2 INHALED BRONCHODILATORS CHECK FINAL CULTURES MONITOR LYTES,CBC DR STROUD
--- NOTE | 2018-04-27 13:51 | PN ---
Progress Note, Physician Chief Complaint: Patient seen and examined in her room. She is comfortable, and reports feeling better. History of Present Illness: This is a 72 year old female, weel known to us with ESRD s/p Renal transplant on Imuran and prednisone, Hypertension and hypothyrodism who presented from home with fever and diffuse body pain and found to have suspected cystitis and bacteremia. She had body pain for 2 days. No overt sob, cough, N/V/D. No dysuria. Compliant with all her medications. - Current Medication List Current Medications: Active Medications Acetaminophen (Tylenol -) 650 mg PO Q6H PRN PRN Reason: FEVER Last Admin: 04/27/18 01:38 Dose: 650 mg Azathioprine (Imuran -) 100 mg PO DAILY [facility] Last Admin: 04/27/18 10:32 Dose: 100 mg Diltiazem HCl (Cardizem Cd -) 240 mg PO DAILY [facility] Last Admin: 04/27/18 10:31 Dose: 240 mg Heparin Sodium (Porcine) (Heparin -) 5,000 unit SQ BID [facility] Last Admin: 04/27/18 10:31 Dose: 5,000 unit Sodium Chloride (Normal Saline -) 1,000 mls @ 100 mls/hr IV ASDIR [facility] Last Admin: 04/27/18 10:33 Dose: Not Given Piperacillin Sod/Tazobactam (Sod 3.375 gm/ Dextrose) 50 mls @ 100 mls/hr IVPB Q8H-IV [facility]; Protocol Last Admin: 04/27/18 10:32 Dose: 100 mls/hr Levothyroxine Sodium (Synthroid -) 75 mcg PO DAILY@0700 [facility] Last Admin: 04/27/18 06:09 Dose: 75 mcg Mometasone Furoate (Asmanex 220mcg -) 1 puff IH HS [facility] Last Admin: 04/26/18 22:08 Dose: Not Given Ondansetron HCl (Zofran Injection) 8 mg IVPB Q6H PRN PRN Reason: NAUSEA AND/OR VOMITING Last Admin: 04/26/18 04:38 Dose: 8 mg Polyethylene Glycol (Miralax (For Daily Use) -) 17 gm PO HS PRN PRN Reason: CONSTIPATION Prednisone (Deltasone -) 5 mg PO DAILY [facility] Last Admin: 04/27/18 10:31 Dose: 5 mg Ranitidine HCl (Zantac -) 150 mg PO DAILY [facility] Last Admin: 04/27/18 10:31 Dose: 150 mg - Objective Vital Signs: Vital Signs Temperature 98.2 F 04/27/18 06:00 Pulse Rate 73 04/27/18 06:00 Respiratory Rate 17 04/27/18 06:00 Blood Pressure 129/63 04/27/18 06:00 O2 Sat by Pulse Oximetry (%) 97 04/26/18 21:00 Constitutional: Yes: Anxious Eyes: Yes: Conjunctiva Clear HENT: Yes: Atraumatic Neck: Yes: Trachea Midline Cardiovascular: Yes: Regular Rate and Rhythm, S1, S2 Respiratory: Yes: CTA Bilaterally Gastrointestinal: Yes: Normal Bowel Sounds, Soft Genitourinary: No: Bladder Distention, CVA Tenderness - Left, CVA Tenderness - Right Edema: No Neurological: Yes: Alert, Oriented Labs: CBC, BMP 04/27/18 07:00 04/27/18 07:00 INR, PTT INR 1.08 (0.83-1.09) 04/25/18 20:29 Problem List - Problems (1) ESRD (end stage renal disease) Code(s): N18.6 - END STAGE RENAL DISEASE (2) Gram-negative bacteremia Code(s): R78.81 - BACTEREMIA (3) Sepsis Code(s): A41.9 - SEPSIS, UNSPECIFIED ORGANISM Qualifiers: Sepsis type: sepsis due to unspecified organism Qualified Code(s): A41.9 - Sepsis, unspecified organism (4) Abdominal pain Code(s): R10.9 - UNSPECIFIED ABDOMINAL PAIN (5) Body aches Code(s): R52 - PAIN, UNSPECIFIED (6) HTN (hypertension) Code(s): I10 - ESSENTIAL (PRIMARY) HYPERTENSION (7) Renal transplant recipient Code(s): Z94.0 - KIDNEY TRANSPLANT STATUS Assessment/Plan This is a 72 year old woman with history of ESRD s/p Renal transplant on Imuran and prednisone, Hypertension and hypothyrodism who presented from home with fever and diffuse body pain and found to have suspected cystitis and bacteremia. The patient has been stable, and clinically improving. Maintains good urine output. Brien is suspected, with marginal elevation of Serum cr, possibly related to the Pt says she had body pain for 2 days. No overt sob, cough, N/V/D. No dysuria. Has been complaint with all her medications. Does have dizziness and lightheadedness. PLAN:Maintain euvolemia Continue the anti-rejection regimen. Will monitor the renal functions with you. Thank you. Latisha George MD
--- NOTE | 2018-04-27 14:06 | PN ---
Progress Note (short form) - Note Progress Note: feels better today no fevers Vital Signs Period Temp Pulse Resp BP Sys/Wang Pulse Ox Last 24 Hr 97.8 F-99.1 F 73-89 17-18 104-129/50-63 97-97 no thrush cor-rrr lungs clear abd soft,nt ext no edema CBC, BMP 04/27/18 07:00 04/27/18 07:00 Microbiology 04/25/18 21:09 Urine - Urine Clean Catch Urine Culture - Preliminary Lactose Fermenting Neg Bacilli 04/25/18 20:29 Blood - Peripheral Venous Blood Culture - Preliminary Lactose Fermenting Neg Bacilli 04/25/18 20:29 Blood - Peripheral Venous Blood Culture - Preliminary NO GROWTH OBTAINED AFTER 24 HOURS, INCUBATION TO CONTINUE FOR 4 DAYS. a/p gram negative bacteremia UTI s/p renal transplant improving f/u cultures continue zosyn
--- NOTE | 2018-04-27 14:24 | PN ---
Progress Note, Physician Chief Complaint: feels better afebrile bl cx and ucx GNR final ID pending - Current Medication List Current Medications: Active Medications Acetaminophen (Tylenol -) 650 mg PO Q6H PRN PRN Reason: FEVER Last Admin: 04/27/18 01:38 Dose: 650 mg Azathioprine (Imuran -) 100 mg PO DAILY [facility] Last Admin: 04/27/18 10:32 Dose: 100 mg Diltiazem HCl (Cardizem Cd -) 240 mg PO DAILY [facility] Last Admin: 04/27/18 10:31 Dose: 240 mg Heparin Sodium (Porcine) (Heparin -) 5,000 unit SQ BID [facility] Last Admin: 04/27/18 10:31 Dose: 5,000 unit Sodium Chloride (Normal Saline -) 1,000 mls @ 100 mls/hr IV ASDIR [facility] Last Admin: 04/27/18 10:33 Dose: Not Given Piperacillin Sod/Tazobactam (Sod 3.375 gm/ Dextrose) 50 mls @ 100 mls/hr IVPB Q8H-IV [facility]; Protocol Last Admin: 04/27/18 10:32 Dose: 100 mls/hr Levothyroxine Sodium (Synthroid -) 75 mcg PO DAILY@0700 [facility] Last Admin: 04/27/18 06:09 Dose: 75 mcg Mometasone Furoate (Asmanex 220mcg -) 1 puff IH HS [facility] Last Admin: 04/26/18 22:08 Dose: Not Given Ondansetron HCl (Zofran Injection) 8 mg IVPB Q6H PRN PRN Reason: NAUSEA AND/OR VOMITING Last Admin: 04/26/18 04:38 Dose: 8 mg Polyethylene Glycol (Miralax (For Daily Use) -) 17 gm PO HS PRN PRN Reason: CONSTIPATION Prednisone (Deltasone -) 5 mg PO DAILY [facility] Last Admin: 04/27/18 10:31 Dose: 5 mg Ranitidine HCl (Zantac -) 150 mg PO DAILY [facility] Last Admin: 04/27/18 10:31 Dose: 150 mg - Objective Vital Signs: Vital Signs Temperature 98.2 F 04/27/18 06:00 Pulse Rate 73 04/27/18 06:00 Respiratory Rate 17 04/27/18 09:00 Blood Pressure 129/63 04/27/18 06:00 O2 Sat by Pulse Oximetry (%) 97 04/27/18 09:00 Constitutional: Yes: No Distress, Calm Eyes: Yes: Conjunctiva Clear HENT: Yes: Atraumatic Neck: Yes: Supple Cardiovascular: Yes: Regular Rate and Rhythm Respiratory: Yes: CTA Bilaterally Gastrointestinal: Yes: Soft Genitourinary: No: Hematuria Musculoskeletal: No: Joint Stiffness, Joint Swelling Extremities: No: Cold, Cool, Cyanosis Edema: No Integumentary: No: Rash, Venous Stasis Changes Neurological: Yes: WNL, Alert, Oriented ...Motor Strength: WNL Psychiatric: Yes: WNL, Alert, Oriented. No: Agitated, Suicidal Ideation Labs: CBC, BMP 04/27/18 07:00 04/27/18 07:00 INR, PTT INR 1.08 (0.83-1.09) 04/25/18 20:29 - ....Imaging Other: Report Reviewed Assessment/Plan 72 yo F with h/o CVA, CAD, HTN, HLD, asthma, hypothyrodism, seizure disorder, pancreatitis, chronic glomerulonephritis, R sided renal transplant / immunosupression, pancreatitis, who p/w fever, and chest pain pleuritic with cough, 1 day of urinary urgency, and suprapubic pressure/discomfort. Had h/o recurrent PNA last year seen by pulm recently. temp 102.4 in ER shaking chills labs blood cx and Ucx sent - prelim GNR in blood and urine IVF for hydration, better BP IV antibiotics; ID renal and pulm eval; d/w ID renal f/u for renal transplant falls DVT pfx renal pelvic US no stones, hydronephrosis prognosis guarded d/w pt and staff d/w pt's family at bedside t time 35 min
[2018-04-27] MEDS: MOMETASONE FUROATE 220 MCG/IH INHALER IH SCH (22:06)
[2018-04-28] MEDS ORDERED: PIPERACILLIN/TAZOBACTAM 3.375 GM VIAL IVPB ONE ×2 (01:43→09:36)
[2018-04-28] MEDS ORDERED: DEXTROSE 5%-WATER - 50 ML IVPB ONE ×2 (01:43→09:36)
[2018-04-28] MEDS: PIPERACILLIN/TAZOB 3.375 GM 3.375 GM in DEXTROSE 5%-WATER - 50 ML IVPB SCH ×2 (02:37→09:44)
[2018-04-28] MEDS: ACETAMINOPHEN 325 MG TABLET (FP) PO PRN (03:32)
[2018-04-28] MEDS: SODIUM CHLORIDE 1,000 ML IV SCH (04:05)
[2018-04-28] MEDS: LEVOTHYROXINE NA 75 MCG TABLET (FP) PO SCH (06:08)
--- NOTE | 2018-04-28 07:24 | PN ---
Progress Note, Physician Chief Complaint: no c/o feels better no pain no dysuria, afebrile no chills - Current Medication List Current Medications: Active Medications Acetaminophen (Tylenol -) 650 mg PO Q6H PRN PRN Reason: FEVER Last Admin: 04/28/18 03:32 Dose: 650 mg Azathioprine (Imuran -) 100 mg PO DAILY [facility] Last Admin: 04/27/18 10:32 Dose: 100 mg Diltiazem HCl (Cardizem Cd -) 240 mg PO DAILY [facility] Last Admin: 04/27/18 10:31 Dose: 240 mg Heparin Sodium (Porcine) (Heparin -) 5,000 unit SQ BID [facility] Last Admin: 04/27/18 22:06 Dose: Not Given Sodium Chloride (Normal Saline -) 1,000 mls @ 100 mls/hr IV ASDIR [facility] Last Admin: 04/28/18 04:05 Dose: 100 mls/hr Piperacillin Sod/Tazobactam (Sod 3.375 gm/ Dextrose) 50 mls @ 100 mls/hr IVPB Q8H-IV [facility]; Protocol Last Admin: 04/28/18 02:37 Dose: 100 mls/hr Levothyroxine Sodium (Synthroid -) 75 mcg PO DAILY@0700 [facility] Last Admin: 04/28/18 06:08 Dose: 75 mcg Mometasone Furoate (Asmanex 220mcg -) 1 puff IH HS [facility] Last Admin: 04/27/18 22:06 Dose: Not Given Ondansetron HCl (Zofran Injection) 8 mg IVPB Q6H PRN PRN Reason: NAUSEA AND/OR VOMITING Last Admin: 04/26/18 04:38 Dose: 8 mg Polyethylene Glycol (Miralax (For Daily Use) -) 17 gm PO HS PRN PRN Reason: CONSTIPATION Last Admin: 04/28/18 01:13 Dose: 17 gm Prednisone (Deltasone -) 5 mg PO DAILY [facility] Last Admin: 04/27/18 10:31 Dose: 5 mg Ranitidine HCl (Zantac -) 150 mg PO DAILY [facility] Last Admin: 04/27/18 10:31 Dose: 150 mg - Objective Vital Signs: Vital Signs Temperature 98.0 F 04/28/18 06:36 Pulse Rate 61 04/28/18 06:36 Respiratory Rate 20 04/28/18 06:36 Blood Pressure 136/64 04/28/18 06:36 O2 Sat by Pulse Oximetry (%) 97 04/27/18 21:00 Constitutional: Yes: No Distress, Calm Eyes: Yes: Conjunctiva Clear HENT: Yes: Atraumatic Neck: Yes: Supple Cardiovascular: Yes: Regular Rate and Rhythm Respiratory: Yes: CTA Bilaterally Gastrointestinal: Yes: Soft. No: Tenderness Genitourinary: No: CVA Tenderness - Left, CVA Tenderness - Right, Hematuria Musculoskeletal: No: Joint Stiffness, Joint Swelling Extremities: No: Cold, Cool, Cyanosis Edema: No Integumentary: No: Rash, Venous Stasis Changes Neurological: Yes: WNL, Alert, Oriented ...Motor Strength: WNL Psychiatric: Yes: WNL, Alert, Oriented. No: Agitated, Suicidal Ideation Labs: CBC, BMP 04/27/18 07:00 04/27/18 07:00 INR, PTT INR 1.08 (0.83-1.09) 04/25/18 20:29 - ....Imaging Other: Report Reviewed Assessment/Plan 72 yo F with h/o CVA, CAD, HTN, HLD, asthma, hypothyrodism, seizure disorder, pancreatitis, chronic glomerulonephritis, R sided renal transplant / immunosupression, pancreatitis, who p/w fever, and chest pain pleuritic with cough, 1 day of urinary urgency, and suprapubic pressure/discomfort. Had h/o recurrent PNA s/p temp 102.4 in ER shaking chills labs blood cx and Ucx sent - prelim GNR in blood and urine IVF for hydration, better BP IV antibiotics; ID renal and pulm eval; d/w ID renal f/u for renal transplant; d/w pt will need to f/u with her renal transplant outpt closely after DC falls DVT pfx renal pelvic US no stones, no hydronephrosis prognosis guarded d/w pt and staff t time 35 min
[2018-04-28 08:49] LABS: BASO % 0.7 % (0-2.0); EOS % 1.3 % (0-4.5); HEMATOCRIT 31.8 % (32.4-45.2); HEMOGLOBIN 10.8 GM/dL (10.7-15.3); LYMPH % 25.6 % (8-40); MCH 34.3 pg (25.7-33.7); MCHC 34.1 g/dl (32.0-36.0); MEAN CELL VOLUME 100.4 fl (80-96); MEAN PLT VOLUME 9.4 fl (7.5-11.1); MONO % 10.4 % (3.8-10.2); PLATELET COUNT 210 K/MM3 (134-434); RBC 3.16 M/mm3 (3.60-5.2); RDW 16.3 % (11.6-15.6); WHITE BLOOD COUNT 5.9 K/mm3 (4.0-10.0)
[2018-04-28 09:20] LABS: ALBUMIN 2.7 g/dl (3.4-5.0); ALK PHOS 61 U/L (45-117); ANION GAP 8 MMOL/L (8-16); BILIRUBIN,TOTAL 0.5 mg/dL (0.2-1); BLOOD UREA NITROGEN 13 mg/dL (7-18); CALCIUM 8.4 mg/dL (8.5-10.1); CHLORIDE 109 mmol/L (98-107); CO2 24 mmol/L (21-32); CREATININE 1.3 mg/dL (0.55-1.3); GLUCOSE,RANDOM 82 mg/dL (74-106); POTASSIUM 3.8 mmol/L (3.5-5.1); SGOT/AST 8 U/L (15-37); SGPT/ALT 15 U/L (13-61); SODIUM 140 mmol/L (136-145); TOT PROT 7.4 g/dl (6.4-8.2)
[2018-04-28] MEDS: HEPARIN NA (PORCINE) 5,000 UNITS/ML 1ML VIAL SQ SCH ×2 (09:43→21:08)
[2018-04-28] MEDS: RANITIDINE HCL 150 MG TABLET (FP) PO SCH (09:43)
[2018-04-28] MEDS: predniSONE 5 MG TABLET (UD) PO SCH (09:43)
[2018-04-28] MEDS: azaTHIOprine 50 MG TABLET PO SCH (09:44)
--- NOTE | 2018-04-28 10:01 | CONSULT ---
Consult Consult Specialty:: Cardiology Referred by:: Medicine Reason for Consultation:: Chest pain - History of Present Illness Chief Complaint: Chest pain History of Present Illness: 72 yo with pmhx of htn, hl, CVA, pericarditis s/p pericardial window Prior Right kidney transplant in 1990, niddm, GERD, seizures (last 02/2017), asthma Pancreatitis Patient well known to Dr. Torres in office Last seen 3 months ago Had stress MPI within the past 1 year and was told it was normal Now admitted 04/25/2018 with fever and chills for 1 day with presumed urosepsis with (+) blood cultures/urine culture with E. Coli, and pleuritic chest pain. Patient reports diffuse non pleuritic, non exertional, constant retorsternal, epigastric chest pain radiating to neck and ear, and right shoulder. Also endorses 1 day of urinary urgency, and suprapubic pressure/discomfort. Cardiology called to evaluate chest pain Her chest pain was suprapubic and is now completely resolved. She feels much improved She does endorse exertional dyspnea that has been chronic for the past 2 years - Past Medical History [employer]: Yes: Seizure Cardio/Vascular: Yes: HTN Gastrointestinal: Yes: Diverticulosis, GERD Renal/: Yes: Renal Inusuff, Other (renal transplant) ...: No Musculoskeletal: Yes: Osteoarthritis Rheumatology: Yes: Gout Endocrine: Yes: Hypothyroidism, Hyperparathyroidism - Past Surgical History Past Surgical History: Yes: Hernia Repair (ventral). No: None, AAA Repair, AICD , Amputation, Appendectomy, Arthrosocopy, AV Fistula/Graft, Bariatric Surgery, Breast Biopsy, Bypass, CABG, Carotid Endarterectomy, Cataract Removal, Cholecystectomy, Colectomy, Colonoscopy, Colostomy, Craniotomy, , Cystectomy, Hysterectomy, Ileal Conduit, Ileosotomy, Joint Replacement, Kidney Transplant, Laminectomy, Liver Transplant, Mastectomy, Nephrectomy, Oopherectomy , Orchiectomy, Permanent Pacemaker, Prostatectomy, Splenectomy, Stent, Thoracotomy, TURP, Tonsillectomy, Tubal Ligation, Upper Endoscopy, Valve Replacement, Vasectomy, Vein Stripping/Ligation - Alcohol/Substance Use Hx Alcohol Use: No History of Substance Use: reports: None - Smoking History Smoking history: Never smoked Have you smoked in the past 12 months: No Aproximately how many cigarettes per day: 0 - Social History ADL: Independent History of Recent Travel: No Home Medications - Allergies Allergies/Adverse Reactions: Allergies Allergy/AdvReac Type Severity Reaction Status Date / Time codeine Allergy Intermediate Vomiting Verified 04/25/18 19:58 AND SWELLING OF FACE - Home Medications Home Medications: Ambulatory Orders Levothyroxine [Synthroid -] 75 mcg PO DAILY 03/07/12 predniSONE [Deltasone -] 5 mg PO DAILY 07/11/13 Azathioprine [Imuran] 100 mg PO DAILY 12/20/14 Fluticasone Propionate [Flovent Hfa] 110 mcg IH BID 02/20/17 Acetaminophen [Tylenol .Regular Strength -] 650 mg PO Q8H PRN tablet 05/22/17 Cefuroxime Axetil [Ceftin -] 500 mg PO Q12H #10 tablet 05/22/17 Diltiazem Cd [Cardizem Cd -] 240 mg PO DAILY #0 cap 05/22/17 Furosemide [Lasix -] 40 mg PO DAILY PRN #30 tab 05/22/17 Polyethylene Glycol 3350 [Miralax 119 gm Btl -] 17 gm PO HS PRN bottle Ranitidine [Zantac -] 150 mg PO DAILY #30 tablet 05/22/17 Family Disease History - Family Disease History Family Disease History: CA: Sister (breast) Review of Systems - Review of Systems Constitutional: reports: No Symptoms, Chills, Fever, Weakness Eyes: reports: No Symptoms HENT: reports: No Symptoms Neck: reports: No Symptoms Cardiovascular: reports: Chest Pain, Shortness of Breath Respiratory: reports: SOB on Exertion Gastrointestinal: reports: Abdominal Pain Genitourinary: reports: No Symptoms Musculoskeletal: reports: Back Pain, Muscle Cramps Neurological: reports: No Symptoms Endocrine: reports: No Symptoms Physical Exam Vital Signs: Vital Signs Temperature 98.1 F 04/28/18 09:41 Pulse Rate 67 04/28/18 09:41 Respiratory Rate 04/28/18 09:41 Blood Pressure 135/69 04/28/18 09:41 O2 Sat by Pulse Oximetry (%) 97 04/27/18 21:00 Constitutional: Yes: Well Nourished, No Distress Eyes: Yes: WNL HENT: Yes: WNL Neck: Yes: WNL Cardiovascular: Yes: Regular Rate and Rhythm Respiratory: Yes: WNL, CTA Bilaterally Gastrointestinal: Yes: WNL Musculoskeletal: Yes: WNL Extremities: Yes: WNL Edema: No Labs: CBC, BMP 04/28/18 07:45 04/28/18 07:45 Imaging - Results EKG: Image Reviewed (ECG done on 04/25/2018 at 20:21 shows NSR at 95/min with iRBBB and lAFB with LVH. THis current ECG is uncanged from the prior ECG done in 04/2017) Other: Report Reviewed (Echo: 05/16/2017: Normal LV function, LVH, moderate MR Stress MPI 2012: Normal stress MPI, LVEF 73%) Assessment/Plan a/p: 71 yo with pmhx of htn, CVA, pericarditis s/p pericardial window, Right kidney transplant in 1990, niddm, seizures (last 02/2017), asthma, now admitted with urosepsis with E. Coli. complaining of atypical chest pain 1) CP - atypical for cardiac pain. Patient with resolving E. Coli urosepsis -Chest pains has completely resolved she states and she feels much improved. -Current Ekg without acute ischemic changes and unchanged from prior in 04/2017. troponin neg x1 -No further CV testing at this time. 2) htn - well controlled and stable on current diltiazem 3) Urosepsis -mgm't per pmd, ID
--- NOTE | 2018-04-28 11:35 | PN ---
Progress Note (short form) - Note Progress Note: Breathing feels OK today. Some dry cough. No CP. No hemoptysis. Intake & Output 04/25/18 04/26/18 04/27/18 04/28/18 23:59 23:59 23:59 23:59 Intake Total 750 1500 1150 Balance 750 1500 1150 Weight 140 lb 131 lb 6.4 oz Last Vital Signs Temp Pulse Resp BP Pulse Ox 98.1 F 67 19 135/69 97 04/28/18 09:41 04/28/18 09:41 04/28/18 09:41 04/28/18 09:41 04/28/18 09:00 Active Medications Acetaminophen (Tylenol -) 650 mg PO Q6H PRN PRN Reason: FEVER Last Admin: 04/28/18 03:32 Dose: 650 mg Azathioprine (Imuran -) 100 mg PO DAILY [facility] Last Admin: 04/28/18 09:44 Dose: 100 mg Diltiazem HCl (Cardizem Cd -) 240 mg PO DAILY [facility] Last Admin: 04/28/18 09:43 Dose: 240 mg Heparin Sodium (Porcine) (Heparin -) 5,000 unit SQ BID [facility] Last Admin: 04/28/18 09:43 Dose: Not Given Piperacillin Sod/Tazobactam (Sod 3.375 gm/ Dextrose) 50 mls @ 100 mls/hr IVPB Q8H-IV [facility]; Protocol Last Admin: 04/28/18 09:44 Dose: 100 mls/hr Levothyroxine Sodium (Synthroid -) 75 mcg PO DAILY@0700 [facility] Last Admin: 04/28/18 06:08 Dose: 75 mcg Mometasone Furoate (Asmanex 220mcg -) 1 puff IH HS [facility] Last Admin: 04/27/18 22:06 Dose: Not Given Ondansetron HCl (Zofran Injection) 8 mg IVPB Q6H PRN PRN Reason: NAUSEA AND/OR VOMITING Last Admin: 04/26/18 04:38 Dose: 8 mg Polyethylene Glycol (Miralax (For Daily Use) -) 17 gm PO HS PRN PRN Reason: CONSTIPATION Last Admin: 04/28/18 01:13 Dose: 17 gm Prednisone (Deltasone -) 5 mg PO DAILY [facility] Last Admin: 04/28/18 09:43 Dose: 5 mg Ranitidine HCl (Zantac -) 150 mg PO DAILY [facility] Last Admin: 04/28/18 09:43 Dose: 150 mg GENERAL: Awake, alert, oriented, in no acute distress HEAD: No signs of trauma, normocephalic, atraumatic EYES: PERRLA, EOMI, sclera anicteric, conjunctiva clear ENT: Moist mucosa NECK: Normal ROM, supple, no lymphadenopathy, JVD, or masses LUNGS: Scattered rhonchi HEART: Regular rate and rhythm, normal S1 and S2, no murmurs, rubs or gallops. ABDOMEN: Soft, normoactive bowel sounds. No guarding, no rebound. EXTREMITIES : Normal inspection, Normal range of motion, no edema. No clubbing or cyanosis. NEUROLOGICAL: Non-focal SKIN: Warm, Dry, normal turgor, no rashes or lesions noted Laboratory Results - last 24 hr 04/28/18 04/28/18 07:45 07:45 WBC 5.9 RBC 3.16 L Hgb 10.8 Hct 31.8 L MCV 100.4 H MCH 34.3 H MCHC 34.1 RDW 16.3 H Plt Count 210 MPV 9.4 Absolute Neuts (auto) 3.6 Neutrophils % 62.0 D Lymphocytes % 25.6 D Monocytes % 10.4 H Eosinophils % 1.3 Basophils % 0.7 Nucleated RBC % 0 Sodium 140 Potassium 3.8 Chloride 109 H Carbon Dioxide 24 Anion Gap 8 BUN 13 Creatinine 1.3 Creat Clearance w eGFR 40.49 Random Glucose 82 Calcium 8.4 L Total Bilirubin 0.5 AST 8 L ALT 15 Alkaline Phosphatase 61 Total Protein 7.4 Albumin 2.7 L Problem List - Problems (1) Gram-negative bacteremia Code(s): R78.81 - BACTEREMIA (2) Sepsis Code(s): A41.9 - SEPSIS, UNSPECIFIED ORGANISM Qualifiers: Sepsis type: sepsis due to unspecified organism Qualified Code(s): A41.9 - Sepsis, unspecified organism (3) Asthma Code(s): J45.909 - UNSPECIFIED ASTHMA, UNCOMPLICATED (4) Lung nodule Code(s): R91.1 - SOLITARY PULMONARY NODULE (5) Nausea Code(s): R11.0 - NAUSEA (6) Asthma Code(s): J45.909 - UNSPECIFIED ASTHMA, UNCOMPLICATED (7) Diabetes Code(s): E11.9 - TYPE 2 DIABETES MELLITUS WITHOUT COMPLICATIONS (8) HTN (hypertension) Code(s): I10 - ESSENTIAL (PRIMARY) HYPERTENSION (9) Renal transplant recipient Code(s): Z94.0 - KIDNEY TRANSPLANT STATUS (10) Seizure Code(s): R56.9 - UNSPECIFIED CONVULSIONS IMP GRAM NEGATIVE BACTEREMIA /SEPSIS ASTHMA H/O PULMONARY NODULES:CHRONIC CHANGES SINCE [address] IMAGES H/O RENAL TRANSPLANT 1990 ON IMURAN AND PREDNISONE HTN DM ASHD H/O PERICARDIAL EFFUSION S/P WINDOW H/O CVA GERD PLAN ABX PER ID O2 INHALED BRONCHODILATORS PREDNISONE 5MG OD VTE PROPHYLAXIS DR STROUD
--- NOTE | 2018-04-28 13:02 | PN ---
Progress Note, Physician Chief Complaint: Patient seen and examined in her room. She is comfortable, and reports feeling better. Maintains good urine output. Ambulating on the hallway. History of Present Illness: This is a 72 year old female, weel known to us with ESRD s/p Renal transplant on Imuran and prednisone, Hypertension and hypothyrodism who presented from home with fever and diffuse body pain and found to have suspected cystitis and bacteremia. She had body pain for 2 days. No overt sob, cough, N/V/D. No dysuria. Compliant with all her medications. - Current Medication List Current Medications: Active Medications Acetaminophen (Tylenol -) 650 mg PO Q6H PRN PRN Reason: FEVER Last Admin: 04/28/18 03:32 Dose: 650 mg Azathioprine (Imuran -) 100 mg PO DAILY [facility] Last Admin: 04/28/18 09:44 Dose: 100 mg Diltiazem HCl (Cardizem Cd -) 240 mg PO DAILY [facility] Last Admin: 04/28/18 09:43 Dose: 240 mg Heparin Sodium (Porcine) (Heparin -) 5,000 unit SQ BID [facility] Last Admin: 04/28/18 09:43 Dose: Not Given Piperacillin Sod/Tazobactam (Sod 3.375 gm/ Dextrose) 50 mls @ 100 mls/hr IVPB Q8H-IV [facility]; Protocol Last Admin: 04/28/18 09:44 Dose: 100 mls/hr Levothyroxine Sodium (Synthroid -) 75 mcg PO DAILY@0700 [facility] Last Admin: 04/28/18 06:08 Dose: 75 mcg Mometasone Furoate (Asmanex 220mcg -) 1 puff IH HS [facility] Last Admin: 04/27/18 22:06 Dose: Not Given Ondansetron HCl (Zofran Injection) 8 mg IVPB Q6H PRN PRN Reason: NAUSEA AND/OR VOMITING Last Admin: 04/26/18 04:38 Dose: 8 mg Polyethylene Glycol (Miralax (For Daily Use) -) 17 gm PO HS PRN PRN Reason: CONSTIPATION Last Admin: 04/28/18 01:13 Dose: 17 gm Prednisone (Deltasone -) 5 mg PO DAILY [facility] Last Admin: 04/28/18 09:43 Dose: 5 mg Ranitidine HCl (Zantac -) 150 mg PO DAILY [facility] Last Admin: 04/28/18 09:43 Dose: 150 mg - Objective Vital Signs: Vital Signs Temperature 98.1 F 04/28/18 09:41 Pulse Rate 67 04/28/18 09:41 Respiratory Rate 19 04/28/18 09:41 Blood Pressure 135/69 04/28/18 09:41 O2 Sat by Pulse Oximetry (%) 97 04/28/18 09:00 Constitutional: Yes: Calm, Anxious Eyes: Yes: Conjunctiva Clear HENT: Yes: Normocephalic Cardiovascular: Yes: Regular Rate and Rhythm, S1, S2 Gastrointestinal: Yes: Normal Bowel Sounds, Soft Genitourinary: No: CVA Tenderness - Left, CVA Tenderness - Right, Hematuria Musculoskeletal: No: Back Pain Edema: No Labs: CBC, BMP 04/28/18 07:45 04/28/18 07:45 INR, PTT INR 1.08 (0.83-1.09) 04/25/18 20:29 Problem List - Problems (1) ESRD (end stage renal disease) Code(s): N18.6 - END STAGE RENAL DISEASE (2) Gram-negative bacteremia Code(s): R78.81 - BACTEREMIA (3) Sepsis Code(s): A41.9 - SEPSIS, UNSPECIFIED ORGANISM Qualifiers: Sepsis type: sepsis due to unspecified organism Qualified Code(s): A41.9 - Sepsis, unspecified organism (4) Abdominal pain Code(s): R10.9 - UNSPECIFIED ABDOMINAL PAIN (5) Body aches Code(s): R52 - PAIN, UNSPECIFIED (6) HTN (hypertension) Code(s): I10 - ESSENTIAL (PRIMARY) HYPERTENSION (7) Renal transplant recipient Code(s): Z94.0 - KIDNEY TRANSPLANT STATUS Assessment/Plan This is a 72 year old woman with history of ESRD s/p Renal transplant on Imuran and prednisone, Hypertension and hypothyrodism who presented from home with fever and diffuse body pain and found to have suspected cystitis and bacteremia. The patient has been stable, and clinically improving. Maintains good urine output. DEENA is suspected, with marginal elevation of Serum Cr, possibly related to the hemodynamic effects of sepsis. Serum Cr 1.3 which is above her baseline. PLAN:Maintain euvolemia Continue the anti-rejection regimen. Will monitor the renal functions with you. Expected to settle at her baseline. Thank you. Latisha George MD
--- NOTE | 2018-04-28 14:42 | PN ---
Progress Note (short form) - Note Progress Note: feels better today no fevers Vital Signs Period Temp Pulse Resp BP Sys/Wang Pulse Ox Last 24 Hr 98.0 F-98.5 F 61-74 19-22 125-145/53-78 97-97 cor-rrr lungs clear abd-soft, nt ext-no edema CBC, BMP 04/28/18 07:45 04/28/18 07:45 Microbiology 04/25/18 21:09 Urine - Urine Clean Catch Urine Culture - Final Escherichia Coli 04/25/18 20:29 Blood - Peripheral Venous Blood Culture - Final Escherichia Coli 04/25/18 20:29 Blood - Peripheral Venous Blood Culture - Preliminary NO GROWTH OBTAINED AFTER 48 HOURS, INCUBATION TO CONTINUE FOR 3 DAYS. a/p gram negative bacteremia-ecoli- switch to ceftriaxone UTI s/p renal transplant improving
[2018-04-28] MEDS: CEFTRIAXONE 2 GM in DEXTROSE 5%-WATER 100 ML IVPB SCH (15:55)
[2018-04-28] MEDS ORDERED: DEXTROSE 5%-WATER 100 ML IVPB ONE (15:55)
[2018-04-28] MEDS: MOMETASONE FUROATE 220 MCG/IH INHALER IH SCH (21:16)
[2018-04-29] MEDS: LEVOTHYROXINE NA 75 MCG TABLET (FP) PO SCH (06:35)
--- NOTE | 2018-04-29 08:37 | PN ---
Progress Note, Physician Chief Complaint: no new c/o but feels tired did not sleep well b/o roomate - Current Medication List Current Medications: Active Medications Acetaminophen (Tylenol -) 650 mg PO Q6H PRN PRN Reason: FEVER Last Admin: 04/28/18 03:32 Dose: 650 mg Azathioprine (Imuran -) 100 mg PO DAILY [facility] Last Admin: 04/28/18 09:44 Dose: 100 mg Diltiazem HCl (Cardizem Cd -) 240 mg PO DAILY [facility] Last Admin: 04/28/18 09:43 Dose: 240 mg Heparin Sodium (Porcine) (Heparin -) 5,000 unit SQ BID [facility] Last Admin: 04/28/18 21:08 Dose: Not Given Ceftriaxone Sodium 2 gm/ (Dextrose) 100 mls @ 200 mls/hr IVPB DAILY [facility]; Protocol Last Admin: 04/28/18 15:55 Dose: 200 mls/hr Levothyroxine Sodium (Synthroid -) 75 mcg PO DAILY@0700 [facility] Last Admin: 04/29/18 06:35 Dose: 75 mcg Mometasone Furoate (Asmanex 220mcg -) 1 puff IH HS [facility] Last Admin: 04/28/18 21:16 Dose: Not Given Ondansetron HCl (Zofran Injection) 8 mg IVPB Q6H PRN PRN Reason: NAUSEA AND/OR VOMITING Last Admin: 04/26/18 04:38 Dose: 8 mg Polyethylene Glycol (Miralax (For Daily Use) -) 17 gm PO HS PRN PRN Reason: CONSTIPATION Last Admin: 04/28/18 01:13 Dose: 17 gm Prednisone (Deltasone -) 5 mg PO DAILY [facility] Last Admin: 04/28/18 09:43 Dose: 5 mg Ranitidine HCl (Zantac -) 150 mg PO DAILY [facility] Last Admin: 04/28/18 09:43 Dose: 150 mg - Objective Vital Signs: Vital Signs Temperature 98.2 F 04/28/18 18:48 Pulse Rate 55 L 04/28/18 21:30 Respiratory Rate 20 04/28/18 21:30 Blood Pressure 158/74 04/28/18 21:30 O2 Sat by Pulse Oximetry (%) 95 04/28/18 21:00 Constitutional: Yes: No Distress, Calm Eyes: Yes: Conjunctiva Clear HENT: Yes: Atraumatic Neck: Yes: Supple Cardiovascular: Yes: Regular Rate and Rhythm Respiratory: Yes: CTA Bilaterally Gastrointestinal: Yes: Soft. No: Tenderness Genitourinary: No: Hematuria Musculoskeletal: No: Joint Stiffness, Joint Swelling Extremities: No: Cold, Cool Edema: No Integumentary: No: Rash, Venous Stasis Changes Neurological: Yes: WNL, Alert, Oriented ...Motor Strength: WNL Psychiatric: Yes: WNL, Alert, Oriented. No: Agitated, Suicidal Ideation Labs: CBC, BMP 04/28/18 07:45 04/28/18 07:45 INR, PTT INR 1.08 (0.83-1.09) 04/25/18 20:29 - ....Imaging Other: Report Reviewed Assessment/Plan 72 yo F with h/o CVA, CAD, HTN, HLD, asthma, hypothyrodism, seizure disorder, pancreatitis, chronic glomerulonephritis, R sided renal transplant / immunosupression, pancreatitis, who p/w fever, and chest pain pleuritic with cough, 1 day of urinary urgency, and suprapubic pressure/discomfort. Had h/o recurrent PNA s/p temp 102.4 in ER shaking chills labs blood cx and Ucx sent - prelim GNR in blood and urine IVF for hydration, better BP IV antibiotics per ID - improving PICC line? will d/w ID renal f/u for renal transplant; d/w pt will need to f/u with her renal transplant dr garcia closely after DC falls DVT pfx renal pelvic US no stones, no hydronephrosis d/w pt and staff
[2018-04-29 08:55] LABS: BASO % 0.8 % (0-2.0); EOS % 1.1 % (0-4.5); HEMATOCRIT 34.6 % (32.4-45.2); HEMOGLOBIN 11.8 GM/dL (10.7-15.3); LYMPH % 27.9 % (8-40); MCH 34.2 pg (25.7-33.7); MEAN CELL VOLUME 100.7 fl (80-96); MEAN PLT VOLUME 9.4 fl (7.5-11.1); MONO % 11.2 % (3.8-10.2); PLATELET COUNT 281 K/MM3 (134-434); RBC 3.44 M/mm3 (3.60-5.2); RDW 16.5 % (11.6-15.6); WHITE BLOOD COUNT 5.2 K/mm3 (4.0-10.0)
[2018-04-29] MEDS ORDERED: DEXTROSE 5%-WATER 100 ML IVPB ONE (09:25)
[2018-04-29 09:26] LABS: ANION GAP 9 MMOL/L (8-16); BLOOD UREA NITROGEN 12 mg/dL (7-18); CALCIUM 9.5 mg/dL (8.5-10.1); CHLORIDE 104 mmol/L (98-107); CO2 27 mmol/L (21-32); CREATININE 1.1 mg/dL (0.55-1.3); GLUCOSE,RANDOM 82 mg/dL (74-106); POTASSIUM 3.9 mmol/L (3.5-5.1); SODIUM 140 mmol/L (136-145)
[2018-04-29] MEDS: predniSONE 5 MG TABLET (UD) PO SCH (09:29)
[2018-04-29] MEDS: HEPARIN NA (PORCINE) 5,000 UNITS/ML 1ML VIAL SQ SCH ×2 (09:40→22:01)
[2018-04-29] MEDS: CEFTRIAXONE 2 GM in DEXTROSE 5%-WATER 100 ML IVPB SCH (09:53)
[2018-04-29] MEDS: RANITIDINE HCL 150 MG TABLET (FP) PO SCH (10:56)
[2018-04-29] MEDS: azaTHIOprine 50 MG TABLET PO SCH (10:56)
--- NOTE | 2018-04-29 12:00 | PN ---
Progress Note (short form) - Note Progress Note: Renal follow up for renal transplantation Pt seen and examined at the bedside no acute complaints no fever, chills, abd pain making urine Vital Signs Temperature 97.7 F 04/29/18 10:06 Pulse Rate 62 04/29/18 10:06 Respiratory Rate 20 04/29/18 10:06 Blood Pressure 148/70 04/29/18 10:06 O2 Sat by Pulse Oximetry (%) 95 04/28/18 21:00 Intake & Output 04/26/18 04/27/18 04/28/18 04/29/18 23:59 23:59 23:59 23:59 Intake Total 750 1500 1900 200 Balance 750 1500 1900 200 Weight 59.602 kg NAD no LE edema CBC, BMP 04/29/18 08:20 04/29/18 08:20 Current Medications Acetaminophen (Tylenol -) 650 mg PO Q6H PRN PRN Reason: FEVER Last Admin: 04/28/18 03:32 Dose: 650 mg Azathioprine (Imuran -) 100 mg PO DAILY [facility] Last Admin: 04/29/18 10:56 Dose: 100 mg Diltiazem HCl (Cardizem Cd -) 240 mg PO DAILY [facility] Last Admin: 04/29/18 09:29 Dose: 240 mg Heparin Sodium (Porcine) (Heparin -) 5,000 unit SQ BID [facility] Last Admin: 04/29/18 09:40 Dose: Not Given Ceftriaxone Sodium 2 gm/ (Dextrose) 100 mls @ 200 mls/hr IVPB DAILY [facility]; Protocol Last Admin: 04/29/18 09:53 Dose: 200 mls/hr Levothyroxine Sodium (Synthroid -) 75 mcg PO DAILY@0700 [facility] Last Admin: 04/29/18 06:35 Dose: 75 mcg Mometasone Furoate (Asmanex 220mcg -) 1 puff IH HS [facility] Last Admin: 04/28/18 21:16 Dose: Not Given Ondansetron HCl (Zofran Injection) 8 mg IVPB Q6H PRN PRN Reason: NAUSEA AND/OR VOMITING Last Admin: 04/26/18 04:38 Dose: 8 mg Polyethylene Glycol (Miralax (For Daily Use) -) 17 gm PO HS PRN PRN Reason: CONSTIPATION Last Admin: 04/28/18 01:13 Dose: 17 gm Prednisone (Deltasone -) 5 mg PO DAILY [facility] Last Admin: 04/29/18 09:29 Dose: 5 mg Ranitidine HCl (Zantac -) 150 mg PO DAILY [facility] Last Admin: 04/29/18 10:56 Dose: 150 mg 72 year old woman with history of ESRD s/p Renal transplant on Imuran and prednisone, Hypertension and hypothyrodism who presented from home with fever and diffuse body pain and found to have suspected cystitis and bacteremia #Sepsis syndrome with bacteremia #ESRD with Renal Transplant #Hx of hypertensoin #Hypothyroidism Renal function stable and near baseline continue imuran and prednisone will need Abx for an extended period of time, will need tunneled central line as opposed to PICC line given CKD discharge planning as per primary Thank you Orlando Sen DO
--- NOTE | 2018-04-29 12:47 | PN ---
Progress Note, Physician History of Present Illness: PULMONARY ALERT,FEELING BETTER,AFEBRILE,-RESP DISTRESS - Current Medication List Current Medications: Active Medications Acetaminophen (Tylenol -) 650 mg PO Q6H PRN PRN Reason: FEVER Last Admin: 04/28/18 03:32 Dose: 650 mg Azathioprine (Imuran -) 100 mg PO DAILY [facility] Last Admin: 04/29/18 10:56 Dose: 100 mg Diltiazem HCl (Cardizem Cd -) 240 mg PO DAILY [facility] Last Admin: 04/29/18 09:29 Dose: 240 mg Heparin Sodium (Porcine) (Heparin -) 5,000 unit SQ BID [facility] Last Admin: 04/29/18 09:40 Dose: Not Given Ceftriaxone Sodium 2 gm/ (Dextrose) 100 mls @ 200 mls/hr IVPB DAILY [facility]; Protocol Last Admin: 04/29/18 09:53 Dose: 200 mls/hr Levothyroxine Sodium (Synthroid -) 75 mcg PO DAILY@0700 [facility] Last Admin: 04/29/18 06:35 Dose: 75 mcg Mometasone Furoate (Asmanex 220mcg -) 1 puff IH HS [facility] Last Admin: 04/28/18 21:16 Dose: Not Given Ondansetron HCl (Zofran Injection) 8 mg IVPB Q6H PRN PRN Reason: NAUSEA AND/OR VOMITING Last Admin: 04/26/18 04:38 Dose: 8 mg Polyethylene Glycol (Miralax (For Daily Use) -) 17 gm PO HS PRN PRN Reason: CONSTIPATION Last Admin: 04/28/18 01:13 Dose: 17 gm Prednisone (Deltasone -) 5 mg PO DAILY [facility] Last Admin: 04/29/18 09:29 Dose: 5 mg Ranitidine HCl (Zantac -) 150 mg PO DAILY [facility] Last Admin: 04/29/18 10:56 Dose: 150 mg - Objective Vital Signs: Vital Signs Temperature 97.7 F 04/29/18 10:06 Pulse Rate 62 04/29/18 10:06 Respiratory Rate 20 04/29/18 10:06 Blood Pressure 148/70 04/29/18 10:06 O2 Sat by Pulse Oximetry (%) 96 04/29/18 09:00 Constitutional: Yes: Well Nourished, Calm Eyes: Yes: WNL HENT: Yes: WNL Neck: Yes: WNL Cardiovascular: Yes: Regular Rate and Rhythm, S1, S2 Respiratory: Yes: CTA Bilaterally Gastrointestinal: Yes: Normal Bowel Sounds, Soft Extremities: Yes: WNL Edema: No Labs: CBC, BMP 04/29/18 08:20 04/29/18 08:20 INR, PTT INR 1.08 (0.83-1.09) 04/25/18 20:29 Problem List - Problems (1) Gram-negative bacteremia Code(s): R78.81 - BACTEREMIA (2) Sepsis Code(s): A41.9 - SEPSIS, UNSPECIFIED ORGANISM Qualifiers: Sepsis type: sepsis due to unspecified organism Qualified Code(s): A41.9 - Sepsis, unspecified organism (3) Asthma Code(s): J45.909 - UNSPECIFIED ASTHMA, UNCOMPLICATED (4) Lung nodule Code(s): R91.1 - SOLITARY PULMONARY NODULE (5) Nausea Code(s): R11.0 - NAUSEA (6) Asthma Code(s): J45.909 - UNSPECIFIED ASTHMA, UNCOMPLICATED (7) Diabetes Code(s): E11.9 - TYPE 2 DIABETES MELLITUS WITHOUT COMPLICATIONS (8) HTN (hypertension) Code(s): I10 - ESSENTIAL (PRIMARY) HYPERTENSION (9) Renal transplant recipient Code(s): Z94.0 - KIDNEY TRANSPLANT STATUS (10) Seizure Code(s): R56.9 - UNSPECIFIED CONVULSIONS Assessment/Plan IMP GRAM NEGATIVE BACTEREMIA /SEPSIS,E-COLI ASTHMA H/O PULMONARY NODULES H/O RENAL TRANSPLANT 1990 ON IMURAN AND PREDNISONE HTN DM ASHD H/O PERICARDIAL EFFUSION S/P WINDOW H/O CVA GERD PLAN ABX PER ID O2 INHALED BRONCHODILATORS MONITOR LYTES,CBC DR DONALD Problem List - Problems (1) Gram-negative bacteremia Code(s): R78.81 - BACTEREMIA (2) Sepsis Code(s): A41.9 - SEPSIS, UNSPECIFIED ORGANISM Qualifiers: Sepsis type: sepsis due to unspecified organism Qualified Code(s): A41.9 - Sepsis, unspecified organism (3) Asthma Code(s): J45.909 - UNSPECIFIED ASTHMA, UNCOMPLICATED (4) Lung nodule Code(s): R91.1 - SOLITARY PULMONARY NODULE (5) Nausea Code(s): R11.0 - NAUSEA (6) Asthma Code(s): J45.909 - UNSPECIFIED ASTHMA, UNCOMPLICATED (7) Diabetes Code(s): E11.9 - TYPE 2 DIABETES MELLITUS WITHOUT COMPLICATIONS (8) HTN (hypertension) Code(s): I10 - ESSENTIAL (PRIMARY) HYPERTENSION (9) Renal transplant recipient Code(s): Z94.0 - KIDNEY TRANSPLANT STATUS (10) Seizure Code(s): R56.9 - UNSPECIFIED CONVULSIONS
[2018-04-29] MEDS: MOMETASONE FUROATE 220 MCG/IH INHALER IH SCH (22:00)
--- NOTE | 2018-04-30 05:48 | DS ---
Physical Examination Vital Signs: Vital Signs Temperature 98.0 F 04/29/18 18:19 Pulse Rate 72 04/29/18 18:19 Respiratory Rate 20 04/29/18 21:00 Blood Pressure 150/77 04/29/18 21:00 O2 Sat by Pulse Oximetry (%) 96 04/29/18 21:00 Labs: CBC, BMP 04/29/18 08:20 04/29/18 08:20 Discharge Summary Reason For Visit: URINARY TRACT INFECTION,SEPSIS Current Active Problems ESRD (end stage renal disease) (Acute) Gram-negative bacteremia (Acute) Sepsis (Acute) UTI (urinary tract infection) (Acute) Condition: Fair - Instructions Referrals: Amelia Mehta [Primary Care Provider] - - Home Medications Comprehensive Discharge Medication List: Ambulatory Orders Levothyroxine [Synthroid -] 75 mcg PO DAILY 03/07/12 predniSONE [Deltasone -] 5 mg PO DAILY 07/11/13 Azathioprine [Imuran] 100 mg PO DAILY 12/20/14 Fluticasone Propionate [Flovent Hfa] 110 mcg IH BID 02/20/17 Acetaminophen [Tylenol .Regular Strength -] 650 mg PO Q8H PRN tablet 05/22/17 Cefuroxime Axetil [Ceftin -] 500 mg PO Q12H #10 tablet 05/22/17 Diltiazem Cd [Cardizem Cd -] 240 mg PO DAILY #0 cap 05/22/17 Furosemide [Lasix -] 40 mg PO DAILY PRN #30 tab 05/22/17 Polyethylene Glycol 3350 [Miralax 119 gm Btl -] 17 gm PO HS PRN bottle Ranitidine [Zantac -] 150 mg PO DAILY #30 tablet 05/22/17
[2018-04-30] MEDS: LEVOTHYROXINE NA 75 MCG TABLET (FP) PO SCH (06:23)
--- NOTE | 2018-04-30 09:29 | PN ---
Progress Note, Physician Chief Complaint: had few diarrhea episodes - once black diarrhea no abdominal pain but has chronic distension and gas and h/o pancreatic cyst - Current Medication List Current Medications: Active Medications Acetaminophen (Tylenol -) 650 mg PO Q6H PRN PRN Reason: FEVER Last Admin: 04/28/18 03:32 Dose: 650 mg Azathioprine (Imuran -) 100 mg PO DAILY [facility] Last Admin: 04/29/18 10:56 Dose: 100 mg Diltiazem HCl (Cardizem Cd -) 240 mg PO DAILY [facility] Last Admin: 04/29/18 09:29 Dose: 240 mg Heparin Sodium (Porcine) (Heparin -) 5,000 unit SQ BID [facility] Last Admin: 04/29/18 22:01 Dose: Not Given Ceftriaxone Sodium 2 gm/ (Dextrose) 100 mls @ 200 mls/hr IVPB DAILY [facility]; Protocol Last Admin: 04/29/18 09:53 Dose: 200 mls/hr Levothyroxine Sodium (Synthroid -) 75 mcg PO DAILY@0700 [facility] Last Admin: 04/30/18 06:23 Dose: 75 mcg Mometasone Furoate (Asmanex 220mcg -) 1 puff IH HS [facility] Last Admin: 04/29/18 22:00 Dose: Not Given Ondansetron HCl (Zofran Injection) 8 mg IVPB Q6H PRN PRN Reason: NAUSEA AND/OR VOMITING Last Admin: 04/26/18 04:38 Dose: 8 mg Pantoprazole Sodium (Protonix -) 20 mg PO DAILY [facility] Polyethylene Glycol (Miralax (For Daily Use) -) 17 gm PO HS PRN PRN Reason: CONSTIPATION Last Admin: 04/28/18 01:13 Dose: 17 gm Prednisone (Deltasone -) 5 mg PO DAILY [facility] Last Admin: 04/29/18 09:29 Dose: 5 mg Ranitidine HCl (Zantac -) 150 mg PO DAILY [facility] Last Admin: 04/29/18 10:56 Dose: 150 mg - Objective Vital Signs: Vital Signs Temperature 98.0 F 04/30/18 06:00 Pulse Rate 62 04/30/18 06:00 Respiratory Rate 20 04/30/18 06:00 Blood Pressure 137/64 04/30/18 06:00 O2 Sat by Pulse Oximetry (%) 96 04/29/18 21:00 Constitutional: Yes: No Distress, Calm Eyes: Yes: Conjunctiva Clear HENT: Yes: Atraumatic Neck: Yes: Supple Cardiovascular: Yes: Regular Rate and Rhythm Respiratory: Yes: CTA Bilaterally Gastrointestinal: Yes: Soft. No: Tenderness Genitourinary: No: CVA Tenderness - Left, CVA Tenderness - Right, Hematuria Musculoskeletal: No: Joint Stiffness, Joint Swelling Extremities: No: Cold, Cool, Cyanosis Edema: No Integumentary: No: Rash, Venous Stasis Changes Neurological: Yes: WNL, Alert, Oriented ...Motor Strength: WNL Psychiatric: Yes: WNL, Alert, Oriented. No: Agitated, Suicidal Ideation Labs: CBC, BMP 04/29/18 08:20 04/29/18 08:20 INR, PTT INR 1.08 (0.83-1.09) 04/25/18 20:29 - ....Imaging Other: Report Reviewed Assessment/Plan 72 yo F with h/o CVA, CAD, HTN, HLD, asthma, hypothyrodism, seizure disorder, pancreatitis, chronic glomerulonephritis, R sided renal transplant / immunosupression, pancreatitis, who p/w fever, and chest pain pleuritic with cough, 1 day of urinary urgency, and suprapubic pressure/discomfort. Had h/o recurrent PNA Urosepsis E coli in blood and urin on IV ATB per ID renal f/u for renal transplant; d/w pt will need to f/u with her renal transplant dr garcia closely after DC falls DVT pfx now with diarrhea and 1 black stool - add PPI low dose po, GI eval; check stools for CDiff, guaiac; f/u labs. d/w pt and staff
[2018-04-30] MEDS ORDERED: DEXTROSE 5%-WATER 100 ML IVPB ONE (09:52)
[2018-04-30] MEDS: predniSONE 5 MG TABLET (UD) PO SCH (09:58)
[2018-04-30] MEDS: PANTOPRAZOLE 20 MG TABLET (FP) PO SCH (09:58)
[2018-04-30] MEDS: RANITIDINE HCL 150 MG TABLET (FP) PO SCH (09:58)
[2018-04-30] MEDS: azaTHIOprine 50 MG TABLET PO SCH (09:58)
[2018-04-30] MEDS: HEPARIN NA (PORCINE) 5,000 UNITS/ML 1ML VIAL SQ SCH ×2 (10:02→21:22)
--- NOTE | 2018-04-30 11:06 | PN ---
Progress Note (short form) - Note Progress Note: Breathing feels OK today. Some dry cough. No CP. No hemoptysis. Intake & Output 04/27/18 04/28/18 04/29/18 04/30/18 23:59 23:59 23:59 23:59 Intake Total 1500 1900 650 500 Balance 1500 1900 650 500 Last Vital Signs Temp Pulse Resp BP Pulse Ox 97.7 F 66 20 155/77 96 04/30/18 10:00 04/30/18 10:00 04/30/18 10:00 04/30/18 10:00 04/29/18 21:00 Active Medications Acetaminophen (Tylenol -) 650 mg PO Q6H PRN PRN Reason: FEVER Last Admin: 04/28/18 03:32 Dose: 650 mg Azathioprine (Imuran -) 100 mg PO DAILY [facility] Last Admin: 04/30/18 09:58 Dose: 100 mg Diltiazem HCl (Cardizem Cd -) 240 mg PO DAILY [facility] Last Admin: 04/30/18 09:58 Dose: 240 mg Heparin Sodium (Porcine) (Heparin -) 5,000 unit SQ BID [facility] Last Admin: 04/30/18 10:02 Dose: Not Given Ceftriaxone Sodium 2 gm/ (Dextrose) 100 mls @ 200 mls/hr IVPB DAILY [facility]; Protocol Last Admin: 04/29/18 09:53 Dose: 200 mls/hr Levothyroxine Sodium (Synthroid -) 75 mcg PO DAILY@0700 [facility] Last Admin: 04/30/18 06:23 Dose: 75 mcg Mometasone Furoate (Asmanex 220mcg -) 1 puff IH HS [facility] Last Admin: 04/29/18 22:00 Dose: Not Given Ondansetron HCl (Zofran Injection) 8 mg IVPB Q6H PRN PRN Reason: NAUSEA AND/OR VOMITING Last Admin: 04/26/18 04:38 Dose: 8 mg Pantoprazole Sodium (Protonix -) 20 mg PO DAILY [facility] Last Admin: 04/30/18 09:58 Dose: 20 mg Polyethylene Glycol (Miralax (For Daily Use) -) 17 gm PO HS PRN PRN Reason: CONSTIPATION Last Admin: 04/28/18 01:13 Dose: 17 gm Prednisone (Deltasone -) 5 mg PO DAILY [facility] Last Admin: 04/30/18 09:58 Dose: 5 mg Ranitidine HCl (Zantac -) 150 mg PO DAILY [facility] Last Admin: 04/30/18 09:58 Dose: 150 mg GENERAL: Awake, alert, oriented, in no acute distress HEAD: No signs of trauma, normocephalic, atraumatic EYES: PERRLA, EOMI, sclera anicteric, conjunctiva clear ENT: Moist mucosa NECK: Normal ROM, supple, no lymphadenopathy, JVD, or masses LUNGS: Few scattered rhonchi, no wheeze HEART: Regular rate and rhythm, normal S1 and S2, no murmurs, rubs or gallops. ABDOMEN: Soft, normoactive bowel sounds. No guarding, no rebound. EXTREMITIES : Normal inspection, Normal range of motion, no edema. No clubbing or cyanosis. NEUROLOGICAL: Non-focal SKIN: Warm, Dry, normal turgor, no rashes or lesions noted Problem List - Problems (1) Gram-negative bacteremia Code(s): R78.81 - BACTEREMIA (2) Sepsis Code(s): A41.9 - SEPSIS, UNSPECIFIED ORGANISM Qualifiers: Sepsis type: sepsis due to unspecified organism Qualified Code(s): A41.9 - Sepsis, unspecified organism (3) Asthma Code(s): J45.909 - UNSPECIFIED ASTHMA, UNCOMPLICATED (4) Lung nodule Code(s): R91.1 - SOLITARY PULMONARY NODULE (5) Nausea Code(s): R11.0 - NAUSEA (6) Asthma Code(s): J45.909 - UNSPECIFIED ASTHMA, UNCOMPLICATED (7) Diabetes Code(s): E11.9 - TYPE 2 DIABETES MELLITUS WITHOUT COMPLICATIONS (8) HTN (hypertension) Code(s): I10 - ESSENTIAL (PRIMARY) HYPERTENSION (9) Renal transplant recipient Code(s): Z94.0 - KIDNEY TRANSPLANT STATUS (10) Seizure Code(s): R56.9 - UNSPECIFIED CONVULSIONS IMP GRAM NEGATIVE BACTEREMIA /SEPSIS ASTHMA H/O PULMONARY NODULES:CHRONIC CHANGES SINCE [address] IMAGES H/O RENAL TRANSPLANT 1990 ON IMURAN AND PREDNISONE HTN DM ASHD H/O PERICARDIAL EFFUSION S/P WINDOW H/O CVA GERD PLAN ABX PER ID O2 INHALED BRONCHODILATORS PREDNISONE 5MG OD VTE PROPHYLAXIS D/C PLANNING DR STROUD
[2018-04-30] MEDS: CEFTRIAXONE 2 GM in DEXTROSE 5%-WATER 100 ML IVPB SCH (11:55)
--- NOTE | 2018-04-30 15:42 | PN ---
Progress Note (short form) - Note Progress Note: s: no chest pain, palps, dyspnea, dizziness. Current Medications Acetaminophen (Tylenol -) 650 mg PO Q6H PRN PRN Reason: FEVER Last Admin: 04/28/18 03:32 Dose: 650 mg Azathioprine (Imuran -) 100 mg PO DAILY [facility] Last Admin: 04/30/18 09:58 Dose: 100 mg Diltiazem HCl (Cardizem Cd -) 240 mg PO DAILY [facility] Last Admin: 04/30/18 09:58 Dose: 240 mg Heparin Sodium (Porcine) (Heparin -) 5,000 unit SQ BID [facility] Last Admin: 04/30/18 10:02 Dose: Not Given Ceftriaxone Sodium 2 gm/ (Dextrose) 100 mls @ 200 mls/hr IVPB DAILY [facility]; Protocol Last Admin: 04/30/18 11:55 Dose: 200 mls/hr Levothyroxine Sodium (Synthroid -) 75 mcg PO DAILY@0700 [facility] Last Admin: 04/30/18 06:23 Dose: 75 mcg Mometasone Furoate (Asmanex 220mcg -) 1 puff IH HS [facility] Last Admin: 04/29/18 22:00 Dose: Not Given Ondansetron HCl (Zofran Injection) 8 mg IVPB Q6H PRN PRN Reason: NAUSEA AND/OR VOMITING Last Admin: 04/26/18 04:38 Dose: 8 mg Pantoprazole Sodium (Protonix -) 20 mg PO DAILY [facility] Last Admin: 04/30/18 09:58 Dose: 20 mg Polyethylene Glycol (Miralax (For Daily Use) -) 17 gm PO HS PRN PRN Reason: CONSTIPATION Last Admin: 04/28/18 01:13 Dose: 17 gm Prednisone (Deltasone -) 5 mg PO DAILY [facility] Last Admin: 04/30/18 09:58 Dose: 5 mg Ranitidine HCl (Zantac -) 150 mg PO DAILY [facility] Last Admin: 04/30/18 09:58 Dose: 150 mg Physical Exam Vital Signs Period Temp Pulse Resp BP Sys/Wang Pulse Ox Last 24 Hr 97.7 F-98.0 F 62-72 18-20 135-155/64-81 96-97 Constitutional: Yes: Well Nourished, No Distress Eyes: Yes: WNL HENT: Yes: WNL Neck: Yes: WNL Cardiovascular: Yes: Regular Rate and Rhythm Respiratory: Yes: WNL, CTA Bilaterally Gastrointestinal: Yes: WNL Musculoskeletal: Yes: WNL Extremities: Yes: WNL Edema: No Imaging - Results EKG: Image Reviewed (ECG done on 04/25/2018 at 20:21 shows NSR at 95/min with iRBBB and lAFB with LVH. THis current ECG is uncanged from the prior ECG done in 04/2017) Other: Report Reviewed (Echo: 05/16/2017: Normal LV function, LVH, moderate MR Stress MPI 2012: Normal stress MPI, LVEF 73%) Assessment/Plan a/p: 71 yo with pmhx of htn, CVA, pericarditis s/p pericardial window, Right kidney transplant in 1990, niddm, seizures (last 02/2017), asthma, now admitted with urosepsis with E. Coli. complaining of atypical chest pain CP - atypical for cardiac pain, noted in setting of urosepsis -now resolved - Ekg without acute ischemic changes and unchanged from prior in 04/2017, trop neg x 1 -No further CV testing at this time htn - continue current meds Urosepsis -mgm't per pmd, ID
--- NOTE | 2018-04-30 16:22 | PN ---
Progress Note (short form) - Note Progress Note: Renal follow up for renal transplantation Pt seen and examined at the bedside has some leg edema no sob, cp, abd pain, fever Vital Signs Temperature 97.8 F 04/30/18 15:00 Pulse Rate 69 04/30/18 15:00 Respiratory Rate 20 04/30/18 15:00 Blood Pressure 142/69 04/30/18 15:00 O2 Sat by Pulse Oximetry (%) 97 04/30/18 09:00 Intake & Output 04/27/18 04/28/18 04/29/18 04/30/18 23:59 23:59 23:59 23:59 Intake Total 1500 1900 650 660 Balance 1500 1900 650 660 NAD no LE edema CBC, BMP 04/29/18 08:20 04/29/18 08:20 Current Medications Acetaminophen (Tylenol -) 650 mg PO Q6H PRN PRN Reason: FEVER Last Admin: 04/28/18 03:32 Dose: 650 mg Azathioprine (Imuran -) 100 mg PO DAILY [facility] Last Admin: 04/30/18 09:58 Dose: 100 mg Diltiazem HCl (Cardizem Cd -) 240 mg PO DAILY [facility] Last Admin: 04/30/18 09:58 Dose: 240 mg Heparin Sodium (Porcine) (Heparin -) 5,000 unit SQ BID [facility] Last Admin: 04/30/18 10:02 Dose: Not Given Ceftriaxone Sodium 2 gm/ (Dextrose) 100 mls @ 200 mls/hr IVPB DAILY [facility]; Protocol Last Admin: 04/30/18 11:55 Dose: 200 mls/hr Levothyroxine Sodium (Synthroid -) 75 mcg PO DAILY@0700 [facility] Last Admin: 04/30/18 06:23 Dose: 75 mcg Mometasone Furoate (Asmanex 220mcg -) 1 puff IH HS [facility] Last Admin: 04/29/18 22:00 Dose: Not Given Ondansetron HCl (Zofran Injection) 8 mg IVPB Q6H PRN PRN Reason: NAUSEA AND/OR VOMITING Last Admin: 04/26/18 04:38 Dose: 8 mg Pantoprazole Sodium (Protonix -) 20 mg PO DAILY [facility] Last Admin: 04/30/18 09:58 Dose: 20 mg Polyethylene Glycol (Miralax (For Daily Use) -) 17 gm PO HS PRN PRN Reason: CONSTIPATION Last Admin: 04/28/18 01:13 Dose: 17 gm Prednisone (Deltasone -) 5 mg PO DAILY [facility] Last Admin: 04/30/18 09:58 Dose: 5 mg Ranitidine HCl (Zantac -) 150 mg PO DAILY [facility] Last Admin: 04/30/18 09:58 Dose: 150 mg 72 year old woman with history of ESRD s/p Renal transplant on Imuran and prednisone, Hypertension and hypothyrodism who presented from home with fever and diffuse body pain and found to have suspected cystitis and bacteremia #Sepsis syndrome with bacteremia #ESRD with Renal Transplant #Hx of hypertensoin #Hypothyroidism Renal function stable continue imuran and prednisone Thank you Orlando Sen DO
--- NOTE | 2018-04-30 18:03 | CON.GI ---
Consult Consult Specialty:: Gastroenterology Referred by:: Dr Mehta Reason for Consultation:: Diarrhea - History of Present Illness Chief Complaint: Diarrhea x 2 days History of Present Illness: 72F with renal transplant is admitted with E. coli urosepsis. On 04/28 she developed loose diarrhea. She describes it as occuring shortly after eating. She describes having multiple loose nonbloody BMs yesterday. The diarrhea appears to be subsiding today. No abdominal cramps. She has had two recent exposures to antibiotics prior to his hospitalization. She is usually constipated and takes Exlax. More recently she has been followed by Dr Graf and believes that she had a colonoscopy 2 years ago and that polyps were removed. She did have polyps removed by me remotely. [facility] reveals that she had an EGD with Dr Peter on 04/06/14 which was normal. I removed a transverse colon polyp during colonoscopy on 03/19/09 which also revealed diverticulosis. I removed an antral polyp during an EGD on 03/12/09. GERD above a hiatal hernia was seen. Review of [facility] imaging reveals that her MRI in 12/13 revealed a 5mm IPMN in the head of her pancreas. Her appetite has been good. She denies ever having had C diff. 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: Yes: CVA (as per a previous Dr Spann consult), Seizure Cardio/Vascular: Yes: HTN, Other (pericardial window for effusion, normal cardiac cath 2015, 2017 EF 73% with moderate TR) Pulmonary: Yes: Asthma Gastrointestinal: Yes: Diverticulosis, GERD, Peptic Ulcer Disease (?), Other ( Pancreatic head 5mm IPMN, colon polyps removed, ) Hepatobiliary: Yes: Other (fatty liver) Renal/: Yes: Renal Inusuff, Other (renal transplant) ...: No Musculoskeletal: Yes: Osteoarthritis Rheumatology: Yes: Gout Endocrine: Yes: Hypothyroidism, Hyperparathyroidism - Past Surgical History Past Surgical History: Yes: Arthrosocopy (left knee), AV Fistula/Graft (LUE), Colonoscopy, Hernia Repair (ventral incision hernia repair with mesh [facility]), Kidney Transplant (into right pelvis at [facility]), Tubal Ligation, Upper Endoscopy Additional Surgical History: Parathyroidectomy- Dr Tolliver [facility]. Pericardial window. Right rotator cuff repair. Exploratory lap for hemorrhage following attempted femoral artery access-nothing resected. Open right renal biopsy. Long low transverse renal transplant incision. Abdominal angiolipoma excision 2013 Dr Valencia - Alcohol/Substance Use Hx Alcohol Use: Yes (rare on major occasions) History of Substance Use: reports: None - Smoking History Smoking history: Never smoked Have you smoked in the past 12 months: No Aproximately how many cigarettes per day: 0 - Social History Usual Living Arrangement: Alone ADL: Independent Place of : Other ([place] Came to [place] (year): age 32 History of Recent Travel: No Home Medications - Allergies Allergies/Adverse Reactions: Allergies Allergy/AdvReac Type Severity Reaction Status Date / Time codeine Allergy Intermediate Vomiting Verified 04/25/18 19:58 AND SWELLING OF FACE - Home Medications Home Medications: Ambulatory Orders Levothyroxine [Synthroid -] 75 mcg PO DAILY 03/07/12 predniSONE [Deltasone -] 5 mg PO DAILY 07/11/13 Azathioprine [Imuran] 100 mg PO DAILY 12/20/14 Fluticasone Propionate [Flovent Hfa] 110 mcg IH BID 02/20/17 Acetaminophen [Tylenol .Regular Strength -] 650 mg PO Q8H PRN tablet 05/22/17 Cefuroxime Axetil [Ceftin -] 500 mg PO Q12H #10 tablet 05/22/17 Diltiazem Cd [Cardizem Cd -] 240 mg PO DAILY #0 cap 05/22/17 Furosemide [Lasix -] 40 mg PO DAILY PRN #30 tab 05/22/17 Polyethylene Glycol 3350 [Miralax 119 gm Btl -] 17 gm PO HS PRN bottle Ranitidine [Zantac -] 150 mg PO DAILY #30 tablet 05/22/17 Family Disease History - Family Disease History Family Disease History: CA: Sister (breast cancer), Other: Father (unknown), Mother (? renal cancer) Other Family History: 2 maternal uncles with colon cancer, mat uncle and niece with bone cancer Review of Systems - Review of Systems Constitutional: reports: Chills Eyes: reports: No Symptoms HENT: reports: No Symptoms Neck: reports: No Symptoms Cardiovascular: reports: No Symptoms Respiratory: reports: Exercise Intolerance Gastrointestinal: reports: Bloating, Constipation, Diarrhea, Nausea Genitourinary: reports: No Symptoms Musculoskeletal: reports: Joint Pain Physical Exam-GI Vital Signs: Vital Signs Temperature 97.8 F 04/30/18 15:00 Pulse Rate 69 04/30/18 15:00 Respiratory Rate 20 04/30/18 15:00 Blood Pressure 142/69 04/30/18 15:00 O2 Sat by Pulse Oximetry (%) 97 04/30/18 09:00 CBC,CMP WBC 5.2 K/mm3 (4.0-10.0) 04/29/18 08:20 RBC 3.44 M/mm3 (3.60-5.2) L 04/29/18 08:20 Hgb 11.8 GM/dL (10.7-15.3) 04/29/18 08:20 Hct 34.6 % (32.4-45.2) 04/29/18 08:20 MCV 100.7 fl (80-96) H 04/29/18 08:20 MCH 34.2 pg (25.7-33.7) H 04/29/18 08:20 MCHC 34.0 g/dl (32.0-36.0) 04/29/18 08:20 RDW 16.5 % (11.6-15.6) H 04/29/18 08:20 Plt Count 281 K/MM3 (134-434) D 04/29/18 08:20 MPV 9.4 fl (7.5-11.1) 04/29/18 08:20 Absolute Neuts (auto) 3.1 K/mm3 (1.5-8.0) 04/29/18 08:20 Neutrophils % 59.0 % (42.8-82.8) 04/29/18 08:20 Lymphocytes % 27.9 % (8-40) 04/29/18 08:20 Monocytes % 11.2 % (3.8-10.2) H 04/29/18 08:20 Eosinophils % 1.1 % (0-4.5) 04/29/18 08:20 Basophils % 0.8 % (0-2.0) 04/29/18 08:20 Nucleated RBC % 0 % (0-0) 04/29/18 08:20 Sodium 140 mmol/L (136-145) 04/29/18 08:20 Potassium 3.9 mmol/L (3.5-5.1) 04/29/18 08:20 Chloride 104 mmol/L (98-107) 04/29/18 08:20 Carbon Dioxide 27 mmol/L (21-32) 04/29/18 08:20 Anion Gap 9 MMOL/L (8-16) 04/29/18 08:20 BUN 12 mg/dL (7-18) 04/29/18 08:20 Creatinine 1.1 mg/dL (0.55-1.3) 04/29/18 08:20 Creat Clearance w eGFR 49.10 (>60) 04/29/18 08:20 Random Glucose 82 mg/dL (74-106) 04/29/18 08:20 Lactic Acid 1.0 mmol/L (0.4-2.0) 04/26/18 09:50 Calcium 9.5 mg/dL (8.5-10.1) 04/29/18 08:20 Total Bilirubin 0.5 mg/dL (0.2-1) 04/28/18 07:45 AST 8 U/L (15-37) L 04/28/18 07:45 ALT 15 U/L (13-61) 04/28/18 07:45 Alkaline Phosphatase 61 U/L (45-117) 04/28/18 07:45 Troponin I < 0.02 ng/ml (0.00-0.05) 04/25/18 21:02 Total Protein 7.4 g/dl (6.4-8.2) 04/28/18 07:45 Albumin 2.7 g/dl (3.4-5.0) L 04/28/18 07:45 Lipase 79 U/L (73-393) 04/25/18 20:29 Current Medications Generic Name Dose Route Start Last Admin Trade Name Freq PRN Reason Stop Dose Admin Acetaminophen 650 mg 04/26/18 04:12 04/28/18 03:32 Tylenol - PO 650 mg Q6H PRN Administration FEVER Azathioprine 100 mg 04/26/18 10:00 04/30/18 09:58 Imuran - PO 100 mg DAILY [facility] Administration Diltiazem HCl 240 mg 04/26/18 10:00 04/30/18 09:58 Cardizem Cd - PO 240 mg DAILY [facility] Administration Heparin Sodium (Porcine) 5,000 unit 04/26/18 10:00 04/30/18 10:02 Heparin - SQ Not Given BID [facility] Ceftriaxone Sodium 2 gm/ 100 mls @ 200 mls/hr 04/28/18 14:45 04/30/18 11:55 Dextrose IVPB 200 mls/hr DAILY [facility] Administration Protocol Levothyroxine Sodium 75 mcg 04/26/18 07:00 04/30/18 06:23 Synthroid - PO 75 mcg DAILY@0700 [facility] Administration Mometasone Furoate 1 puff 04/26/18 22:00 04/29/18 22:00 Asmanex 220mcg - IH Not Given HS [facility] Ondansetron HCl 8 mg 04/26/18 04:13 04/26/18 04:38 Zofran Injection IVPB 8 mg Q6H PRN Administration NAUSEA AND/OR VOMITING Pantoprazole Sodium 20 mg 04/30/18 10:00 04/30/18 09:58 Protonix - PO 20 mg DAILY [facility] Administration Polyethylene Glycol 17 gm 04/26/18 06:27 04/28/18 01:13 Miralax (For Daily Use) - PO 17 gm HS PRN Administration CONSTIPATION Prednisone 5 mg 04/26/18 10:00 04/30/18 09:58 Deltasone - PO 5 mg DAILY [facility] Administration Ranitidine HCl 150 mg 04/26/18 10:00 04/30/18 09:58 Zantac - PO 150 mg DAILY [facility] Administration Constitutional: Yes: Calm Eyes: Yes: Conjunctiva Clear HENT: Yes: Atraumatic Neck: Yes: Trachea Midline, Other (healed low transverse incision) Cardiovascular: Yes: Regular Rate and Rhythm Respiratory: Yes: CTA Bilaterally Gastrointestinal Inspection: Yes: Scars (right flank incision very long low transverse incision) ...Auscultate: Yes: Hypoactive Bowel Sounds ...Palpate: Yes: Mass (palpable right inguinal area transplanted kidney), Soft, Other (nontender) ...Percussion: Yes: Tympanitic ...Rectal Exam: Yes: Guaiac Negative (smudge of brown guaiac negative stool) Edema: No Neurological: Yes: Alert, Oriented Labs: CBC, BMP 04/29/18 08:20 04/29/18 08:20 INR, PTT INR 1.08 (0.83-1.09) 02/28/19 20:29 Laboratory Tests 04/25/18 04/25/18 04/28/18 20:29 20:29 07:45 WBC 15.8 H Total Bilirubin 0.5 AST 8 L ALT 15 Alkaline Phosphatase 61 Lipase 79 04/29/18 08:20 WBC 5.2 Total Bilirubin AST ALT Alkaline Phosphatase Lipase Problem List - Problems (1) Diarrhea Assessment/Plan: Given her recent antibiotic exposures C diff toxin mediated colitis needs to be excluded. I will also screen for other enteric pathogens. Given her chronic constipation paradoxical constipation needs to be excluded. Will get FUA. Code(s): R19.7 - DIARRHEA, UNSPECIFIED (2) Chronic constipation Code(s): K59.09 - OTHER CONSTIPATION (3) Diverticula of colon Code(s): K57.30 - DVRTCLOS OF LG INT W/O PERFORATION OR ABSCESS W/O BLEEDING (4) History of colon polyps Assessment/Plan: Will need most recent colonoscopy report to determine when surveillance is due. Code(s): Z86.010 - PERSONAL HISTORY OF COLONIC POLYPS (5) IPMN (intraductal papillary mucinous neoplasm) Assessment/Plan: Will order sonogram to assess for a change in size Code(s): D49.0 - NEOPLASM OF UNSPECIFIED BEHAVIOR OF DIGESTIVE SYSTEM (6) Fatty (change of) liver, not elsewhere classified Code(s): K76.0 - FATTY (CHANGE OF) LIVER, NOT ELSEWHERE CLASSIFIED (7) History of parathyroid surgery Code(s): Z98.890 - OTHER SPECIFIED POSTPROCEDURAL STATES (8) Asthma Code(s): J45.909 - UNSPECIFIED ASTHMA, UNCOMPLICATED (9) Hypothyroidism Code(s): E03.9 - HYPOTHYROIDISM, UNSPECIFIED (10) Renal transplant recipient Code(s): Z94.0 - KIDNEY TRANSPLANT STATUS Assessment/Plan Impression: Given antibiotic exposures need to exclude C diff colitis. Will screen for other pathogens. Cannot exclude fecal impaction with paradoxical diarrhea Pancreatic IPMN Personal h/o colon polyps and remote FH colon cancer Plan Stool for C diff and enteric pathogens FUA to exclude fecal impaction Sonogram to assess for IPMN size change Need most recent colonoscopy reports to determine whether surveillance is due
[2018-04-30] MEDS: MOMETASONE FUROATE 220 MCG/IH INHALER IH SCH (21:22)
--- NOTE | 2018-04-30 21:51 | PN ---
Progress Note, Physician - Current Medication List Current Medications: Active Medications Acetaminophen (Tylenol -) 650 mg PO Q6H PRN PRN Reason: FEVER Last Admin: 04/28/18 03:32 Dose: 650 mg Azathioprine (Imuran -) 100 mg PO DAILY [facility] Last Admin: 04/30/18 09:58 Dose: 100 mg Diltiazem HCl (Cardizem Cd -) 240 mg PO DAILY [facility] Last Admin: 04/30/18 09:58 Dose: 240 mg Heparin Sodium (Porcine) (Heparin -) 5,000 unit SQ BID [facility] Last Admin: 04/30/18 21:22 Dose: Not Given Ceftriaxone Sodium 2 gm/ (Dextrose) 100 mls @ 200 mls/hr IVPB DAILY [facility]; Protocol Last Admin: 04/30/18 11:55 Dose: 200 mls/hr Levothyroxine Sodium (Synthroid -) 75 mcg PO DAILY@0700 [facility] Last Admin: 04/30/18 06:23 Dose: 75 mcg Mometasone Furoate (Asmanex 220mcg -) 1 puff IH HS [facility] Last Admin: 04/30/18 21:22 Dose: Not Given Ondansetron HCl (Zofran Injection) 8 mg IVPB Q6H PRN PRN Reason: NAUSEA AND/OR VOMITING Last Admin: 04/26/18 04:38 Dose: 8 mg Pantoprazole Sodium (Protonix -) 20 mg PO DAILY [facility] Last Admin: 04/30/18 09:58 Dose: 20 mg Polyethylene Glycol (Miralax (For Daily Use) -) 17 gm PO HS PRN PRN Reason: CONSTIPATION Last Admin: 04/28/18 01:13 Dose: 17 gm Prednisone (Deltasone -) 5 mg PO DAILY [facility] Last Admin: 04/30/18 09:58 Dose: 5 mg Ranitidine HCl (Zantac -) 150 mg PO DAILY [facility] Last Admin: 04/30/18 09:58 Dose: 150 mg - Objective Vital Signs: Vital Signs Temperature 97.8 F 04/30/18 18:00 Pulse Rate 68 04/30/18 18:00 Respiratory Rate 20 04/30/18 18:00 Blood Pressure 135/73 04/30/18 18:00 O2 Sat by Pulse Oximetry (%) 97 04/30/18 09:00 Labs: CBC, BMP 04/29/18 08:20 04/29/18 08:20 INR, PTT INR 1.08 (0.83-1.09) 04/25/18 20:29
--- NOTE | 2018-04-30 22:03 | PN ---
Progress Note, Physician History of Present Illness: C/O loose BMs No c/o dysuria/ suprapubic or flank pain No c/o fever/ chills - Current Medication List Current Medications: Active Medications Acetaminophen (Tylenol -) 650 mg PO Q6H PRN PRN Reason: FEVER Last Admin: 04/28/18 03:32 Dose: 650 mg Azathioprine (Imuran -) 100 mg PO DAILY [facility] Last Admin: 04/30/18 09:58 Dose: 100 mg Diltiazem HCl (Cardizem Cd -) 240 mg PO DAILY [facility] Last Admin: 04/30/18 09:58 Dose: 240 mg Heparin Sodium (Porcine) (Heparin -) 5,000 unit SQ BID [facility] Last Admin: 04/30/18 21:22 Dose: Not Given Ceftriaxone Sodium 2 gm/ (Dextrose) 100 mls @ 200 mls/hr IVPB DAILY [facility]; Protocol Last Admin: 04/30/18 11:55 Dose: 200 mls/hr Levothyroxine Sodium (Synthroid -) 75 mcg PO DAILY@0700 [facility] Last Admin: 04/30/18 06:23 Dose: 75 mcg Mometasone Furoate (Asmanex 220mcg -) 1 puff IH HS [facility] Last Admin: 04/30/18 21:22 Dose: Not Given Ondansetron HCl (Zofran Injection) 8 mg IVPB Q6H PRN PRN Reason: NAUSEA AND/OR VOMITING Last Admin: 04/26/18 04:38 Dose: 8 mg Pantoprazole Sodium (Protonix -) 20 mg PO DAILY [facility] Last Admin: 04/30/18 09:58 Dose: 20 mg Polyethylene Glycol (Miralax (For Daily Use) -) 17 gm PO HS PRN PRN Reason: CONSTIPATION Last Admin: 04/28/18 01:13 Dose: 17 gm Prednisone (Deltasone -) 5 mg PO DAILY [facility] Last Admin: 04/30/18 09:58 Dose: 5 mg Ranitidine HCl (Zantac -) 150 mg PO DAILY [facility] Last Admin: 04/30/18 09:58 Dose: 150 mg - Objective Vital Signs: Vital Signs Temperature 97.8 F 04/30/18 18:00 Pulse Rate 68 04/30/18 18:00 Respiratory Rate 20 04/30/18 18:00 Blood Pressure 135/73 04/30/18 18:00 O2 Sat by Pulse Oximetry (%) 97 04/30/18 09:00 Constitutional: Yes: No Distress Cardiovascular: Yes: Regular Rate and Rhythm, S1, S2 Respiratory: Yes: CTA Bilaterally Gastrointestinal: Yes: Normal Bowel Sounds, Soft Edema: No Labs: CBC, BMP 04/29/18 08:20 04/29/18 08:20 INR, PTT INR 1.08 (0.83-1.09) 04/25/18 20:29 Assessment/Plan Gram negative bacteremia/ sepsis S/P renal transplant Antibiotic associated diarrhea Continue ceftriaxone
[2018-05-01] MEDS: LEVOTHYROXINE NA 75 MCG TABLET (FP) PO SCH (06:07)
--- NOTE | 2018-05-01 07:10 | PN ---
Progress Note, Physician Chief Complaint: OOB to chair feels better less diarrhea abdomen US done results pending seen by GI awaiting further ID rec. regarding ATB; afebrile pt asked for a letter for her work to be given to her daughter - Current Medication List Current Medications: Active Medications Acetaminophen (Tylenol -) 650 mg PO Q6H PRN PRN Reason: FEVER Last Admin: 04/28/18 03:32 Dose: 650 mg Azathioprine (Imuran -) 100 mg PO DAILY [facility] Last Admin: 04/30/18 09:58 Dose: 100 mg Diltiazem HCl (Cardizem Cd -) 240 mg PO DAILY [facility] Last Admin: 04/30/18 09:58 Dose: 240 mg Heparin Sodium (Porcine) (Heparin -) 5,000 unit SQ BID [facility] Last Admin: 04/30/18 21:22 Dose: Not Given Ceftriaxone Sodium 2 gm/ (Dextrose) 100 mls @ 200 mls/hr IVPB DAILY [facility]; Protocol Last Admin: 04/30/18 11:55 Dose: 200 mls/hr Levothyroxine Sodium (Synthroid -) 75 mcg PO DAILY@0700 [facility] Last Admin: 05/01/18 06:07 Dose: 75 mcg Mometasone Furoate (Asmanex 220mcg -) 1 puff IH HS [facility] Last Admin: 04/30/18 21:22 Dose: Not Given Ondansetron HCl (Zofran Injection) 8 mg IVPB Q6H PRN PRN Reason: NAUSEA AND/OR VOMITING Last Admin: 04/26/18 04:38 Dose: 8 mg Pantoprazole Sodium (Protonix -) 20 mg PO DAILY [facility] Last Admin: 04/30/18 09:58 Dose: 20 mg Polyethylene Glycol (Miralax (For Daily Use) -) 17 gm PO HS PRN PRN Reason: CONSTIPATION Last Admin: 04/28/18 01:13 Dose: 17 gm Prednisone (Deltasone -) 5 mg PO DAILY [facility] Last Admin: 04/30/18 09:58 Dose: 5 mg Ranitidine HCl (Zantac -) 150 mg PO DAILY [facility] Last Admin: 04/30/18 09:58 Dose: 150 mg - Objective Vital Signs: Vital Signs Temperature 97.8 F 04/30/18 18:00 Pulse Rate 68 04/30/18 18:00 Respiratory Rate 20 04/30/18 18:00 Blood Pressure 135/73 04/30/18 18:00 O2 Sat by Pulse Oximetry (%) 97 04/30/18 21:00 Constitutional: Yes: No Distress, Calm Eyes: Yes: Conjunctiva Clear HENT: Yes: Atraumatic Neck: Yes: Supple Cardiovascular: Yes: Regular Rate and Rhythm Respiratory: Yes: CTA Bilaterally Gastrointestinal: Yes: Soft. No: Tenderness Genitourinary: No: CVA Tenderness - Left, CVA Tenderness - Right, Hematuria Musculoskeletal: No: Joint Stiffness, Joint Swelling Extremities: No: Cold, Cool, Cyanosis Edema: No Integumentary: No: Rash, Venous Stasis Changes Neurological: Yes: WNL, Alert, Oriented ...Motor Strength: WNL Psychiatric: Yes: WNL, Alert, Oriented. No: Agitated, Suicidal Ideation Labs: CBC, BMP 04/29/18 08:20 04/29/18 08:20 INR, PTT INR 1.08 (0.83-1.09) 04/25/18 20:29 - ....Imaging Other: Report Reviewed Assessment/Plan 72 yo F with h/o CVA, CAD, HTN, HLD, asthma, hypothyrodism, seizure disorder, pancreatitis, chronic glomerulonephritis, R sided renal transplant / immunosupression, pancreatitis, who p/w fever, h/o recurrent PNA, admitted with UTI and sepsis + blood and urine CX Urosepsis E coli in blood and urine on IV ATB per ID renal f/u for renal transplant; d/w pt will need to f/u with her renal transplant dr garcia closely after DC falls DVT pfx s/p diarrhea and 1 black stool - added PPI low dose po, GI eval; check stools for CDiff, guaiac; f/u labs. abdomen US for pancreatic cyst done results pending further ATB per ID d/w pt and case resolution specialist might need PICC line d/w pt and staff
[2018-05-01 07:35] LABS: EOS % 0.6 % (0-4.5); HEMATOCRIT 32.1 % (32.4-45.2); HEMOGLOBIN 11.1 GM/dL (10.7-15.3); LYMPH % 32.6 % (8-40); MCH 34.5 pg (25.7-33.7); MCHC 34.5 g/dl (32.0-36.0); MEAN CELL VOLUME 100.1 fl (80-96); MEAN PLT VOLUME 8.6 fl (7.5-11.1); MONO % 14.7 % (3.8-10.2); NEUT % 51.1 % (42.8-82.8); PLATELET COUNT 287 K/MM3 (134-434); RBC 3.21 M/mm3 (3.60-5.2); RDW 16.1 % (11.6-15.6); WHITE BLOOD COUNT 6.4 K/mm3 (4.0-10.0)
[2018-05-01 08:37] LABS: ALBUMIN 2.7 g/dl (3.4-5.0); ALK PHOS 48 U/L (45-117); AMYLASE 59 U/L (25-115); ANION GAP 9 MMOL/L (8-16); BILIRUBIN,TOTAL 0.4 mg/dL (0.2-1); BLOOD UREA NITROGEN 15 mg/dL (7-18); CALCIUM 8.7 mg/dL (8.5-10.1); CHLORIDE 104 mmol/L (98-107); CO2 27 mmol/L (21-32); CREATININE 0.8 mg/dL (0.55-1.3); GLUCOSE,RANDOM 81 mg/dL (74-106); LIPASE 168 U/L (73-393); POTASSIUM 3.9 mmol/L (3.5-5.1); SGOT/AST 23 U/L (15-37); SGPT/ALT 26 U/L (13-61); SODIUM 140 mmol/L (136-145); TOT PROT 6.2 g/dl (6.4-8.2)
[2018-05-01] MEDS ORDERED: DEXTROSE 5%-WATER 100 ML IVPB ONE (09:09)
[2018-05-01] MEDS: PANTOPRAZOLE 20 MG TABLET (FP) PO SCH (10:58)
[2018-05-01] MEDS: predniSONE 5 MG TABLET (UD) PO SCH (10:58)
[2018-05-01] MEDS: RANITIDINE HCL 150 MG TABLET (FP) PO SCH (10:58)
[2018-05-01] MEDS: HEPARIN NA (PORCINE) 5,000 UNITS/ML 1ML VIAL SQ SCH ×2 (11:00→21:26)
[2018-05-01] MEDS: azaTHIOprine 50 MG TABLET PO SCH (11:01)
[2018-05-01] MEDS: CEFTRIAXONE 2 GM in DEXTROSE 5%-WATER 100 ML IVPB SCH (11:05)
--- NOTE | 2018-05-01 11:46 | PN ---
Progress Note (short form) - Note Progress Note: Renal follow up for renal transplantation Pt seen and examined at the bedside no sob, cp, abd pain has some fatigue making urine no flank pain, cp, abd pain, N/V had loose BM yesterday, no BM yet today Vital Signs Temperature 98 F 05/01/18 11:11 Pulse Rate 71 05/01/18 11:11 Respiratory Rate 20 05/01/18 11:11 Blood Pressure 145/75 05/01/18 11:11 O2 Sat by Pulse Oximetry (%) 97 04/30/18 21:00 Intake & Output 04/28/18 04/29/18 04/30/18 05/01/18 23:59 23:59 23:59 23:59 Intake Total 0081 935 4173 80 Balance 0522 598 1457 80 NAD no LE edema CBC, BMP 05/01/18 07:00 05/01/18 07:00 Current Medications Acetaminophen (Tylenol -) 650 mg PO Q6H PRN PRN Reason: FEVER Last Admin: 04/28/18 03:32 Dose: 650 mg Azathioprine (Imuran -) 100 mg PO DAILY [facility] Last Admin: 05/01/18 11:01 Dose: 100 mg Diltiazem HCl (Cardizem Cd -) 240 mg PO DAILY [facility] Last Admin: 05/01/18 10:58 Dose: 240 mg Heparin Sodium (Porcine) (Heparin -) 5,000 unit SQ BID [facility] Last Admin: 05/01/18 11:00 Dose: Not Given Ceftriaxone Sodium 2 gm/ (Dextrose) 100 mls @ 200 mls/hr IVPB DAILY [facility]; Protocol Last Admin: 05/01/18 11:05 Dose: 200 mls/hr Levothyroxine Sodium (Synthroid -) 75 mcg PO DAILY@0700 [facility] Last Admin: 05/01/18 06:07 Dose: 75 mcg Mometasone Furoate (Asmanex 220mcg -) 1 puff IH HS [facility] Last Admin: 04/30/18 21:22 Dose: Not Given Ondansetron HCl (Zofran Injection) 8 mg IVPB Q6H PRN PRN Reason: NAUSEA AND/OR VOMITING Last Admin: 04/26/18 04:38 Dose: 8 mg Pantoprazole Sodium (Protonix -) 20 mg PO DAILY [facility] Last Admin: 05/01/18 10:58 Dose: 20 mg Polyethylene Glycol (Miralax (For Daily Use) -) 17 gm PO HS PRN PRN Reason: CONSTIPATION Last Admin: 04/28/18 01:13 Dose: 17 gm Prednisone (Deltasone -) 5 mg PO DAILY [facility] Last Admin: 05/01/18 10:58 Dose: 5 mg Ranitidine HCl (Zantac -) 150 mg PO DAILY [facility] Last Admin: 05/01/18 10:58 Dose: 150 mg 72 year old woman with history of ESRD s/p Renal transplant on Imuran and prednisone, Hypertension and hypothyrodism who presented from home with fever and diffuse body pain and found to have suspected cystitis and bacteremia #Sepsis syndrome with bacteremia #ESRD with Renal Transplant #Hx of hypertensoin #Hypothyroidism Renal function stable continue imuran and prednisone discharge planning as per primary and ID Thank you Orlando Sen DO
--- NOTE | 2018-05-01 12:05 | PN ---
Progress Note, Physician History of Present Illness: AWAKE, ALERT OOB IN CHAIR NO C/O DYSURIA TEMPS DOWN AFEBRILE NO F/C NO DIARRHEA TODAY WBC WNL - Current Medication List Current Medications: Active Medications Acetaminophen (Tylenol -) 650 mg PO Q6H PRN PRN Reason: FEVER Last Admin: 04/28/18 03:32 Dose: 650 mg Azathioprine (Imuran -) 100 mg PO DAILY [facility] Last Admin: 05/01/18 11:01 Dose: 100 mg Diltiazem HCl (Cardizem Cd -) 240 mg PO DAILY [facility] Last Admin: 05/01/18 10:58 Dose: 240 mg Heparin Sodium (Porcine) (Heparin -) 5,000 unit SQ BID [facility] Last Admin: 05/01/18 11:00 Dose: Not Given Ceftriaxone Sodium 2 gm/ (Dextrose) 100 mls @ 200 mls/hr IVPB DAILY [facility]; Protocol Last Admin: 05/01/18 11:05 Dose: 200 mls/hr Levothyroxine Sodium (Synthroid -) 75 mcg PO DAILY@0700 [facility] Last Admin: 05/01/18 06:07 Dose: 75 mcg Mometasone Furoate (Asmanex 220mcg -) 1 puff IH HS [facility] Last Admin: 04/30/18 21:22 Dose: Not Given Ondansetron HCl (Zofran Injection) 8 mg IVPB Q6H PRN PRN Reason: NAUSEA AND/OR VOMITING Last Admin: 04/26/18 04:38 Dose: 8 mg Pantoprazole Sodium (Protonix -) 20 mg PO DAILY [facility] Last Admin: 05/01/18 10:58 Dose: 20 mg Polyethylene Glycol (Miralax (For Daily Use) -) 17 gm PO HS PRN PRN Reason: CONSTIPATION Last Admin: 04/28/18 01:13 Dose: 17 gm Prednisone (Deltasone -) 5 mg PO DAILY [facility] Last Admin: 05/01/18 10:58 Dose: 5 mg Ranitidine HCl (Zantac -) 150 mg PO DAILY [facility] Last Admin: 05/01/18 10:58 Dose: 150 mg - Objective Vital Signs: Vital Signs Temperature 98 F 05/01/18 11:11 Pulse Rate 71 05/01/18 11:11 Respiratory Rate 20 05/01/18 11:11 Blood Pressure 145/75 05/01/18 11:11 O2 Sat by Pulse Oximetry (%) 97 04/30/18 21:00 Constitutional: Yes: No Distress Eyes: Yes: Conjunctiva Clear Cardiovascular: Yes: Regular Rate and Rhythm, S1, S2 Respiratory: Yes: CTA Bilaterally Gastrointestinal: Yes: Normal Bowel Sounds, Soft. No: Tenderness Labs: CBC, BMP 05/01/18 07:00 05/01/18 07:00 INR, PTT INR 1.08 (0.83-1.09) 04/25/18 20:29 Assessment/Plan E COLI bacteremia/ sepsis secondary to S/P renal transplant Fever/ leukocytosis resolved Antibiotic associated diarrhea May substitute levaquin 500mg po qd x 7d
--- NOTE | 2018-05-01 12:33 | PN ---
Progress Note, Physician History of Present Illness: PULMONARY ALERT,NO DISTRESS,OOB-CHAIR,-SOB AT REST + BECKWITH,AFEBRILE - Current Medication List Current Medications: Active Medications Acetaminophen (Tylenol -) 650 mg PO Q6H PRN PRN Reason: FEVER Last Admin: 04/28/18 03:32 Dose: 650 mg Azathioprine (Imuran -) 100 mg PO DAILY [facility] Last Admin: 05/01/18 11:01 Dose: 100 mg Diltiazem HCl (Cardizem Cd -) 240 mg PO DAILY [facility] Last Admin: 05/01/18 10:58 Dose: 240 mg Heparin Sodium (Porcine) (Heparin -) 5,000 unit SQ BID [facility] Last Admin: 05/01/18 11:00 Dose: Not Given Ceftriaxone Sodium 2 gm/ (Dextrose) 100 mls @ 200 mls/hr IVPB DAILY [facility]; Protocol Last Admin: 05/01/18 11:05 Dose: 200 mls/hr Levothyroxine Sodium (Synthroid -) 75 mcg PO DAILY@0700 [facility] Last Admin: 05/01/18 06:07 Dose: 75 mcg Mometasone Furoate (Asmanex 220mcg -) 1 puff IH HS [facility] Last Admin: 04/30/18 21:22 Dose: Not Given Ondansetron HCl (Zofran Injection) 8 mg IVPB Q6H PRN PRN Reason: NAUSEA AND/OR VOMITING Last Admin: 04/26/18 04:38 Dose: 8 mg Pantoprazole Sodium (Protonix -) 20 mg PO DAILY [facility] Last Admin: 05/01/18 10:58 Dose: 20 mg Polyethylene Glycol (Miralax (For Daily Use) -) 17 gm PO HS PRN PRN Reason: CONSTIPATION Last Admin: 04/28/18 01:13 Dose: 17 gm Prednisone (Deltasone -) 5 mg PO DAILY [facility] Last Admin: 05/01/18 10:58 Dose: 5 mg Ranitidine HCl (Zantac -) 150 mg PO DAILY [facility] Last Admin: 05/01/18 10:58 Dose: 150 mg - Objective Vital Signs: Vital Signs Temperature 98 F 05/01/18 11:11 Pulse Rate 71 05/01/18 11:11 Respiratory Rate 20 05/01/18 11:11 Blood Pressure 145/75 05/01/18 11:11 O2 Sat by Pulse Oximetry (%) 97 04/30/18 21:00 Constitutional: Yes: Well Nourished, Calm Eyes: Yes: WNL HENT: Yes: WNL Neck: Yes: WNL Cardiovascular: Yes: Regular Rate and Rhythm, S1, S2 Respiratory: Yes: Diminished Gastrointestinal: Yes: Normal Bowel Sounds, Soft Extremities: Yes: WNL Edema: No Labs: CBC, BMP 05/01/18 07:00 05/01/18 07:00 INR, PTT INR 1.08 (0.83-1.09) 04/25/18 20:29 Problem List - Problems (1) Gram-negative bacteremia Code(s): R78.81 - BACTEREMIA (2) Sepsis Code(s): A41.9 - SEPSIS, UNSPECIFIED ORGANISM Qualifiers: Sepsis type: sepsis due to unspecified organism Qualified Code(s): A41.9 - Sepsis, unspecified organism (3) Asthma Code(s): J45.909 - UNSPECIFIED ASTHMA, UNCOMPLICATED (4) Lung nodule Code(s): R91.1 - SOLITARY PULMONARY NODULE (5) Nausea Code(s): R11.0 - NAUSEA (6) Asthma Code(s): J45.909 - UNSPECIFIED ASTHMA, UNCOMPLICATED (7) Diabetes Code(s): E11.9 - TYPE 2 DIABETES MELLITUS WITHOUT COMPLICATIONS (8) HTN (hypertension) Code(s): I10 - ESSENTIAL (PRIMARY) HYPERTENSION (9) Renal transplant recipient Code(s): Z94.0 - KIDNEY TRANSPLANT STATUS (10) Seizure Code(s): R56.9 - UNSPECIFIED CONVULSIONS Assessment/Plan IMP GRAM NEGATIVE BACTEREMIA /SEPSIS,E-COLI ASTHMA STABLE H/O PULMONARY NODULES H/O RENAL TRANSPLANT 1990 ON IMURAN AND PREDNISONE HTN DM ASHD H/O PERICARDIAL EFFUSION S/P WINDOW H/O CVA GERD PLAN ABX PER ID O2 INHALED BRONCHODILATORS MONITOR LYTES,CBC DR DONALD Problem List - Problems (1) Gram-negative bacteremia Code(s): R78.81 - BACTEREMIA (2) Sepsis Code(s): A41.9 - SEPSIS, UNSPECIFIED ORGANISM Qualifiers: Sepsis type: sepsis due to unspecified organism Qualified Code(s): A41.9 - Sepsis, unspecified organism (3) Asthma Code(s): J45.909 - UNSPECIFIED ASTHMA, UNCOMPLICATED (4) Lung nodule Code(s): R91.1 - SOLITARY PULMONARY NODULE (5) Nausea Code(s): R11.0 - NAUSEA (6) Asthma Code(s): J45.909 - UNSPECIFIED ASTHMA, UNCOMPLICATED (7) Diabetes Code(s): E11.9 - TYPE 2 DIABETES MELLITUS WITHOUT COMPLICATIONS (8) HTN (hypertension) Code(s): I10 - ESSENTIAL (PRIMARY) HYPERTENSION (9) Renal transplant recipient Code(s): Z94.0 - KIDNEY TRANSPLANT STATUS (10) Seizure Code(s): R56.9 - UNSPECIFIED CONVULSIONS
--- NOTE | 2018-05-01 12:44 | PN ---
GI Progress Note Subjective: GI NOte: NO further diarrhea. Sonogram reveals that the IPMN is still 5mm but there are now liver lucencies for which MRI has been advised/ - Objective Vital Signs: Vital Signs Temperature 98 F 05/01/18 11:11 Pulse Rate 71 05/01/18 11:11 Respiratory Rate 20 05/01/18 11:11 Blood Pressure 145/75 05/01/18 11:11 O2 Sat by Pulse Oximetry (%) 97 04/30/18 21:00 Constitutional: Calm ...Auscultate: Yes: Normoactive Bowel Sounds ...Palpate: Yes: Soft, Other (nonteder) Labs: CBC, BMP 05/01/18 07:00 05/01/18 07:00 INR, PTT INR 1.08 (0.83-1.09) 04/25/18 20:29 Assessment/Plan Impression: Now suspect fecal impaction with paradoxical diarrhea Pancreatic IPMN New liver lucensies Personal h/o colon polyps and remote FH colon cancer Plan MRI of liver and pancreas Miralax Need most recent Dr. Graf colonoscopy reports to determine whether surveillance is due. I last did her colonoscopy in 2009 Problem List - Problems (1) Diarrhea Code(s): R19.7 - DIARRHEA, UNSPECIFIED (2) Chronic constipation Code(s): K59.09 - OTHER CONSTIPATION (3) Diverticula of colon Code(s): K57.30 - DVRTCLOS OF LG INT W/O PERFORATION OR ABSCESS W/O BLEEDING (4) History of colon polyps Code(s): Z86.010 - PERSONAL HISTORY OF COLONIC POLYPS (5) IPMN (intraductal papillary mucinous neoplasm) Code(s): D49.0 - NEOPLASM OF UNSPECIFIED BEHAVIOR OF DIGESTIVE SYSTEM (6) Fatty (change of) liver, not elsewhere classified Code(s): K76.0 - FATTY (CHANGE OF) LIVER, NOT ELSEWHERE CLASSIFIED (7) History of parathyroid surgery Code(s): Z98.890 - OTHER SPECIFIED POSTPROCEDURAL STATES (8) Asthma Code(s): J45.909 - UNSPECIFIED ASTHMA, UNCOMPLICATED (9) Hypothyroidism Code(s): E03.9 - HYPOTHYROIDISM, UNSPECIFIED (10) Renal transplant recipient Code(s): Z94.0 - KIDNEY TRANSPLANT STATUS
--- NOTE | 2018-05-01 15:34 | PN ---
Progress Note (short form) - Note Progress Note: s: no chest pain, palps, dyspnea, dizziness. Current Medications Generic Name Dose Route Start Last Admin Trade Name Freq PRN Reason Stop Dose Admin Acetaminophen 650 mg 04/26/18 04:12 04/28/18 03:32 Tylenol - PO 650 mg Q6H PRN Administration FEVER Azathioprine 100 mg 04/26/18 10:00 05/01/18 11:01 Imuran - PO 100 mg DAILY [facility] Administration Diltiazem HCl 240 mg 04/26/18 10:00 05/01/18 10:58 Cardizem Cd - PO 240 mg DAILY [facility] Administration Heparin Sodium (Porcine) 5,000 unit 04/26/18 10:00 05/01/18 11:00 Heparin - SQ Not Given BID [facility] Ceftriaxone Sodium 2 gm/ 100 mls @ 200 mls/hr 04/28/18 14:45 05/01/18 11:05 Dextrose IVPB 200 mls/hr DAILY [facility] Administration Protocol Levothyroxine Sodium 75 mcg 04/26/18 07:00 05/01/18 06:07 Synthroid - PO 75 mcg DAILY@0700 [facility] Administration Mometasone Furoate 1 puff 04/26/18 22:00 04/30/18 21:22 Asmanex 220mcg - IH Not Given HS [facility] Ondansetron HCl 8 mg 04/26/18 04:13 04/26/18 04:38 Zofran Injection IVPB 8 mg Q6H PRN Administration NAUSEA AND/OR VOMITING Pantoprazole Sodium 20 mg 04/30/18 10:00 05/01/18 10:58 Protonix - PO 20 mg DAILY [facility] Administration Polyethylene Glycol 17 gm 05/01/18 22:00 Miralax (For Daily Use) - PO BID [facility] Prednisone 5 mg 04/26/18 10:00 05/01/18 10:58 Deltasone - PO 5 mg DAILY [facility] Administration Ranitidine HCl 150 mg 04/26/18 10:00 05/01/18 10:58 Zantac - PO 150 mg DAILY [facility] Administration Physical Exam Vital Signs Period Temp Pulse Resp BP Sys/Wang Pulse Ox Last 24 Hr 97.7 F-98.1 F 58-73 20-20 135-151/65-75 97-97 nad no jvd rrr s1s2 no mrg cta bl nl eff aaox3 no le e/c/c abd nt nd pos bs Laboratory Last Values WBC 6.4 K/mm3 (4.0-10.0) 05/01/18 07:00 RBC 3.21 M/mm3 (3.60-5.2) L 05/01/18 07:00 Hgb 11.1 GM/dL (10.7-15.3) 05/01/18 07:00 Hct 32.1 % (32.4-45.2) L 05/01/18 07:00 MCV 100.1 fl (80-96) H 05/01/18 07:00 MCH 34.5 pg (25.7-33.7) H 05/01/18 07:00 MCHC 34.5 g/dl (32.0-36.0) 05/01/18 07:00 RDW 16.1 % (11.6-15.6) H 05/01/18 07:00 Plt Count 287 K/MM3 (134-434) 05/01/18 07:00 MPV 8.6 fl (7.5-11.1) 05/01/18 07:00 Absolute Neuts (auto) 3.3 K/mm3 (1.5-8.0) 05/01/18 07:00 Neutrophils % 51.1 % (42.8-82.8) 05/01/18 07:00 Lymphocytes % 32.6 % (8-40) 05/01/18 07:00 Monocytes % 14.7 % (3.8-10.2) H 05/01/18 07:00 Eosinophils % 0.6 % (0-4.5) 05/01/18 07:00 Basophils % 1.0 % (0-2.0) 05/01/18 07:00 Nucleated RBC % 0 % (0-0) 05/01/18 07:00 PT with INR 12.80 SEC (9.7-13.0) 04/25/18 20: INR 1.08 (0.83-1.09) 04/25/18: PTT (Actin FS) 25.3 SECONDS (25.2-36.5) 04/25/18 20: VBG pH 7.42 (7.32-7.42) 04/25/18: POC VBG pCO2 41.5 mmHg (38-52) 04/25/18 20:29 POC VBG pO2 30.2 mmHg (28-48) D 04/25/18 20:29 Mixed VBG HCO3 26.4 meq/L (19-25) H 04/25/18 20:29 Sodium 140 mmol/L (136-145) 05/01/18 07:00 Potassium 3.9 mmol/L (3.5-5.1) 05/01/18 07:00 Chloride 104 mmol/L (98-107) 05/01/18 07:00 Carbon Dioxide 27 mmol/L (21-32) 05/01/18 07:00 Anion Gap 9 MMOL/L (8-16) 05/01/18 07:00 BUN 15 mg/dL (7-18) 05/01/18 07:00 Creatinine 0.8 mg/dL (0.55-1.3) 05/01/18 07:00 Creat Clearance w eGFR > 60 (>60) 05/01/18 07:00 Random Glucose 81 mg/dL (74-106) 05/01/18 07:00 Lactic Acid 1.0 mmol/L (0.4-2.0) 04/26/18 09:50 Calcium 8.7 mg/dL (8.5-10.1) 05/01/18 07:00 Total Bilirubin 0.4 mg/dL (0.2-1) 05/01/18 07:00 AST 23 U/L (15-37) 05/01/18 07:00 ALT 26 U/L (13-61) 05/01/18 07:00 Alkaline Phosphatase 48 U/L (45-117) 05/01/18 07:00 Troponin I < 0.02 ng/ml (0.00-0.05) 04/25/18 21:02 C-Reactive Protein 2.9 MG/DL (0.00-0.3) H 05/01/18 07:00 Total Protein 6.2 g/dl (6.4-8.2) L 05/01/18 07:00 Albumin 2.7 g/dl (3.4-5.0) L 05/01/18 07:00 Total Amylase 59 U/L (25-115) 05/01/18 07:00 Lipase 168 U/L (73-393) 05/01/18 07:00 TSH 2.83 uIU/ml (0.358-3.74) 05/01/18 07:00 Urine Color Yellow 04/25/18 20:29 Urine Appearance Slcloudy 04/25/18 20:29 Urine pH 7.0 (5.0-8.0) 04/25/18 20:29 Ur Specific [place] 1.010 (1.010-1.035) 04/25/18 20:29 Urine Protein 2+ (NEGATIVE) H 04/25/18 20:29 Urine Glucose (UA) Negative (NEGATIVE) 04/25/18 20:29 Urine Ketones Negative (NEGATIVE) 04/25/18 20:29 Urine Blood 2+ (NEGATIVE) H 04/25/18 20:29 Urine Nitrite Negative (NEGATIVE) 04/25/18 20:29 Urine Bilirubin Negative (<2.0 mg/dL) 04/25/18 20:29 Urine Urobilinogen Negative mg/dL (0.2-1.0) 04/25/18 20:29 Ur Leukocyte Esterase 3+ (NEGATIVE) H 04/25/18 20:29 Urine WBC (Auto) 148 /hpf (3-5) 04/25/18 20:29 Urine RBC (Auto) 1 /hpf (0-3) 04/25/18 20:29 Ur Epithelial Cells Rare /HPF (FEW) 04/25/18 20:29 Urine Bacteria Rare /hpf (NONE SEEN) 04/25/18 20:29 Influenza A (Rapid) Negative 04/25/18 21:30 Influenza B (Rapid) Negative 04/25/18 21:30 Imaging - Results EKG: Image Reviewed (ECG done on 04/25/2018 at 20:21 shows NSR at 95/min with iRBBB and lAFB with LVH. THis current ECG is uncanged from the prior ECG done in 04/2017) Other: Report Reviewed (Echo: 05/16/2017: Normal LV function, LVH, moderate MR Stress MPI 2012: Normal stress MPI, LVEF 73%) Assessment/Plan a/p: 71 yo with pmhx of htn, CVA, pericarditis s/p pericardial window, Right kidney transplant in 1990, niddm, seizures (last 02/2017), asthma, now admitted with urosepsis with E. Coli. complaining of atypical chest pain CP - atypical for cardiac pain - now resolved - Ekg without acute ischemic changes and unchanged from prior in 04/2017, trop neg - No further CV testing at this time htn - continue current meds Urosepsis -mgm't per pmd, ID
[2018-05-01] MEDS: POLYETHYLENE GLYCOL 3350 119 GM BTL PO SCH (21:29)
[2018-05-01] MEDS: MOMETASONE FUROATE 220 MCG/IH INHALER IH SCH (21:29)
--- NOTE | 2018-05-02 05:33 | PN ---
Progress Note, Physician Chief Complaint: still with diarrhea abdomen US noted; pancreatic cyst not seen; liver lesions? d/w GI will need MRI (better with IVC, OK with renal since her GFR is NL) d/w pt letter for work given - Current Medication List Current Medications: Active Medications Acetaminophen (Tylenol -) 650 mg PO Q6H PRN PRN Reason: FEVER Last Admin: 04/28/18 03:32 Dose: 650 mg Azathioprine (Imuran -) 100 mg PO DAILY [facility] Last Admin: 05/01/18 11:01 Dose: 100 mg Diltiazem HCl (Cardizem Cd -) 240 mg PO DAILY [facility] Last Admin: 05/01/18 10:58 Dose: 240 mg Heparin Sodium (Porcine) (Heparin -) 5,000 unit SQ BID [facility] Last Admin: 05/01/18 21:26 Dose: Not Given Ceftriaxone Sodium 2 gm/ (Dextrose) 100 mls @ 200 mls/hr IVPB DAILY [facility]; Protocol Last Admin: 05/01/18 11:05 Dose: 200 mls/hr Levothyroxine Sodium (Synthroid -) 75 mcg PO DAILY@0700 [facility] Last Admin: 05/01/18 06:07 Dose: 75 mcg Mometasone Furoate (Asmanex 220mcg -) 1 puff IH HS [facility] Last Admin: 05/01/18 21:29 Dose: Not Given Ondansetron HCl (Zofran Injection) 8 mg IVPB Q6H PRN PRN Reason: NAUSEA AND/OR VOMITING Last Admin: 04/26/18 04:38 Dose: 8 mg Pantoprazole Sodium (Protonix -) 20 mg PO DAILY [facility] Last Admin: 05/01/18 10:58 Dose: 20 mg Pneumococcal 13-Valent Conj Vacc (Prevnar 13 Syringe -) 0.5 ml IM .ONCE ONE Stop: 05/02/18 09:01 Polyethylene Glycol (Miralax (For Daily Use) -) 17 gm PO BID [facility] Last Admin: 05/01/18 21:29 Dose: Not Given Prednisone (Deltasone -) 5 mg PO DAILY [facility] Last Admin: 05/01/18 10:58 Dose: 5 mg Ranitidine HCl (Zantac -) 150 mg PO DAILY [facility] Last Admin: 05/01/18 10:58 Dose: 150 mg - Objective Vital Signs: Vital Signs Temperature 98.1 F 05/01/18 18:00 Pulse Rate 59 L 05/01/18 23:00 Respiratory Rate 20 05/01/18 23:00 Blood Pressure 125/66 05/01/18 23:00 O2 Sat by Pulse Oximetry (%) 96 05/01/18 21:00 Constitutional: Yes: No Distress, Calm Eyes: Yes: Conjunctiva Clear HENT: Yes: Atraumatic Neck: Yes: Supple Cardiovascular: Yes: Regular Rate and Rhythm Respiratory: Yes: CTA Bilaterally Gastrointestinal: Yes: Soft. No: Tenderness Genitourinary: No: Hematuria Musculoskeletal: No: Joint Stiffness, Joint Swelling Extremities: No: Cold, Cool, Cyanosis Edema: No Integumentary: No: Rash, Venous Stasis Changes Neurological: Yes: WNL, Alert, Oriented ...Motor Strength: WNL Psychiatric: Yes: WNL, Alert, Oriented. No: Agitated, Suicidal Ideation Labs: CBC, BMP 05/01/18 07:00 05/01/18 07:00 INR, PTT INR 1.08 (0.83-1.09) 04/25/18 20:29 - ....Imaging Other: Report Reviewed Assessment/Plan 72 yo F with h/o CVA, CAD, HTN, HLD, asthma, hypothyrodism, seizure disorder, pancreatitis, chronic glomerulonephritis, R sided renal transplant / immunosupression, pancreatitis, who p/w fever, h/o recurrent PNA, admitted with UTI and sepsis + blood and urine CX Urosepsis E coli in blood and urine on IV ATB per ID renal f/u s/p renal transplant; to f/u with her renal transplant dr grimespt falls DVT pfx s/p diarrhea; ?liver lesions on US: PPI low dose po, GI f/u; stools for CDiff, guaiac negative; abdomen MRI d/w pt and staff
[2018-05-02] MEDS: LEVOTHYROXINE NA 75 MCG TABLET (FP) PO SCH (06:17)
[2018-05-02] MEDS ORDERED: PNEUMOC 13-VAL CONJ-DIP CRM/PF 0.5 ML DISP.SYRIN IM ONE ×2 (09:00)
[2018-05-02] MEDS ORDERED: DEXTROSE 5%-WATER 100 ML IVPB ONE (10:11)
[2018-05-02] MEDS: azaTHIOprine 50 MG TABLET PO SCH (10:42)
[2018-05-02] MEDS: PANTOPRAZOLE 20 MG TABLET (FP) PO SCH (10:42)
[2018-05-02] MEDS: RANITIDINE HCL 150 MG TABLET (FP) PO SCH (10:42)
[2018-05-02] MEDS: CEFTRIAXONE 2 GM in DEXTROSE 5%-WATER 100 ML IVPB SCH (10:42)
[2018-05-02] MEDS: predniSONE 5 MG TABLET (UD) PO SCH (10:42)
[2018-05-02] MEDS: POLYETHYLENE GLYCOL 3350 119 GM BTL PO SCH ×2 (10:43→21:02)
[2018-05-02] MEDS: HEPARIN NA (PORCINE) 5,000 UNITS/ML 1ML VIAL SQ SCH ×2 (10:43→21:02)
--- NOTE | 2018-05-02 11:05 | PN ---
Progress Note (short form) - Note Progress Note: Breathing feels OK today. Some dry cough. No CP. No hemoptysis. Intake & Output 04/29/18 04/30/18 05/01/18 05/02/18 23:59 23:59 23:59 23:59 Intake Total 650 1160 1580 780 Balance 650 1160 1580 780 Last Vital Signs Temp Pulse Resp BP Pulse Ox 98.6 F 76 19 146/76 96 05/02/18 10:56 05/02/18 10:56 05/02/18 10:56 05/02/18 10:56 05/01/18 21:00 Active Medications Acetaminophen (Tylenol -) 650 mg PO Q6H PRN PRN Reason: FEVER Last Admin: 04/28/18 03:32 Dose: 650 mg Azathioprine (Imuran -) 100 mg PO DAILY [facility] Last Admin: 05/02/18 10:42 Dose: 100 mg Diltiazem HCl (Cardizem Cd -) 240 mg PO DAILY [facility] Last Admin: 05/02/18 10:42 Dose: 240 mg Heparin Sodium (Porcine) (Heparin -) 5,000 unit SQ BID [facility] Last Admin: 05/02/18 10:43 Dose: Not Given Ceftriaxone Sodium 2 gm/ (Dextrose) 100 mls @ 200 mls/hr IVPB DAILY [facility]; Protocol Last Admin: 05/02/18 10:42 Dose: 200 mls/hr Levothyroxine Sodium (Synthroid -) 75 mcg PO DAILY@0700 [facility] Last Admin: 05/02/18 06:17 Dose: 75 mcg Mometasone Furoate (Asmanex 220mcg -) 1 puff IH HS [facility] Last Admin: 05/01/18 21:29 Dose: Not Given Ondansetron HCl (Zofran Injection) 8 mg IVPB Q6H PRN PRN Reason: NAUSEA AND/OR VOMITING Last Admin: 04/26/18 04:38 Dose: 8 mg Pantoprazole Sodium (Protonix -) 20 mg PO DAILY [facility] Last Admin: 05/02/18 10:42 Dose: 20 mg Polyethylene Glycol (Miralax (For Daily Use) -) 17 gm PO BID [facility] Last Admin: 05/02/18 10:43 Dose: Not Given Prednisone (Deltasone -) 5 mg PO DAILY [facility] Last Admin: 03/07/19 10:42 Dose: 5 mg Ranitidine HCl (Zantac -) 150 mg PO DAILY [facility] Last Admin: 05/02/18 10:42 Dose: 150 mg GENERAL: Awake, alert, oriented, in no acute distress HEAD: No signs of trauma, normocephalic, atraumatic EYES: PERRLA, EOMI, sclera anicteric, conjunctiva clear ENT: Moist mucosa NECK: Normal ROM, supple, no lymphadenopathy, JVD, or masses LUNGS: Few scattered rhonchi, no wheeze HEART: Regular rate and rhythm, normal S1 and S2, no murmurs, rubs or gallops. ABDOMEN: Soft, normoactive bowel sounds. No guarding, no rebound. EXTREMITIES : Normal inspection, Normal range of motion, no edema. No clubbing or cyanosis. NEUROLOGICAL: Non-focal SKIN: Warm, Dry, normal turgor, no rashes or lesions noted Laboratory Results - last 24 hr 05/01/18 19:00 Stool Occult Blood Negative Problem List - Problems (1) Gram-negative bacteremia Code(s): R78.81 - BACTEREMIA (2) Sepsis Code(s): A41.9 - SEPSIS, UNSPECIFIED ORGANISM Qualifiers: Sepsis type: sepsis due to unspecified organism Qualified Code(s): A41.9 - Sepsis, unspecified organism (3) Asthma Code(s): J45.909 - UNSPECIFIED ASTHMA, UNCOMPLICATED (4) Lung nodule Code(s): R91.1 - SOLITARY PULMONARY NODULE (5) Nausea Code(s): R11.0 - NAUSEA (6) Asthma Code(s): J45.909 - UNSPECIFIED ASTHMA, UNCOMPLICATED (7) Diabetes Code(s): E11.9 - TYPE 2 DIABETES MELLITUS WITHOUT COMPLICATIONS (8) HTN (hypertension) Code(s): I10 - ESSENTIAL (PRIMARY) HYPERTENSION (9) Renal transplant recipient Code(s): Z94.0 - KIDNEY TRANSPLANT STATUS (10) Seizure Code(s): R56.9 - UNSPECIFIED CONVULSIONS IMP GRAM NEGATIVE BACTEREMIA /SEPSIS ASTHMA H/O PULMONARY NODULES:CHRONIC CHANGES SINCE [address] IMAGES H/O RENAL TRANSPLANT 1990 ON IMURAN AND PREDNISONE HTN DM ASHD H/O PERICARDIAL EFFUSION S/P WINDOW H/O CVA GERD PLAN ABX PER ID O2 INHALED BRONCHODILATORS PREDNISONE 5MG OD VTE PROPHYLAXIS GI WORKUP ONGOING DR STROUD
--- NOTE | 2018-05-02 11:43 | PN ---
Progress Note (short form) - Note Progress Note: s: no chest pain, palps, dyspnea, dizziness. Current Medications Generic Name Dose Route Start Last Admin Trade Name Freq PRN Reason Stop Dose Admin Acetaminophen 650 mg 04/26/18 04:12 04/28/18 03:32 Tylenol - PO 650 mg Q6H PRN Administration FEVER Azathioprine 100 mg 04/26/18 10:00 05/02/18 10:42 Imuran - PO 100 mg DAILY [facility]A Administration Diltiazem HCl 240 mg 04/26/18 10:00 05/02/18 10:42 Cardizem Cd - PO 240 mg DAILY [facility] Administration Heparin Sodium (Porcine) 5,000 unit 04/26/18 10:00 05/02/18 10:43 Heparin - SQ Not Given BID [facility]A Ceftriaxone Sodium 2 gm/ 100 mls @ 200 mls/hr 04/28/18 14:45 05/02/18 10:42 Dextrose IVPB 200 mls/hr DAILY [facility] Administration Protocol Levothyroxine Sodium 75 mcg 04/26/18 07:00 05/02/18 06:17 Synthroid - PO 75 mcg DAILY@0700 [facility] Administration Mometasone Furoate 1 puff 04/26/18 22:00 05/01/18 21:29 Asmanex 220mcg - IH Not Given HS PURA Ondansetron HCl 8 mg 04/26/18 04:13 04/26/18 04:38 Zofran Injection IVPB 8 mg Q6H PRN Administration NAUSEA AND/OR VOMITING Pantoprazole Sodium 20 mg 04/30/18 10:00 05/02/18 10:42 Protonix - PO 20 mg DAILY [facility] Administration Polyethylene Glycol 17 gm 05/01/18 22:00 05/02/18 10:43 Miralax (For Daily Use) - PO Not Given BID [facility]A Prednisone 5 mg 04/26/18 10:00 05/02/18 10:42 Deltasone - PO 5 mg DAILY [facility] Administration Ranitidine HCl 150 mg 04/26/18 10:00 05/02/18 10:42 Zantac - PO 150 mg DAILY [facility] Administration Physical Exam Vital Signs Period Temp Pulse Resp BP Sys/Wang Pulse Ox Last 24 Hr 97.7 F-98.6 F 59-76 19-20 125-146/64-76 96 nad no jvd rrr s1s2 no mrg cta bl nl eff aaox3 no le e/c/c abd nt nd pos bs CBC, BMP 05/01/18 07:00 05/01/18 07:00 Imaging - Results EKG: Image Reviewed (ECG done on 04/25/2018 at 20:21 shows NSR at 95/min with iRBBB and lAFB with LVH. THis current ECG is uncanged from the prior ECG done in 04/2017) Other: Report Reviewed (Echo: 05/16/2017: Normal LV function, LVH, moderate MR Stress MPI 2012: Normal stress MPI, LVEF 73%) Assessment/Plan a/p: 71 yo with pmhx of htn, CVA, pericarditis s/p pericardial window, Right kidney transplant in 1990, niddm, seizures (last 02/2017), asthma, now admitted with urosepsis with E. Coli. complaining of atypical chest pain CP - atypical for cardiac pain - now resolved - Ekg without acute ischemic changes and unchanged from prior in 04/2017, trop neg - No further CV testing at this time htn - continue current meds Urosepsis -mgm't per pmd, ID
--- NOTE | 2018-05-02 15:06 | PN ---
Progress Note (short form) - Note Progress Note: Renal follow up for renal transplantation Pt seen and examined at the bedside feels fatigued no sob, cp, abd pain Vital Signs Temperature 98.0 F 05/02/18 14:45 Pulse Rate 71 05/02/18 14:45 Respiratory Rate 20 05/02/18 14:45 Blood Pressure 131/69 05/02/18 14:45 O2 Sat by Pulse Oximetry (%) 96 05/02/18 09:00 NAD no LE edema CBC, BMP 05/01/18 07:00 05/01/18 07:00 Current Medications Acetaminophen (Tylenol -) 650 mg PO Q6H PRN PRN Reason: FEVER Last Admin: 04/28/18 03:32 Dose: 650 mg Azathioprine (Imuran -) 100 mg PO DAILY [facility] Last Admin: 05/02/18 10:42 Dose: 100 mg Diltiazem HCl (Cardizem Cd -) 240 mg PO DAILY [facility] Last Admin: 05/02/18 10:42 Dose: 240 mg Heparin Sodium (Porcine) (Heparin -) 5,000 unit SQ BID [facility] Last Admin: 05/02/18 10:43 Dose: Not Given Ceftriaxone Sodium 2 gm/ (Dextrose) 100 mls @ 200 mls/hr IVPB DAILY [facility]; Protocol Last Admin: 05/02/18 10:42 Dose: 200 mls/hr Levothyroxine Sodium (Synthroid -) 75 mcg PO DAILY@0700 [facility] Last Admin: 05/02/18 06:17 Dose: 75 mcg Mometasone Furoate (Asmanex 220mcg -) 1 puff IH HS [facility] Last Admin: 05/01/18 21:29 Dose: Not Given Ondansetron HCl (Zofran Injection) 8 mg IVPB Q6H PRN PRN Reason: NAUSEA AND/OR VOMITING Last Admin: 04/26/18 04:38 Dose: 8 mg Pantoprazole Sodium (Protonix -) 20 mg PO DAILY [facility] Last Admin: 05/02/18 10:42 Dose: 20 mg Polyethylene Glycol (Miralax (For Daily Use) -) 17 gm PO BID [facility] Last Admin: 05/02/18 10:43 Dose: Not Given Prednisone (Deltasone -) 5 mg PO DAILY [facility] Last Admin: 05/02/18 10:42 Dose: 5 mg Ranitidine HCl (Zantac -) 150 mg PO DAILY [facility] Last Admin: 05/02/18 10:42 Dose: 150 mg 72 year old woman with history of ESRD s/p Renal transplant on Imuran and prednisone, Hypertension and hypothyrodism who presented from home with fever and diffuse body pain and found to have suspected cystitis and bacteremia #Sepsis syndrome with bacteremia #ESRD with Renal Transplant #Hx of hypertensoin #Hypothyroidism Renal function stable continue imuran and prednisone it is ok for pt to get MRI with Jake as her GFR is > 30. Jake is not directly nephrotoxic but can can NSF if eGFR < 30. This was discussed with the patient and she is agreeable. Thank you Orlando Sen DO
[2018-05-02] MEDS: MOMETASONE FUROATE 220 MCG/IH INHALER IH SCH (21:02)
--- NOTE | 2018-05-03 06:06 | PN ---
Progress Note, Physician Chief Complaint: in bed no new c/o still with diarrhea awaiting abd MRI - Current Medication List Current Medications: Active Medications Acetaminophen (Tylenol -) 650 mg PO Q6H PRN PRN Reason: FEVER Last Admin: 04/28/18 03:32 Dose: 650 mg Azathioprine (Imuran -) 100 mg PO DAILY [facility] Last Admin: 05/02/18 10:42 Dose: 100 mg Diltiazem HCl (Cardizem Cd -) 240 mg PO DAILY [facility] Last Admin: 05/02/18 10:42 Dose: 240 mg Heparin Sodium (Porcine) (Heparin -) 5,000 unit SQ BID [facility] Last Admin: 05/02/18 21:02 Dose: Not Given Ceftriaxone Sodium 2 gm/ (Dextrose) 100 mls @ 200 mls/hr IVPB DAILY [facility]; Protocol Last Admin: 05/02/18 10:42 Dose: 200 mls/hr Levothyroxine Sodium (Synthroid -) 75 mcg PO DAILY@0700 [facility] Last Admin: 05/02/18 06:17 Dose: 75 mcg Mometasone Furoate (Asmanex 220mcg -) 1 puff IH HS [facility] Last Admin: 05/02/18 21:02 Dose: Not Given Ondansetron HCl (Zofran Injection) 8 mg IVPB Q6H PRN PRN Reason: NAUSEA AND/OR VOMITING Last Admin: 04/26/18 04:38 Dose: 8 mg Pantoprazole Sodium (Protonix -) 20 mg PO DAILY [facility] Last Admin: 05/02/18 10:42 Dose: 20 mg Polyethylene Glycol (Miralax (For Daily Use) -) 17 gm PO BID [facility] Last Admin: 05/02/18 21:02 Dose: Not Given Prednisone (Deltasone -) 5 mg PO DAILY [facility] Last Admin: 05/02/18 10:42 Dose: 5 mg Ranitidine HCl (Zantac -) 150 mg PO DAILY [facility] Last Admin: 05/02/18 10:42 Dose: 150 mg - Objective Vital Signs: Vital Signs Temperature 98.2 F 05/02/18 22:41 Pulse Rate 67 05/02/18 22:41 Respiratory Rate 20 05/02/18 22:41 Blood Pressure 137/71 05/02/18 22:41 O2 Sat by Pulse Oximetry (%) 96 05/02/18 21:00 Constitutional: Yes: No Distress, Calm Eyes: Yes: Conjunctiva Clear HENT: Yes: Atraumatic Neck: Yes: Supple Cardiovascular: Yes: Regular Rate and Rhythm Respiratory: Yes: CTA Bilaterally Gastrointestinal: Yes: Soft. No: Tenderness Genitourinary: No: Hematuria Musculoskeletal: No: Joint Stiffness, Joint Swelling Extremities: No: Cold, Cool, Cyanosis Edema: No Integumentary: No: Rash, Venous Stasis Changes Neurological: Yes: WNL, Alert, Oriented ...Motor Strength: WNL Psychiatric: Yes: WNL, Alert, Oriented. No: Agitated, Suicidal Ideation Labs: CBC, BMP 05/01/18 07:00 05/01/18 07:00 INR, PTT INR 1.08 (0.83-1.09) 04/25/18 20:29 - ....Imaging Other: Report Reviewed Assessment/Plan 72 yo F with h/o CVA, CAD, HTN, HLD, asthma, hypothyrodism, seizure disorder, pancreatitis, chronic glomerulonephritis, R sided renal transplant / immunosupression, pancreatitis, who p/w fever, h/o recurrent PNA, admitted with UTI and sepsis + blood and urine CX Urosepsis E coli in blood and urine on IV ATB per ID renal f/u s/p renal transplant; to f/u with her renal transplant dr grimespt falls DVT pfx s/p diarrhea; ?liver lesions on US: PPI low dose po, GI f/u; stools for CDiff, guaiac negative; abdomen MRI d/w pt and staff
[2018-05-03] MEDS: LEVOTHYROXINE NA 75 MCG TABLET (FP) PO SCH (06:11)
[2018-05-03] MEDS ORDERED: DEXTROSE 5%-WATER 100 ML IVPB ONE (09:03)
[2018-05-03] MEDS: RANITIDINE HCL 150 MG TABLET (FP) PO SCH (09:12)
[2018-05-03] MEDS: predniSONE 5 MG TABLET (UD) PO SCH (09:12)
[2018-05-03] MEDS: PANTOPRAZOLE 20 MG TABLET (FP) PO SCH (09:12)
[2018-05-03] MEDS: azaTHIOprine 50 MG TABLET PO SCH (09:13)
[2018-05-03] MEDS: CEFTRIAXONE 2 GM in DEXTROSE 5%-WATER 100 ML IVPB SCH (09:18)
[2018-05-03] MEDS: HEPARIN NA (PORCINE) 5,000 UNITS/ML 1ML VIAL SQ SCH ×2 (09:20→23:08)
[2018-05-03] MEDS: POLYETHYLENE GLYCOL 3350 119 GM BTL PO SCH ×2 (09:21→23:08)
[2018-05-03 11:48] VITALS: BMI 25.5
--- NOTE | 2018-05-03 12:41 | PN ---
Progress Note (short form) - Note Progress Note: Renal follow up for renal transplantation Pt seen and examined at the bedside no acute complaints Vital Signs Temperature 98.1 F 05/03/18 11:01 Pulse Rate 62 05/03/18 11:01 Respiratory Rate 20 05/03/18 11:01 Blood Pressure 151/68 05/03/18 11:01 O2 Sat by Pulse Oximetry (%) 96 05/02/18 21:00 NAD no LE edema CBC, BMP 05/01/18 07:00 05/01/18 07:00 72 year old woman with history of ESRD s/p Renal transplant on Imuran and prednisone, Hypertension and hypothyrodism who presented from home with fever and diffuse body pain and found to have suspected cystitis and bacteremia #Sepsis syndrome with bacteremia #ESRD with Renal Transplant #Hx of hypertensoin #Hypothyroidism Renal function stable continue imuran and prednisone awaiting MRI trend renal function and electrolytes Q48h Thank you Orlando Sen DO
--- NOTE | 2018-05-03 15:07 | PN ---
Progress Note, Physician History of Present Illness: pulmonary alert,no distress,-sob at rest + taylor - Current Medication List Current Medications: Active Medications Acetaminophen (Tylenol -) 650 mg PO Q6H PRN PRN Reason: FEVER Last Admin: 04/28/18 03:32 Dose: 650 mg Azathioprine (Imuran -) 100 mg PO DAILY [facility] Last Admin: 05/03/18 09:13 Dose: 100 mg Diltiazem HCl (Cardizem Cd -) 240 mg PO DAILY [facility] Last Admin: 05/03/18 09:12 Dose: 240 mg Heparin Sodium (Porcine) (Heparin -) 5,000 unit SQ BID [facility] Last Admin: 05/03/18 09:20 Dose: Not Given Ceftriaxone Sodium 2 gm/ (Dextrose) 100 mls @ 200 mls/hr IVPB DAILY [facility]; Protocol Last Admin: 05/03/18 09:18 Dose: 200 mls/hr Levothyroxine Sodium (Synthroid -) 75 mcg PO DAILY@0700 [facility] Last Admin: 05/03/18 06:11 Dose: 75 mcg Mometasone Furoate (Asmanex 220mcg -) 1 puff IH HS [facility] Last Admin: 05/02/18 21:02 Dose: Not Given Ondansetron HCl (Zofran Injection) 8 mg IVPB Q6H PRN PRN Reason: NAUSEA AND/OR VOMITING Last Admin: 04/26/18 04:38 Dose: 8 mg Pantoprazole Sodium (Protonix -) 20 mg PO DAILY [facility] Last Admin: 05/03/18 09:12 Dose: 20 mg Polyethylene Glycol (Miralax (For Daily Use) -) 17 gm PO BID [facility] Last Admin: 05/03/18 09:21 Dose: Not Given Prednisone (Deltasone -) 5 mg PO DAILY [facility] Last Admin: 05/03/18 09:12 Dose: 5 mg Ranitidine HCl (Zantac -) 150 mg PO DAILY [facility] Last Admin: 05/03/18 09:12 Dose: 150 mg - Objective Vital Signs: Vital Signs Temperature 98.2 F 05/03/18 14:56 Pulse Rate 71 05/03/18 14:56 Respiratory Rate 20 05/03/18 14:56 Blood Pressure 105/78 05/03/18 14:56 O2 Sat by Pulse Oximetry (%) 96 05/03/18 09:00 Constitutional: Yes: Well Nourished, Calm Eyes: Yes: WNL HENT: Yes: WNL Neck: Yes: WNL Cardiovascular: Yes: Regular Rate and Rhythm, S1, S2 Respiratory: Yes: Diminished Gastrointestinal: Yes: Normal Bowel Sounds, Soft Extremities: Yes: WNL Edema: No Labs: CBC, BMP 05/01/18 07:00 05/01/18 07:00 INR, PTT INR 1.08 (0.83-1.09) 04/25/18 20:29 Problem List - Problems (1) Gram-negative bacteremia Code(s): R78.81 - BACTEREMIA (2) Sepsis Code(s): A41.9 - SEPSIS, UNSPECIFIED ORGANISM Qualifiers: Sepsis type: sepsis due to unspecified organism Qualified Code(s): A41.9 - Sepsis, unspecified organism (3) Asthma Code(s): J45.909 - UNSPECIFIED ASTHMA, UNCOMPLICATED (4) Lung nodule Code(s): R91.1 - SOLITARY PULMONARY NODULE (5) Nausea Code(s): R11.0 - NAUSEA (6) Asthma Code(s): J45.909 - UNSPECIFIED ASTHMA, UNCOMPLICATED (7) Diabetes Code(s): E11.9 - TYPE 2 DIABETES MELLITUS WITHOUT COMPLICATIONS (8) HTN (hypertension) Code(s): I10 - ESSENTIAL (PRIMARY) HYPERTENSION (9) Renal transplant recipient Code(s): Z94.0 - KIDNEY TRANSPLANT STATUS (10) Seizure Code(s): R56.9 - UNSPECIFIED CONVULSIONS Assessment/Plan IMP GRAM NEGATIVE BACTEREMIA /SEPSIS,E-COLI ASTHMA STABLE H/O PULMONARY NODULES H/O RENAL TRANSPLANT 1990 ON IMURAN AND PREDNISONE HTN DM ASHD H/O PERICARDIAL EFFUSION S/P WINDOW H/O CVA GERD PLAN ABX PER ID O2 INHALED BRONCHODILATORS MONITOR LYTES,CBC DR DONALD Problem List - Problems (1) Gram-negative bacteremia Code(s): R78.81 - BACTEREMIA (2) Sepsis Code(s): A41.9 - SEPSIS, UNSPECIFIED ORGANISM Qualifiers: Sepsis type: sepsis due to unspecified organism Qualified Code(s): A41.9 - Sepsis, unspecified organism (3) Asthma Code(s): J45.909 - UNSPECIFIED ASTHMA, UNCOMPLICATED (4) Lung nodule Code(s): R91.1 - SOLITARY PULMONARY NODULE (5) Nausea Code(s): R11.0 - NAUSEA (6) Asthma Code(s): J45.909 - UNSPECIFIED ASTHMA, UNCOMPLICATED (7) Diabetes Code(s): E11.9 - TYPE 2 DIABETES MELLITUS WITHOUT COMPLICATIONS (8) HTN (hypertension) Code(s): I10 - ESSENTIAL (PRIMARY) HYPERTENSION (9) Renal transplant recipient Code(s): Z94.0 - KIDNEY TRANSPLANT STATUS (10) Seizure Code(s): R56.9 - UNSPECIFIED CONVULSIONS
[2018-05-03] MEDS: MOMETASONE FUROATE 220 MCG/IH INHALER IH SCH (23:08)
[2018-05-04] MEDS: LEVOTHYROXINE NA 75 MCG TABLET (FP) PO SCH (06:04)
[2018-05-04 09:09] LABS: BASO % 0.8 % (0-2.0); EOS % 0.8 % (0-4.5); HEMATOCRIT 35.8 % (32.4-45.2); HEMOGLOBIN 12.2 GM/dL (10.7-15.3); LYMPH % 36.5 % (8-40); MCHC 34.2 g/dl (32.0-36.0); MEAN CELL VOLUME 102.4 fl (80-96); MEAN PLT VOLUME 8.9 fl (7.5-11.1); MONO % 9.9 % (3.8-10.2); PLATELET COUNT 371 K/MM3 (134-434); RBC 3.49 M/mm3 (3.60-5.2); WHITE BLOOD COUNT 7.6 K/mm3 (4.0-10.0)
[2018-05-04 09:16] LABS: ALBUMIN 3.2 g/dl (3.4-5.0); ALK PHOS 58 U/L (45-117); ANION GAP 9 MMOL/L (8-16); BILIRUBIN,TOTAL 0.3 mg/dL (0.2-1); BLOOD UREA NITROGEN 29 mg/dL (7-18); CALCIUM 9.1 mg/dL (8.5-10.1); CHLORIDE 104 mmol/L (98-107); CO2 25 mmol/L (21-32); CREATININE 1.1 mg/dL (0.55-1.3); GLUCOSE,RANDOM 110 mg/dL (74-106); POTASSIUM 4.1 mmol/L (3.5-5.1); SGOT/AST 13 U/L (15-37); SGPT/ALT 21 U/L (13-61); SODIUM 138 mmol/L (136-145); TOT PROT 7.4 g/dl (6.4-8.2)
[2018-05-04] MEDS ORDERED: DEXTROSE 5%-WATER 100 ML IVPB ONE (09:42)
[2018-05-04] MEDS: RANITIDINE HCL 150 MG TABLET (FP) PO SCH (09:48)
[2018-05-04] MEDS: azaTHIOprine 50 MG TABLET PO SCH (09:48)
[2018-05-04] MEDS: PANTOPRAZOLE 20 MG TABLET (FP) PO SCH (09:48)
[2018-05-04] MEDS: HEPARIN NA (PORCINE) 5,000 UNITS/ML 1ML VIAL SQ SCH ×2 (09:49→21:19)
[2018-05-04] MEDS: CEFTRIAXONE 2 GM in DEXTROSE 5%-WATER 100 ML IVPB SCH (09:49)
[2018-05-04] MEDS: POLYETHYLENE GLYCOL 3350 119 GM BTL PO SCH ×2 (09:49→21:19)
[2018-05-04] MEDS: predniSONE 5 MG TABLET (UD) PO SCH (09:53)
--- NOTE | 2018-05-04 10:13 | PN ---
Progress Note, Physician Chief Complaint: less diarrhea no other c/o had abdomen MRI results pending - Current Medication List Current Medications: Active Medications Acetaminophen (Tylenol -) 650 mg PO Q6H PRN PRN Reason: FEVER Last Admin: 04/28/18 03:32 Dose: 650 mg Azathioprine (Imuran -) 100 mg PO DAILY [facility] Last Admin: 05/04/18 09:48 Dose: 100 mg Diltiazem HCl (Cardizem Cd -) 240 mg PO DAILY [facility] Last Admin: 05/04/18 09:48 Dose: 240 mg Heparin Sodium (Porcine) (Heparin -) 5,000 unit SQ BID [facility] Last Admin: 05/04/18 09:49 Dose: Not Given Ceftriaxone Sodium 2 gm/ (Dextrose) 100 mls @ 200 mls/hr IVPB DAILY [facility]; Protocol Last Admin: 05/04/18 09:49 Dose: 200 mls/hr Levothyroxine Sodium (Synthroid -) 75 mcg PO DAILY@0700 [facility] Last Admin: 05/04/18 06:04 Dose: 75 mcg Mometasone Furoate (Asmanex 220mcg -) 1 puff IH HS [facility] Last Admin: 05/03/18 23:08 Dose: Not Given Ondansetron HCl (Zofran Injection) 8 mg IVPB Q6H PRN PRN Reason: NAUSEA AND/OR VOMITING Last Admin: 04/26/18 04:38 Dose: 8 mg Pantoprazole Sodium (Protonix -) 20 mg PO DAILY [facility] Last Admin: 05/04/18 09:48 Dose: 20 mg Polyethylene Glycol (Miralax (For Daily Use) -) 17 gm PO BID [facility] Last Admin: 05/04/18 09:49 Dose: Not Given Prednisone (Deltasone -) 5 mg PO DAILY [facility] Last Admin: 05/04/18 09:53 Dose: 5 mg Ranitidine HCl (Zantac -) 150 mg PO DAILY [facility] Last Admin: 05/04/18 09:48 Dose: 150 mg - Objective Vital Signs: Vital Signs Temperature 98 F 05/04/18 09:30 Pulse Rate 66 05/04/18 09:30 Respiratory Rate 20 05/04/18 09:30 Blood Pressure 144/79 05/04/18 09:30 O2 Sat by Pulse Oximetry (%) 97 05/03/18 21:00 Constitutional: Yes: No Distress, Calm Eyes: Yes: Conjunctiva Clear HENT: Yes: Atraumatic Neck: Yes: Supple Cardiovascular: Yes: Regular Rate and Rhythm Respiratory: Yes: CTA Bilaterally Gastrointestinal: Yes: Soft. No: Tenderness Genitourinary: No: Hematuria Musculoskeletal: No: Joint Stiffness, Joint Swelling Extremities: No: Cold, Cool, Cyanosis Edema: No Integumentary: No: Rash, Venous Stasis Changes Neurological: Yes: WNL, Alert, Oriented ...Motor Strength: WNL Psychiatric: Yes: WNL, Alert, Oriented. No: Agitated, Suicidal Ideation Labs: CBC, BMP 05/04/18 08:25 05/04/18 08:25 INR, PTT INR 1.08 (0.83-1.09) 04/25/18 20:29 - ....Imaging Other: Report Reviewed Assessment/Plan 72 yo F with h/o CVA, CAD, HTN, HLD, asthma, hypothyrodism, seizure disorder, pancreatitis, chronic glomerulonephritis, R sided renal transplant / immunosupression, pancreatitis, admitted with UTI and sepsis + blood and urine CX Urosepsis E coli in blood and urine on IV ATB per ID renal f/u s/p renal transplant; to f/u with her renal transplant outpt falls DVT pfx s/p diarrhea; ?liver lesions on US: PPI low dose po, GI f/u; stools for CDiff, guaiac negative; abdomen MRI done results pending; further management pending MRI results. d/w pt and staff
[2018-05-04 11:43] LABS: MACROCYTOSIS 1+; PLATELET ESTIMATE NORMAL; TARGET CELLS 1+
--- NOTE | 2018-05-04 11:43 | PN ---
Progress Note (short form) - Note Progress Note: Renal follow up for renal transplantation Pt seen and examined at the bedside no acute complaints feels better s/p MRCP Vital Signs Temperature 98 F 05/04/18 09:30 Pulse Rate 66 05/04/18 09:30 Respiratory Rate 20 05/04/18 09:30 Blood Pressure 144/79 05/04/18 09:30 O2 Sat by Pulse Oximetry (%) 97 05/03/18 21:00 NAD no LE edema CBC, BMP 05/04/18 08:25 05/04/18 08:25 Current Medications Acetaminophen (Tylenol -) 650 mg PO Q6H PRN PRN Reason: FEVER Last Admin: 04/28/18 03:32 Dose: 650 mg Azathioprine (Imuran -) 100 mg PO DAILY [facility] Last Admin: 05/04/18 09:48 Dose: 100 mg Diltiazem HCl (Cardizem Cd -) 240 mg PO DAILY [facility] Last Admin: 05/04/18 09:48 Dose: 240 mg Heparin Sodium (Porcine) (Heparin -) 5,000 unit SQ BID [facility] Last Admin: 05/04/18 09:49 Dose: Not Given Ceftriaxone Sodium 2 gm/ (Dextrose) 100 mls @ 200 mls/hr IVPB DAILY [facility]; Protocol Last Admin: 05/04/18 09:49 Dose: 200 mls/hr Levothyroxine Sodium (Synthroid -) 75 mcg PO DAILY@0700 [facility] Last Admin: 05/04/18 06:04 Dose: 75 mcg Mometasone Furoate (Asmanex 220mcg -) 1 puff IH HS [facility] Last Admin: 05/03/18 23:08 Dose: Not Given Ondansetron HCl (Zofran Injection) 8 mg IVPB Q6H PRN PRN Reason: NAUSEA AND/OR VOMITING Last Admin: 04/26/18 04:38 Dose: 8 mg Pantoprazole Sodium (Protonix -) 20 mg PO DAILY [facility] Last Admin: 05/04/18 09:48 Dose: 20 mg Polyethylene Glycol (Miralax (For Daily Use) -) 17 gm PO BID [facility] Last Admin: 05/04/18 09:49 Dose: Not Given Prednisone (Deltasone -) 5 mg PO DAILY [facility] Last Admin: 05/04/18 09:53 Dose: 5 mg Ranitidine HCl (Zantac -) 150 mg PO DAILY [facility] Last Admin: 05/04/18 09:48 Dose: 150 mg 72 year old woman with history of ESRD s/p Renal transplant on Imuran and prednisone, Hypertension and hypothyrodism who presented from home with fever and diffuse body pain and found to have suspected cystitis and bacteremia #Sepsis syndrome with bacteremia #ESRD with Renal Transplant #Hx of hypertensoin #Hypothyroidism Renal function stable continue imuran and prednisone MRI results pending. GI Follow up supportive care Thank you Orlando Sen DO
--- NOTE | 2018-05-04 13:00 | PN ---
Progress Note, Physician History of Present Illness: PULMONARY ALERT,NO COMPLAINTS,-SOB,-COUGH - Current Medication List Current Medications: Active Medications Acetaminophen (Tylenol -) 650 mg PO Q6H PRN PRN Reason: FEVER Last Admin: 04/28/18 03:32 Dose: 650 mg Azathioprine (Imuran -) 100 mg PO DAILY [facility] Last Admin: 05/04/18 09:48 Dose: 100 mg Diltiazem HCl (Cardizem Cd -) 240 mg PO DAILY [facility] Last Admin: 05/04/18 09:48 Dose: 240 mg Heparin Sodium (Porcine) (Heparin -) 5,000 unit SQ BID [facility] Last Admin: 05/04/18 09:49 Dose: Not Given Ceftriaxone Sodium 2 gm/ (Dextrose) 100 mls @ 200 mls/hr IVPB DAILY [facility]; Protocol Last Admin: 05/04/18 09:49 Dose: 200 mls/hr Levothyroxine Sodium (Synthroid -) 75 mcg PO DAILY@0700 [facility] Last Admin: 05/04/18 06:04 Dose: 75 mcg Mometasone Furoate (Asmanex 220mcg -) 1 puff IH HS [facility] Last Admin: 05/03/18 23:08 Dose: Not Given Ondansetron HCl (Zofran Injection) 8 mg IVPB Q6H PRN PRN Reason: NAUSEA AND/OR VOMITING Last Admin: 04/26/18 04:38 Dose: 8 mg Pantoprazole Sodium (Protonix -) 20 mg PO DAILY [facility] Last Admin: 05/04/18 09:48 Dose: 20 mg Polyethylene Glycol (Miralax (For Daily Use) -) 17 gm PO BID [facility] Last Admin: 05/04/18 09:49 Dose: Not Given Prednisone (Deltasone -) 5 mg PO DAILY [facility] Last Admin: 05/04/18 09:53 Dose: 5 mg Ranitidine HCl (Zantac -) 150 mg PO DAILY [facility] Last Admin: 05/04/18 09:48 Dose: 150 mg - Objective Vital Signs: Vital Signs Temperature 98 F 05/04/18 09:30 Pulse Rate 66 05/04/18 09:30 Respiratory Rate 20 05/04/18 09:30 Blood Pressure 144/79 05/04/18 09:30 O2 Sat by Pulse Oximetry (%) 97 05/03/18 21:00 Constitutional: Yes: Well Nourished, Calm Eyes: Yes: WNL HENT: Yes: WNL Neck: Yes: WNL Cardiovascular: Yes: Regular Rate and Rhythm, S1, S2 Respiratory: Yes: CTA Bilaterally Gastrointestinal: Yes: Normal Bowel Sounds, Soft Extremities: Yes: WNL Edema: No Labs: CBC, BMP 05/04/18 08:25 05/04/18 08:25 INR, PTT INR 1.08 (0.83-1.09) 04/25/18 20:29 Problem List - Problems (1) Gram-negative bacteremia Code(s): R78.81 - BACTEREMIA (2) Sepsis Code(s): A41.9 - SEPSIS, UNSPECIFIED ORGANISM Qualifiers: Sepsis type: sepsis due to unspecified organism Qualified Code(s): A41.9 - Sepsis, unspecified organism (3) Asthma Code(s): J45.909 - UNSPECIFIED ASTHMA, UNCOMPLICATED (4) Lung nodule Code(s): R91.1 - SOLITARY PULMONARY NODULE (5) Nausea Code(s): R11.0 - NAUSEA (6) Asthma Code(s): J45.909 - UNSPECIFIED ASTHMA, UNCOMPLICATED (7) Diabetes Code(s): E11.9 - TYPE 2 DIABETES MELLITUS WITHOUT COMPLICATIONS (8) HTN (hypertension) Code(s): I10 - ESSENTIAL (PRIMARY) HYPERTENSION (9) Renal transplant recipient Code(s): Z94.0 - KIDNEY TRANSPLANT STATUS (10) Seizure Code(s): R56.9 - UNSPECIFIED CONVULSIONS Assessment/Plan IMP GRAM NEGATIVE BACTEREMIA /SEPSIS,E-COLI RESOLVED ASTHMA STABLE H/O PULMONARY NODULES H/O RENAL TRANSPLANT 1990 ON IMURAN AND PREDNISONE HTN DM ASHD H/O PERICARDIAL EFFUSION S/P WINDOW H/O CVA GERD PLAN ABX PER ID O2 INHALED BRONCHODILATORS MONITOR LYTES,CBC DR DONALD Problem List - Problems (1) Gram-negative bacteremia Code(s): R78.81 - BACTEREMIA (2) Sepsis Code(s): A41.9 - SEPSIS, UNSPECIFIED ORGANISM Qualifiers: Sepsis type: sepsis due to unspecified organism Qualified Code(s): A41.9 - Sepsis, unspecified organism (3) Asthma Code(s): J45.909 - UNSPECIFIED ASTHMA, UNCOMPLICATED (4) Lung nodule Code(s): R91.1 - SOLITARY PULMONARY NODULE (5) Nausea Code(s): R11.0 - NAUSEA (6) Asthma Code(s): J45.909 - UNSPECIFIED ASTHMA, UNCOMPLICATED (7) Diabetes Code(s): E11.9 - TYPE 2 DIABETES MELLITUS WITHOUT COMPLICATIONS (8) HTN (hypertension) Code(s): I10 - ESSENTIAL (PRIMARY) HYPERTENSION (9) Renal transplant recipient Code(s): Z94.0 - KIDNEY TRANSPLANT STATUS (10) Seizure Code(s): R56.9 - UNSPECIFIED CONVULSIONS
[2018-05-04] MEDS: MOMETASONE FUROATE 220 MCG/IH INHALER IH SCH (21:19)
[2018-05-05] MEDS: LEVOTHYROXINE NA 75 MCG TABLET (FP) PO SCH (06:28)
[2018-05-05 07:08] VITALS: TEMP 97.7
--- NOTE | 2018-05-05 10:07 | DS ---
Physical Examination Vital Signs: Vital Signs Temperature 97.7 F 05/05/18 06:00 Pulse Rate 59 L 05/05/18 06:00 Respiratory Rate 20 05/05/18 06:00 Blood Pressure 133/67 05/05/18 06:00 O2 Sat by Pulse Oximetry (%) 97 05/04/18 21:00 Findings/Remarks: in bed feeling better no new c/o; abdomen MRI noted and d/w pt no acute changes but will need GI f/u for pancreatic cyst BUN 29 a little up from before; advised to drink more water BMP this am pending if stable to go home and f/u as advised Constitutional: Yes: No Distress, Calm Eyes: Yes: Conjunctiva Clear HENT: Yes: Atraumatic Neck: Yes: Supple Cardiovascular: Yes: Regular Rate and Rhythm Respiratory: Yes: CTA Bilaterally Gastrointestinal: Yes: Soft. No: Tenderness Renal/: No: CVA Tenderness - Left, CVA Tenderness - Right, Hematuria Musculoskeletal: No: Joint Stiffness, Joint Swelling Extremities: No: Cold, Cool, Cyanosis Edema: No Integumentary: No: Pressure Ulcer, Rash, Venous Stasis Changes Neurological: Yes: WNL, Alert, Oriented ...Motor Strength: WNL Psychiatric: Yes: WNL, Alert, Oriented. No: Agitated, Suicidal Ideation Labs: CBC, BMP 05/04/18 08:25 05/04/18 08:25 Discharge Summary Reason For Visit: URINARY TRACT INFECTION,SEPSIS Current Active Problems Chronic constipation (Acute) Diarrhea (Acute) Diverticula of colon (Acute) ESRD (end stage renal disease) (Acute) Fatty (change of) liver, not elsewhere classified (Acute) Gram-negative bacteremia (Acute) History of colon polyps (Acute) History of parathyroid surgery (Acute) IPMN (intraductal papillary mucinous neoplasm) (Acute) Sepsis (Acute) UTI (urinary tract infection) (Acute) Procedures: Principal: admitted with UTI and sepsis + blood cx Other Procedures: IV antibiotics per ID Hospital Course: improved with above no fever but developed diarrhea; w/u per GI; DC home and f/u as advised Condition: Fair - Instructions Diet, Activity, Other Instructions: f/u PCP and renal dr in 1-2 weeks; outpt labs CBC CMP in 1-2 weeks; po ATB x1 weeks as ordered renal transplant f/u GI and pulmonary and cardiology f/u outpt 1-2 months; RTER if worse or recurrent c/o Referrals: Amelia Mehta [Primary Care Provider] - Orlando Sen MD [Staff Physician] - Joshua Huang MD [Staff Physician] - Minesh Torres MD [Staff Physician] - Keith Bolden MD [Staff Physician] - - Home Medications Comprehensive Discharge Medication List: Ambulatory Orders Levothyroxine [Synthroid -] 75 mcg PO DAILY 03/07/12 predniSONE [Deltasone -] 5 mg PO DAILY 07/11/13 Azathioprine [Imuran] 100 mg PO DAILY 12/20/14 Fluticasone Propionate [Flovent Hfa] 110 mcg IH BID 02/20/17 Diltiazem Cd [Cardizem Cd -] 240 mg PO DAILY #0 cap 05/22/17 Ranitidine [Zantac -] 150 mg PO DAILY #30 tablet 05/22/17 Acetaminophen [Tylenol .Regular Strength -] 650 mg PO Q6H PRN tablet 05/04/18 Acidoph/L.bulg/Bif.b/S.thermop [Bacid Caplet] 1 each PO DAILY #30 tablet levoFLOXacin [Levaquin -] 500 mg PO DAILY #7 tablet 05/04/18
[2018-05-05] MEDS ORDERED: DEXTROSE 5%-WATER 100 ML IVPB ONE (11:00)
[2018-05-05] MEDS ORDERED: PT OWN MED DRAWER 7, Y5N ONE (11:00)
[2018-05-05 11:13] LABS: ANION GAP 6 MMOL/L (8-16); BLOOD UREA NITROGEN 29 mg/dL (7-18); CALCIUM 9.3 mg/dL (8.5-10.1); CHLORIDE 106 mmol/L (98-107); CO2 27 mmol/L (21-32); CREATININE 1.1 mg/dL (0.55-1.3); GLUCOSE,RANDOM 89 mg/dL (74-106); POTASSIUM 4.2 mmol/L (3.5-5.1); SODIUM 138 mmol/L (136-145)
[2018-05-05] MEDS: predniSONE 5 MG TABLET (UD) PO SCH (11:19)
[2018-05-05] MEDS: CEFTRIAXONE 2 GM in DEXTROSE 5%-WATER 100 ML IVPB SCH (11:19)
[2018-05-05] MEDS: RANITIDINE HCL 150 MG TABLET (FP) PO SCH (11:19)
[2018-05-05] MEDS: HEPARIN NA (PORCINE) 5,000 UNITS/ML 1ML VIAL SQ SCH (11:19)
[2018-05-05] MEDS: PANTOPRAZOLE 20 MG TABLET (FP) PO SCH (11:19)
[2018-05-05] MEDS: azaTHIOprine 50 MG TABLET PO SCH (11:20)
--- NOTE | 2018-05-05 11:27 | PN ---
Progress Note (short form) - Note Progress Note: s: no chest pain, palps, dyspnea, dizziness. Current Medications Generic Name Dose Route Start Last Admin Trade Name Freq PRN Reason Stop Dose Admin Acetaminophen 650 mg 04/26/18 04:12 04/28/18 03:32 Tylenol - PO 650 mg Q6H PRN Administration FEVER Azathioprine 100 mg 04/26/18 10:00 05/04/18 09:48 Imuran - PO 100 mg DAILY PURA Administration Diltiazem HCl 240 mg 04/26/18 10:00 05/04/18 09:48 Cardizem Cd - PO 240 mg DAILY PURA Administration Heparin Sodium (Porcine) 5,000 unit 04/26/18 10:00 05/04/18 21:19 Heparin - SQ Not Given BID PURA Ceftriaxone Sodium 2 gm/ 100 mls @ 200 mls/hr 04/28/18 14:45 05/04/18 09:49 Dextrose IVPB 200 mls/hr DAILY PURA Administration Protocol Levothyroxine Sodium 75 mcg 04/26/18 07:00 05/05/18 06:28 Synthroid - PO 75 mcg DAILY@0700 PURA Administration Mometasone Furoate 1 puff 04/26/18 22:00 05/04/18 21:19 Asmanex 220mcg - IH Not Given HS PURA Ondansetron HCl 8 mg 04/26/18 04:13 04/26/18 04:38 Zofran Injection IVPB 8 mg Q6H PRN Administration NAUSEA AND/OR VOMITING Pantoprazole Sodium 20 mg 04/30/18 10:00 05/04/18 09:48 Protonix - PO 20 mg DAILY PURA Administration Polyethylene Glycol 17 gm 05/01/18 22:00 05/04/18 21:19 Miralax (For Daily Use) - PO Not Given BID PURA Prednisone 5 mg 04/26/18 10:00 05/04/18 09:53 Deltasone - PO 5 mg DAILY PURA Administration Ranitidine HCl 150 mg 04/26/18 10:00 05/04/18 09:48 Zantac - PO 150 mg DAILY PURA Administration Physical Exam Vital Signs Period Temp Pulse Resp BP Sys/Wang Pulse Ox Last 24 Hr 97.7 F-98.1 F 59-72 18-20 120-137/58-74 97 nad no jvd rrr s1s2 no mrg cta bl nl eff aaox3 no le e/c/c abd nt nd pos bs CBC, BMP 05/04/18 08:25 05/05/18 10:35 EKG: Image Reviewed (ECG done on 04/25/2018 at 20:21 shows NSR at 95/min with iRBBB and lAFB with LVH. THis current ECG is uncanged from the prior ECG done in 04/2017) Other: Report Reviewed (Echo: 05/16/2017: Normal LV function, LVH, moderate MR Stress MPI 2012: Normal stress MPI, LVEF 73%) Assessment/Plan a/p: 71 yo with pmhx of htn, CVA, pericarditis s/p pericardial window, Right kidney transplant in 1990, niddm, seizures (last 02/2017), asthma, now admitted with urosepsis with E. Coli. complaining of atypical chest pain CP - atypical for cardiac pain - now resolved - Ekg without acute ischemic changes and unchanged from prior in 04/2017, trop neg - No further CV testing at this time htn - continue current meds Urosepsis -mgm't per pmd, ID cardiac le stable
[2018-05-05] MEDS: POLYETHYLENE GLYCOL 3350 119 GM BTL PO SCH (11:33)
--- NOTE | 2018-05-05 14:01 | PN ---
Progress Note, Physician History of Present Illness: pulmonary alert,no distress,-sob,-,-cough - Current Medication List Current Medications: Active Medications Acetaminophen (Tylenol -) 650 mg PO Q6H PRN PRN Reason: FEVER Last Admin: 04/28/18 03:32 Dose: 650 mg Azathioprine (Imuran -) 100 mg PO DAILY [facility] Last Admin: 05/05/18 11:20 Dose: 100 mg Diltiazem HCl (Cardizem Cd -) 240 mg PO DAILY [facility] Last Admin: 05/05/18 11:19 Dose: 240 mg Heparin Sodium (Porcine) (Heparin -) 5,000 unit SQ BID [facility] Last Admin: 05/05/18 11:19 Dose: 5,000 unit Ceftriaxone Sodium 2 gm/ (Dextrose) 100 mls @ 200 mls/hr IVPB DAILY [facility]; Protocol Last Admin: 05/05/18 11:19 Dose: 200 mls/hr Levothyroxine Sodium (Synthroid -) 75 mcg PO DAILY@0700 [facility] Last Admin: 05/05/18 06:28 Dose: 75 mcg Mometasone Furoate (Asmanex 220mcg -) 1 puff IH HS [facility] Last Admin: 05/04/18 21:19 Dose: Not Given Ondansetron HCl (Zofran Injection) 8 mg IVPB Q6H PRN PRN Reason: NAUSEA AND/OR VOMITING Last Admin: 04/26/18 04:38 Dose: 8 mg Pantoprazole Sodium (Protonix -) 20 mg PO DAILY [facility] Last Admin: 05/05/18 11:19 Dose: 20 mg Polyethylene Glycol (Miralax (For Daily Use) -) 17 gm PO BID [facility] Last Admin: 05/05/18 11:33 Dose: Not Given Prednisone (Deltasone -) 5 mg PO DAILY [facility] Last Admin: 05/05/18 11:19 Dose: 5 mg Ranitidine HCl (Zantac -) 150 mg PO DAILY [facility] Last Admin: 05/05/18 11:19 Dose: 150 mg - Objective Vital Signs: Vital Signs Temperature 97.7 F 05/05/18 06:00 Pulse Rate 64 05/05/18 11:00 Respiratory Rate 18 05/05/18 11:00 Blood Pressure 140/68 05/05/18 11:00 O2 Sat by Pulse Oximetry (%) 97 05/05/18 09:00 Constitutional: Yes: Well Nourished, Calm Eyes: Yes: WNL HENT: Yes: WNL Neck: Yes: WNL Cardiovascular: Yes: Regular Rate and Rhythm, S1, S2 Respiratory: Yes: Diminished Gastrointestinal: Yes: Normal Bowel Sounds, Soft Extremities: Yes: WNL Edema: No Labs: CBC, BMP 05/05/18 10:35 INR, PTT INR 1.08 (0.83-1.09) 04/25/18 20:29 Problem List - Problems (1) Gram-negative bacteremia Code(s): R78.81 - BACTEREMIA (2) Sepsis Code(s): A41.9 - SEPSIS, UNSPECIFIED ORGANISM Qualifiers: Sepsis type: sepsis due to unspecified organism Qualified Code(s): A41.9 - Sepsis, unspecified organism (3) Asthma Code(s): J45.909 - UNSPECIFIED ASTHMA, UNCOMPLICATED (4) Lung nodule Code(s): R91.1 - SOLITARY PULMONARY NODULE (5) Nausea Code(s): R11.0 - NAUSEA (6) Asthma Code(s): J45.909 - UNSPECIFIED ASTHMA, UNCOMPLICATED (7) Diabetes Code(s): E11.9 - TYPE 2 DIABETES MELLITUS WITHOUT COMPLICATIONS (8) HTN (hypertension) Code(s): I10 - ESSENTIAL (PRIMARY) HYPERTENSION (9) Renal transplant recipient Code(s): Z94.0 - KIDNEY TRANSPLANT STATUS (10) Seizure Code(s): R56.9 - UNSPECIFIED CONVULSIONS Assessment/Plan IMP GRAM NEGATIVE BACTEREMIA /SEPSIS,E-COLI RESOLVED ASTHMA STABLE H/O PULMONARY NODULES H/O RENAL TRANSPLANT 1990 ON IMURAN AND PREDNISONE HTN DM ASHD H/O PERICARDIAL EFFUSION S/P WINDOW H/O CVA GERD PLAN ABX PER ID INHALED BRONCHODILATORS DR DONALD Problem List - Problems (1) Gram-negative bacteremia Code(s): R78.81 - BACTEREMIA (2) Sepsis Code(s): A41.9 - SEPSIS, UNSPECIFIED ORGANISM Qualifiers: Sepsis type: sepsis due to unspecified organism Qualified Code(s): A41.9 - Sepsis, unspecified organism (3) Asthma Code(s): J45.909 - UNSPECIFIED ASTHMA, UNCOMPLICATED (4) Lung nodule Code(s): R91.1 - SOLITARY PULMONARY NODULE (5) Nausea Code(s): R11.0 - NAUSEA (6) Asthma Code(s): J45.909 - UNSPECIFIED ASTHMA, UNCOMPLICATED (7) Diabetes Code(s): E11.9 - TYPE 2 DIABETES MELLITUS WITHOUT COMPLICATIONS (8) HTN (hypertension) Code(s): I10 - ESSENTIAL (PRIMARY) HYPERTENSION (9) Renal transplant recipient Code(s): Z94.0 - KIDNEY TRANSPLANT STATUS (10) Seizure Code(s): R56.9 - UNSPECIFIED CONVULSIONS
[2018-05-05] MEDS ORDERED: PNEUMOC 13-VAL CONJ-DIP CRM/PF 0.5 ML DISP.SYRIN IM ONE (15:00)
[2018-05-05 15:23] VITALS: BP 120/81; PULSE 66
== END 2018-05-05 15:45 | disposition home or self-care (01) | DRG 872 ==
LOC: JER 19:33 → JERBED 22:40 → J5S 04-26 02:46 → OBSVTOIN 04-26 06:24 → J5S 05-05 11:39
PROVIDERS: ADMIT Internal Medicine; ATTEND Internal Medicine
DX: A41.51 Sepsis due to Escherichia coli [E. coli] (principal); Z94.0 Kidney transplant status; N03.9 Chronic nephritic syndrome with unspecified morphologic changes; N39.0 Urinary tract infection, site not specified; K52.1 Toxic gastroenteritis and colitis; I25.10 Atherosclerotic heart disease of native coronary artery without angina pectoris; I10 Essential (primary) hypertension; E78.5 Hyperlipidemia, unspecified; E03.9 Hypothyroidism, unspecified; G40.909 Epilepsy, unspecified, not intractable, without status epilepticus; Z86.73 Personal history of transient ischemic attack (TIA), and cerebral infarction without residual deficits; J45.909 Unspecified asthma, uncomplicated; K21.9 Gastro-esophageal reflux disease without esophagitis; R91.1 Solitary pulmonary nodule; R07.89 Other chest pain; K59.09 Other constipation; T36.95XA Adverse effect of unspecified systemic antibiotic, initial encounter; K76.0 Fatty (change of) liver, not elsewhere classified
CPT/HCPCS: 36415; 71045-TC-FY; 74182-TC; 76705-TC; 76775-TC; 76856-TC; 80048; 80053; 81003; 81015; 82150; 82272; 82803; 83605; 83690; 84443; 84484; 85025; 85610; 85730; 86140; 87040; 87045; 87046; 87086; 87186; 87205; 87324; 87449; 87804; 90670; 93005; 93010; 99285-25; G0378; J0131; J1644; J7030

== ENCOUNTER 2018-05-12 22:32 | Emergency (ER) | payer OTHER ==
[2018-05-12 22:43] VITALS: BP 164/80; PULSE 79; TEMP 97.8; BMI 25.7
--- NOTE | 2018-05-12 22:55 | PDOC ---
Attending Attestation - HPI HPI: 05/12/18 23:43 72 year old female with past medical history hypertension, hyperlipidemia, hypothyroidism, CVA, CAD, seizures, chronic glomerulonephritis s/p R sided renal transplant (1990) who presents to the ED with complaints of left forearm swelling in her old AV fistula today. Patient reports she was afraid that it may burst, but after applying ice she noted the swelling decreased. Patient also states she has an appointment with her PCP tomorrow. - Physicial Exam PE: 05/12/18 23:44 GENERAL: Well developed, well nourished. Awake and alert. No acute distress. CARDIOVASCULAR: Regular rate and rhythm. No murmurs, rubs, or gallops. Distal pulses are 2+ and symmetric. PULMONARY: No evidence of respiratory distress. Lungs clear to auscultation bilaterally. ABDOMINAL: Soft. Non-tender. Non-distended. No rebound or guarding. EXTREMITIES: Left forearm has old AV fistula with no bruit, no thrill, no cellulitis. Sensation intact, capillary refill is less than 2 seconds, no wounds present. No cyanosis. No clubbing. No edema. No calf tenderness. SKIN: Warm and dry. Normal capillary refill. No rashes. No jaundice. NEUROLOGICAL: Alert, awake, appropriate. Cranial nerves 2-12 intact. 05/12/18 23:45 - Medical Decision Making 05/12/18 23:46 Documentation prepared by Ani Delgado, acting as director medical affairs for Altagracia Salvador MD. <Ani Delgado - Last Filed: 05/12/18 23:45> - Resident Resident Name: Mag Fraser - ED Attending Attestation I have performed the following: I have examined & evaluated the patient, The case was reviewed & discussed with the resident, I agree w/resident's findings & plan, Exceptions are as noted - HPI HPI: 05/12/18 23:32 this 72 yo female presents tonight because she felt that her old AV fistula for dialysis is getting swollen. She had a kidney transplant 28 years - Medical Decision Making 05/13/18 01:26 There is no evidence of cellulitis ,rash,ischemia, deformity on the pt's left forearm there arm has intact sensation,no obvious swelling pt discharged home she already has an appt w Dr Mehta this week <Altagracia Salvador - Last Filed: 05/13/18 01:28>
--- NOTE | 2018-05-12 23:06 | PDOC ---
History of Present Illness - General Chief Complaint: Pain, Acute Stated Complaint: LEFT ARM SWOLLEN Time Seen by Provider: 05/12/18 22:43 - History of Present Illness Initial Comments: Tiki Hunt is a 72yo woman with a PMH of CVA, CAD, HTN, HLD, asthma, hypothyroidism, seizure disorder, chronic glomerulonephritis s/p R sided renal transplant (1990) on immunosuppression, pancreatitis, recent admission on 04/26 for cystitis who presents with concern that her left arm is swollen near a blood vessel on her distal forearm. She states that she had pain in her upper arm earlier today, though she is no longer concerned about the pain, and then noticed swelling in the distal volar forearm. She immediately put ice on the area with reduction in the swelling. Ms Hunt states that she has "soft skin" and is extremely worried that the vessel will burst open. She also notes that an old AVF in her upper arm ( brachiocephalic?) that has been thrombosed for many years is "working again" as she states that it used to feel hard more distally in the visible veins but no longer does. She has an appointment with her PMD, Dr Mehta, schedule tomorrow but was concerned that the vessel would burst open overnight if she was not seen immediately. Past History - Past Medical History Allergies/Adverse Reactions: Allergies Allergy/AdvReac Type Severity Reaction Status Date / Time codeine Allergy Intermediate Vomiting Verified 05/12/18 22:44 AND SWELLING OF FACE Home Medications: Ambulatory Orders Levothyroxine [Synthroid -] 75 mcg PO DAILY 03/07/12 predniSONE [Deltasone -] 5 mg PO DAILY 07/11/13 Azathioprine [Imuran] 100 mg PO DAILY 12/20/14 Fluticasone Propionate [Flovent Hfa] 110 mcg IH BID 02/20/17 Diltiazem Cd [Cardizem Cd -] 240 mg PO DAILY #0 cap 05/22/17 Ranitidine [Zantac -] 150 mg PO DAILY #30 tablet 05/22/17 Acetaminophen [Tylenol .Regular Strength -] 650 mg PO Q6H PRN tablet 05/04/18 Acidoph/L.bulg/Bif.b/S.thermop [Bacid Caplet] 1 each PO DAILY #30 tablet levoFLOXacin [Levaquin -] 500 mg PO DAILY #7 tablet 05/04/18 Anemia: No Asthma: Yes Cancer: No Cardiac Disorders: Yes (CARDIOMEGALY, pericarditis) CVA: Yes COPD: No CHF: No DVT: No Dementia: No Diabetes: Yes (borderline) Dialysis: No (kidney transplant) GI Disorders: No Disorders: No HTN: Yes Hypercholesterolemia: Yes Liver Disease: No Seizures: Yes (last february 2017) Thyroid Disease: Yes - Surgical History Abdominal Surgery: Yes (UMBILICAL HERNIA) Appendectomy: No Cardiac Surgery: Yes (percardial window,CARD CATH NO STENTS) Cholecystectomy: No Neurologic Surgery: No Orthopedic Surgery: Yes (KNEE ARTHROSCOPY) - Immunization History Immunization Up to Date: Yes - Suicide/Smoking/Psychosocial Hx Smoking Status: No Smoking History: Never smoked Have you smoked in the past 12 months: No Number of Cigarettes Smoked Daily: 0 Information on smoking cessation initiated: No Hx Alcohol Use: No Drug/Substance Use Hx: No Substance Use Type: None Hx Substance Use Treatment: No Review of Systems - Review of Systems Comments:: General: No fevers, no chills, no weight or appetite change, no malaise HEENT: No changes in vision, no changes in hearing, no congestion, no sore throat CV: No chest pain, no palpitations, no LE edema Pulm: No SOB, no cough, no wheezing GI: No nausea or vomiting, no change in bowel habits, no melena : No frequency, no urgency, no dysuria Musc: No back pain, no joint swelling, no recent injury Skin: No rash, no lesions, no erythema. See HPI Endo: No excessive thirst, no heat/cold intolerance Heme: No unusual bruising or bleeding, no swollen glands Neuro: No syncope, no numbness/tingling, no focal weakness Vasc: No claudication. See HPI Psych: No recent change in mood, no SI or HI *Physical Exam - Vital Signs Last Vital Signs Temp Pulse Resp BP Pulse Ox 97.8 F 79 20 164/80 98 05/12/18 22:38 05/12/18 22:38 05/12/18 22:38 05/12/18 22:38 05/12/18 22:38 - Physical Exam Comments: General: In no acute distress HEENT: PERRL, EOMI, MMM, voice normal, normal neck ROM Cards: RRR Pulm: Comfortable on room air Ext: Atraumatic. No LE edema. ROM intact. Strength 5/5 and equal bilaterally LUE with trace swelling on volar forearm measuring approximately 2 x 4 cm. Nontender. Vasc: Extremities WWP. Palpable radial pulses bilaterally Skin: Normal color, no rashes or lesions. Mild erythema on distal volar L wrist Neuro: A&Ox3, CN grossly intact, normal speech, motor/sensory grossly intact and symmetric Psych: Anxious Moderate Sedation - Procedure Monitoring Vital Signs: Procedure Monitoring Vital Signs Temperature 97.8 F 05/12/18 22:38 Pulse Rate 79 05/12/18 22:38 Respiratory Rate 20 05/12/18 22:38 Blood Pressure 164/80 05/12/18 22:38 O2 Sat by Pulse Oximetry (%) 98 05/12/18 22:38 Medical Decision Making - Medical Decision Making 05/12/18 23:14 Tiki Hunt is a 72yo woman with a PMH of CVA, CAD, HTN, HLD, asthma, hypothyrodism, seizure disorder, chronic glomerulonephritis s/p R sided renal transplant (1990) on immunosuppression, pancreatitis who presents with concern that her left arm is swollen near a blood vessel on her distal forearm. She is worried that the vessel will burst open. - No significant swelling or abnormalities noted on physical exam - Reassured Ms Hunt and her daughter, at bedside, that the vessel will not simply burst open. - Pt has an appointment with her PMD scheduled for tomorrow. Encouraged her to follow up at this scheduled appointment. - Will give information for vascular surgery in case she feels specialized follow up is necessary. Seen and discussed with Dr Salvador. Mag Fraser PGY1 *DC/Admit/Observation/Transfer Diagnosis at time of Disposition: Thrombosis of surgically created arteriovenous fistula - Discharge Dispostion Disposition: HOME Condition at time of disposition: Stable Decision to Admit order: No - Referrals Referrals: David Lion MD [Non Staff, Medical] - Amelia Mehta [Staff Physician] - - Patient Instructions Printed Discharge Instructions: DI for Arm Pain Additional Instructions: Discharge Instructions: You were seen in the ED due to concern for swelling in your left forearm near your blood vessels. There was no dangerous swelling seen. Please continue to take all of your previously prescribed medications. Make sure that you go to your scheduled appointment with Dr Mehta tomorrow. If you are very concerned about your fistula site, you can follow up with vascular surgery for evaluation. You have been referred to Dr Lion. Seek immediate medical care if you have any medical emergency including chest pain, difficulty breathing, or one-sided neurological deficits such as weakness or numbness. - Post Discharge Activity
== END 2018-05-12 23:38 | disposition home or self-care (01) ==
LOC: JER 22:32
DX: T82.868A Thrombosis due to vascular prosthetic devices, implants and grafts, initial encounter (principal); I25.10 Atherosclerotic heart disease of native coronary artery without angina pectoris; I10 Essential (primary) hypertension; E03.9 Hypothyroidism, unspecified; E11.9 Type 2 diabetes mellitus without complications; J45.909 Unspecified asthma, uncomplicated; G40.909 Epilepsy, unspecified, not intractable, without status epilepticus; N03.9 Chronic nephritic syndrome with unspecified morphologic changes; Z86.73 Personal history of transient ischemic attack (TIA), and cerebral infarction without residual deficits; Z94.0 Kidney transplant status
CPT/HCPCS: 99281-25

== ENCOUNTER 2018-07-26 10:58 | Emergency (ER) | payer OTHER ==
[2018-07-26 11:04] VITALS: TEMP 97.6; BMI 25.7
[2018-07-26] MEDS ORDERED: SODIUM CHLORIDE 0.9% 1000 ML INFUS.BAG IV ONE (11:35)
[2018-07-26] MEDS ORDERED: METOCLOPRAMIDE HCL INJECTION 10 MG/2 ML VIAL IVPB ONE (11:35)
[2018-07-26] MEDS ORDERED: ACETAMINOPHEN 1000 MG/100 ML VIAL (NON FORMULARY) IVPB ONE (11:35)
[2018-07-26] MEDS ORDERED: METOCLOPRAMIDE HCL INJECTION 10 MG/2 ML VIAL ONE (11:37)
[2018-07-26] MEDS ORDERED: ACETAMINOPHEN INJECTION 100 ML IVPB ONE (11:37)
--- NOTE | 2018-07-26 11:42 | PDOC ---
Documentation entered by Derick George SCRIBE, acting as scribe for Rick Fisher MD. Rick Fisher MD: This documentation has been prepared by the scotteAriel Aiswarya, SCRIBE, under my direction and personally reviewed by me in its entirety. I confirm that the documentation accurately reflects all work, treatment, procedures, and medical decision making performed by me. History of Present Illness - General Chief Complaint: Headache Stated Complaint: SENT BY PCP Time Seen by Provider: 07/26/18 11:31 History Source: Patient Exam Limitations: No Limitations - History of Present Illness Initial Comments: 07/26/18 12:12 The patient is a 72 year old female, with a significant PMH of cardiomegaly, pericarditis,CVA, borderline diabetes, kidney transplant, HLD, seizures, and HTN who presents to the emergency department complaining of headaches that began 7 days ago. The patient describes pain as constant, throbbing and pressure like in nature located to the right side of the head. Patient reports going to her PCP and urgent care who told her to come to the ER for further evaluation. The patient denies neurological deficit, numbness or tingling. Denies any hearing loss, LOC and dizziness. Denies chest pain, shortness of breath and dizziness.Denies fever, chills, nausea, vomit, diarrhea and constipation. Allergies: codeine Past surgical history: kidney transplant, umbilical hernia, pericardial window, card cath no stents, knee arthroscopy Social history: None reported PCP: Amelia Mehta Past History - Past Medical History Allergies/Adverse Reactions: Allergies Allergy/AdvReac Type Severity Reaction Status Date / Time codeine Allergy Intermediate Vomiting Verified 07/26/18 11:01 AND SWELLING OF FACE Home Medications: Ambulatory Orders Levothyroxine [Synthroid -] 75 mcg PO DAILY 03/07/12 predniSONE [Deltasone -] 5 mg PO DAILY 07/11/13 Azathioprine [Imuran] 100 mg PO DAILY 12/20/14 Fluticasone Propionate [Flovent Hfa] 110 mcg IH BID 02/20/17 Diltiazem Cd [Cardizem Cd -] 240 mg PO DAILY #0 cap 05/22/17 Ranitidine [Zantac -] 150 mg PO DAILY #30 tablet 05/22/17 Furosemide [Lasix] 20 mg PO DAILY 07/26/18 Ipratropium Gilbert [Atrovent Hfa] 2 puff IH QID 07/26/18 Metronidazole 250 mg PO TID 07/26/18 Montelukast Sodium [Singulair] 10 mg PO DAILY 07/26/18 Anemia: No Asthma: Yes Cancer: No Cardiac Disorders: Yes (CARDIOMEGALY, pericarditis) CVA: Yes COPD: No CHF: No DVT: No Dementia: No Diabetes: Yes (borderline) Dialysis: No (kidney transplant) GI Disorders: No Disorders: No HTN: Yes Hypercholesterolemia: Yes Liver Disease: No Seizures: Yes (last february 2017) Thyroid Disease: Yes - Surgical History Abdominal Surgery: Yes (UMBILICAL HERNIA) Appendectomy: No Cardiac Surgery: Yes (percardial window,CARD CATH NO STENTS) Cholecystectomy: No Neurologic Surgery: No Orthopedic Surgery: Yes (KNEE ARTHROSCOPY) - Immunization History Immunization Up to Date: Yes - Suicide/Smoking/Psychosocial Hx Smoking Status: No Smoking History: Never smoked Have you smoked in the past 12 months: No Number of Cigarettes Smoked Daily: 0 Hx Alcohol Use: No Drug/Substance Use Hx: No Substance Use Type: None Hx Substance Use Treatment: No Review of Systems - Review of Systems Able to Perform ROS?: Yes Comments:: 07/26/18 12:12 A complete review of 10 out of 10 review of systems is taken and is negative apart from what is previously mentioned below and in the HPI. *Physical Exam - Vital Signs Last Vital Signs Temp Pulse Resp BP Pulse Ox 97.6 F 78 18 172/76 H 97 07/26/18 11:01 07/26/18 11:01 07/26/18 11:01 07/26/18 11:01 07/26/18 11:01 - Physical Exam Comments: 07/26/18 12:12 Vitals: Triage Vital signs reviewed General Appearance: no acute distress, well nourished well developed, Cardiac: Regular rate and rhythm, no murmurs, no rubs, no gallops, Lungs: Clear to auscultation bilateral, good air movement bilaterally, Skin: Warm and dry, no rashes or lesions, no petechiae Neuro: AOX3; Cranial Nerves 2-12 grossly c intact, Strength intact to all extremities, Sensation intact to all extremities. Psych: normal mood, normal affect ED Treatment Course - LABORATORY CBC & Chemistry Diagram: 07/26/18 11:44 07/26/18 13:19 Medical Decision Making - Medical Decision Making 07/26/18 15:04 Reevaluation 3 PM patient feels much better headache is completely resolved ESR CRP within normal limits Head CT demonstrates no acute findings We'll recommend Tylenol and neurology follow-up with headache returns Find his, need follow-up and strict return instructions discussed patient. *DC/Admit/Observation/Transfer Diagnosis at time of Disposition: Headache Qualifiers: Headache type: unspecified Headache chronicity pattern: acute headache Intractability: not intractable Qualified Code(s): R51 - Headache - Discharge Dispostion Disposition: HOME Decision to Admit order: No - Referrals Referrals: Amelia Mehta [Primary Care Provider] - Darinel Flores MD [Staff Physician] - - Patient Instructions Printed Discharge Instructions: DI for Headache Additional Instructions: Drink plenty of fluids. Take [id number] Tylenol as directed on package as needed for headache. Return to the emergency department for any severe headache otherwise follow-up with neurology within 1 week. - Post Discharge Activity
[2018-07-26 12:23] LABS: BASO % 0.7 % (0-2.0); EOS % 0.5 % (0-4.5); HEMATOCRIT 41.2 % (32.4-45.2); HEMOGLOBIN 13.7 GM/dL (10.7-15.3); MCH 34.1 pg (25.7-33.7); MCHC 33.1 g/dl (32.0-36.0); MEAN PLT VOLUME 9.9 fl (7.5-11.1); MONO % 8.8 % (3.8-10.2); PLATELET COUNT 235 K/MM3 (134-434); RDW 16.7 % (11.6-15.6); WHITE BLOOD COUNT 8.8 K/mm3 (4.0-10.0)
[2018-07-26 12:34] LABS: EPI CELLS 2.4 /HPF (0-5/HPF); HYALINE CASTS 2 /lpf (0-8); PH,URINE 5.5 (5.0-8.0); URINE APPEARANCE CLEAR; URINE BACTERIA 16.4 /hpf (NEGATIVE); URINE BILIRUBIN NEGATIVE (NEGATIVE); URINE COLOR YELLOW; URINE GLUCOSE (UA) NEGATIVE (NEGATIVE); URINE KETONE NEGATIVE (NEGATIVE); URINE LEUK ESTERASE 1+ (NEGATIVE); URINE NITRITE NEGATIVE (NEGATIVE); URINE PROTEIN NEGATIVE (NEGATIVE); URINE RBC 1 /hpf (0-4); URINE UROBILINOGEN 0.2 mg/dL (0.2-1.0); URINE WBC 4 /hpf (0-5)
[2018-07-26 14:19] LABS: ERYTHROCYTE SEDIMENTATION RATE 33 mm/hr (0-30)
[2018-07-26 14:34] LABS: ALBUMIN 3.4 g/dl (3.4-5.0); BILIRUBIN,TOTAL 0.4 mg/dL (0.2-1); CALCIUM 8.8 mg/dL (8.5-10.1); TOT PROT 7.1 g/dl (6.4-8.2)
[2018-07-26 15:32] VITALS: BP 131/71; PULSE 68
--- NOTE | 2018-07-28 15:34 | EKG ---
Test Reason : Blood Pressure : / mmHG Vent. Rate : 067 BPM Atrial Rate : 067 BPM P-R Int : 160 ms QRS Dur : 138 ms QT Int : 446 ms P-R-T Axes : 051 -54 049 degrees QTc Int : 471 ms NORMAL SINUS RHYTHM POSSIBLE LEFT ATRIAL ENLARGEMENT LEFT AXIS DEVIATION LEFT VENTRICULAR HYPERTROPHY WITH QRS WIDENING ABNORMAL ECG WHEN COMPARED WITH ECG OF 25-APR-2018 20:21, COMPARED TO EKG NO SIGNIFICANT CHANGE IS FOUND Confirmed by MALINDA REDDING MD ([id number]) on 07/28/2018 3:33:44 PM Referred By: Confirmed By:MALINDA REDDING MD
== END 2018-07-26 15:39 | disposition home or self-care (01) ==
LOC: JER 10:58
PROC: 3E0337Z Introduction of Electrolytic and Water Balance Substance into Peripheral Vein, Percutaneous Approach (ICD-10-PCS; principal; 2018-07-26)
PROC: 3E033NZ Introduction of Analgesics, Hypnotics, Sedatives into Peripheral Vein, Percutaneous Approach (ICD-10-PCS; 2018-07-26)
PROC: 3E033GC Introduction of Other Therapeutic Substance into Peripheral Vein, Percutaneous Approach (ICD-10-PCS; 2018-07-26)
DX: R51 Headache (principal); R73.03 Prediabetes; E78.5 Hyperlipidemia, unspecified; Z94.0 Kidney transplant status; J45.909 Unspecified asthma, uncomplicated
CPT/HCPCS: 36415; 70450-TC; 80053; 81003; 85025; 85651; 86140; 87086; 87186; 93005; 93010; 96374; 96375; 99282-25; J0131; J7030

== ENCOUNTER 2018-12-20 16:45 | Emergency (ER) | payer OTHER ==
[2018-12-20 16:51] VITALS: BP 155/86; PULSE 86; TEMP 98.2; BMI 25.4
[2018-12-20] MEDS ORDERED: DIPHTH,PERTUSS(ACELL),TET 0.5 ML DISP.SYRIN IM ONE ×2 (16:51→17:02)
[2018-12-20] MEDS ORDERED: AMOX TR/POT CLAV 875MG/125MG TABLETS (FP) PO ONE (16:51)
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
[2018-12-20] MEDS ORDERED: AMOX TR/POT CLAV 875MG/125MG TABLETS (FP) ONE (17:02)
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
== END 2018-12-20 18:22 | disposition home or self-care (01) ==
LOC: JERFT 16:45
PROC: 3E0234Z Introduction of Serum, Toxoid and Vaccine into Muscle, Percutaneous Approach (ICD-10-PCS; principal; 2018-12-20)
DX: S61.552A Open bite of left wrist, initial encounter (principal); W50.3XXA Accidental bite by another person, initial encounter; Y93.89 Activity, other specified; Y92.811 Bus as the place of occurrence of the external cause; Y99.0 Civilian activity done for income or pay; I10 Essential (primary) hypertension; I25.10 Atherosclerotic heart disease of native coronary artery without angina pectoris; I51.7 Cardiomegaly; Z98.61 Coronary angioplasty status; E78.00 Pure hypercholesterolemia, unspecified; E11.9 Type 2 diabetes mellitus without complications; Z94.0 Kidney transplant status; Z86.73 Personal history of transient ischemic attack (TIA), and cerebral infarction without residual deficits
CPT/HCPCS: 90715; 99281-25

== ENCOUNTER 2020-04-28 11:28 | Inpatient (IN) | payer OTHER ==
[2020-04-28 11:32] VITALS: BMI 25.5
[2020-04-28 13:11] LABS: INR 0.96 (0.83-1.09); PROTHROMBIN TIME (PATIENT) 11.6 SEC (9.7-13.0)
[2020-04-28 13:13] LABS: ACTIVATED PTT 21.2 SECONDS (25.2-36.5)
[2020-04-28 13:28] LABS: BASO % 1.1 % (0-2.0); EOS % 0.7 % (0-4.5); HEMATOCRIT 39.1 % (32.4-45.2); HEMOGLOBIN 13.2 GM/dL (10.7-15.3); LYMPH % 29.5 % (8-40); MCH 33.8 pg (25.7-33.7); MCHC 33.6 g/dl (32.0-36.0); MEAN CELL VOLUME 100.4 fl (80-96); MEAN PLT VOLUME 11.3 fl (7.5-11.1); NEUT % 61.7 % (42.8-82.8); RBC 3.89 M/mm3 (3.60-5.2); RDW 16.7 % (11.6-15.6)
[2020-04-28 13:47] LABS: CALCIUM 9.3 mg/dL (8.5-10.1)
[2020-04-28 13:48] LABS: ALBUMIN 3.8 g/dl (3.4-5.0)
[2020-04-28 13:51] LABS: CREATININE 1.1 mg/dL (0.55-1.3)
[2020-04-28 13:53] LABS: BILIRUBIN,TOTAL 0.6 mg/dL (0.2-1)
[2020-04-28 13:57] LABS: WHITE BLOOD COUNT 13.3 K/mm3 (4.0-10.0)
[2020-04-28 14:03] LABS: POTASSIUM 4.2 mmol/L (3.5-5.1)
[2020-04-28 14:30] LABS: EPI CELLS 21 /uL (0-25.1); HYALINE CASTS 1 /uL (0-3.1); PH,URINE 5.5 (5.0-8.0); URINE APPEARANCE CLEAR; URINE BACTERIA 165 /uL (0-1359); URINE BILIRUBIN NEGATIVE (NEGATIVE); URINE COLOR YELLOW; URINE GLUCOSE (UA) NEGATIVE (NEGATIVE); URINE KETONE NEGATIVE (NEGATIVE); URINE LEUK ESTERASE 1+ (NEGATIVE); URINE NITRITE NEGATIVE (NEGATIVE); URINE PROTEIN TRACE (NEGATIVE); URINE RBC 5 /uL (0-23.9); URINE UROBILINOGEN 0.2 mg/dL (0.2-1.0); URINE WBC 29 /uL (0-25.8)
[2020-04-28 15:39] LABS: PLATELET COUNT 267 K/MM3 (134-434)
[2020-04-28 15:49] LABS: PLATELET ESTIMATE NORMAL
[2020-04-28] MEDS ORDERED: CEFTRIAXONE 1,000 MG in DEXTROSE 5%-WATER - 50 ML IVPB ONE (16:13)
[2020-04-28] MEDS ORDERED: CEFTRIAXONE 1 GM/50 ML BAG ONE (16:42)
[2020-04-28] MEDS ORDERED: ACETAMINOPHEN 325 MG TABLET (FP) PO PRN (21:46)
[2020-04-28] MEDS ORDERED: PATIENT'S OWN MEDICATION (NON-FORMULARY) (Ipratropium Bromide [Atrovent Hfa] 12.9 GM Hfa.A IH SCH (22:00)
[2020-04-28] MEDS ORDERED: PATIENT'S OWN MEDICATION (NON-FORMULARY) (Fluticasone Propionate [Flovent Hfa] 110 MCG/INH IH SCH (22:00)
[2020-04-28] MEDS: MONTELUKAST NA 10 MG TABLET PO SCH ×2 (22:27→23:18)
[2020-04-28] MEDS: HEPARIN NA (PORCINE) 5,000 UNITS/ML 1ML VIAL SQ SCH (22:27)
[2020-04-28] MEDS: FAMOTIDINE 10 MG TABLET PO SCH (22:27)
[2020-04-28] MEDS: MOMETASONE FUROATE 220 MCG/IH INHALER IH SCH (22:42)
[2020-04-29] MEDS: LEVOTHYROXINE NA 75 MCG TABLET (FP) PO SCH (06:03)
[2020-04-29 08:52] LABS: BASO % 1.1 % (0-2.0); EOS % 0.7 % (0-4.5); HEMATOCRIT 34.5 % (32.4-45.2); HEMOGLOBIN 11.8 GM/dL (10.7-15.3); LYMPH % 30.2 % (8-40); MCH 34.3 pg (25.7-33.7); MCHC 34.4 g/dl (32.0-36.0); MEAN PLT VOLUME 9.4 fl (7.5-11.1); MONO % 8.8 % (3.8-10.2); NEUT % 59.2 % (42.8-82.8); PLATELET COUNT 224 K/MM3 (134-434); RBC 3.45 M/mm3 (3.60-5.2); RDW 15.9 % (11.6-15.6)
[2020-04-29 09:11] LABS: POTASSIUM 4.1 mmol/L (3.5-5.1)
[2020-04-29 09:16] LABS: BLOOD UREA NITROGEN 21.9 mg/dL (7-18)
[2020-04-29] MEDS ORDERED: DEXTROSE 5%-WATER - 50 ML IVPB ONE (09:56)
[2020-04-29] MEDS ORDERED: PT OWN MED DRAWER 7, Y5N ONE ×2 (09:56→11:27)
[2020-04-29] MEDS ORDERED: cefTRIAXone SODIUM 1 GM VIAL ONE (09:56)
[2020-04-29] MEDS ORDERED: PATIENT'S OWN MEDICATION (NON-FORMULARY) (Ranitidine [Zantac -] 150 MG Tablet) PO SCH (10:00)
[2020-04-29] MEDS: predniSONE 5 MG TABLET (UD) PO SCH (10:00)
[2020-04-29] MEDS: azaTHIOprine 50 MG TABLET PO SCH (10:01)
[2020-04-29] MEDS: FUROSEMIDE 20 MG TABLET (FP) PO SCH (10:01)
[2020-04-29] MEDS: CEFTRIAXONE 1 GM in DEXTROSE 5%-WATER - 50 ML IVPB SCH (10:01)
[2020-04-29] MEDS: HEPARIN NA (PORCINE) 5,000 UNITS/ML 1ML VIAL SQ SCH ×2 (10:02→21:11)
[2020-04-29] MEDS: FAMOTIDINE 10 MG TABLET PO SCH ×2 (12:33→21:11)
[2020-04-29] MEDS ORDERED: SODIUM CHLORIDE 1,000 ML IV SCH (12:45)
[2020-04-29] MEDS ORDERED: POLYETHYLENE GLYCOL 3350 119 GM BTL PO ONE (14:54)
[2020-04-29] MEDS: MOMETASONE FUROATE 220 MCG/IH INHALER IH SCH (21:11)
[2020-04-29] MEDS: MONTELUKAST NA 10 MG TABLET PO SCH (21:13)
[2020-04-30] MEDS: LEVOTHYROXINE NA 75 MCG TABLET (FP) PO SCH (06:09)
[2020-04-30 07:58] LABS: BASO % 0.9 % (0-2.0); EOS % 0.9 % (0-4.5); HEMATOCRIT 32.9 % (32.4-45.2); HEMOGLOBIN 11.3 GM/dL (10.7-15.3); LYMPH % 33.1 % (8-40); MCH 34.1 pg (25.7-33.7); MCHC 34.2 g/dl (32.0-36.0); MEAN CELL VOLUME 99.8 fl (80-96); MEAN PLT VOLUME 9.7 fl (7.5-11.1); MONO % 9.8 % (3.8-10.2); NEUT % 55.3 % (42.8-82.8); PLATELET COUNT 212 K/MM3 (134-434); RDW 15.7 % (11.6-15.6); WHITE BLOOD COUNT 6.4 K/mm3 (4.0-10.0)
[2020-04-30 08:29] LABS: POTASSIUM 3.6 mmol/L (3.5-5.1)
[2020-04-30 08:53] LABS: CALCIUM 8.5 mg/dL (8.5-10.1)
[2020-04-30 08:54] LABS: BLOOD UREA NITROGEN 22.8 mg/dL (7-18); MAGNESIUM 2.1 mg/dL (1.8-2.4)
[2020-04-30 08:56] LABS: CREATININE 1.1 mg/dL (0.55-1.3)
[2020-04-30 08:57] LABS: PHOSPHOROUS 3.2 mg/dL (2.5-4.9)
[2020-04-30 08:58] LABS: BILIRUBIN,TOTAL 0.6 mg/dL (0.2-1); TOT PROT 6.2 g/dl (6.4-8.2)
[2020-04-30] MEDS ORDERED: PT OWN MED DRAWER 7, Y5N ONE (09:36)
[2020-04-30] MEDS ORDERED: DEXTROSE 5%-WATER - 50 ML IVPB ONE (09:39)
[2020-04-30] MEDS ORDERED: cefTRIAXone SODIUM 1 GM VIAL ONE (09:39)
[2020-04-30] MEDS: GABAPENTIN 100 MG CAPSULE PO SCH (10:29)
[2020-04-30] MEDS: FUROSEMIDE 20 MG TABLET (FP) PO SCH (10:29)
[2020-04-30] MEDS: predniSONE 5 MG TABLET (UD) PO SCH (10:29)
[2020-04-30] MEDS: azaTHIOprine 50 MG TABLET PO SCH (10:29)
[2020-04-30] MEDS: HEPARIN NA (PORCINE) 5,000 UNITS/ML 1ML VIAL SQ SCH ×2 (10:30→21:07)
[2020-04-30] MEDS: CEFTRIAXONE 1 GM in DEXTROSE 5%-WATER - 50 ML IVPB SCH (10:31)
[2020-04-30] MEDS: FAMOTIDINE 10 MG TABLET PO SCH ×2 (10:32→21:07)
[2020-04-30] MEDS: POLYETHYLENE GLYCOL 3350 119 GM BTL PO SCH (11:47)
[2020-04-30] MEDS: MONTELUKAST NA 10 MG TABLET PO SCH (21:07)
[2020-04-30] MEDS: MOMETASONE FUROATE 220 MCG/IH INHALER IH SCH (21:07)
[2020-05-01] MEDS: LEVOTHYROXINE NA 75 MCG TABLET (FP) PO SCH (06:45)
[2020-05-01 08:45] LABS: POTASSIUM 4.1 mmol/L (3.5-5.1)
[2020-05-01 08:55] LABS: BLOOD UREA NITROGEN 17.5 mg/dL (7-18); CALCIUM 8.8 mg/dL (8.5-10.1)
[2020-05-01 08:59] LABS: CREATININE 1.1 mg/dL (0.55-1.3)
[2020-05-01] MEDS ORDERED: cefTRIAXone SODIUM 1 GM VIAL ONE ×2 (09:51→09:53)
[2020-05-01] MEDS ORDERED: DEXTROSE 5%-WATER - 50 ML IVPB ONE (09:53)
[2020-05-01] MEDS: GABAPENTIN 100 MG CAPSULE PO SCH (10:15)
[2020-05-01] MEDS: predniSONE 5 MG TABLET (UD) PO SCH (10:15)
[2020-05-01] MEDS: FUROSEMIDE 20 MG TABLET (FP) PO SCH (10:15)
[2020-05-01] MEDS: FAMOTIDINE 10 MG TABLET PO SCH (10:15)
[2020-05-01] MEDS: HEPARIN NA (PORCINE) 5,000 UNITS/ML 1ML VIAL SQ SCH (10:24)
[2020-05-01] MEDS: CEFTRIAXONE 1 GM in DEXTROSE 5%-WATER - 50 ML IVPB SCH (10:34)
[2020-05-01 10:46] VITALS: PULSE 69; TEMP 98.5
[2020-05-01] MEDS: azaTHIOprine 50 MG TABLET PO SCH (10:57)
[2020-05-01] MEDS: POLYETHYLENE GLYCOL 3350 119 GM BTL PO SCH (12:51)
[2020-05-01 16:24] VITALS: BP 147/68
== END 2020-05-01 16:00 | disposition home or self-care (01) | DRG 690 ==
LOC: JER 11:28 → JERBED 17:50 → J8W 20:45
PROVIDERS: ADMIT Internal Medicine; ATTEND Internal Medicine
DX: N39.0 Urinary tract infection, site not specified (principal); K86.2 Cyst of pancreas; Z94.0 Kidney transplant status; R10.31 Right lower quadrant pain; N16 Renal tubulo-interstitial disorders in diseases classified elsewhere; I10 Essential (primary) hypertension; E78.5 Hyperlipidemia, unspecified; K21.9 Gastro-esophageal reflux disease without esophagitis; K76.0 Fatty (change of) liver, not elsewhere classified
CPT/HCPCS: 36415; 71046-TC-FY; 71250-TC; 72131-TC; 72148-TC; 74176-TC; 76776-TC; 80048; 80053; 81003; 83605; 83690; 83735; 84100; 85025; 85610; 85730; 86301; 86850; 86900; 86901; 87077; 87086; 93005; 93010; 99285-25; C9803; J1644; U0003

== ENCOUNTER 2020-07-14 10:01 | Inpatient (IN) | payer OTHER ==
[2020-07-14] MEDS ORDERED: ACETAMINOPHEN 1000 MG/100 ML VIAL (NON FORMULARY) IVPB ONE (11:14)
[2020-07-14] MEDS ORDERED: diazePAM CARPU-JECT 10 MG/2 ML DISP.SYRIN IVPUSH ONE (11:17)
[2020-07-14] MEDS ORDERED: ACETAMINOPHEN INJECTION 100 ML IVPB ONE (11:18)
[2020-07-14] MEDS ORDERED: diazePAM CARPU-JECT 10 MG/2 ML DISP.SYRIN ONE (11:52)
[2020-07-14 12:04] LABS: BASO % 0.4 % (0-2.0); EOS % 0.1 % (0-4.5); HEMATOCRIT 33.8 % (32.4-45.2); HEMOGLOBIN 11.4 GM/dL (10.7-15.3); LYMPH % 14.8 % (8-40); MCH 33.9 pg (25.7-33.7); MCHC 33.7 g/dl (32.0-36.0); MEAN CELL VOLUME 100.6 fl (80-96); MEAN PLT VOLUME 8.9 fl (7.5-11.1); MONO % 12.1 % (3.8-10.2); NEUT % 72.6 % (42.8-82.8); PLATELET COUNT 216 K/MM3 (134-434); RBC 3.37 M/mm3 (3.60-5.2); RDW 16.9 % (11.6-15.6); WHITE BLOOD COUNT 10.8 K/mm3 (4.0-10.0)
[2020-07-14 12:36] LABS: CALCIUM 8.6 mg/dL (8.5-10.1)
[2020-07-14 12:38] LABS: ALBUMIN 2.9 g/dl (3.4-5.0); BLOOD UREA NITROGEN 21.2 mg/dL (7-18)
[2020-07-14 12:41] LABS: BILIRUBIN,TOTAL 0.6 mg/dL (0.2-1); TOT PROT 6.3 g/dl (6.4-8.2)
[2020-07-14 12:48] LABS: ERYTHROCYTE SEDIMENTATION RATE 82 mm/hr (0-30)
[2020-07-14] MEDS ORDERED: GABAPENTIN 100 MG CAPSULE PO PRN (13:44)
[2020-07-14] MEDS ORDERED: PATIENT'S OWN MEDICATION (NON-FORMULARY) (Lipase/Protease/Amylase [Zenpep Dr 40,000 Unit C PO SCH (13:45)
[2020-07-14 13:49] LABS: EPI CELLS 5 /uL (0-25.1); HYALINE CASTS 1 /uL (0-3.1); URINE APPEARANCE CLOUDY; URINE BACTERIA >9,000 /uL (0-1359); URINE BILIRUBIN NEGATIVE (NEGATIVE); URINE COLOR YELLOW; URINE GLUCOSE (UA) NEGATIVE (NEGATIVE); URINE KETONE NEGATIVE (NEGATIVE); URINE LEUK ESTERASE 2+ (NEGATIVE); URINE NITRITE POSITIVE (NEGATIVE); URINE PROTEIN TRACE (NEGATIVE); URINE RBC 18 /uL (0-23.9); URINE UROBILINOGEN 0.2 mg/dL (0.2-1.0); URINE WBC 527 /uL (0-25.8)
[2020-07-14] MEDS ORDERED: CEFTRIAXONE 1,000 MG in DEXTROSE 5%-WATER - 50 ML IVPB ONE (13:52)
[2020-07-14] MEDS ORDERED: PATIENT'S OWN MEDICATION (NON-FORMULARY) (Ipratropium Bromide [Atrovent Hfa] 12.9 GM Hfa.A IH SCH (14:00)
[2020-07-14] MEDS ORDERED: CEFTRIAXONE 1 GM/50 ML BAG ONE (14:01)
[2020-07-14 18:56] VITALS: BMI 25.2
[2020-07-14] MEDS ORDERED: PT OWN MED DRAWER 7, Y5N ONE (21:15)
[2020-07-14] MEDS: MOMETASONE FUROATE 220 MCG/IH INHALER IH SCH (21:41)
[2020-07-14] MEDS: ROSUVASTATIN CA 10 MG TABLET (FP) PO SCH (21:42)
[2020-07-14] MEDS: HEPARIN NA (PORCINE) 5,000 UNITS/ML 1ML VIAL SQ SCH (21:42)
[2020-07-14] MEDS: LIDOCAINE PATCH REMOVAL MC SCH (21:43)
[2020-07-14] MEDS: azaTHIOprine 50 MG TABLET PO SCH (22:09)
[2020-07-15] MEDS: LEVOTHYROXINE NA 75 MCG TABLET (FP) PO SCH (05:59)
[2020-07-15] MEDS ORDERED: PT OWN MED DRAWER 7, Y5N ONE ×2 (09:21→20:59)
[2020-07-15] MEDS: HEPARIN NA (PORCINE) 5,000 UNITS/ML 1ML VIAL SQ SCH ×2 (09:26→21:15)
[2020-07-15] MEDS: predniSONE 5 MG TABLET (UD) PO SCH (09:27)
[2020-07-15] MEDS: LIDOCAINE 5% TOPICAL PATCH TP SCH (09:27)
[2020-07-15] MEDS: GABAPENTIN 300 MG CAPSULE PO SCH (09:27)
[2020-07-15] MEDS: azaTHIOprine 50 MG TABLET PO SCH ×2 (09:27→21:14)
[2020-07-15] MEDS: POLYETHYLENE GLYCOL 3350 119 GM BTL PO SCH (09:32)
[2020-07-15] MEDS: MONTELUKAST NA 10 MG TABLET PO SCH (09:32)
[2020-07-15] MEDS ORDERED: DEXTROSE 5%-WATER - 50 ML IVPB ONE (11:56)
[2020-07-15] MEDS ORDERED: cefTRIAXone SODIUM 1 GM VIAL ONE (11:56)
[2020-07-15] MEDS: CEFTRIAXONE 1 GM in DEXTROSE 5%-WATER - 50 ML IVPB SCH (12:05)
[2020-07-15] MEDS: ROSUVASTATIN CA 10 MG TABLET (FP) PO SCH (21:14)
[2020-07-15] MEDS: LIDOCAINE PATCH REMOVAL MC SCH (21:15)
[2020-07-15] MEDS: MOMETASONE FUROATE 220 MCG/IH INHALER IH SCH (21:29)
[2020-07-16] MEDS: ACETAMINOPHEN 325 MG TABLET (FP) PO PRN (04:11)
[2020-07-16] MEDS: LEVOTHYROXINE NA 75 MCG TABLET (FP) PO SCH (06:00)
[2020-07-16] MEDS ORDERED: cefTRIAXone SODIUM 1 GM VIAL ONE (09:16)
[2020-07-16] MEDS ORDERED: DEXTROSE 5%-WATER - 50 ML IVPB ONE (09:16)
[2020-07-16] MEDS ORDERED: PT OWN MED DRAWER 7, Y5N ONE ×2 (09:17→21:02)
[2020-07-16] MEDS: predniSONE 5 MG TABLET (UD) PO SCH (09:29)
[2020-07-16] MEDS: CEFTRIAXONE 1 GM in DEXTROSE 5%-WATER - 50 ML IVPB SCH (09:29)
[2020-07-16] MEDS: azaTHIOprine 50 MG TABLET PO SCH ×2 (09:30→21:30)
[2020-07-16] MEDS: HEPARIN NA (PORCINE) 5,000 UNITS/ML 1ML VIAL SQ SCH ×2 (09:30→21:30)
[2020-07-16] MEDS: LIDOCAINE 5% TOPICAL PATCH TP SCH (09:30)
[2020-07-16] MEDS: POLYETHYLENE GLYCOL 3350 119 GM BTL PO SCH (09:30)
[2020-07-16] MEDS: GABAPENTIN 300 MG CAPSULE PO SCH (09:30)
[2020-07-16] MEDS: MONTELUKAST NA 10 MG TABLET PO SCH (09:30)
[2020-07-16] MEDS: MOMETASONE FUROATE 220 MCG/IH INHALER IH SCH (21:30)
[2020-07-16] MEDS: ROSUVASTATIN CA 10 MG TABLET (FP) PO SCH (21:30)
[2020-07-16] MEDS: LIDOCAINE PATCH REMOVAL MC SCH (21:31)
[2020-07-17] MEDS: ACETAMINOPHEN 325 MG TABLET (FP) PO PRN (03:04)
[2020-07-17] MEDS: LEVOTHYROXINE NA 75 MCG TABLET (FP) PO SCH (06:05)
[2020-07-17 09:28] LABS: BASO % 0.6 % (0-2.0); EOS % 0.7 % (0-4.5); HEMATOCRIT 36.4 % (32.4-45.2); HEMOGLOBIN 12.2 GM/dL (10.7-15.3); LYMPH % 32.5 % (8-40); MCH 34.2 pg (25.7-33.7); MCHC 33.6 g/dl (32.0-36.0); MEAN CELL VOLUME 101.8 fl (80-96); MEAN PLT VOLUME 9.2 fl (7.5-11.1); MONO % 9.2 % (3.8-10.2); PLATELET COUNT 299 K/MM3 (134-434); RBC 3.57 M/mm3 (3.60-5.2); RDW 17.3 % (11.6-15.6); WHITE BLOOD COUNT 7.6 K/mm3 (4.0-10.0)
[2020-07-17] MEDS ORDERED: cefTRIAXone SODIUM 1 GM VIAL ONE (09:30)
[2020-07-17] MEDS ORDERED: PT OWN MED DRAWER 7, Y5N ONE ×2 (09:30→20:49)
[2020-07-17] MEDS ORDERED: DEXTROSE 5%-WATER - 50 ML IVPB ONE (09:31)
[2020-07-17] MEDS: CEFTRIAXONE 1 GM in DEXTROSE 5%-WATER - 50 ML IVPB SCH (09:38)
[2020-07-17] MEDS: LIDOCAINE 5% TOPICAL PATCH TP SCH (09:38)
[2020-07-17] MEDS: POLYETHYLENE GLYCOL 3350 119 GM BTL PO SCH (09:40)
[2020-07-17] MEDS: HEPARIN NA (PORCINE) 5,000 UNITS/ML 1ML VIAL SQ SCH ×2 (09:42→21:53)
[2020-07-17] MEDS: GABAPENTIN 300 MG CAPSULE PO SCH (09:43)
[2020-07-17] MEDS: predniSONE 5 MG TABLET (UD) PO SCH (09:43)
[2020-07-17] MEDS: azaTHIOprine 50 MG TABLET PO SCH ×2 (09:43→21:53)
[2020-07-17] MEDS: MONTELUKAST NA 10 MG TABLET PO SCH ×2 (09:43→09:48)
[2020-07-17 10:19] LABS: ALBUMIN 3.1 g/dl (3.4-5.0); BLOOD UREA NITROGEN 34.1 mg/dL (7-18)
[2020-07-17 10:23] LABS: CREATININE 1.1 mg/dL (0.55-1.3)
[2020-07-17 10:24] LABS: BILIRUBIN,TOTAL 0.4 mg/dL (0.2-1); TOT PROT 7.1 g/dl (6.4-8.2)
[2020-07-17] MEDS ORDERED: BISACODYL 10 MG SUPP.RECT PR PRN (10:43)
[2020-07-17] MEDS: ROSUVASTATIN CA 10 MG TABLET (FP) PO SCH (21:53)
[2020-07-17] MEDS: MOMETASONE FUROATE 220 MCG/IH INHALER IH SCH (21:54)
[2020-07-17] MEDS: LIDOCAINE PATCH REMOVAL MC SCH (21:54)
[2020-07-18] MEDS: LEVOTHYROXINE NA 75 MCG TABLET (FP) PO SCH (06:00)
[2020-07-18] MEDS ORDERED: cefTRIAXone SODIUM 1 GM VIAL ONE (08:55)
[2020-07-18] MEDS ORDERED: DEXTROSE 5%-WATER - 50 ML IVPB ONE (08:55)
[2020-07-18] MEDS: GABAPENTIN 300 MG CAPSULE PO SCH (09:11)
[2020-07-18] MEDS: predniSONE 5 MG TABLET (UD) PO SCH (09:11)
[2020-07-18] MEDS: HEPARIN NA (PORCINE) 5,000 UNITS/ML 1ML VIAL SQ SCH ×2 (09:11→21:24)
[2020-07-18] MEDS: LIDOCAINE 5% TOPICAL PATCH TP SCH (09:12)
[2020-07-18] MEDS: MONTELUKAST NA 10 MG TABLET PO SCH (09:12)
[2020-07-18] MEDS: CEFTRIAXONE 1 GM in DEXTROSE 5%-WATER - 50 ML IVPB SCH (09:12)
[2020-07-18] MEDS: POLYETHYLENE GLYCOL 3350 119 GM BTL PO SCH (09:13)
[2020-07-18] MEDS: azaTHIOprine 50 MG TABLET PO SCH ×2 (09:29→21:24)
[2020-07-18] MEDS: BISACODYL 10 MG SUPP.RECT PR SCH (15:45)
[2020-07-18] MEDS ORDERED: PT OWN MED DRAWER 7, Y5N ONE ×2 (16:57→21:01)
[2020-07-18] MEDS: ROSUVASTATIN CA 10 MG TABLET (FP) PO SCH (21:24)
[2020-07-18] MEDS: MOMETASONE FUROATE 220 MCG/IH INHALER IH SCH (21:24)
[2020-07-18] MEDS: LIDOCAINE PATCH REMOVAL MC SCH (21:25)
[2020-07-19] MEDS: LEVOTHYROXINE NA 75 MCG TABLET (FP) PO SCH (06:08)
[2020-07-19] MEDS ORDERED: PT OWN MED DRAWER 7, Y5N ONE (09:38)
[2020-07-19] MEDS ORDERED: DEXTROSE 5%-WATER - 50 ML IVPB ONE (09:38)
[2020-07-19] MEDS ORDERED: cefTRIAXone SODIUM 1 GM VIAL ONE (09:38)
[2020-07-19] MEDS: LIDOCAINE 5% TOPICAL PATCH TP SCH (09:48)
[2020-07-19] MEDS: HEPARIN NA (PORCINE) 5,000 UNITS/ML 1ML VIAL SQ SCH (09:49)
[2020-07-19] MEDS: GABAPENTIN 300 MG CAPSULE PO SCH (09:49)
[2020-07-19] MEDS: azaTHIOprine 50 MG TABLET PO SCH (09:49)
[2020-07-19] MEDS: BISACODYL 10 MG SUPP.RECT PR SCH (09:49)
[2020-07-19] MEDS: predniSONE 5 MG TABLET (UD) PO SCH (09:49)
[2020-07-19] MEDS: MONTELUKAST NA 10 MG TABLET PO SCH (09:50)
[2020-07-19] MEDS: CEFTRIAXONE 1 GM in DEXTROSE 5%-WATER - 50 ML IVPB SCH (09:50)
[2020-07-19] MEDS: POLYETHYLENE GLYCOL 3350 119 GM BTL PO SCH (10:00)
[2020-07-19 14:27] VITALS: BP 121/63; PULSE 66; TEMP 98.2
== END 2020-07-19 15:47 | disposition home health service (06) | DRG 551 ==
LOC: JER 10:01 → JERBED 13:45 → J6S 17:35
PROVIDERS: ADMIT Internal Medicine; ATTEND Internal Medicine
DX: M54.16 Radiculopathy, lumbar region (principal); N18.6 End stage renal disease; N39.0 Urinary tract infection, site not specified; Z94.0 Kidney transplant status; M51.36 Other intervertebral disc degeneration, lumbar region; E78.5 Hyperlipidemia, unspecified; M48.061 Spinal stenosis, lumbar region without neurogenic claudication; G40.909 Epilepsy, unspecified, not intractable, without status epilepticus; E78.00 Pure hypercholesterolemia, unspecified; J45.909 Unspecified asthma, uncomplicated; B96.1 Klebsiella pneumoniae [K. pneumoniae] as the cause of diseases classified elsewhere; K76.0 Fatty (change of) liver, not elsewhere classified; E03.9 Hypothyroidism, unspecified; E21.3 Hyperparathyroidism, unspecified
CPT/HCPCS: 36415; 72131-TC; 73502-TC-LT-FY; 73502-TC-RT-FY; 73700-TC-RT; 80053; 81003; 82607; 83874; 84155; 84156; 84157; 84165; 85025; 85651; 86140; 87086; 87186; 93005; 93010; 97116-GP; 97162-GP; 99285-25; C9803; J0131; J1644; U0003; U0005

== ENCOUNTER 2022-02-02 10:30 | Emergency (ER) | payer OTHER ==
[2022-02-02 10:57] VITALS: BP 153/79; PULSE 96; RESP 18; TEMP 97.8; BMI 24.7
[2022-02-02] MEDS ORDERED: ACETAMINOPHEN 325 MG TABLET (FP) PO ONE (12:09)
[2022-02-02] MEDS ORDERED: ACETAMINOPHEN 325 MG TABLET (FP) ONE (12:15)
[2022-02-02] MEDS ORDERED: diazePAM 2 MG TABLET PO ONE (12:19)
[2022-02-02] MEDS ORDERED: diazePAM 2 MG TABLET ONE (13:49)
== END 2022-02-02 15:43 | disposition home or self-care (01) ==
LOC: JER 10:30 → JERFT 10:30 → JER 15:43
DX: R51.9 Headache, unspecified (principal); M25.512 Pain in left shoulder; M25.552 Pain in left hip; R91.1 Solitary pulmonary nodule; W01.0XXA Fall on same level from slipping, tripping and stumbling without subsequent striking against object, initial encounter
CPT/HCPCS: 70450-TC; 72125-TC; 72128-TC; 72170-TC-FY; 72192-TC; 73030-TC-LT-FY; 73060-TC-LT-FY; 73070-TC-LT-FY; 73090-TC-LT-FY; 73552-TC-LT-FY; 99285-25

== ENCOUNTER 2022-09-18 19:17 | Emergency (ER) | payer OTHER ==
[2022-09-18 19:36] VITALS: BMI 24.1
[2022-09-18] MEDS ORDERED: ACETAMINOPHEN 325 MG TABLET (FP) PO ONE (22:50)
[2022-09-18] MEDS ORDERED: ACETAMINOPHEN INJECTION 100 ML IVPB ONE (23:49)
[2022-09-18] MEDS ORDERED: FAMOTIDINE 20 MG/50 ML IVPB 20 MG/50 ML MG IVPB ONE (23:49)
[2022-09-18] MEDS ORDERED: ONDANSETRON 4 MG/2 ML VIAL ONE (23:49)
[2022-09-19] MEDS ORDERED: ACETAMINOPHEN 325 MG TABLET (FP) ONE (00:15)
[2022-09-19 01:14] VITALS: BP 159/90; PULSE 85; RESP 18; TEMP 97
== END 2022-09-19 01:39 | disposition home or self-care (01) ==
LOC: JER 19:17
DX: H92.03 Otalgia, bilateral (principal); R51.9 Headache, unspecified
CPT/HCPCS: 70486-TC; 87651; 99284-25

== ENCOUNTER 2023-06-08 04:20 | Day surgery (SDC) | payer OTHER ==
[2023-06-07 10:48] VITALS: BMI 24.1
[2023-06-08] MEDS ORDERED: BUPIVACAINE HCL/PF 0.75% 10 ML VIAL ONE (07:24)
[2023-06-08] MEDS ORDERED: LIDOCAINE HCL/PF 1% SDV 5ML VIAL ONE (07:25)
[2023-06-08] MEDS ORDERED: ACETAMINOPHEN 500 MG TABLET (FP) PO PRN (13:10)
[2023-06-08] MEDS: LIDOCAINE HCL 1% PRESERVATIVE FREE - 30ML VIAL IJ ONE ×2 (15:12)
[2023-06-08] MEDS: BUPIVACAINE HCL/PF 0.75% 10 ML VIAL NR ONE ×2 (15:12)
[2023-06-08 15:44] VITALS: RESP 20
[2023-06-08 16:09] VITALS: BP 130/60; PULSE 60; TEMP 98
== END 2023-06-08 16:00 | disposition home or self-care (01) ==
LOC: JASU-SURG 04:20
PROVIDERS: ATTEND Pain Medicine Pain Medicine
PROC: 3E0T33Z Introduction of Anti-inflammatory into Peripheral Nerves and Plexi, Percutaneous Approach (ICD-10-PCS; 2023-06-08)
PROC: 3E0T3BZ Introduction of Anesthetic Agent into Peripheral Nerves and Plexi, Percutaneous Approach (ICD-10-PCS; principal; 2023-06-08 15:45)
DX: M47.816 Spondylosis without myelopathy or radiculopathy, lumbar region (principal)
CPT/HCPCS: 76000-TC-FY

== ENCOUNTER 2023-09-11 13:19 | Emergency (ER) | payer OTHER ==
[2023-09-11 13:26] VITALS: BP 131/59; PULSE 65; RESP 16; TEMP 97.7; BMI 25.9
[2023-09-11 15:21] LABS: BASO % 0.4 % (0-2.0); HEMATOCRIT 33.8 % (32.4-45.2); HEMOGLOBIN 11.4 GM/dL (10.7-15.3); LYMPH % 9.7 % (8-40); MCH 34.2 pg (25.7-33.7); MCHC 33.7 g/dl (32.0-36.0); MEAN CELL VOLUME 101.5 fl (80-96); MEAN PLT VOLUME 8.9 fl (7.5-11.1); MONO % 4.7 % (3.8-10.2); NEUT % 85.2 % (42.8-82.8); PLATELET COUNT 231 10^3/uL (134-434); RBC 3.33 M/mm3 (3.60-5.2); RDW 16.1 % (11.6-15.6); WHITE BLOOD COUNT 10.5 K/mm3 (4.0-10.0)
[2023-09-11 15:40] LABS: POTASSIUM 4.1 mmol/L (3.5-5.1)
[2023-09-11 15:43] LABS: CALCIUM 9.4 mg/dL (8.5-10.1)
[2023-09-11 15:44] LABS: ALBUMIN 3.4 g/dl (3.4-5.0)
[2023-09-11 15:46] LABS: CREATININE 1.2 mg/dL (0.55-1.3)
[2023-09-11 15:48] LABS: BILIRUBIN,TOTAL 0.4 mg/dL (0.2-1); TOT PROT 7.4 g/dl (6.4-8.2)
[2023-09-11] MEDS ORDERED: DALBAVANCIN HCL 500 MG VIAL (RESTRICTED TO ID ONLY) IVPB ONE (16:27)
[2023-09-11] MEDS: DALBAVANCIN HCL 1,500 MG in DEXTROSE 5%-WATER - 500 ML IVPB ONE (16:40)
== END 2023-09-11 19:00 | disposition home or self-care (01) ==
LOC: JER 13:19
DX: M79.671 Pain in right foot (principal); L03.115 Cellulitis of right lower limb
CPT/HCPCS: 36415; 73630-TC-RT-FY; 80053; 85025; 96365; 99284-25; J0875

== ENCOUNTER 2023-09-29 17:20 | Emergency (ER) | payer OTHER ==
[2023-09-29 17:27] VITALS: BP 144/69; PULSE 67; RESP 16; TEMP 98.3; BMI 25.7
[2023-09-29] MEDS ORDERED: METOCLOPRAMIDE HCL INJECTION 10 MG/2 ML VIAL ONE (18:44)
[2023-09-29] MEDS ORDERED: ACETAMINOPHEN INJECTION 100 ML IVPB ONE (18:44)
[2023-09-29] MEDS ORDERED: KETOROLAC TROMETHAMINE 15 MG/ML VIAL ONE (18:49)
[2023-09-29] MEDS: KETOROLAC TROMETHAMINE 15 MG/ML VIAL IVPUSH ONE (19:18)
[2023-09-29] MEDS: ACETAMINOPHEN 1000 MG/100 ML BAG IVPB ONE (19:18)
[2023-09-29] MEDS: SODIUM CHLORIDE 0.9% 500 ML INFUS.BAG IV ONE (19:18)
[2023-09-29] MEDS: METOCLOPRAMIDE HCL INJECTION 10 MG/2 ML VIAL IVPB ONE (19:18)
[2023-09-29 19:29] LABS: BASO % 0.8 % (0-2.0); EOS % 0.1 % (0-4.5); HEMATOCRIT 32.9 % (32.4-45.2); HEMOGLOBIN 11.3 GM/dL (10.7-15.3); LYMPH % 20.6 % (8-40); MCH 34.3 pg (25.7-33.7); MCHC 34.3 g/dl (32.0-36.0); MEAN CELL VOLUME 100.1 fl (80-96); MEAN PLT VOLUME 8.9 fl (7.5-11.1); MONO % 6.6 % (3.8-10.2); NEUT % 71.9 % (42.8-82.8); PLATELET COUNT 309 10^3/uL (134-434); RBC 3.29 M/mm3 (3.60-5.2); RDW 16.2 % (11.6-15.6); WHITE BLOOD COUNT 8.4 K/mm3 (4.0-10.0)
[2023-09-29 19:31] LABS: ADD RBC MORPHOLOGY YES
[2023-09-29 20:04] LABS: CHLORIDE 106 mmol/L (98-107); SODIUM 136 mmol/L (136-145)
[2023-09-29 20:06] LABS: ALBUMIN 3.4 g/dl (3.4-5.0); ANION GAP 5 mmol/L (4-13); BLOOD UREA NITROGEN 41.1 mg/dL (7-18); CALCIUM 9.6 mg/dL (8.5-10.1); CO2 24 mmol/L (21-32); GLUCOSE,RANDOM 89 mg/dL (74-106); POTASSIUM 6.1 mmol/L (3.5-5.1)
[2023-09-29 20:09] LABS: CREATININE 1.2 mg/dL (0.55-1.3); SGOT/AST 46 U/L (15-37); SGPT/ALT 22 U/L (13-61)
[2023-09-29 20:11] LABS: BILIRUBIN,TOTAL 0.4 mg/dL (0.2-1); TOT PROT 7.3 g/dl (6.4-8.2)
[2023-09-29 20:12] LABS: ALK PHOS 45 U/L (45-117)
[2023-09-29 20:20] LABS: ANISOCYTOSIS 1+; MACROCYTOSIS 1+; OVALOCYTE 1+
[2023-09-29 20:24] LABS: PLATELET ESTIMATE ADEQUATE
[2023-09-29] MEDS ORDERED: LIDOCAINE 5% TOPICAL PATCH ONE (20:26)
[2023-09-29 20:55] LABS: ERYTHROCYTE SEDIMENTATION RATE 68 mm/hr (0-30)
[2023-09-29] MEDS: LIDOCAINE 5% TOPICAL PATCH TP ONE (20:56)
[2023-09-29 21:23] LABS: POTASSIUM 4.7 mmol/L (3.5-5.1)
[2023-09-29 21:25] LABS: CALCIUM 8.6 mg/dL (8.5-10.1)
[2023-09-29 21:26] LABS: ALBUMIN 3.1 g/dl (3.4-5.0); BLOOD UREA NITROGEN 36.4 mg/dL (7-18)
[2023-09-29 21:30] LABS: BILIRUBIN,TOTAL 0.3 mg/dL (0.2-1)
[2023-09-29 21:31] LABS: TOT PROT 6.4 g/dl (6.4-8.2)
[2023-09-29] MEDS ORDERED: LIDOCAINE PATCH REMOVAL MC SCH (22:00)
== END 2023-09-29 22:12 | disposition home or self-care (01) ==
LOC: JER 17:20
PROC: 3E033NZ Introduction of Analgesics, Hypnotics, Sedatives into Peripheral Vein, Percutaneous Approach (ICD-10-PCS; principal; 2023-09-29)
PROC: 3E033GC Introduction of Other Therapeutic Substance into Peripheral Vein, Percutaneous Approach (ICD-10-PCS; 2023-09-29)
DX: R51.9 Headache, unspecified (principal); R42 Dizziness and giddiness; J32.3 Chronic sphenoidal sinusitis; M62.838 Other muscle spasm; M79.661 Pain in right lower leg
CPT/HCPCS: 36415; 70450-TC; 72125-TC; 80053; 82962; 84484; 85025; 85651; 86140; 93005; 93010; 99285-25; J0131

== ENCOUNTER 2023-10-04 16:29 | Observation (INO) | payer OTHER ==
[2023-10-04 18:24] LABS: BASO % 0.4 % (0-2.0); HEMATOCRIT 35.7 % (32.4-45.2); HEMOGLOBIN 11.9 GM/dL (10.7-15.3); LYMPH % 11.6 % (8-40); MCHC 33.3 g/dl (32.0-36.0); MEAN CELL VOLUME 102.2 fl (80-96); MEAN PLT VOLUME 8.5 fl (7.5-11.1); MONO % 3.5 % (3.8-10.2); NEUT % 84.5 % (42.8-82.8); PLATELET COUNT 254 10^3/uL (134-434); RBC 3.49 M/mm3 (3.60-5.2); RDW 16.6 % (11.6-15.6); WHITE BLOOD COUNT 9.1 K/mm3 (4.0-10.0)
[2023-10-04 18:42] LABS: CHLORIDE 105 mmol/L (98-107); POTASSIUM 4.6 mmol/L (3.5-5.1); SODIUM 138 mmol/L (136-145)
[2023-10-04 18:44] LABS: ALBUMIN 3.6 g/dl (3.4-5.0); CALCIUM 9.4 mg/dL (8.5-10.1)
[2023-10-04] MEDS ORDERED: METOCLOPRAMIDE HCL INJECTION 10 MG/2 ML VIAL ONE (18:44)
[2023-10-04] MEDS ORDERED: diazePAM 2 MG TABLET ONE (18:44)
[2023-10-04] MEDS ORDERED: ACETAMINOPHEN INJECTION 100 ML IVPB ONE (18:44)
[2023-10-04 18:45] LABS: ANION GAP 6 mmol/L (4-13); CO2 27 mmol/L (21-32); GLUCOSE,RANDOM 150 mg/dL (74-106)
[2023-10-04 18:47] LABS: CREATININE 1.2 mg/dL (0.55-1.3); SGOT/AST 16 U/L (15-37); SGPT/ALT 18 U/L (13-61)
[2023-10-04 18:49] LABS: BILIRUBIN,TOTAL 0.4 mg/dL (0.2-1); TOT PROT 7.4 g/dl (6.4-8.2)
[2023-10-04 18:51] LABS: ALK PHOS 45 U/L (45-117)
[2023-10-04] MEDS: ACETAMINOPHEN 1000 MG/100 ML BAG IVPB ONE (18:56)
[2023-10-04] MEDS: SODIUM CHLORIDE 0.9% 500 ML INFUS.BAG IV ONE (18:56)
[2023-10-04] MEDS: METOCLOPRAMIDE HCL INJECTION 10 MG/2 ML VIAL IVPUSH ONE (18:57)
[2023-10-04] MEDS: diazePAM 2 MG TABLET PO ONE (18:57)
[2023-10-04 19:21] LABS: ERYTHROCYTE SEDIMENTATION RATE 49 mm/hr (0-30)
[2023-10-04] MEDS ORDERED: DEXAMETHASONE SOD PHOSPHATE 10 MG/1 ML VIAL ONE (21:05)
[2023-10-04] MEDS ORDERED: MAGNESIUM SULFATE IN WATER 2 GM/50 ML IVPB IVPB ONE (21:06)
[2023-10-04] MEDS: DEXAMETHASONE SOD PHOSPHATE 10 MG/1 ML VIAL IVPUSH ONE (21:15)
[2023-10-04] MEDS: MAGNESIUM SULFATE IN WATER 2 GM/50 ML IVPB IVPB ONE (21:15)
[2023-10-04 22:46] VITALS: RESP 18
[2023-10-04] MEDS ORDERED: fentaNYL CITRATE 250 MCG/5 ML VIAL ONE (22:48)
[2023-10-04] MEDS: fentaNYL CITRATE 250 MCG/5 ML VIAL IVPUSH ONE (22:53)
[2023-10-05] MEDS ORDERED: ACETAMINOPHEN 500 MG TABLET (FP) PO PRN (00:35)
[2023-10-05] MEDS ORDERED: HEPARIN NA (PORCINE) 5,000 UNITS/ML 1ML VIAL ONE (02:14)
[2023-10-05] MEDS ORDERED: amLODIPine BESYLATE 10 MG TABLET (FP) ONE (02:14)
[2023-10-05] MEDS ORDERED: amLODIPine BESYLATE 2.5 MG TABLET (FP) ONE (02:14)
[2023-10-05] MEDS: INSULIN ASPART SLIDING SCALE (NOVOLOG) 1 VIAL SQ SCH (02:29)
[2023-10-05] MEDS: HEPARIN NA (PORCINE) 5,000 UNITS/ML 1ML VIAL SQ SCH (05:46)
[2023-10-05] MEDS: LEVOTHYROXINE NA 75 MCG TABLET (FP) PO SCH (06:41)
[2023-10-05 07:02] LABS: EPI CELLS 5 /uL (0-25.1); HYALINE CASTS 1 /uL (0-3.1); PH,URINE 6.5 (5.0-8.0); URINE APPEARANCE CLEAR; URINE BACTERIA 3 /uL (0-1359); URINE BILIRUBIN NEGATIVE (NEGATIVE); URINE COLOR YELLOW; URINE GLUCOSE (UA) NEGATIVE (NEGATIVE); URINE KETONE NEGATIVE (NEGATIVE); URINE LEUK ESTERASE NEGATIVE (NEGATIVE); URINE NITRITE NEGATIVE (NEGATIVE); URINE PROTEIN 1+ (NEGATIVE); URINE RBC 14 /uL (0-23.9); URINE UROBILINOGEN 0.2 mg/dL (0.2-1.0); URINE WBC 5 /uL (0-25.8)
[2023-10-05 09:14] LABS: BASO % 0.1 % (0-2.0); HEMATOCRIT 33.7 % (32.4-45.2); HEMOGLOBIN 11.2 GM/dL (10.7-15.3); LYMPH % 20.1 % (8-40); MCH 33.7 pg (25.7-33.7); MCHC 33.2 g/dl (32.0-36.0); MEAN CELL VOLUME 101.8 fl (80-96); MEAN PLT VOLUME 8.7 fl (7.5-11.1); MONO % 6.4 % (3.8-10.2); NEUT % 73.4 % (42.8-82.8); PLATELET COUNT 266 10^3/uL (134-434); RBC 3.31 M/mm3 (3.60-5.2); RDW 16.4 % (11.6-15.6); WHITE BLOOD COUNT 7.4 K/mm3 (4.0-10.0)
[2023-10-05 09:32] LABS: POTASSIUM 4.3 mmol/L (3.5-5.1)
[2023-10-05 09:34] LABS: ALBUMIN 3.2 g/dl (3.4-5.0); BLOOD UREA NITROGEN 18.9 mg/dL (7-18); CALCIUM 9.1 mg/dL (8.5-10.1); MAGNESIUM 2.6 mg/dL (1.8-2.4)
[2023-10-05 09:37] LABS: CREATININE 0.8 mg/dL (0.55-1.3)
[2023-10-05 09:38] LABS: BILIRUBIN,TOTAL 0.7 mg/dL (0.2-1); PHOSPHOROUS 3.2 mg/dL (2.5-4.9); TOT PROT 6.8 g/dl (6.4-8.2)
[2023-10-05] MEDS: VITAMIN B COMP W-C 1 EA TABLET (NEPHRO-VITE) PO SCH (10:01)
[2023-10-05] MEDS: ACETAMINOPHEN 1000 MG/100 ML BAG IVPB PRN (10:02)
[2023-10-05] MEDS: amLODIPine BESYLATE 2.5 MG TABLET (FP) PO SCH (10:02)
[2023-10-05] MEDS: predniSONE 5 MG TABLET (UD) PO SCH (10:02)
[2023-10-05] MEDS: METHYL SALICYLATE/MENTHOL 30 GM TUBE TP SCH (10:35)
[2023-10-05] MEDS ORDERED: ACETAMINOPHEN/CAFFEINE/BUTALBITAL 1 TAB PO PRN (10:40)
[2023-10-05] MEDS: NEBIVOLOL 10 MG TABLET (FP) PO SCH (11:19)
[2023-10-05] MEDS: azaTHIOprine 50 MG TABLET PO SCH (11:20)
[2023-10-05] MEDS: CYCLOBENZAPRINE HCL 5 MG TABLET PO SCH (11:56)
[2023-10-05 14:27] VITALS: BMI 26.5
[2023-10-05 15:45] VITALS: BP 104/47; PULSE 61; TEMP 99.3
== END 2023-10-05 18:41 | disposition home or self-care (01) ==
LOC: JER 16:29 → JERBED 21:10 → J5S 10-05 02:52
PROVIDERS: ADMIT Internal Medicine; ATTEND Internal Medicine
PROC: 3E033NZ Introduction of Analgesics, Hypnotics, Sedatives into Peripheral Vein, Percutaneous Approach (ICD-10-PCS; principal; 2023-10-04)
PROC: 3E023GC Introduction of Other Therapeutic Substance into Muscle, Percutaneous Approach (ICD-10-PCS; 2023-10-04)
PROC: 3E033GC Introduction of Other Therapeutic Substance into Peripheral Vein, Percutaneous Approach (ICD-10-PCS; 2023-10-04)
PROC: 3E0337Z Introduction of Electrolytic and Water Balance Substance into Peripheral Vein, Percutaneous Approach (ICD-10-PCS; 2023-10-04)
DX: I12.9 Hypertensive chronic kidney disease with stage 1 through stage 4 chronic kidney disease, or unspecified chronic kidney disease (principal); N18.9 Chronic kidney disease, unspecified; Z94.0 Kidney transplant status; E21.3 Hyperparathyroidism, unspecified; E78.5 Hyperlipidemia, unspecified; R80.9 Proteinuria, unspecified; R56.9 Unspecified convulsions; R73.03 Prediabetes; I51.7 Cardiomegaly; K76.0 Fatty (change of) liver, not elsewhere classified; E03.9 Hypothyroidism, unspecified; Z88.5 Allergy status to narcotic agent
CPT/HCPCS: 36415; 70544-TC; 70547-TC; 70551-TC; 80053; 81003; 82962; 83735; 84100; 84443; 85025; 85651; 86140; 93005; 93010; 96365; 96372; 96375; 96376; 97116-GP; 97161-GP; 99285-25; G0378; J0131; J1100; J1644